=== PATIENT | female | born 1980 | race Caucasian/White ===

== ENCOUNTER → 2020-08-29 15:39 | Outpatient (BNVA) | payer OTHER, SELFPAY | PROVIDERS: PCP Family Medicine; Referring Provider Family Medicine; Visit Provider Nurse Practitioner | DX: Z76.89 Persons encountering health services in other specified circumstances (principal) ==

== ENCOUNTER 2020-12-03 17:09 | Outpatient (REF) | payer OTHER, SELFPAY | END 2020-12-03 17:10 | disposition home or self-care (01) | LOC: HO.LAB 17:09 | PROVIDERS: Visit Provider Internal Medicine | DX: Z20.822 Contact with and (suspected) exposure to COVID-19 (principal) | CPT/HCPCS: 36415; C9803; U0003 ==

== ENCOUNTER 2021-08-27 08:21 | Outpatient (REF) | payer OTHER, SELFPAY ==
--- NOTE | ~2021-08-27 | XR_ITS ---
EXAMINATION: XR HIP, RIGHT CLINICAL INFORMATION: Pain COMPARISON: Previous x-ray May 2013 TECHNIQUE: Two views of the right hip. FINDINGS: Bones and soft tissues are normal. No fracture. Alignment is anatomic. Hip joint space is maintained. XR/XR hip RT min 2V IMPRESSION: Normal right hip.
== END 2021-08-27 08:22 | disposition home or self-care (01) ==
LOC: HO.XRAY 08:21
PROVIDERS: PCP Family Medicine; Visit Provider Family Medicine
DX: M25.551 Pain in right hip (principal)
CPT/HCPCS: 73502

== ENCOUNTER 2022-01-21 12:18 | Emergency (ER) | payer OTHER, SELFPAY ==
[2022-01-21 13:47] VITALS: BP 117/80; PULSE 106; RESP 18; TEMP 36.7; O2SAT 97; BMI 29.7
[2022-01-21 14:11] LABS: MANUAL DIFF FLAG NO
[2022-01-21 14:15] LABS: Appearance Urine CLEAR; Color Urine YELLOW; Glucose Urine UA NEG (NEG); Leukocyte Esterase Urine NEG (NEG); Nitrite Urine NEG (NEG); PH 6.5 (5.0-8.0); UACC Culture Trigger NO; Urine Blood TRACE (NEG); Urine Ketones NEG (NEG); Urine Protein NEG (NEG-TRACE)
[2022-01-21 14:16] LABS: Basophils Percent Auto 0.3 % (0-2); Eosinophils Percent Auto 0.1 % (0-4); Hematocrit 39.5 % (37.0-47.0); Hemoglobin 13.5 g/dl (12.0-16.0); Imm Gran Abs Auto 0.07 X10*3/uL (0.00-0.03); Imm Gran Pct Auto 0.5 % (0.0-0.4); Lymphocytes Absolute Auto 3.1 X10*3/uL (1.2-4.9); Lymphocytes Percent Auto 21.9 % (20-40); Mean Corpuscular HGB Conc 34.2 g/dl (31.0-35.0); Mean Corpuscular Volume 87.8 fL (80.0-98.0); Mean Platelet Volume 9.9 fL (9.4-12.3); Monocytes Absolute Auto 0.5 X10*3/uL (0.1-1.2); Monocytes Percent Auto 3.5 % (2-11); Neutrophils Absolute Auto 10.5 x10*3/uL (2.0-8.3); Neutrophils Percent Auto 73.7 % (45-73); Platelet Count 264 X10*3/uL (160-400); Red Cell Distribution Width 12.6 % (11.0-16.0); White Blood Count 14.2 X10*3/uL (4.8-10.8)
[2022-01-21 14:27] LABS: Bacteria Urine 2+ /LPF; RBC Urine 0-2 /HPF (0); Squamous Epithelial Cell Urine 4+ /LPF; WBC Urine 0-2 /HPF (0-4)
[2022-01-21 14:28] LABS: COVID-19 Test Negative (Negative)
[2022-01-21 14:31] LABS: Alanine Aminotransferase 34 U/L (0-31); Albumin Level 4.4 g/dL (3.5-5.0); Alkaline Phosphatase 67 U/L (39-117); Anion Gap 14 (12-20); Aspartate Amino Transferase 23 U/L (5-31); Bilirubin Total 0.6 mg/dL (0.0-1.0); Blood Urea Nitrogen 9 mg/dL (9-16); Calcium 9.7 mg/dL (8.4-10.2); Carbon Dioxide 22 mmol/L (22-29); Chloride 104 mmol/L (96-108); Creatinine Clr Calc Pharmacy 127.1; Estimated Glomerular Filt Rate > 60; Glucose Random 95 mg/dL (60-115); Potassium 4.5 mmol/L (3.3-5.1); Sodium 135 mmol/L (135-145); Total Protein 7.4 g/dL (6.5-8.0)
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
[2022-01-21] MEDS: Ketorolac Tromethamine 15 MG/ML VIAL IVPUSH (16:31)
[2022-01-21] MEDS: diphenhydrAMINE HCL 50 MG/ML VIAL IVPUSH (16:31)
[2022-01-21] MEDS: Metoclopramide HCl 10 MG/2 ML VIAL IVPUSH (16:31)
[2022-01-21] MEDS: 0.9 % Sodium Chloride 1,000 ML 999 ML IV ×2 (16:34→17:39)
[2022-01-21 16:43] VITALS: BP 120/72; PULSE 82; RESP 16; TEMP 36.7; O2SAT 99
== END 2022-01-21 18:16 | disposition home or self-care (01) ==
PROVIDERS: Emergency Provider Emergency Medicine Emergency Medical Services; PCP Family Medicine
DX: E86.0 Dehydration (principal); R11.2 Nausea with vomiting, unspecified; R19.7 Diarrhea, unspecified; R51.9 Headache, unspecified; Z20.822 Contact with and (suspected) exposure to COVID-19; Z79.899 Other long term (current) drug therapy
CPT/HCPCS: 80053; 81001; 85025; 87635; 96361; 96374; 96375; 99284; J1200; J1885; J2765

== ENCOUNTER 2022-01-24 12:36 | Emergency (ER) | payer OTHER, SELFPAY ==
--- NOTE | ~2022-01-24 | CT_ITS ---
EXAMINATION: CT head/brain wo con CLINICAL INFORMATION: Reason for Exam Headache, vomiting, r/o stroke, bleed COMPARISON: None. TECHNIQUE: Contiguous axial imaging was performed from the skull base to vertex without intravenous contrast. Sagittal and coronal reformatted images were obtained. This CT examination was performed using dose optimization techniques as appropriate, variously including the following: * Automated exposure control * Adjustment of mA and/or kV according to patient size (this includes techniques or standardized protocols for targeted exams where dose is matched to indication/reason for exam; i.e. extremities or head) Use of iterative reconstruction technique DLP: 112 mGy-cm FINDINGS: No acute osseous or soft tissue abnormality. The mastoid air cells and visualized portions of the paranasal sinuses are well aerated. There is no evidence of acute intracranial hemorrhage or territorial infarction. No abnormal mass effect or midline shift is seen. Cisneros to white matter differentiation is well preserved. No extra-axial fluid collections are identified. No hydrocephalus. CT/CT head/brain wo con IMPRESSION: 1. No acute intracranial abnormality.
[2022-01-24 12:50] VITALS: BP 125/87; PULSE 120; RESP 18; TEMP 37; O2SAT 96; BMI 29.7
[2022-01-24] MEDS: Ondansetron ODT 4 MG TAB.RAPDIS TRANSLINGU (12:57)
[2022-01-24 13:08] LABS: MANUAL DIFF FLAG NO
[2022-01-24 13:13] LABS: Basophils Percent Auto 0.3 % (0-2); Eosinophils Percent Auto 0.2 % (0-4); Hematocrit 40.5 % (37.0-47.0); Hemoglobin 13.8 g/dl (12.0-16.0); Imm Gran Abs Auto 0.04 X10*3/uL (0.00-0.03); Imm Gran Pct Auto 0.3 % (0.0-0.4); Lymphocytes Absolute Auto 2.4 X10*3/uL (1.2-4.9); Lymphocytes Percent Auto 18.7 % (20-40); Mean Corpuscular HGB Conc 34.1 g/dl (31.0-35.0); Mean Platelet Volume 9.9 fL (9.4-12.3); Monocytes Absolute Auto 0.4 X10*3/uL (0.1-1.2); Monocytes Percent Auto 3.3 % (2-11); Neutrophils Absolute Auto 9.9 x10*3/uL (2.0-8.3); Neutrophils Percent Auto 77.2 % (45-73); Platelet Count 272 X10*3/uL (160-400); Red Cell Distribution Width 12.8 % (11.0-16.0); White Blood Count 12.8 X10*3/uL (4.8-10.8)
[2022-01-24 13:26] LABS: Appearance Urine HAZY; Color Urine YELLOW; Glucose Urine UA NEG (NEG); Leukocyte Esterase Urine NEG (NEG); Nitrite Urine NEG (NEG); Specific Gravity - Urine >= 1.030 (1.005-1.025); UACC Culture Trigger NO; Urine Blood 1+ (NEG); Urine Ketones 40 MG/DL (NEG); Urine Protein TRACE MG/DL (NEG-TRACE)
[2022-01-24 13:30] LABS: UPreg QC Valid YES; Urine Pregnancy NEGATIVE (NEGATIVE)
[2022-01-24 13:32] LABS: Alanine Aminotransferase 45 U/L (0-31); Albumin Level 4.6 g/dL (3.5-5.0); Alkaline Phosphatase 69 U/L (39-117); Anion Gap 14 (12-20); Aspartate Amino Transferase 31 U/L (5-31); Bilirubin Direct 0.2 mg/dL (0.0-0.5); Bilirubin Total 0.7 mg/dL (0.0-1.0); Blood Urea Nitrogen 9 mg/dL (9-16); Calcium 10.4 mg/dL (8.4-10.2); Carbon Dioxide 25 mmol/L (22-29); Chloride 102 mmol/L (96-108); Creatinine Clr Calc Pharmacy 119.9; Estimated Glomerular Filt Rate > 60; Glucose Random 113 mg/dL (60-115); Lipase 12 U/L (8-78); Potassium 4.4 mmol/L (3.3-5.1); Sodium 137 mmol/L (135-145); Total Protein 7.8 g/dL (6.5-8.0)
[2022-01-24 13:33] LABS: Mucus Urine 3+ /LPF; Squamous Epithelial Cell Urine 2+ /LPF; WBC Urine 0-2 /HPF (0-4)
--- NOTE | 2022-01-24 16:11 | ED_ITS ---
HPI - Nausea/Vomiting/Diarrhea General Chief complaint: Abdominal Pain Stated complaint: N/V/D Time Seen by Provider: 01/24/22 15:47 Source: patient Mode of arrival: ambulatory Limitations: no limitations History of Present Illness HPI Narrative: 41-year-old female who presents emergency department for evaluation of nausea, vomiting, diarrhea, weakness, dizziness, abdominal pain and headache. This is her 2nd visit for these symptoms. Thepatient was seen for similar complaints by me on 01/21/2022, at that time her workup was negative and she did get improvement after treatment in the emergency department with IV Toradol, Reglan, Benadryl and on the fluids. Her laboratory evaluation was unremarkable at that time and she was not able to give us a stool sample. The patient states that she felt good for 1 day but then her symptoms returned yesterday at 14:00 hours. Symptoms came on while she was at rest. She states developed a constant pressure-like headache located around her temporal regions bilateral and in the back of her head. She states that came on suddenly yesterday at rest, and her headache has been a constant pressure-like sensation which is 8/10. She does have migraine headaches but she states that this headache is different than her migraine since this headache is more severe and more persistent. Patient states she has had nausea and vomiting. She states she has vomited over 200 times. She states that the emesis consists of gastric acid with no food. She also states she has had over 20 episodes of diarrhea. She describes this as watery diarrhea with dark brown stool and no blood in the emesis or diarrhea. She states she has diffuse abdominal pain which she attributes her persistent vomiting. She states she is feeling very weak, lightheaded and dizziness. In reviewing the previous visit, the patient presented with nausea, vomiting, diarrhea, abdominal pain and headache. The patient had been treated for a sinus infection and throat infection with Augmentin and during the course of Augmentin she had 5 days of diarrhea which then resolved but the diarrhea came back 5 days prior her 1st visit to the emergency department (01/21/2022) She had frequent diarrhea, nausea, vomiting abdominal pain. MD elicited complaint: nausea, vomiting, diarrhea and abdominal pain Onset (ago): day(s) (2) Description of vomiting: watery and other ( stomach acid ) Description of diarrhea: watery and loose (Brown) Associated nausea: Yes Associated abdominal pain: Yes Location of pain: diffuse Pain consistency: constant Severity: moderate Pain scale (0-10): 6 Quality: aching Exacerbating factors: eating Relieving factors: none Context: recent antibiotic use Associated symptoms: headaches, loss of appetite, malaise, nausea/vomiting and weakness Treatment prior to arrival: none Related Data Home Medications Medication Instructions Recorded Confirmed lorazepam 1 mg tablet 1 mg PO BID PRN 08/29/20 01/21/22 sertraline 50 mg tablet (Zoloft) 200 mg PO DAILY tab 03/12/21 01/21/22 trazodone 50 mg tablet 50 mg PO BEDTIME PRN 12/30/21 01/21/22 Previous Rx's Medication Instructions Recorded meclizine 25 mg tablet 25 mg PO TID PRN 30 Days #60 tab 05/31/21 omeprazole 40 mg capsule,delayed 40 mg PO DAILY 90 Days #90 cap 09/02/21 release ibuprofen 800 mg tablet 800 mg PO Q8H PRN #60 tab 10/21/21 fluticasone propionate 50 2 spray INTRANASAL DAILY 30 Days 12/16/21 mcg/actuation nasal #16 g spray,suspension (Allergy Relief (fluticasone)) levocetirizine 5 mg tablet 5 mg PO DAILY #30 tab 01/20/22 metoclopramide HCl 10 mg tablet 10 mg PO Q6H PRN #14 tab 01/24/22 (Reglan) Allergies Allergy/AdvReac Type Severity Reaction Status Date / Time codeine [Codeine] Allergy Unknown RASH, hives Verified 01/24/22 12:50 terbinafine AdvReac Intermediate Nausea and Verified 01/24/22 12:50 vomit Review of Systems Gastrointestinal: Gastrointestinal: Reports nausea PMFSH Past Medical History Medical History Heel fracture Hx LEEP (loop electrosurgical excision procedure), cervix, Surgical History History of cholecystectomy History of dermoid cyst excision Family History Family History Father Cancer of unknown origin Ulcerative colitis Mother Lupus IBS (irritable bowel syndrome) Daughter Chronic idiopathic constipation Social History Social History Housing: House Alcohol intake: current Patient Tobacco Use Status: Current everyday Tobacco user Tobacco use type: Cigarette Cigarettes Per Day: 10 e-Cigarette/Vaping Use: Never Used Advance Directives: No Advance Directives Information Provided: No Patient : No service: No 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 This is the patient's 2nd visit to the emergency department, she was seen for similar symptoms on 01/21/2022. The patient did complete a course of Augmentin for sinus infection approximately 2-3 weeks prior. Patient did feel better after leaving the emergency department but her symptoms came back 2 days prior and she states that she has had over 200 episodes vomiting, greater than 20 episodes diarrhea, and a moderate to severe constant headache. Vital signs did reveal an elevated pulse of 120 otherwise were unremarkable. Physical examination was unremarkable. Laboratory evaluation including a CBC, CMP, ESR, stool culture and C diff were ordered. Patient was ordered to get normal saline IV x2 L, Toradol 15 mg IV, Reglan 10 mg IV and Benadryl 50 mg IV. She will be treated with 2 L of normal saline as well. Since she has a persistent headache, CT scan of head will also be obtained. 1647: CT scan of the brain was unremarkable. Patient fell significant better after the above treatment. The patient will be discharged home with a prescription for Reglan 10 mg every 6 hours as needed for nausea and vomiting. She was also advised to take 2 Excedrin migraine and 50 mg of Benadryl when she takes the Reglan. She was also advised to take Imodium to slow down her diarrhea. She was given printed and verbal instructions and discharged home. MDM - Nausea/Vomiting/Diarrhea Lab Data Result diagrams: 01/24/22 13:02 01/24/22 13:02 Labs: Lab Results 01/24/22 01/24/22 01/24/22 Range/Units 13:02 13:02 13:19 WBC 12.8 H (4.8-10.8) X10*3/uL RBC 4.60 (4.20-5.50) X10*6/uL Hgb 13.8 (12.0-16.0) g/dl Hct 40.5 (37.0-47.0) % MCV 88.0 (80.0-98.0) fL MCH 30.0 (27.0-33.0) pg MCHC 34.1 (31.0-35.0) g/dl RDW 12.8 (11.0-16.0) % Plt Count 272 (160-400) X10*3/uL MPV 9.9 (9.4-12.3) fL Immature Gran % (Auto) 0.3 (0.0-0.4) % Neut % (Auto) 77.2 H (45-73) % Lymph % (Auto) 18.7 L (20-40) % Tift % (Auto) 3.3 (2-11) % Eos % (Auto) 0.2 (0-4) % Baso % (Auto) 0.3 (0-2) % Lymph # (Auto) 2.4 (1.2-4.9) X10*3/uL Tift # (Auto) 0.4 (0.1-1.2) X10*3/uL Eos # (Auto) 0.0 (0.0-0.4) X10*3/uL Baso # (Auto) 0.0 (0.0-0.2) X10*3/uL Abs Immat Gran (auto) 0.04 H (0.00-0.03) X10*3/uL Absolute Neuts (auto) 9.9 H (2.0-8.3) x10*3/uL Absolute Nucleated RBC 0.000 (0.0-0.012) X10*3/uL Nucleated RBC % (auto) 0.0 (0.0-0.2) /100WBC Sodium 137 (135-145) mmol/L Potassium 4.4 (3.3-5.1) mmol/L Chloride 102 (96-108) mmol/L Carbon Dioxide 25 (22-29) mmol/L Anion Gap 14 (12-20) BUN 9 (9-16) mg/dL Creatinine 0.71 (0.5-1.4) mg/dL Estim Creat Clear Calc 119.9 Estimated GFR > 60 Random Glucose 113 (60-115) mg/dL Calcium 10.4 H D (8.4-10.2) mg/dL Total Bilirubin 0.7 (0.0-1.0) mg/dL Direct Bilirubin 0.2 (0.0-0.5) mg/dL AST 31 (5-31) U/L ALT 45 H (0-31) U/L Alkaline Phosphatase 69 (39-117) U/L Total Protein 7.8 (6.5-8.0) g/dL Albumin 4.6 (3.5-5.0) g/dL Lipase 12 (8-78) U/L Urine Color YELLOW Urine Appearance HAZY Urine pH 6.0 (5.0-8.0) Ur Specific [place] >= 1.030 H (1.005-1.025) Urine Protein TRACE (NEG-TRACE) MG/DL Urine Glucose (UA) NEG (NEG) MG/DL Urine Ketones 40 (NEG) MG/DL Urine Blood 1+ H (NEG) Urine Nitrite NEG (NEG) Ur Leukocyte Esterase NEG (NEG) Urine RBC 1-4 (0) /HPF Urine WBC 0-2 (0-4) /HPF Ur Squamous Epith Cells 2+ /LPF Urine Bacteria NONE /LPF Urine Mucus 3+ /LPF Urine Test (NEGATIVE) 01/24/22 Range/Units 13:19 WBC (4.8-10.8) X10*3/uL RBC (4.20-5.50) X10*6/uL Hgb (12.0-16.0) g/dl Hct (37.0-47.0) % MCV (80.0-98.0) fL MCH (27.0-33.0) pg MCHC (31.0-35.0) g/dl RDW (11.0-16.0) % Plt Count (160-400) X10*3/uL MPV (9.4-12.3) fL Immature Gran % (Auto) (0.0-0.4) % Neut % (Auto) (45-73) % Lymph % (Auto) (20-40) % Tift % (Auto) (2-11) % Eos % (Auto) (0-4) % Baso % (Auto) (0-2) % Lymph # (Auto) (1.2-4.9) X10*3/uL Tift # (Auto) (0.1-1.2) X10*3/uL Eos # (Auto) (0.0-0.4) X10*3/uL Baso # (Auto) (0.0-0.2) X10*3/uL Abs Immat Gran (auto) (0.00-0.03) X10*3/uL Absolute Neuts (auto) (2.0-8.3) x10*3/uL Absolute Nucleated RBC (0.0-0.012) X10*3/uL Nucleated RBC % (auto) (0.0-0.2) /100WBC Sodium (135-145) mmol/L Potassium (3.3-5.1) mmol/L Chloride (96-108) mmol/L Carbon Dioxide (22-29) mmol/L Anion Gap (12-20) BUN (9-16) mg/dL Creatinine (0.5-1.4) mg/dL Estim Creat Clear Calc Estimated GFR Random Glucose (60-115) mg/dL Calcium (8.4-10.2) mg/dL Total Bilirubin (0.0-1.0) mg/dL Direct Bilirubin (0.0-0.5) mg/dL AST (5-31) U/L ALT (0-31) U/L Alkaline Phosphatase (39-117) U/L Total Protein (6.5-8.0) g/dL Albumin (3.5-5.0) g/dL Lipase (8-78) U/L Urine Color Urine Appearance Urine pH (5.0-8.0) Ur Specific [place] (1.005-1.025) Urine Protein (NEG-TRACE) MG/DL Urine Glucose (UA) (NEG) MG/DL Urine Ketones (NEG) MG/DL Urine Blood (NEG) Urine Nitrite (NEG) Ur Leukocyte Esterase (NEG) Urine RBC (0) /HPF Urine WBC (0-4) /HPF Ur Squamous Epith Cells /LPF Urine Bacteria /LPF Urine Mucus /LPF Urine Test NEGATIVE (NEGATIVE) Discharge Plan Discharge Clinical Impression: Acute dehydration Vomiting Qualifiers: Vomiting type: unspecified Nausea presence: with nausea Qualified Code(s): R11.2 - Nausea with vomiting, unspecified Diarrhea Qualifiers: Diarrhea type: unspecified type Qualified Code(s): R19.7 - Diarrhea, unspecified Headache Qualifiers: Headache type: unspecified Headache chronicity pattern: acute headache Intractability: not intractable Qualified Code(s): R51.9 - Headache, unspecified Patient Disposition: Home, Self-Care Additional Instructions: Your blood work today was unremarkable except for slight elevation in white blood count of 12,800. At this time, I believe that your symptoms are most likely caused by a viral infection. For diarrhea I want you to take Imodium 2 mg pills.? Take 2 pills after the 1st loose, diarrheal stool then 1 pill after each loose, diarrheal stool up to 8 pills per day.? This usually stops diarrhea within 24 hours. However, if you continue to have diarrhea then your doctor should get an outpatient stool sample for stool culture and to test for C diff. I want you to take the following 3 medications together every 6 hours as needed for headache, nausea or vomiting.? Reglan (metoclopramide) in 10 mg, 1 pill Benadryl 25 mg, 2 pills Excedrin migraine, 1 or 2 pills. After you take these medications, lie down in a dark quiet room and try to fall asleep.? These medications will make you sleepy, do not drive or work after taking these medications. Follow-up with your doctor in 2 days. Please return to the emergency department if your symptoms get worse or if you develop any symptoms that are concerning to you. Prescriptions: New metoclopramide HCl [Reglan] 10 mg tablet 10 mg PO Q6H PRN (Reason: nausea and vomiting) Qty: 14 0RF No Action meclizine 25 mg tablet 25 mg PO TID PRN (Reason: dizziness) 30 Days Qty: 60 0RF Rx Instructions: Take 1 tablet by mouth 3 times daily for 10 days. levocetirizine 5 mg tablet 5 mg PO DAILY Qty: 30 3RF omeprazole 40 mg capsule,delayed release(DR/EC) 40 mg PO DAILY 90 Days Qty: 90 2RF ibuprofen 800 mg tablet 800 mg PO Q8H PRN (Reason: pain) Qty: 60 1RF trazodone 50 mg tablet 50 mg PO BEDTIME PRN0RF fluticasone propionate [Allergy Relief (fluticasone)] 50 mcg/actuation sp ray,suspension 2 spray intranasal DAILY 30 Days Qty: 16 3RF Rx Instructions: administer into each nostril lorazepam 1 mg tablet 1 mg PO BID PRN0RF sertraline [Zoloft] 50 mg tablet 200 mg PO DAILY 0RF Rx Instructions: one fifty at night, Fifty in the morning.
[2022-01-24 16:34] VITALS: BP 137/97; PULSE 97; RESP 18; O2SAT 97
[2022-01-24] MEDS: Ketorolac Tromethamine 15 MG/ML VIAL IVPUSH (16:42)
[2022-01-24] MEDS: Metoclopramide HCl 10 MG/2 ML VIAL IVPUSH (16:42)
[2022-01-24] MEDS: diphenhydrAMINE HCL 50 MG/ML VIAL IVPUSH (16:42)
[2022-01-24] MEDS: 0.9 % Sodium Chloride 1,000 ML 999 ML IV ×2 (16:48→18:17)
== END 2022-01-24 19:04 | disposition home or self-care (01) ==
PROVIDERS: Emergency Provider Emergency Medicine Emergency Medical Services; PCP Family Medicine
DX: E86.0 Dehydration (principal); R11.2 Nausea with vomiting, unspecified; R19.7 Diarrhea, unspecified; R51.9 Headache, unspecified; M79.10 Myalgia, unspecified site; F17.210 Nicotine dependence, cigarettes, uncomplicated; Z71.6 Tobacco abuse counseling; Z79.899 Other long term (current) drug therapy
CPT/HCPCS: 36415; 70450; 80048; 80076; 81001; 81025; 83690; 85025; 96361; 96374; 96375; 99284; J1200; J1885; J2765

== ENCOUNTER 2022-02-17 14:43 | Outpatient (REF) | payer OTHER, SELFPAY ==
--- NOTE | ~2022-02-17 | XR_ITS ---
EXAMINATION: XR ABDOMEN KUB CLINICAL INDICATION: Gastroenteritis and colitis COMPARISON: None TECHNIQUE: AP view of the abdomen. FINDINGS: The bowel gas pattern is normal with no evidence of ileus or obstruction. No unusual soft tissue calcifications are noted. The bones are unremarkable. Right upper quadrant surgical clips suggestive of cholecystectomy. XR/XR KUB IMPRESSION: Unremarkable examination.
== END 2022-02-17 14:44 | disposition home or self-care (01) ==
LOC: HO.XRAY 14:43
PROVIDERS: PCP Family Medicine; Visit Provider Hospitalist
DX: K52.9 Noninfective gastroenteritis and colitis, unspecified (principal); R30.0 Dysuria
CPT/HCPCS: 74018; 87086

== ENCOUNTER 2022-02-19 11:23 | Outpatient (REF) | payer OTHER, SELFPAY ==
[2022-02-19 15:55] LABS: Alanine Aminotransferase 38 U/L (0-31); Albumin Level 4.5 g/dL (3.5-5.0); Alkaline Phosphatase 66 U/L (39-117); Amylase 33 U/L (28-100); Anion Gap 12 (12-20); Aspartate Amino Transferase 23 U/L (5-31); Bilirubin Total 0.5 mg/dL (0.0-1.0); Blood Urea Nitrogen 11 mg/dL (9-16); Calcium 9.9 mg/dL (8.4-10.2); Carbon Dioxide 26 mmol/L (22-29); Chloride 103 mmol/L (96-108); Estimated Glomerular Filt Rate > 60; Glucose Random 90 mg/dL (60-115); Lipase 15 U/L (8-78); Magnesium 2.1 mg/dL (1.6-2.6); Phosphorus 2.9 mg/dL (2.7-4.5); Potassium 4.8 mmol/L (3.3-5.1); Sodium 136 mmol/L (135-145); Total Protein 7.4 g/dL (6.5-8.0)
== END 2022-02-19 11:24 | disposition home or self-care (01) ==
LOC: HO.WFDLDS 11:23
PROVIDERS: Visit Provider Hospitalist
DX: Z00.00 Encounter for general adult medical examination without abnormal findings (principal); R10.9 Unspecified abdominal pain; K21.9 Gastro-esophageal reflux disease without esophagitis; K58.2 Mixed irritable bowel syndrome
CPT/HCPCS: 36415; 80053; 82150; 83690; 83735; 84100; 87086

== ENCOUNTER 2022-02-19 11:25 | Outpatient (REF) | payer OTHER, SELFPAY | END 2022-02-19 11:26 | disposition home or self-care (01) | LOC: HO.LAB 11:25 | PROVIDERS: Visit Provider Hospitalist | DX: Z13.89 Encounter for screening for other disorder (principal) ==

== ENCOUNTER → 2022-04-22 16:41 | Outpatient (BNVA) | payer OTHER, SELFPAY | PROVIDERS: PCP Family Medicine; Referring Provider Family Medicine; Visit Provider Nurse Practitioner | DX: K91.5 Postcholecystectomy syndrome (principal); K21.00 Gastro-esophageal reflux disease with esophagitis, without bleeding | CPT/HCPCS: 99212 ==

== ENCOUNTER → 2022-05-12 16:12 | Outpatient (BNVA) | payer OTHER, SELFPAY | PROVIDERS: PCP Family Medicine; Visit Provider Nurse Practitioner | DX: K91.5 Postcholecystectomy syndrome (principal); K21.00 Gastro-esophageal reflux disease with esophagitis, without bleeding | CPT/HCPCS: 99212 ==

== ENCOUNTER → 2022-08-12 15:50 | Outpatient (BNVA) | payer OTHER, SELFPAY | PROVIDERS: PCP Family Medicine; Visit Provider Nurse Practitioner | DX: K91.5 Postcholecystectomy syndrome (principal); K58.0 Irritable bowel syndrome with diarrhea; K21.00 Gastro-esophageal reflux disease with esophagitis, without bleeding; Z79.899 Other long term (current) drug therapy | CPT/HCPCS: 99212 ==

== ENCOUNTER 2023-01-01 15:31 | Outpatient (REF) | payer OTHER, SELFPAY ==
[2023-01-01 15:57] LABS: MANUAL DIFF FLAG NO
[2023-01-01 17:37] LABS: Basophils Absolute Auto 0.1 X10*3/uL (0.0-0.2); Basophils Percent Auto 0.5 % (0-2); Eosinophils Absolute Auto 0.1 X10*3/uL (0.0-0.4); Eosinophils Percent Auto 0.9 % (0-4); Hematocrit 41.7 % (37.0-47.0); Hemoglobin 13.8 g/dl (12.0-16.0); Imm Gran Abs Auto 0.04 X10*3/uL (0.00-0.03); Imm Gran Pct Auto 0.3 % (0.0-0.4); Lymphocytes Absolute Auto 3.1 X10*3/uL (1.2-4.9); Lymphocytes Percent Auto 26.4 % (20-40); Mean Corpuscular HGB Conc 33.1 g/dl (31.0-35.0); Mean Corpuscular Hemoglobin 28.5 pg (27.0-33.0); Monocytes Absolute Auto 0.4 X10*3/uL (0.1-1.2); Neutrophils Percent Auto 68.9 % (45-73); Platelet Count 237 X10*3/uL (160-400); Red Blood Count 4.85 X10*6/uL (4.20-5.50); Red Cell Distribution Width 13.2 % (11.0-16.0); White Blood Count 11.6 X10*3/uL (4.8-10.8)
[2023-01-01 17:56] LABS: Anion Gap 14 (12-20); Blood Urea Nitrogen 11 mg/dL (9-16); Calcium 9.7 mg/dL (8.4-10.2); Carbon Dioxide 25 mmol/L (22-29); Chloride 104 mmol/L (96-108); Estimated Glomerular Filt Rate > 60; Glucose Random 99 mg/dL (60-115); Potassium 4.2 mmol/L (3.3-5.1); Rheumatoid Factor < 13.0 IU/mL (<15.0); Sodium 139 mmol/L (135-145)
[2023-01-01 18:19] LABS: Erythrocyte Sedimentation Rate 18 MM/HR (0-20)
[2023-01-05 15:53] LABS: CRP High Sensitivity 6.5 mg/L; Cyclic Citrullinated Peptide <16 UNITS
[2023-01-06 15:48] LABS: Anti Nuclear Antibody Screen NEGATIVE (NEGATIVE)
== END 2023-01-01 15:32 | disposition home or self-care (01) ==
LOC: HO.LAB 15:31
PROVIDERS: PCP Family Medicine; Visit Provider Family Medicine
DX: Z00.00 Encounter for general adult medical examination without abnormal findings (principal); M25.50 Pain in unspecified joint
CPT/HCPCS: 36415; 80048; 85025; 85652; 86038; 86039; 86141; 86200; 86431

== ENCOUNTER 2023-04-30 12:26 | Outpatient (REF) | payer OTHER, SELFPAY ==
[2023-05-09 07:18] LABS: Lyme Blot 1.67 index
[2023-05-09 10:09] LABS: Lyme Abs Screen POSITIVE
[2023-05-18 14:58] LABS: 18 KD (IgG) Band NON-REACTIVE; 23 KD (IgG) Band NON-REACTIVE; 23 KD (IgM) Band REACTIVE; 28 KD (IgG) Band NON-REACTIVE; 30 KD (IgG) Band NON-REACTIVE; 39 KD (IgM) Band NON-REACTIVE; 39KD (IgG) Band NON-REACTIVE; 41 KD (IgM) Band NON-REACTIVE; 41KD (IgG) Band REACTIVE; 45 KD (IgG) Band NON-REACTIVE; 58 KD (IgG) Band NON-REACTIVE; 66 KD (IgG) Band NON-REACTIVE; 93 KD (IgG) Band NON-REACTIVE; Lyme IgG Blot Interp NEGATIVE (NEGATIVE); Lyme IgM Blot Interp NEGATIVE (NEGATIVE)
== END 2023-04-30 12:27 | disposition home or self-care (01) ==
LOC: HO.WFDLDS 12:26
PROVIDERS: Visit Provider Family Medicine
DX: M25.50 Pain in unspecified joint (principal)
CPT/HCPCS: 36415; 86617; 86618

== ENCOUNTER 2023-05-18 16:22 | Emergency (ER) | payer OTHER, SELFPAY ==
--- NOTE | ~2023-05-18 | XR_ITS ---
EXAMINATION: XR CHEST CLINICAL INFORMATION: Chest pain COMPARISON: None available. TECHNIQUE: 2 views of the chest were obtained. FINDINGS: No significant abnormality is noted involving the heart, lungs, mediastinum, bony thorax or soft tissues. XR/XR chest 2V IMPRESSION: Unremarkable chest examination.
[2023-05-18 17:06] VITALS: BP 131/90; PULSE 105; TEMP 36.7; O2SAT 97; BMI 27.9
--- NOTE | 2023-05-18 17:08 | ED_ITS ---
HPI - General Adult General Chief complaint: General Medical Stated complaint: side effects to [place] disease antibiotic Time Seen by Provider: 05/18/23 18:44 Source: patient Mode of arrival: ambulatory Limitations: no limitations History of Present Illness HPI narrative: 42-year-old female presents with diarrhea and generalized myalgias. Symptoms started 1 hour after taking doxycycline for newly diagnosed Lyme disease. Patient is in the process of being worked up for polyarthralgias. 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 Patient had some routine testing done by her primary care provider 1 of the abnormalities was noted to be a positive Lyme test. Today, 1 after taking doxycycline, she developed watery diarrhea. She denied any nausea vomiting. She did develop generalized myalgias including chest pain, abdominal discomfort, extremity pain. She denied any shortness of breath, mucus or objective fevers. She did feel subjectively fevers. Her symptoms were exacerbated by oral intake of food and fluids. There are no clear relieving features. Related Data Home Medications Medication Instructions Recorded Confirmed trazodone 50 mg tablet 50 mg PO BEDTIME PRN 12/30/21 04/30/23 ibuprofen 800 mg tablet 800 mg PO Q8H 03/31/22 04/30/23 epinephrine 0.3 mg/0.3 mL 0.3 ml IM ONCE PRN 08/12/22 04/30/23 injection, auto-injector sertraline 100 mg tablet 150 mg PO BEDTIME 08/12/22 04/30/23 sertraline 50 mg tablet (Zoloft) 50 mg PO DAILY 08/12/22 04/30/23 gabapentin 100 mg capsule 100 mg PO TID 03/13/23 04/30/23 hydroxyzine HCl 10 mg tablet 5 - 10 mg PO BID PRN anxiety 03/13/23 04/30/23 Previous Rx's Medication Instructions Recorded fluticasone propionate 50 2 spray intranasal DAILY 1 month 12/16/21 mcg/actuation nasal #16 grams spray,suspension (Allergy Relief (fluticasone)) meclizine 25 mg tablet 25 mg PO TID PRN dizziness 30 days 02/03/22 #60 tabs lorazepam 1 mg tablet 1 mg PO Q8H 14 days #42 tabs 02/19/22 sucralfate 1 gram tablet (Carafate) 3 g PO .qacsupper #60 tabs 05/12/22 eluxadoline 75 mg tablet (Viberzi) 75 mg PO BID #60 tabs 08/12/22 diphenhydramine HCl 25 mg tablet 50 mg PO BEDTIME PRN allergy 12/22/22 symptoms 30 days #60 tabs levocetirizine 5 mg tablet 5 mg PO DAILY 90 days #90 tabs 12/22/22 montelukast 10 mg tablet 10 mg PO DAILY 30 days #30 tabs 12/22/22 Magic Mouthwash 15 ml PO TID #240 mL 02/23/23 Diphen/Lido/Antacid 1:1:1 240 mL suspension azelastine 205.5 mcg (0.15 %) 1 spray intranasal BID 30 days #30 04/30/23 nasal spray mL meloxicam 15 mg tablet 15 mg PO DAILY 30 days #30 tabs 04/30/23 nystatin 100,000 unit/mL oral 5 ml PO DAILY 10 days #50 mL 04/30/23 suspension doxycycline hyclate 100 mg tablet 100 mg PO BID 28 days #56 tabs 05/18/23 omeprazole 40 mg capsule,delayed 40 mg PO DAILY #90 caps 05/18/23 release Allergies Allergy/AdvReac Type Severity Reaction Status Date / Time codeine [Codeine] Allergy Unknown RASH, hives Verified 05/18/23 17:16 terbinafine AdvReac Intermediate Nausea and Verified 05/18/23 17:16 vomit Review of Systems Review of Systems: CONSTITUTIONAL: Denies weight loss, fever and chills. HEENT: Denies changes in vision and hearing. RESPIRATORY: Denies SOB and cough. CV: Denies palpitations positive CP. GI: Denies abdominal pain, nausea, vomiting positive diarrhea. : Denies dysuria and urinary frequency. MSK: Positive myalgia and joint pain. SKIN: Denies rash and pruritus. NEUROLOGICAL: Denies headache and syncope. PSYCHIATRIC: Denies recent changes in mood. Denies anxiety and depression. All other ROS are negative unless in HPI PMFSH Past Medical History Medical History Gastroenteritis Heel fracture Hx LEEP (loop electrosurgical excision procedure), cervix, Irritable bowel syndrome with both constipation and diarrhea Mental health disorder Surgical History History of cholecystectomy History of dermoid cyst excision Hx of shoulder surgery Family History Family History Father Cancer of unknown origin Ulcerative colitis Mother Lupus IBS (irritable bowel syndrome) Daughter Chronic idiopathic constipation Social History Social History Housing: House Alcohol intake: current Patient Tobacco Use Status: Current everyday Tobacco user Tobacco use type: Cigarette Cigarettes Per Day: 10 e-Cigarette/Vaping Use: Never Used Second Hand Smoke Exposure: No Advance Directives: No Advance Directives Information Provided: No service: No Current occupational status: employed (out on workmans comp) Current occupational exposures/hazards: No Cognitive needs: No Hearing needs: No Vision needs: Yes (Glasses) Physical Exam ED Vital Signs: Vital Signs - 24 hr 05/18/23 17:06 Temperature 98.0 F Pulse Rate 105 H Blood Pressure 131/90 H Pulse Oximetry 97 Oxygen Delivery Method Room Air BMI result Body Mass Index 27.9 GEN: Well developed, no acute distress, alert, oriented HEENT: Normocephalic, atraumatic, normal external ears, nose appears normal, no oropharyngeal edema or exudates Eyes: Normal to appearance Neck: Supple, no lymphadenopathy Respiratory: Talks in complete sentences, no respiratory distress, clear to auscultation bilaterally Cardiovascular: Regular rate and rhythm, no murmurs rubs or gallops Chest: Reproducible chest wall tenderness to palpation Abdomen: Soft, nontender, nondistended, no guarding, no rebound Back: No CVA tenderness Extremities: No clubbing cyanosis or edema, generalized tenderness to palpation Neurologic: No focal neurologic deficits, cranial nerves 2-12 intact, strength is 5/5 bilaterally Skin: No rash Course Course Course Narrative: RME - 42 yo female presents to the ER for evaluation of chest pain, SOB, abdominal pain, back pain, and diarrhea after she started doxycyline for Lyme disease today. She feels very dehydrated. She called her PCP's office who told her to come to the ER for further evaluation of her symptoms. HR 102 in triage. She took ativan earlier for her anxiety related to new Lyme diagnosis. Plan: labs, EKG, CXR Reevaluation(s) Reevaluation #1: The workup is complete. There are no significant laboratory abnormalities. I did review her Lyme testing. She tested 1/3 positive for IgM Lyme. This is not diagnostic for Lyme disease. At this point I am recommending that she withhold taking doxycycline given the significant side effects until she is able to converse with her primary care provider. I do not believe switching to an alternative treatment is appropriate at this time given the lack of diagnostic criteria. While in the emergency department, she received Toradol IM. We did discuss the use of Imodium gingerly. I doubt C diff colitis given 1 dose of antibiotic. Is highly possible that she did not tolerate doxycycline. I did discuss all results with the patient and she understands all discharge instructions. Time: 19:21 Medical Decision Making Medical Decision Making [facility] Narrative: Patient presents with generalized myalgias, chest discomfort, diarrhea after taking doxycycline x1 dose. Her examination was unremarkable with exception reproducible tenderness throughout her entire body. Her belly was benign. Patient will have routine laboratory testing. She will have an EKG. We will treat her for her pain with Toradol. Will re-evaluate the patient. Patient at this time appears to be discharged will. However, should her lab testin and symptoms show any significant abnormalities or failure to improve in any way, patient may need to be admitted for observation pending symptomatic improvement and/or improvement in her diagnostic testing Differential Diagnosis Differential Diagnoses: The differential diagnosis associated with the presentation includes (Antibiotic reaction viral syndrome, myalgias, fibromyalgia, inflammatory arthropathy or myopathy) Admission/Observation Consideration of admission/observation: Escalation of care including admission/observation considered Lab Data [facility] Lab Attestation statement: I reviewed the patient's lab results. 05/18/23 17:39 05/18/23 17:39 Labs: Lab Results 05/18/23 05/18/23 05/18/23 Range/Units 17:39 17:39 17:39 WBC 13.5 H (4.8-10.8) X10*3/uL RBC 4.66 (4.20-5.50) X10*6/uL Hgb 13.9 (12.0-16.0) g/dl Hct 41.0 (37.0-47.0) % MCV 88.0 (80.0-98.0) fL MCH 29.8 (27.0-33.0) pg MCHC 33.9 (31.0-35.0) g/dl RDW 13.7 (11.0-16.0) % Plt Count 263 (160-400) X10*3/uL MPV 10.3 (9.4-12.3) fL Immature Gran % (Auto) 0.6 H (0.0-0.4) % Neut % (Auto) 69.6 (45-73) % Lymph % (Auto) 24.5 (20-40) % [place] % (Auto) 4.2 (2-11) % Eos % (Auto) 0.7 (0-4) % Baso % (Auto) 0.4 (0-2) % Lymph # (Auto) 3.3 (1.2-4.9) X10*3/uL [place] # (Auto) 0.6 (0.1-1.2) X10*3/uL Eos # (Auto) 0.1 (0.0-0.4) X10*3/uL Baso # (Auto) 0.1 (0.0-0.2) X10*3/uL Abs Immat Gran (auto) 0.08 H (0.00-0.03) X10*3/uL Absolute Neuts (auto) 9.4 H (2.0-8.3) x10*3/uL Absolute Nucleated RBC 0.000 (0.0-0.012) X10*3/uL Nucleated RBC % (auto) 0.0 (0.0-0.2) /100WBC Sodium 139 (135-145) mmol/L Potassium 4.2 (3.3-5.1) mmol/L Chloride 107 (96-108) mmol/L Carbon Dioxide 23 (22-29) mmol/L Anion Gap 13 (12-20) BUN 8 L (9-16) mg/dL Creatinine 0.65 (0.5-1.4) mg/dL Estim Creat Clear Calc 130.0 Estimated GFR > 60 Random Glucose 97 (60-115) mg/dL Calcium 10.4 H D (8.4-10.2) mg/dL Magnesium 2.2 (1.6-2.6) mg/dL Total Bilirubin 0.7 (0.0-1.0) mg/dL Direct Bilirubin 0.1 (0.0-0.5) mg/dL AST 22 (5-31) U/L ALT 31 (0-31) U/L Alkaline Phosphatase 74 (39-117) U/L Troponin I High Sens < 2.7 (<3.5-17.0) ng/L Total Protein 7.8 (6.5-8.0) g/dL Albumin 4.6 (3.5-5.0) g/dL Lipase 21 (8-78) U/L Urine Color Urine Appearance Urine pH (5.0-9.0) Ur Specific [place] (1.005-1.025) Urine Protein (Neg-Trace) mg/dL Urine Glucose (UA) (Negative) mg/dL Urine Ketones (Negative) mg/dL Urine Blood (Negative) Urine Nitrite (Negative) Ur Leukocyte Esterase (Negative) 05/18/23 Range/Units 17:39 WBC (4.8-10.8) X10*3/uL RBC (4.20-5.50) X10*6/uL Hgb (12.0-16.0) g/dl Hct (37.0-47.0) % MCV (80.0-98.0) fL MCH (27.0-33.0) pg MCHC (31.0-35.0) g/dl RDW (11.0-16.0) % Plt Count (160-400) X10*3/uL MPV (9.4-12.3) fL Immature Gran % (Auto) (0.0-0.4) % Neut % (Auto) (45-73) % Lymph % (Auto) (20-40) % [place] % (Auto) (2-11) % Eos % (Auto) (0-4) % Baso % (Auto) (0-2) % Lymph # (Auto) (1.2-4.9) X10*3/uL [place] # (Auto) (0.1-1.2) X10*3/uL Eos # (Auto) (0.0-0.4) X10*3/uL Baso # (Auto) (0.0-0.2) X10*3/uL Abs Immat Gran (auto) (0.00-0.03) X10*3/uL Absolute Neuts (auto) (2.0-8.3) x10*3/uL Absolute Nucleated RBC (0.0-0.012) X10*3/uL Nucleated RBC % (auto) (0.0-0.2) /100WBC Sodium (135-145) mmol/L Potassium (3.3-5.1) mmol/L Chloride (96-108) mmol/L Carbon Dioxide (22-29) mmol/L Anion Gap (12-20) BUN (9-16) mg/dL Creatinine (0.5-1.4) mg/dL Estim Creat Clear Calc Estimated GFR Random Glucose (60-115) mg/dL Calcium (8.4-10.2) mg/dL Magnesium (1.6-2.6) mg/dL Total Bilirubin (0.0-1.0) mg/dL Direct Bilirubin (0.0-0.5) mg/dL AST (5-31) U/L ALT (0-31) U/L Alkaline Phosphatase (39-117) U/L Troponin I High Sens (<3.5-17.0) ng/L Total Protein (6.5-8.0) g/dL Albumin (3.5-5.0) g/dL Lipase (8-78) U/L Urine Color Yellow Urine Appearance Clear Urine pH 7.0 (5.0-9.0) Ur Specific [place] 1.010 (1.005-1.025) Urine Protein Negative (Neg-Trace) mg/dL Urine Glucose (UA) Negative (Negative) mg/dL Urine Ketones Negative (Negative) mg/dL Urine Blood Negative (Negative) Urine Nitrite Negative (Negative) Ur Leukocyte Esterase Negative (Negative) Independent Interpretation I performed an independent interpretation of an: EKG (Sinus tachycardia heart rate 104, normal intervals, no acute ST elevations depressions, otherwise normal EKG) External Record Review External record reviewed: Outpatient record and Prior outpatient labs Prescription Management I considered prescription management with: Pain Medication and Antibiotic Discharge Plan Discharge Clinical Impression: Adverse effect of antibiotic, Diarrhea, Myalgia Patient Disposition: Home, Self-Care Instructions: Acute Diarrhea (ED), Adverse Drug Reaction (ED), Musculoskeletal Pain (ED) Additional Instructions: You were seen today for possible adverse reaction to doxycycline. I did review your laboratory analysis some particular Lyme testing. You tested for 1/3 IgM bands. This is not diagnostic of acute Lyme disease. Your IgG test which test for chronic related immunology was negative. At this point, I cannot recommend you continue antibiotic treatment for possible Lyme until you follow-up with your primary care provider, infectious disease provider or supervisor lead refinery. I would recommend that you keep yourself appropriately hydrated, analgesics as needed. Return for any worsening or concerning symptoms. Prescriptions: No Action doxycycline hyclate 100 mg tablet 100 mg PO BID 28 Days Qty: 56 0RF omeprazole 40 mg capsule,delayed release(DR/EC) 40 mg PO DAILY Qty: 90 2RF trazodone 50 mg tablet 50 mg PO BEDTIME PRN lorazepam 1 mg tablet 1 mg PO Q8H 14 Days Qty: 42 0RF Rx Instructions: Short-term increase for personal crisis and management IBS. ibuprofen 800 mg tablet 800 mg PO Q8H Magic Mouthwash Diphen/Lido/Antacid 1:1:1 240 mL suspension 15 ml PO TID Qty: 240 0RF Rx Instructions: Lidocaine Viscous 2 % 80mL; diphenhydramine 12.5 mg/5 mL 80mL; aluminum-mag h ydrox-simeth [id number]/5mL 80mL azelastine 205.5 mcg (0.15 %) spray,non-aerosol 1 spray intranasal BID 30 Days Qty: 30 1RF Rx Instructions: administer into each nostril meloxicam 15 mg tablet 15 mg PO DAILY 30 Days Qty: 30 2RF nystatin 100,000 unit/mL suspension 5 ml PO DAILY 10 Days Qty: 50 0RF Rx Instructions: swish and swallow fluticasone propionate [Allergy Relief (fluticasone)] 50 mcg/actuation spray,suspension 2 spray intranasal DAILY 30 Days Qty: 16 3RF Rx Instructions: administer into each nostril meclizine 25 mg tablet 25 mg PO TID PRN (Reason: dizziness) 30 Days Qty: 60 2RF Rx Instructions: Take 1 tablet by mouth 3 times daily for 10 days. sertraline 100 mg tablet 150 mg PO BEDTIME diphenhydramine HCl 25 mg tablet 50 mg PO BEDTIME PRN (Reason: allergy symptoms) 30 Days Qty: 60 0RF levocetirizine 5 mg tablet 5 mg PO DAILY 90 Days Qty: 90 2RF montelukast 10 mg tablet 10 mg PO DAILY 30 Days Qty: 30 3RF gabapentin 100 mg capsule 100 mg PO TID hydroxyzine HCl 10 mg tablet 5 - 10 mg PO BID PRN (Reason: anxiety) sertraline [Zoloft] 50 mg tablet 50 mg PO DAILY Rx Instructions: one fifty at night, Fifty in the morning. sucralfate [Carafate] 1 gram tablet 3 g PO .qacsupper Qty: 60 6RF Hold Instructions: Doctor's Order epinephrine 0.3 mg/0.3 mL auto-injector 0.3 ml IM ONCE PRN Viberzi 75 mg tablet 75 mg PO BID Qty: 60 2RF Rx Instructions: must administer with a meal/food Referrals: Alexis Whyte MD [Primary Care Provider] - 2 days
--- NOTE | 2023-05-18 17:08 | ECG_ITS ---
Test Reason : CHEST PAIN/ sob Blood Pressure : / mmHG Vent. Rate : 104 BPM Atrial Rate : 104 BPM P-R Int : 142 ms QRS Dur : 088 ms QT Int : 364 ms P-R-T Axes : 055 047 032 degrees QTc Int : 478 ms Sinus tachycardia Otherwise normal ECG When compared with ECG of 07-DEC-2013 16:00, No significant change was found Referred By: Addis El Electronically Signed By:Buddy Nichole
[2023-05-18 17:43] LABS: MANUAL DIFF FLAG NO
[2023-05-18 17:53] LABS: Appearance Urine Clear; Color Urine Yellow; Glucose Urine UA Negative (Negative); Leukocyte Esterase Urine Negative (Negative); Nitrite Urine Negative (Negative); Urine Blood Negative (Negative); Urine Ketones Negative (Negative); Urine Protein Negative (Neg-Trace)
[2023-05-18 18:00] LABS: Alanine Aminotransferase 31 U/L (0-31); Albumin Level 4.6 g/dL (3.5-5.0); Alkaline Phosphatase 74 U/L (39-117); Anion Gap 13 (12-20); Aspartate Amino Transferase 22 U/L (5-31); Bilirubin Direct 0.1 mg/dL (0.0-0.5); Bilirubin Total 0.7 mg/dL (0.0-1.0); Blood Urea Nitrogen 8 mg/dL (9-16); Calcium 10.4 mg/dL (8.4-10.2); Carbon Dioxide 23 mmol/L (22-29); Chloride 107 mmol/L (96-108); Estimated Glomerular Filt Rate > 60; Glucose Random 97 mg/dL (60-115); Lipase 21 U/L (8-78); Magnesium 2.2 mg/dL (1.6-2.6); Potassium 4.2 mmol/L (3.3-5.1); Sodium 139 mmol/L (135-145); Total Protein 7.8 g/dL (6.5-8.0)
[2023-05-18 18:04] LABS: Basophils Absolute Auto 0.1 X10*3/uL (0.0-0.2); Basophils Percent Auto 0.4 % (0-2); Eosinophils Absolute Auto 0.1 X10*3/uL (0.0-0.4); Eosinophils Percent Auto 0.7 % (0-4); Hemoglobin 13.9 g/dl (12.0-16.0); Imm Gran Abs Auto 0.08 X10*3/uL (0.00-0.03); Imm Gran Pct Auto 0.6 % (0.0-0.4); Lymphocytes Absolute Auto 3.3 X10*3/uL (1.2-4.9); Lymphocytes Percent Auto 24.5 % (20-40); Mean Corpuscular HGB Conc 33.9 g/dl (31.0-35.0); Mean Corpuscular Hemoglobin 29.8 pg (27.0-33.0); Mean Platelet Volume 10.3 fL (9.4-12.3); Monocytes Absolute Auto 0.6 X10*3/uL (0.1-1.2); Monocytes Percent Auto 4.2 % (2-11); Neutrophils Absolute Auto 9.4 x10*3/uL (2.0-8.3); Neutrophils Percent Auto 69.6 % (45-73); Platelet Count 263 X10*3/uL (160-400); Red Blood Count 4.66 X10*6/uL (4.20-5.50); Red Cell Distribution Width 13.7 % (11.0-16.0); White Blood Count 13.5 X10*3/uL (4.8-10.8)
[2023-05-18 18:17] LABS: Troponin-I High Sensitivity < 2.7 ng/L (<3.5-17.0)
[2023-05-18] MEDS: Ketorolac Tromethamine 30 MG/ML VIAL IM (19:22)
== END 2023-05-18 19:29 | disposition home or self-care (01) ==
PROVIDERS: Physician Assistant; Emergency Provider Emergency Medicine; PCP Family Medicine
DX: M79.10 Myalgia, unspecified site (principal); K52.1 Toxic gastroenteritis and colitis; T36.4X5A Adverse effect of tetracyclines, initial encounter; Y92.019 Unspecified place in single-family (private) house as the place of occurrence of the external cause; F17.210 Nicotine dependence, cigarettes, uncomplicated
CPT/HCPCS: 36415; 71046; 80048; 80076; 81003; 83690; 83735; 84484; 85025; 93005; 96372; 99284; J1885

== ENCOUNTER 2023-06-09 14:42 | Outpatient (AMB) | payer OTHER, SELFPAY ==
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
[2023-06-09 14:59] VITALS: BP 124/76; PULSE 108; TEMP 36.6; O2SAT 97; BMI 28.8
== END 2023-06-09 15:38 | disposition home or self-care (01) ==
PROVIDERS: PCP Family Medicine; Visit Provider Student in an Organized Health Care Education/Training Program
DX: M79.7 Fibromyalgia (principal)
CPT/HCPCS: 99203

== ENCOUNTER → 2023-06-09 14:42 | Outpatient (BNVA) | payer OTHER, SELFPAY | PROVIDERS: Visit Provider Student in an Organized Health Care Education/Training Program | DX: M79.7 Fibromyalgia (principal); A69.20 Lyme disease, unspecified; F43.10 Post-traumatic stress disorder, unspecified; F17.210 Nicotine dependence, cigarettes, uncomplicated | CPT/HCPCS: 99202 ==

== ENCOUNTER 2023-06-10 14:06 | Outpatient (AMB) | payer OTHER, SELFPAY ==
[2023-06-10 14:12] VITALS: BP 117/69; PULSE 110; BMI 28.9
--- NOTE | 2023-06-10 14:12 | A.OFFVIS_ITS ---
Intake Vital Signs 06/10/23 14:12 Height 5 ft 7 in Weight 184 lb 4.903 oz BMI 28.9 BP 117/69 Blood Pressure Location Lt brachial Position Sitting Pulse 110 H Intake Visit Reasons: abdominal discomfort, bloating Intake Note: Patient returns to in office visit today in follow up of IBS, and GERD. CC: Patient reports that she is not doing good. She c/o abdominal pain, diarrhea(always). She states she is currently taking doxycycline for Lyme disease and hasn't been able to take the sucralfate. She also reports having nausea and vomiting. She states she started the abx about a little over a week now. [employer] Required: No Allergies codeine [Codeine] Allergy (Unknown, Verified 06/25/23 09:18) RASH, hives terbinafine Adverse Reaction (Intermediate, Verified 06/25/23 09:18) Nausea and vomit HPI abdominal discomfort, bloating HPI Details Assessment & Plan (1) Irritable bowel syndrome with diarrhea: ?Code(s): K58.0 - Irritable bowel syndrome with diarrhea ?Plan: She came down with COVID and since then she has been having trouble...she does not want to eat because she lost her taste and smell (all tastes metallic) and she is not taking her medications. She also is fighting with workman's comp shoulder surgery and is in pain.? She feels that this is negatively impacting her appetite as well.? He We discuss taking probiotic as this sometimes helps with the metallic taste. Will progress to Viberzi 75mg bid and titrate. ROV 4 weeks to eval. (2) GERD with esophagitis: ?Code(s): K21.00 - Gastro-esophageal reflux disease with esophagitis, without bleeding (3) Post-cholecystectomy syndrome: ?Code(s): K91.5 - Postcholecystectomy syndrome ? ? ? Medications: New eluxadoline (Viber zi) ?? must admini ster with a meal/f ood 75 mg? PO BID 60 tabs 2RF K58.0 - Irritable bowel syndrome wit h diarrhea ? On Hold sucralfate (Carafa te) ?? Hold Commen t:? Doctor's Order 3 grams (3 x 1 gr am) PO .qacsupper 60 tabs 6RF K21.00 - Gastro-es ophageal reflux di sease with esophag itis, without blee ding TODAY'S VISIT She is having a lot of stomach problems, bad diarrhea. Now she also is being treated for LYME and is on doxy. Her bowels have diarrhea and bloating (although not as much as when she is not on abx) and since we have not seen her since she also does not have carafate. She never received the Viberzi. She is having trouble with vaginal janelle r/t the abx Took one diflucan but sx persist - likely because she is on abx therapy. Will give diflucan 3 days and recommend OTC Monistat. She had severe N/V with anesthesia when she had her kenisha. She denies any cardiac or respiratory problems. NO ID problems. No FHX of crc or polyps known but her father has metastatic cancer of the bladder. ROV 3 weeks. PFSH Medical History Gastroenteritis Heel fracture Hx LEEP (loop electrosurgical excision procedure), cervix, Irritable bowel syndrome with both constipation and diarrhea Mental health disorder Surgical History History of cholecystectomy History of dermoid cyst excision Hx of shoulder surgery Family History Father Cancer of unknown origin Ulcerative colitis Mother Lupus IBS (irritable bowel syndrome) Rheumatoid arthritis Daughter Chronic idiopathic constipation Social History Housing: House Alcohol intake: current Patient Tobacco Use Status: Current everyday Tobacco user Tobacco use type: Cigarette Cigarettes Per Day: 10 e-Cigarette/Vaping Use: Never Used Second Hand Smoke Exposure: No service: No Current occupational status: employed (out on workmans comp) 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 Current occupational exposures/hazards: No Cognitive needs: No Hearing needs: No Vision needs: Yes (Glasses) Review of Systems Const Denies fatigue, Denies fever(s), Denies night sweats, Reports poor appetite and Denies weight loss ENT Reports Normal hearing present, Denies dysphagia, Denies odynophagia, Denies throat swelling and Denies tongue swelling Card Reports no additional complaints Resp Reports no additional complaints GI Reports abdominal pain, Denies melena, Reports bloating, Denies hematochezia, Denies constipation, Denies GI cramping, Denies dysphagia, Denies excessive flatus, Denies early satiety, Reports heartburn, Reports diarrhea, Denies nausea, Denies odynophagia, Denies vomiting and Denies hematemesis Skin/Breast Denies pruritus, Denies lesions, Denies rash and Denies jaundice Neuro Reports Normal hearing present and Denies Abnormal speech present Endo Denies fatigue Aller/Immun Denies throat swelling and Denies tongue swelling Physical Exam Vital Signs: Last Vital Signs Pulse 110 H 06/10/23 14:12 BP 117/69 06/10/23 14:12 BMI result Body Mass Index 28.9 Const General: cooperative, no acute distress, well developed and well groomed Nutritional Appearance: average body habitus and well nourished Orientation/consciousness: oriented to person, oriented to place and oriented to time Limitations: No language barrier HEENT Head: Yes normocephalic and Yes atraumatic Eyes General: appearance normal, both eyes and all related structures Pupils: Equal, round and reactive pupils present Neck Neck: Yes normal visual inspection and Yes no lymphadenopathy Thyroid: Thyroid normal Resp Effort & Inspection: normal respiratory effort and able to speak in complete sentences Auscultation: clear to auscultation bilaterally Cardio Rate: regular rate Rhythm: regular rhythm Heart sounds: Normal, physiologic split S2 sound present Peripheral pulses: radial pulses present and posterior tibial pulses present GI Inspection: Yes distended, No Abdominal panniculus present and Yes obesity Palpation (GI): Soft to palpation, nontender, no guarding, not rigid and No hepatosplenomegaly present Percussion: Yes normal to percussion Auscultation: normal bowel sounds Rectal Exam - Female: deferred Abdomen image: 1. surgical scars 2. 3. Skin General skin exam: no rashes or lesions noted, turgor normal, skin not dry, no jaundice, No spider nevi and no striae Rashes: no rashes Nails: normal Neuro General: oriented to person, oriented to place and oriented to time Cranial nerves: Yes Equal, round and reactive pupils present and Yes Normal hearing present Speech: No Abnormal speech present Extrem General: Yes normal to inspection, No clubbing, No cyanosis and No edema Psych Appearance: grossly normal and well kempt Mental Status: mental status grossly normal Speech and movement: Normal speech and movement present Affect: normal affect Attitude: cooperative Thought process: Normal thought process present and not confabulating Thought content: Normal thought content present Insight: Limited insight present (Psych) Judgement: Limited judgement present (Psych) Assessment & Plan Assessment & Plan (1) Post-cholecystectomy syndrome: Code(s): K91.5 - Postcholecystectomy syndrome Plan: She is having a lot of stomach problems, bad diarrhea. Now she also is being treated for LYME and is on doxy. Her bowels have diarrhea and bloating (although not as much as when she is not on abx) and since we have not seen her since she also does not have carafate. She never received the Viberzi. She continues on omeprazole 40 mg daily. She is having trouble with vaginal janelle r/t the abx Took one diflucan but sx persist - likely because she is on abx therapy. Will give diflucan 3 days and recommend OTC Monistat. She had severe N/V with anesthesia when she had her kenisha. She denies any cardiac or respiratory problems. NO ID problems. No FHX of crc or polyps known but her father has metastatic cancer of the bladder. ROV 3 weeks. (2) Vaginal janelle: Code(s): B37.31 - Acute candidiasis of vulva and vagina (3) GERD with esophagitis: Code(s): K21.00 - Gastro-esophageal reflux disease with esophagitis, without bleeding (4) Irritable bowel syndrome with diarrhea: Code(s): K58.0 - Irritable bowel syndrome with diarrhea (5) Pre-op examination: Code(s): Z01.818 - Encounter for other preprocedural examination Medications: New fluconazole (Diflucan) 200 mg PO DAILY 3 tabs 0RF 3 days B37.31 - Acute candidiasis of vulva and vagina Resumed sucralfate (Carafate) 3 grams (3 x 1 gram) PO .qacsupper 60 tabs 6RF K21.00 - Gastro-esophageal reflux disease with esophagitis, without bleeding Coding Level of Care Code Est Pt Level 4 (37611) Diagnoses Post-cholecystectomy syndrome K91.5 Vaginal janelle B37.31 GERD with esophagitis K21.00 Irritable bowel syndrome with diarrhea K58.0 Pre-op examination Z01.818
== END 2023-06-10 14:57 | disposition home or self-care (01) ==
PROVIDERS: PCP Family Medicine; Visit Provider Nurse Practitioner
DX: K91.5 Postcholecystectomy syndrome (principal); B37.31 Acute candidiasis of vulva and vagina; K21.00 Gastro-esophageal reflux disease with esophagitis, without bleeding; K58.0 Irritable bowel syndrome with diarrhea; Z01.818 Encounter for other preprocedural examination
CPT/HCPCS: 99214

== ENCOUNTER → 2023-06-10 14:06 | Outpatient (BNVA) | payer OTHER, SELFPAY | PROVIDERS: PCP Family Medicine; Visit Provider Nurse Practitioner | DX: K58.0 Irritable bowel syndrome with diarrhea (principal); K21.00 Gastro-esophageal reflux disease with esophagitis, without bleeding; K91.5 Postcholecystectomy syndrome; B37.31 Acute candidiasis of vulva and vagina; Z90.49 Acquired absence of other specified parts of digestive tract | CPT/HCPCS: 99212 ==

== ENCOUNTER 2023-06-25 09:10 | Outpatient (AMB) | payer OTHER, SELFPAY ==
--- NOTE | 2023-06-25 09:13 | MHC.PC.OV ---
Vital Signs 06/25/23 09:14 Height 5 ft 7 in Weight 182 lb 4 oz BMI 28.5 BP 130/76 Blood Pressure Location Lt brachial Position Sitting Pulse 91 Pulse Source Pulse Oximeter Pulse Oximetry (%) 96 Oxygen Delivery Method Room Air Intake Visit Reasons: Annual PE Intake Note: Patient is here for her annual physical today, she feels tired, stomach upset, diarrhea, nausea since Thursday. Allergies codeine [Codeine] Allergy (Unknown, Verified 06/25/23 09:18) RASH, hives terbinafine Adverse Reaction (Intermediate, Verified 06/25/23 09:18) Nausea and vomit Tobacco use date assessed: 06/25/23 Dental Screening Dental Screen Date: 06/25/23 Did you have a dental visit in the last 12 months?: Yes Did you have a dental problem in the last 6 months where you did not have access to dental care?: No Was dental information given to patient?: No HPI Annual PE HPI Details 42 y/o female presents today for an extended exam with f/u labs and health maintenance. No recent CPE-labs to review. Had seen rheumatology. They had recommended changing sertraline to cymbalta. Pt reports tinnitus. [facility] Medical History Gastroenteritis Heel fracture Hx LEEP (loop electrosurgical excision procedure), cervix, Irritable bowel syndrome with both constipation and diarrhea Mental health disorder Surgical History History of cholecystectomy History of dermoid cyst excision Hx of shoulder surgery Family History Father Cancer of unknown origin Ulcerative colitis Mother Lupus IBS (irritable bowel syndrome) Rheumatoid arthritis Daughter Chronic idiopathic constipation Social History Housing: House Alcohol intake: current Patient Tobacco Use Status: Current everyday Tobacco user Tobacco use type: Cigarette Cigarettes Per Day: 10 e-Cigarette/Vaping Use: Never Used Second Hand Smoke Exposure: No service: No Current occupational status: employed (out on workmans comp) 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 1. Little interest or pleasure in doing things: several days 2. Feeling down, depressed, or hopeless: several days 3. Trouble falling or staying asleep, or sleeping too much: several days 4. Feeling tired or having little energy: more than half the days 5. Poor appetite or overeating: nearly every day 6. Feeling bad about yourself - or that you are a failure or have let yourself or your family down: several days 7. Trouble concentrating on things, such as reading the newspaper or watching television: not at all 8. Moving or speaking so slowly that other people could have noticed. Or the opposite - being so fidgety or restless that you have been moving around a lot more than usual: not at all 9. Thoughts that you would be better off or of hurting yourself in some way: not at all Total score: 9 Source: Developed by Drs. Adryan Mercedes, Cherelle Edward, Reinaldo Pollard and colleagues, with an educational marlyn from [employer]. Thrive Questionnaire Date Thrive assessed: 12/22/22 I am a: Patient What is your living situation today?: I have a steady place to live Within the past 12 months, did the food you bought not last and you didn't have the money to get more?: Often true Within the past 12 months, did you worry whether your food would run out before you got money to buy more?: Often true Do you have trouble paying for medicines?: No Do you have trouble getting transportation to medical appointments?: No Do you have trouble paying your heating and electricity bill?: Yes Do you have trouble taking care of your child, family member or friend?: No Do you have trouble with day-to-day activities such as bathing, preparing meals, shopping, managing finances, etc.?: Yes Are you currently unemployed and looking for a job?: No Are you interested in more education?: No AUDIT C Alcohol Use Questionnaire (AUDIT-C) 1. How often do you have a drink containing alcohol?: Monthly or less 2. How many drinks containing alcohol do you have on a typical day when you are drinking?: 1 or 2 3. How often do you have six or more drinks on one occasion?: Never Total Score: 1 KEVIN-7 AMB Questionnaire KEVIN-7 Date KEVIN - 7 assessed: 12/22/22 Feeling nervous, anxious, or on edge: 1 = Several days Not being able to stop or control worryin = Several days Worrying too much about different things: 1 = Several days Trouble relaxin = More than half the days Being so restless that it is hard to sit still: 1 = Several days Becoming easily annoyed or irritable: 1 = Several days Feeling afraid as if something awful might happen: 0 = Not at all Total KEVIN-7 score (0-4 normal; 5-9 mild; 10-14 moderate; 15-21 severe): 7 Source: Developed by Drs. Adryan Mercedes, Cherelle Edward, Reinaldo Pollard and colleagues, with an educational marlyn from [employer]. Review of Systems Const Denies chills, Denies fatigue, Denies fever(s), Denies headache(s) and Denies weakness Eyes Denies change in vision ENT Denies dizziness, Denies headache(s), Denies hearing loss, Denies nasal congestion, Denies sinus pain, Denies sinus pressure and Denies sore throat Card Denies chest pain, Denies lightheadedness, Denies dyspnea and Denies other (palpitations) Resp Denies cough, Denies dyspnea and Denies wheezing GI Denies abdominal pain, Denies melena, Denies hematochezia, Denies change in bowel habits, Denies dyspepsia and Denies nausea Denies hematuria and Denies dysuria Musc Denies abnormal gait, Denies myalgias, Denies arthralgias, Denies numbness and Denies tingling Skin/Breast Denies rash, Denies unusual bruising and Denies wounds Neuro Denies abnormal gait, Denies dizziness, Denies headache(s), Denies memory loss, Denies numbness, Denies Sensory deficit (Neuro), Denies tingling and Denies weakness Psych Denies anxiety, Denies depression and Denies memory loss Endo Denies cold intolerance, Denies fatigue, Denies heat intolerance, Denies polydipsia and Denies polyuria Bhavin/Lymph Denies easy bleeding and Denies easy bruising Aller/Immun Denies wheezing Physical exam (Primary Care) Vital Signs: Last Vital Signs Pulse 91 06/25/23 09:14 BP 130/76 06/25/23 09:14 Pulse Ox 96 06/25/23 09:14 Oxygen Delivery Method Room Air 06/25/23 09:14 BMI result Body Mass Index 28.5 Tobacco/Smoking Status: Tobacco use Status Tobacco use date assessed 06/25/23 06/25/23 09:27 Patient Tobacco Use Status Current everyday Tobacco 06/25/23 09:13 Tobacco use type Cigarette 06/25/23 09:13 e-Cigarette/Vaping Use Never Used 06/25/23 09:13 PHQ-9: PHQ-9 Score PHQ-9: Total score 9 06/25/23 09:39 Thrive Assessment: Date of Thrive Assessment Date Thrive assessed 12/22/22 06/25/23 09:13 Const General: no acute distress, well developed, alert and awake Nutritional Appearance: well nourished Orientation/consciousness: patient oriented x3 HENMT Head: Yes normocephalic and Yes atraumatic Ears: hearing grossly normal bilaterally and TM's normal bilaterally General nose exam: Normal external nose present and Normal nares present Mouth: Normal oral and palatal mucosa present and moist mucous membranes Teeth and gingiva: dentition normal Throat: Yes posterior oropharynx normal Eyes General: appearance normal, both eyes and all related structures Pupils: Equal, round and reactive pupils present and Pupil accommodation reflex normal EOM: EOMs intact bilaterally Neck Neck: Yes normal visual inspection, Yes no lymphadenopathy and Yes trachea midline Thyroid: Thyroid normal Carotids: no bruits Lymphatic: no lymphadenopathy noted Chest Chest palpation & inspection: normal inspection of the chest Resp Effort & Inspection: normal respiratory effort Auscultation: clear to auscultation bilaterally Cardio Rate: regular rate Rhythm: regular rhythm Heart sounds: S1 normal heart sound present, S2 normal heart sound present, no gallops, no murmurs and no rubs Bruits: no abdominal aortic bruits and no carotid bruits GI Palpation (GI): No Abdominal aortic bruit present, Soft to palpation, nontender, No hepatosplenomegaly present and No Rebound tenderness present Auscultation: normal bowel sounds General: Yes no CVA tenderness Back/Spine/Pelvis Back: no CVA tenderness Cervical Spine: cervical ROM normal and No Cervical spine tenderness Thoracic/Lumbar Spine: thoraco-lumbar ROM normal, No pain with thoraco-lumbar ROM, No thoracic spinal tenderness and No lumbar spinal tenderness Skin Lesions: no lesions Rashes: no rashes Trauma: no lacerations or abrasions Wounds: no wounds Nails: normal Neuro General: patient oriented x3 Cranial nerves: Yes Equal, round and reactive pupils present Cognition (Neuro): normal cognition Gait exam (Neuro): Normal gait present Motor exam (neuro): 5/5 motor strength present throughout Sensory Exam: No Sensory deficit (Neuro) Deep tendon reflexes (DTR's): Right patellar reflex intensity grade: 2+ and Left patellar reflex intensity grade: 2+ Extrem General: Yes normal to inspection and No edema Psych Appearance: grossly normal Affect: normal affect Attitude: cooperative Thought process: Normal thought process present Assessment and Plan Assessment & Plan (1) Fibromyalgia, primary: Code(s): M79.7 - Fibromyalgia Plan: Ongoing musculoskeletal issues consistent with fibromyalgia She had seen rheumatology did not feel there was any rheumatologic condition but did suggest fibromyalgia and I agree with this. He also suggested she may want to discuss switching sertraline to Cymbalta, with her psychiatrist and I reviewed this with her as well. This may be a good choice for her. Also recommended regular exercise (2) Tinnitus: Code(s): H93.19 - Tinnitus, unspecified ear Plan: Chronic tinnitus She has seen her ear nose and throat about this in the past. Follow-up with ENT as recommended (3) Left shoulder pain: Code(s): M25.512 - Pain in left shoulder Plan: Ongoing left shoulder pain and may get scheduled for rotator cuff repair (4) Screening for cervical cancer: Code(s): Z12.4 - Encounter for screening for malignant neoplasm of cervix Plan: Followed by [facility] (5) Breast cancer screening by mammogram: Code(s): Z12.31 - Encounter for screening mammogram for malignant neoplasm of breast Plan: Managed by [facility] and getting mammograms every 6 months presently (6) Adult general medical examination: Code(s): Z00.00 - Encounter for general adult medical examination without abnormal findings Plan: 42-year-old female presents for an extended exam Encouraged healthy diet with active lifestyle and plenty of exercise Orders: Orders Comprehensive [place]. Panel Fast Today Z00.00 - Encounter for general adult medical examination without abnormal findings Lipid Panel Today Z00.00 - Encounter for general adult medical examination without abnormal findings TSH reflex Free T4 Today Z00.00 - Encounter for general adult medical examination without abnormal findings Microalbumin, Random (w Creat) Today I10 - Essential (primary) hypertension UA and rflx microscopic Today Z00.00 - Encounter for general adult medical examination without abnormal findings Coding Level of Care Code Est Pt Level 4 (58424) Diagnoses Fibromyalgia, primary M79.7 Tinnitus H93.19 Left shoulder pain M25.512 Screening for cervical cancer Z12.4 Breast cancer screening by mammogram Z12.31 Adult general medical examination Z00.00
[2023-06-25 09:14] VITALS: BP 130/76; PULSE 91; O2SAT 96; BMI 28.5
== END 2023-06-25 09:53 | disposition home or self-care (01) ==
PROVIDERS: PCP Family Medicine; Visit Provider Family Medicine
DX: M79.7 Fibromyalgia (principal); H93.19 Tinnitus, unspecified ear; M25.512 Pain in left shoulder; Z12.4 Encounter for screening for malignant neoplasm of cervix; Z12.31 Encounter for screening mammogram for malignant neoplasm of breast; Z00.00 Encounter for general adult medical examination without abnormal findings
CPT/HCPCS: 99214

== ENCOUNTER 2023-06-25 09:54 | Outpatient (REF) | payer OTHER, SELFPAY ==
[2023-06-25 11:56] LABS: Appearance Urine Cloudy; Color Urine Dark Yellow; Glucose Urine UA Negative (Negative); Leukocyte Esterase Urine Trace (Negative); Nitrite Urine Negative (Negative); PH 5.5 (5.0-9.0); UMIC TRIGGER UA YES; Urine Blood Large (3+) (Negative); Urine Ketones Negative (Negative); Urine Protein Negative (Neg-Trace)
[2023-06-25 12:02] LABS: Bacteria Urine 1+ (None Seen); Hyaline Casts Urine 0-2 /LPF (0-2); WBC Urine 0-5 /HPF (0-5)
[2023-06-25 12:33] LABS: Alanine Aminotransferase 27 U/L (0-31); Albumin Level 4.2 g/dL (3.5-5.0); Alkaline Phosphatase 67 U/L (39-117); Anion Gap 13 (12-20); Aspartate Amino Transferase 18 U/L (5-31); Bilirubin Total 0.5 mg/dL (0.0-1.0); Blood Urea Nitrogen 10 mg/dL (9-16); Calcium 10.3 mg/dL (8.4-10.2); Carbon Dioxide 22 mmol/L (22-29); Chloride 107 mmol/L (96-108); Cholesterol 239 mg/dL; Estimated Glomerular Filt Rate > 60; Glucose Fasting 97 mg/dL (60-99); HDL Cholesterol 42 mg/dL; LDL Cholesterol Calculated 168 mg/dl; Potassium 4.1 mmol/L (3.3-5.1); Sodium 138 mmol/L (135-145); Total Protein 7.4 g/dL (6.5-8.0); Triglycerides 148 mg/dL
[2023-06-25 12:48] LABS: TSH reflex Free T4 1.15 uIU/mL (0.32-4.0)
[2023-06-25 12:52] LABS: Creatinine Urine 216.42 mg/dL
== END 2023-06-25 09:55 | disposition home or self-care (01) ==
LOC: HO.WFDLDS 09:54
PROVIDERS: Visit Provider Family Medicine
DX: Z00.00 Encounter for general adult medical examination without abnormal findings (principal); I10 Essential (primary) hypertension
CPT/HCPCS: 36415; 80053; 80061; 81001; 82043; 84443

== ENCOUNTER 2023-07-22 16:08 | Outpatient (AMB) | payer OTHER, SELFPAY ==
--- NOTE | 2023-07-22 15:15 | MHC.PC.OV ---
Intake Visit Reasons: f/u CPE-labs Intake Note: Patient is following up on physical, labs, and would like refill on her epi-pen. Allergies codeine [Codeine] Allergy (Unknown, Verified 07/22/23 15:16) RASH, hives terbinafine Adverse Reaction (Intermediate, Verified 07/22/23 15:16) Nausea and vomit Tobacco use date assessed: 07/22/23 Dental Screening Dental Screen Date: 07/22/23 Did you have a dental visit in the last 12 months?: Yes Did you have a dental problem in the last 6 months where you did not have access to dental care?: No Was dental information given to patient?: Patient has dentist HPI f/u CPE-labs HPI Details 42 y/o female presents to f/u CPE-labs via telemedicine. Labs were drawn 06/25/23. Reviewed labs with pt. Triglycerides 148. TC 239. LDL 168. HDL 42. RBC/Bacteria in urine. She denies any symptoms. PFS Medical History Gastroenteritis Heel fracture Hx LEEP (loop electrosurgical excision procedure), cervix, Irritable bowel syndrome with both constipation and diarrhea Mental health disorder Surgical History History of cholecystectomy History of dermoid cyst excision Hx of shoulder surgery Family History Father Cancer of unknown origin Ulcerative colitis Mother Lupus IBS (irritable bowel syndrome) Rheumatoid arthritis Daughter Chronic idiopathic constipation Social History Housing: House Alcohol intake: current Patient Tobacco Use Status: Current everyday Tobacco user Tobacco use type: Cigarette Cigarettes Per Day: 10 e-Cigarette/Vaping Use: Never Used Second Hand Smoke Exposure: No service: No Current occupational status: employed (out on workmans comp) 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 Adryan Mercedes, Cherelle Edward, Reianldo Pollard and colleagues, with an educational marlyn from [employer]. Physical exam (Primary Care) Tobacco/Smoking Status: Tobacco use Status Tobacco use date assessed 07/22/23 07/22/23 15:23 Patient Tobacco Use Status Current everyday Tobacco 07/22/23 15:15 Tobacco use type Cigarette 07/22/23 15:15 e-Cigarette/Vaping Use Never Used 07/22/23 15:15 Thrive Assessment: Date of Thrive Assessment Date Thrive assessed 12/22/22 07/22/23 15:15 Telehealth Telehealth Location of provider rendering services: practice address Location of patient: address on file Patient Identification confirmed using: Name, : Yes Telehealth method: voice only Patient verbally consented to treatment: Yes Patient verbally consented to billing insurance company: Yes Patient informed of any privacy concerns related to visit: Yes Minutes spent on Phone/Video with Pt.: 8 Assessment and Plan Assessment & Plan (1) Hypercholesterolemia: Code(s): E78.00 - Pure hypercholesterolemia, unspecified Plan: LDL cholesterol is too high. Goal is less than 130. Start atorvastatin; risks/benefits of medication were discussed with the patient We will recheck this in 2-3 months (2) Hematuria: Code(s): R31.9 - Hematuria, unspecified Plan: Hematuria but patient had recent yeast infection. Will recheck this (3) Asymptomatic bacteriuria: Code(s): R82.71 - Bacteriuria Plan: Will recheck urinalysis Orders: Orders Comprehensive [place]. Panel Fast Today E78.00 - Pure hypercholesterolemia, unspecified, Z00.00 - Encounter for general adult medical examination without abnormal findings Lipid Panel Today E78.00 - Pure hypercholesterolemia, unspecified, Z00.00 - Encounter for general adult medical examination without abnormal findings UA and rflx microscopic Today R82.71 - Bacteriuria, Z00.00 - Encounter for general adult medical examination without abnormal findings Medications: New epinephrine (EpiPen 2-[place]) 0.3 mg (0.3 mL) IM Q4H PRN 2 ea 2RF anaphylaxis 30 days atorvastatin 20 mg PO BEDTIME 30 tabs 2RF 30 days Coding Level of Care Code Tele Est Pt Level 2 (44989) Diagnoses Hypercholesterolemia E78.00 Hematuria R31.9 Asymptomatic bacteriuria R82.71
== END 2023-07-22 17:00 ==
LOC: HO.HMGFM 16:08
PROVIDERS: PCP Family Medicine; Visit Provider Family Medicine
DX: E78.00 Pure hypercholesterolemia, unspecified (principal); R31.9 Hematuria, unspecified; R82.71 Bacteriuria
CPT/HCPCS: 99212

== ENCOUNTER 2023-08-18 12:55 | Outpatient (AMB) | payer OTHER, SELFPAY ==
--- NOTE | 2023-08-18 13:10 | AM.OFFWIN_ITS ---
Intake Vital Signs 08/18/23 13:20 Height 5 ft 7 in Weight 185 lb BMI 29.0 BP 116/78 Blood Pressure Location Rt brachial Position Sitting Pulse 97 Pulse Source Pulse Oximeter Temp 97.9 F Temp Source Temporal Artery Scan Pulse Oximetry (%) 97 Oxygen Delivery Method Room Air Intake Visit Reasons: EST/cough, sob [phone] Intake Note: pt is here for cough, upper resp infection Patient Tobacco Use Status: Current everyday Tobacco user Allergies codeine [Codeine] Allergy (Unknown, Verified 08/18/23 13:14) RASH, hives terbinafine Adverse Reaction (Intermediate, Verified 08/18/23 13:14) Nausea and vomit Do you need a note to return to daycare/school/sports/work: Yes HPI EST/cough, sob [phone] HPI Details Patient presents for a sick visit. Reporting symptoms of sinus congestion, sore throat and difficulty swallowing. Low-grade fever. No family member is sick. No recent travel. Patient reports symptoms of malaise and fatigue. [facility] Medical History Gastroenteritis Heel fracture Hx LEEP (loop electrosurgical excision procedure), cervix, Irritable bowel syndrome with both constipation and diarrhea Mental health disorder Surgical History History of cholecystectomy History of dermoid cyst excision Hx of shoulder surgery Family History Father Cancer of unknown origin Ulcerative colitis Mother Lupus IBS (irritable bowel syndrome) Rheumatoid arthritis Daughter Chronic idiopathic constipation Social History Housing: House Alcohol intake: current Patient Tobacco Use Status: Current everyday Tobacco user Tobacco use type: Cigarette Cigarettes Per Day: 10 e-Cigarette/Vaping Use: Never Used Second Hand Smoke Exposure: No service: No Current occupational status: employed 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 Current occupational exposures/hazards: No Cognitive needs: No Hearing needs: No Vision needs: Yes (Glasses) Physical Exam Vital Signs: Last Vital Signs Temp 97.9 F 08/18/23 13:20 Pulse 97 08/18/23 13:20 BP 116/78 08/18/23 13:20 Pulse Ox 97 08/18/23 13:20 Oxygen Delivery Method Room Air 08/18/23 13:20 BMI result Body Mass Index 29.0 Const General: cooperative and healthy appearing Nutritional Appearance: well nourished Orientation/consciousness: patient oriented x3 Limitations: no limitations HEENT Head: Yes normal to inspection Eyes General: appearance normal, both eyes and all related structures Neck Neck: Yes normal visual inspection Chest Chest palpation & inspection: normal palpation of entire chest wall Resp Effort & Inspection: normal respiratory effort Neuro General: patient oriented x3 Assessment & Plan Assessment & Plan (1) Upper respiratory tract infection: Code(s): J06.9 - Acute upper respiratory infection, unspecified Qualifiers: URI type: unspecified viral URI Qualified Code(s): J06.9 - Acute upper respiratory infection, unspecified Plan: Increase fluid intake. Tylenol for aches and pains. If symptoms worsen, follow-up here for a recheck. Antibiotics and prednisone been called in. Coding Level of Care Code Est Pt Level 3 (84714) Diagnoses Viral upper respiratory tract infection J06.9 URI type: unspecified viral URI
[2023-08-18 13:20] VITALS: BP 116/78; PULSE 97; TEMP 36.6; O2SAT 97; BMI 29.0
== END 2023-08-18 13:39 | disposition home or self-care (01) ==
PROVIDERS: PCP Family Medicine; Visit Provider Internal Medicine
DX: J06.9 Acute upper respiratory infection, unspecified (principal)
CPT/HCPCS: 99213

== ENCOUNTER 2023-09-01 | Outpatient (REF) | payer OTHER, SELFPAY | END 2023-09-01 00:01 | disposition home or self-care (01) | LOC: HO.LNP | PROVIDERS: Visit Provider Family Medicine | DX: Z11.52 Encounter for screening for COVID-19 (principal); Z20.822 Contact with and (suspected) exposure to COVID-19; R09.89 Other specified symptoms and signs involving the circulatory and respiratory systems | CPT/HCPCS: 0241U ==

== ENCOUNTER 2023-09-01 16:00 | Outpatient (AMB) | payer OTHER, SELFPAY ==
[2023-09-01 16:06] VITALS: BP 126/72; PULSE 108; O2SAT 97; BMI 29.0
--- NOTE | 2023-09-01 16:06 | MHC.PC.OV ---
Vital Signs 09/01/23 16:06 Height 5 ft 7 in Weight 185 lb BMI 29.0 BP 126/72 Blood Pressure Location Lt brachial Position Sitting Pulse 108 H Pulse Source Pulse Oximeter Pulse Oximetry (%) 97 Oxygen Delivery Method Room Air Intake Visit Reasons: 09/24/23 right shoulder repair Intake Note: Patient is here pre right shoulder injury, since 2018. She states she is still having cough and congestion with ear problems. Allergies codeine [Codeine] Allergy (Unknown, Verified 09/01/23 16:08) RASH, hives terbinafine Adverse Reaction (Intermediate, Verified 09/01/23 16:08) Nausea and vomit Tobacco use date assessed: 09/01/23 Dental Screening Dental Screen Date: 09/01/23 Did you have a dental visit in the last 12 months?: Yes Did you have a dental problem in the last 6 months where you did not have access to dental care?: No Was dental information given to patient?: Patient has dentist HPI 09/24/23 right shoulder repair HPI Details Patient presents for preoperative clearance prior to L shoulder?repair Procedure:??shoulder?repair Date:??09/23/2023 Surgeon:??Amber Anesthesia: General Cardiac Hx: None Pulmonary Hx: Smokes Prior Surgical complications: None Prior Anesthesia Complications: Some problems w/ prior anesthesia I woke up Coag Issues: None Functional [place]: Able to climb up 2 flights of stairs with a bag of groceries. Good functional reserve PFSH Medical History Mental health disorder Gastroenteritis Irritable bowel syndrome with both constipation and diarrhea Hx LEEP (loop electrosurgical excision procedure), cervix, Heel fracture Surgical History Hx of shoulder surgery History of dermoid cyst excision History of cholecystectomy Family History Father Cancer of unknown origin Ulcerative colitis Mother Lupus IBS (irritable bowel syndrome) Rheumatoid arthritis Daughter Chronic idiopathic constipation Social History Housing: House Alcohol intake: current Patient Tobacco Use Status: Current everyday Tobacco user Tobacco use type: Cigarette Cigarettes Per Day: 10 e-Cigarette/Vaping Use: Never Used Second Hand Smoke Exposure: No service: No Current occupational status: employed 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 Adryan Mercedes, Cherelle Edward, Reinaldo Pollard and colleagues, with an educational marlyn from [employer]. Review of Systems Const Denies chills, Denies fatigue, Denies fever(s), Denies headache(s) and Denies weakness ENT Denies dizziness and Denies headache(s) Card Denies chest pain, Denies lightheadedness, Denies dyspnea and Denies other (Palpitations) Resp Denies cough, Denies dyspnea, Denies wheezing and Denies other ( shortness of breath) Musc Denies numbness and Denies tingling Neuro Denies dizziness, Denies headache(s), Denies numbness, Denies tingling, Denies paresthesias and Denies weakness Psych Denies anxiety and Denies depression Endo Denies fatigue Aller/Immun Denies wheezing Physical exam (Primary Care) Vital Signs: Last Vital Signs Pulse 108 H 09/01/23 16:06 BP 126/72 09/01/23 16:06 Pulse Ox 97 09/01/23 16:06 Oxygen Delivery Method Room Air 09/01/23 16:06 BMI result Body Mass Index 29.0 Tobacco/Smoking Status: Tobacco use Status Tobacco use date assessed 09/01/23 09/01/23 16:21 Patient Tobacco Use Status Current everyday Tobacco 09/01/23 16:21 Tobacco use type Cigarette 09/01/23 16:21 e-Cigarette/Vaping Use Never Used 09/01/23 16:21 Thrive Assessment: Date of Thrive Assessment Date Thrive assessed 12/22/22 09/01/23 16:21 Const General: no acute distress and well developed Nutritional Appearance: well nourished Orientation/consciousness: patient oriented x3 HENMT Head: Yes normocephalic and Yes atraumatic Eyes General: appearance normal, both eyes and all related structures Pupils: Equal, round and reactive pupils present EOM: EOMs intact bilaterally Resp Other: Upper airway secretions and clear to auscultation Effort & Inspection: normal respiratory effort Auscultation: clear to auscultation bilaterally Cardio Rate: regular rate Rhythm: regular rhythm Heart sounds: S1 normal heart sound present, S2 normal heart sound present, no gallops, no murmurs and no rubs Neuro General: patient oriented x3 and gait normal Cranial nerves: Yes Equal, round and reactive pupils present Psych Affect: normal affect Assessment and Plan Assessment & Plan (1) Pre-operative clearance: Code(s): Z01.818 - Encounter for other preprocedural examination Plan: 43-year-old?female?presents?for?preoperative?clearance?prior?to?left?shoulder?repair No?history?of?cardiac?disease No?history chronic?pulmonary?disease. Currently?has?upper?respiratory?infection?with?otitis?media?and?nasal?congestion.??Also?postnasal?drip?with?cough. Cardiac?exam?is?normal EKG:??Normal?sinus?rhythm,?normal?axis,?no?hypertrophy,?no?ST-T-wave?changes. Heart?rate?100?beats?per?minute. Pulmonary?exam?reveals?some?upper?airway?secretions?but?otherwise?clear?to?auscultation. No?prior?surgical?complications?but?patient?has?had?difficulty?with?anesthesia?in?the?past No coagulopathies Good?functional?reserve Low?risk?patient?for?low?intermediate?risk?procedure no?contraindications?to?proceeding?with?proposed?procedure?on?date?specified Advised?smoking?cessation (2) Smoker: Code(s): F17.200 - Nicotine dependence, unspecified, uncomplicated Plan: As?above,?advised?smoking?cessation (3) Cough: Code(s): R05.9 - Cough, unspecified Plan: Secondary?to?nasal?congestion?and?postnasal?drip?due?to?otitis?media?and?mild?sinusitis Checking?COVID/flu/RSV?swab (4) Otitis media: Code(s): H66.90 - Otitis media, unspecified, unspecified ear Plan: Cephalexin?ordered Can?use?pseudoephedrine?for?the?next?3?days Call?or?return?to?office?if?not?improving. Orders: Orders AMB EKG-In Office Today Z01.818 - Encounter for other preprocedural examination SARS-CoV2/FLU/RSV Today R09.89 - Other specified symptoms and signs involving the circulatory and respiratory systems Medications: New fluconazole 150 mg PO Q3D 2 tabs 0RF cephalexin 500 mg PO Q12H 10 days 20 caps 0RF Coding Level of Care Code Est Pt Level 4 (48508) Diagnoses Pre-operative clearance Z01.818 Smoker F17.200 Cough R05.9 Otitis media H66.90
== END 2023-09-01 17:18 | disposition home or self-care (01) ==
PROVIDERS: PCP Family Medicine; Visit Provider Family Medicine
DX: R05.9 Cough, unspecified (principal); Z01.818 Encounter for other preprocedural examination; F17.210 Nicotine dependence, cigarettes, uncomplicated; H66.93 Otitis media, unspecified, bilateral
CPT/HCPCS: 93000; 99214

== ENCOUNTER 2023-12-21 12:14 | Outpatient (AMB) | payer OTHER, SELFPAY ==
[2023-12-21 13:54] VITALS: BP 116/70; PULSE 98; O2SAT 98; BMI 31.2
--- NOTE | 2023-12-21 13:54 | MHC.OFFWIV ---
Intake Vital Signs 12/21/23 13:54 Height 5 ft 7 in Weight 199 lb BMI 31.2 BP 116/70 Blood Pressure Location Lt brachial Position Sitting Pulse 98 Pulse Source Pulse Oximeter Pulse Oximetry (%) 98 Oxygen Delivery Method Room Air Intake Visit Reasons: Est/ear infection ([phone]) Intake Note: pt is here today for ear infection started 1 week ago Patient Tobacco Use Status: Current everyday Tobacco user Allergies codeine [Codeine] Allergy (Unknown, Verified 12/21/23 14:38) RASH, hives terbinafine Adverse Reaction (Intermediate, Verified 12/21/23 14:38) Nausea and vomit Do you need a note to return to daycare/school/sports/work: No HPI Est/ear infection ([phone]) HPI Details Patient presents for a sick visit. Reporting symptoms of sinus congestion, sore throat and difficulty swallowing. Low-grade fever. No family member is sick. No recent travel. Patient reports symptoms of malaise and fatigue. PFSH Medical History Mental health disorder Gastroenteritis Irritable bowel syndrome with both constipation and diarrhea Hx LEEP (loop electrosurgical excision procedure), cervix, Heel fracture Surgical History Hx of shoulder surgery History of dermoid cyst excision History of cholecystectomy Family History Father Cancer of unknown origin Ulcerative colitis Mother Lupus IBS (irritable bowel syndrome) Rheumatoid arthritis Daughter Chronic idiopathic constipation Social History Housing: House Alcohol intake: current Patient Tobacco Use Status: Current everyday Tobacco user Tobacco use type: Cigarette Cigarettes Per Day: 10 e-Cigarette/Vaping Use: Never Used Second Hand Smoke Exposure: No service: No Current occupational status: employed 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 Current occupational exposures/hazards: No Cognitive needs: No Hearing needs: No Vision needs: Yes (Glasses) Physical Exam Vital Signs: Last Vital Signs Pulse 98 12/21/23 13:54 BP 116/70 12/21/23 13:54 Pulse Ox 98 12/21/23 13:54 Oxygen Delivery Method Room Air 12/21/23 13:54 BMI result Body Mass Index 31.2 Const General: cooperative and healthy appearing Nutritional Appearance: well nourished Orientation/consciousness: patient oriented x3 Limitations: no limitations HEENT Head: Yes normal to inspection Eyes General: appearance normal, both eyes and all related structures Neck Neck: Yes normal visual inspection Chest Chest palpation & inspection: normal palpation of entire chest wall Resp Effort & Inspection: normal respiratory effort Neuro General: patient oriented x3 Assessment & Plan Assessment & Plan (1) Upper respiratory tract infection: Code(s): J06.9 - Acute upper respiratory infection, unspecified Qualifiers: URI type: unspecified viral URI Qualified Code(s): J06.9 - Acute upper respiratory infection, unspecified Plan: Antibiotics ordered. Increase fluid intake. Tylenol for aches and pains. If symptoms worsen, follow-up here for a recheck. Coding Level of Care Code Est Pt Level 3 (05295) Diagnoses Viral upper respiratory tract infection J06.9 URI type: unspecified viral URI
--- NOTE | 2023-12-21 15:05 | MHC.OFFWIV ---
Intake Vital Signs 12/21/23 13:54 Height 5 ft 7 in Weight 199 lb BMI 31.2 BP 116/70 Blood Pressure Location Lt brachial Position Sitting Pulse 98 Pulse Source Pulse Oximeter Pulse Oximetry (%) 98 Oxygen Delivery Method Room Air Intake Visit Reasons: Est/ear infection ([phone]) Patient Tobacco Use Status: Current everyday Tobacco user Allergies codeine [Codeine] Allergy (Unknown, Verified 12/21/23 14:38) RASH, hives terbinafine Adverse Reaction (Intermediate, Verified 12/21/23 14:38) Nausea and vomit PFSH Medical History Mental health disorder Gastroenteritis Irritable bowel syndrome with both constipation and diarrhea Hx LEEP (loop electrosurgical excision procedure), cervix, Heel fracture Surgical History Hx of shoulder surgery History of dermoid cyst excision History of cholecystectomy Family History Father Cancer of unknown origin Ulcerative colitis Mother Lupus IBS (irritable bowel syndrome) Rheumatoid arthritis Daughter Chronic idiopathic constipation Social History Housing: House Alcohol intake: current Patient Tobacco Use Status: Current everyday Tobacco user Tobacco use type: Cigarette Cigarettes Per Day: 10 e-Cigarette/Vaping Use: Never Used Second Hand Smoke Exposure: No service: No Current occupational status: employed 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 Current occupational exposures/hazards: No Cognitive needs: No Hearing needs: No Vision needs: Yes (Glasses) Physical Exam Vital Signs: Last Vital Signs Pulse 98 12/21/23 13:54 BP 116/70 12/21/23 13:54 Pulse Ox 98 12/21/23 13:54 Oxygen Delivery Method Room Air 12/21/23 13:54 BMI result Body Mass Index 31.2 Assessment & Plan Assessment & Plan (1) Upper respiratory tract infection: Code(s): J06.9 - Acute upper respiratory infection, unspecified Qualifiers: URI type: unspecified viral URI Qualified Code(s): J06.9 - Acute upper respiratory infection, unspecified Medications: New azithromycin take 500 mg today (day 1), then 250 mg for 4 days (days 2-5) PO 6 tabs 0RF Coding Diagnoses Viral upper respiratory tract infection J06.9 URI type: unspecified viral URI
== END 2023-12-21 15:15 | disposition home or self-care (01) ==
PROVIDERS: PCP Family Medicine; Visit Provider Internal Medicine
DX: J06.9 Acute upper respiratory infection, unspecified (principal)
CPT/HCPCS: 99213

== ENCOUNTER 2024-01-20 15:00 | Outpatient (RCR) | payer OTHER, SELFPAY | END 2024-03-08 15:43 | disposition home or self-care (01) | LOC: HO.PT 15:00 | PROVIDERS: PCP Family Medicine; Visit Provider Orthopaedic Surgery | DX: M75.22 Bicipital tendinitis, left shoulder (principal) | CPT/HCPCS: 97110; 97140; 97162; 97530 ==

== ENCOUNTER 2024-01-22 11:20 | Outpatient (AMB) | payer OTHER, SELFPAY ==
[2024-01-22 13:04] VITALS: BP 120/78; PULSE 103; O2SAT 98; BMI 30.9
--- NOTE | 2024-01-22 13:04 | AM.OFFWIN_ITS ---
Intake Vital Signs 01/22/24 13:04 Height 5 ft 7 in Weight 197 lb BMI 30.9 BP 120/78 Blood Pressure Location Rt brachial Position Sitting Pulse 103 H Pulse Source Pulse Oximeter Pulse Oximetry (%) 98 Oxygen Delivery Method Room Air Intake Visit Reasons: Sinus pain [phone] Intake Note: pt is here today sinus pain started in November Patient Tobacco Use Status: Current everyday Tobacco user Allergies codeine [Codeine] Allergy (Unknown, Verified 01/22/24 13:04) RASH, hives terbinafine Adverse Reaction (Intermediate, Verified 01/22/24 13:04) Nausea and vomit Do you need a note to return to daycare/school/sports/work: Yes HPI HPI Comments History of Present Illness Details 43 y/o female who presents to walk in [facility] with c/o Sinus pressure, congestion, headaches, fatigue since 11/2023. Pt was last seen here in November, she was given Azithromycin. Today reports no improvement. Pt also reports that she is under tremendous pressure and stress, she is caring for her ill parents by herself. [facility] Medical History Mental health disorder Gastroenteritis Irritable bowel syndrome with both constipation and diarrhea Hx LEEP (loop electrosurgical excision procedure), cervix, Heel fracture Surgical History Hx of shoulder surgery History of dermoid cyst excision History of cholecystectomy Family History Father Cancer of unknown origin Ulcerative colitis Mother Lupus IBS (irritable bowel syndrome) Rheumatoid arthritis Daughter Chronic idiopathic constipation Social History Housing: House Alcohol intake: current Patient Tobacco Use Status: Current everyday Tobacco user Tobacco use type: Cigarette Cigarettes Per Day: 10 e-Cigarette/Vaping Use: Never Used Second Hand Smoke Exposure: No service: No Current occupational status: employed 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 Current occupational exposures/hazards: No Cognitive needs: No Hearing needs: No Vision needs: Yes (Glasses) Review of Systems Const All systems reviewed & are unremarkable except as noted in HPI and below Physical Exam Vital Signs: Last Vital Signs Pulse 103 H 01/22/24 13:04 BP 120/78 01/22/24 13:04 Pulse Ox 98 01/22/24 13:04 Oxygen Delivery Method Room Air 01/22/24 13:04 BMI result Body Mass Index 30.9 Const General: no acute distress and anxious Orientation/consciousness: patient oriented x3 HEENT Head: Yes normocephalic Ears: external ears normal and TM abnormal with fluid behind the TM bilateral General nose exam: Abnormal mucous membranes and turbinates present boggy and erythematous and Nasal discharge present Face and sinus: Yes sinus tenderness Mouth: oropharynx normal and moist mucous membranes Throat: Yes posterior oropharynx normal Resp Effort & Inspection: normal respiratory effort and able to speak in complete sentences Auscultation: clear to auscultation bilaterally, no crackles, no rales, no rhonchi and no wheezes Cardio Rate: regular rate Rhythm: regular rhythm Neuro General: patient oriented x3 Psych Appearance: grossly normal Speech and movement: Clear speech present Affect: Labile affect present Thought content: Normal thought content present Assessment & Plan Assessment & Plan (1) Upper respiratory tract infection: Code(s): J06.9 - Acute upper respiratory infection, unspecified Qualifiers: URI type: unspecified viral URI Qualified Code(s): J06.9 - Acute upper respiratory infection, unspecified Plan: - Rest - Warm fluids - Take medicine as directed - OTC cold/flu remedies - Acetaminophen for pain relief. (2) Acute rhinosinusitis: Code(s): J01.90 - Acute sinusitis, unspecified Plan: - Rest - Warm fluids - Take medicine as directed - OTC cold/flu remedies - Acetaminophen for pain relief. Plan - Rest - Warm fluids - Take medicine as directed - OTC cold/flu remedies - Acetaminophen for pain relief. Medications: New acetaminophen 1,000 mg (2 x 500 mg) PO Q6H PRN 30 caps 0RF pain, moderate J01.90 - Acute sinusitis, unspecified, J06.9 - Acute upper respiratory infection, unspecified amoxicillin 500 mg PO BID 20 caps 0RF 10 days J01.90 - Acute sinusitis, unspecified oxymetazoline 0.05% (Afrin (oxymetazoline)) 2 sprays intranasal Q12H PRN 15 mL 0RF nasal congestion 3 days J01.90 - Acute sinusitis, unspecified, J06.9 - Acute upper respiratory infection, unspecified Coding Level of Care Code Est Pt Level 3 (65219) Diagnoses Viral upper respiratory tract infection J06.9 URI type: unspecified viral URI Acute rhinosinusitis J01.90 Time Spent (min) 15
== END 2024-01-22 16:26 | disposition home or self-care (01) ==
PROVIDERS: PCP Family Medicine; Visit Provider Nurse Practitioner Family
DX: J06.9 Acute upper respiratory infection, unspecified (principal); J01.90 Acute sinusitis, unspecified
CPT/HCPCS: 99213

== ENCOUNTER 2024-01-25 13:29 | Emergency (ER) | payer OTHER, SELFPAY ==
[2024-01-25 13:56] VITALS: BP 131/81; PULSE 113; RESP 19; TEMP 36.9; O2SAT 98; BMI 29.9
--- NOTE | 2024-01-25 14:00 | ED.URI ---
HPI - URI/Sore Throat General Chief Complaint: General Medical Stated Complaint: Sinus issues-off balance Time Seen by Provider: 01/25/24 14:01 Source: patient Mode of arrival: ambulatory Limitations: no limitations History of Present Illness HPI Narrative: 43-year-old female presenting to the ER with complaints of persistent intermittent headaches, nasal congestion, sinus pressure pain, and bilateral ear fullness feeling like there is fluid in her ears for the past month. She is now developing dizziness. She was seen at the urgent care on Thursday and was sent home with amoxicillin. She has been using [id number] medication as well and no symptomatic relief. She reports that in the past when this has happened she had a course of steroids and that has helped her. She believes she might need steroids. Otherwise she has had multiple negative COVID swabs does not feel like she may need another 1 due to she had a-1 today at home. She denies any measured fevers, neck pain or stiffness, chest pain or shortness of breath or any other symptoms complaints or concerns MD elicited complaint: rhinorrhea, nasal congestion, sinus pain and other (Bilateral ear pressure) Onset (ago): month(s) (1) Consistency: constant Severity: mild Description of mucous: clear, watery, yellow and green Able to tolerate fluids by mouth: Yes Exacerbating factors: changing head position Relieving factors: nothing Associated symptoms: headache, rhinorrhea, nasal congestion and ear pain Treatments prior to arrival: other (see above ) Related Data Home Medications Medication Instructions Recorded Confirmed sertraline 100 mg tablet 200 mg PO BEDTIME 07/22/23 trazodone 50 mg tablet 50 mg PO BEDTIME PRN 09/01/23 atorvastatin 20 mg tablet 20 mg PO DAILY 01/22/24 Previous Rx's Medication Instructions Recorded fluticasone propionate 50 2 spray intranasal DAILY 1 month 12/16/21 mcg/actuation nasal #16 grams spray,suspension (Allergy Relief (fluticasone)) meclizine 25 mg tablet 25 mg PO TID PRN dizziness 30 days 02/03/22 #60 tabs lorazepam 1 mg tablet 1 mg PO Q8H 14 days #42 tabs 02/19/22 sucralfate 1 gram tablet (Carafate) 3 g (3 x 1 gram) PO .qacsupper #60 05/12/22 tabs omeprazole 40 mg capsule,delayed 40 mg PO DAILY #90 caps 05/18/23 release diphenhydramine HCl 25 mg tablet 50 mg (2 x 25 mg) PO BEDTIME PRN 06/02/23 allergy symptoms 30 days #60 tabs epinephrine 0.3 mg/0.3 mL 0.3 mg (0.3 mL) IM Q4H PRN 07/22/23 injection, auto-injector (EpiPen anaphylaxis 30 days #2 ea 2-Dalton) azithromycin 250 mg tablet See Rx Instructions PO .COMPLEX #6 12/21/23 tabs levocetirizine 5 mg tablet 5 mg PO DAILY 30 days #30 tabs 01/19/24 acetaminophen 500 mg capsule 1,000 mg (2 x 500 mg) PO Q6H PRN 01/22/24 pain, moderate #30 caps amoxicillin 500 mg capsule 500 mg PO BID 10 days #20 caps 01/22/24 oxymetazoline 0.05 % nasal spray 2 spray intranasal Q12H PRN nasal 01/22/24 (Afrin (oxymetazoline)) congestion 3 days #15 mL prednisone 20 mg tablet 40 mg (2 x 20 mg) PO DAILY 01/25/24 inflammation 5 days #10 tabs Allergies Allergy/AdvReac Type Severity Reaction Status Date / Time codeine [Codeine] Allergy Unknown RASH, hives Verified 01/25/24 13:56 terbinafine AdvReac Intermediate Nausea and Verified 01/25/24 13:56 vomit Review of Systems Review of Systems: Constitutional : No Weight loss, No Fever, No Chills, No Night Sweats, No Fatigue, No Malaise ENT/Mouth : No Hearing loss, + Ear Pain, + Nasal Congestion, + Sinus Pain, No Hoarseness, No sore throat, + Rhinorrhea, No Swallowing Difficulty Eyes: No Eye Pain, No Swelling, No Redness, No Foreign Body, No Discharge, No Vision Changes Cardiovascular : No Chest Pain, No SOB, No Dyspnea on Exertion, No Orthopnea, No Edema, No Palpitations Respiratory : No Cough, No Sputum, No Wheezing, No Smoke Exposure, No Dyspnea Gastrointestinal : No Nausea, No Vomiting, No Diarrhea, No Constipation, No abdominal Pain, No Hematochezia, No Melena Genitourinary : no irregular bleeding, No Dysuria, No Urinary Frequency, No Hematuria, No Urinary Incontinence, No Urgency, No Flank Pain, No Urinary Flow Changes, No Hesitancy Musculoskeletal : No joint pain, No Myalgias, No Joint Swelling Skin : No Skin Lesions, No rash Neuro : No Weakness, No Numbness, No Paresthesias, No Loss of Consciousness, No Dizziness, + Headache Psych : No Anxiety/Panic, No Depression, No SI/HI/AH/VH, No Social Issues, Heme/Lymph: No Bruising, No Bleeding,No Lymphadenopathy Endocrine : No Polyuria, No Polydipsia, No Temperature Intolerance Yes all other systems are reviewed and are negative [facility] Past Medical History Attestation statement: The following information was validated with the patient. Source: old records reviewed, obtained from family and nursing notes reviewed Medical History Mental health disorder Gastroenteritis Irritable bowel syndrome with both constipation and diarrhea Hx LEEP (loop electrosurgical excision procedure), cervix, Heel fracture Surgical History Hx of shoulder surgery History of dermoid cyst excision History of cholecystectomy Family History Family History Father Cancer of unknown origin Ulcerative colitis Mother Lupus IBS (irritable bowel syndrome) Rheumatoid arthritis Daughter Chronic idiopathic constipation Social History Social History Housing: House Alcohol intake: current Patient Tobacco Use Status: Current everyday Tobacco user Tobacco use type: Cigarette Cigarettes Per Day: 10 e-Cigarette/Vaping Use: Never Used Second Hand Smoke Exposure: No Advance Directives: No Advance Directives Information Provided: No service: No Current occupational status: employed 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 Blood pressure normal. Pulse 113. Respiration normal. Oxygen normal. Temperature normal. Appearance: Alert. Oriented X3. No acute distress. Head: Normal external exam. Normocephalic. Atraumatic. Eyes: PERRLA. EOMI. Conjunctiva and sclera normal. Eyelids normal. ENT: EAC normal. Bilateral tympanic membranes appear normal although patient noted to have an effusion bilaterally. No tenderness over the pinna or the tragus. No tenderness over the mastoid. No erythema or swelling over the mastoids. Pharynx normal. Uvula midline. Moist mucous membranes. No lesions/ulcerations or masses noted on the tongue. Normal voice. No trismus noted. No drooling noted. No muffled voice noted. Neck: Normal inspection. Neck supple. FROM. No adenopathy. Thyroid Normal. No meningeal signs. CVS: Normal heart rate and rhythm. Heart sound normal. Pulses normal throughout. No murmurs/rales/gallops. Respiratory: No respiratory distress. Painless inspiration. Breath sounds normal. No wheezes/rales/rhonchi noted. Chest nontender. No accessory muscle usage noted or decreased air movement noted. Abdomen: Soft and nontender. Back: Full range of motion noted. Nontender. Skin: Skin warm and dry. Normal skin color. Normal skin turgor. No rashes/lesions/lacerations noted. Extremities: Extremities exhibit normal range of motion and nontender. Neuro: Oriented X 3. No motor deficit. No sensory deficit. Reflexes normal. Normal steady gait. No focal neuro deficits noted. CN's II-XII intact bilaterally? Course Course Course Narrative: Patient presenting with bilateral ear pain and fullness with dizziness. On exam it appears that patient has an effusion. H and P not consistent otitis media, otitis externa. I considered mastoiditis, epidural abscess, malig OE, TMJ, meningitis, and other infxs but the hx, exam& data did not support the diagnoses. The pt/family was advised that some diseases present atypically & the pt was given explicit DC instructions. Will DC home with a course of steroids with instructions to continue taking her previously prescribed medications as prescribed and to return if any new worsening symptoms. Patient understands agrees with this plan. Medical Decision Making Medical Decision Making MDM Narrative: see course Differential Diagnosis Differential Diagnoses: The differential diagnosis associated with the presentation includes see course External Record Review External record reviewed: Inpatient record, Office record, Outpatient record, Prior outpatient labs, Prior outpatient radiology, Primary care record and Outside ED record All prior labs/imaging/EKG and notes that are accessible in our system reviewed by myself Prescription Management I considered prescription management with: Other (Prednisone) Social Determinants Patient?s care significantly limited by Social Determinants of Health including: Other Social Determinant of Health Discharge Plan Discharge Clinical Impression: Acute effusion of both middle ears Patient Disposition: Home, Self-Care Instructions: Ear Infection (ED), Serous Otitis Media (ED) Prescriptions: New prednisone 20 mg tablet 40 mg PO DAILY 5 Days Qty: 10 0RF No Action omeprazole 40 mg capsule,delayed release(DR/EC) 40 mg PO DAILY Qty: 90 2RF diphenhydramine HCl 25 mg tablet 50 mg PO BEDTIME PRN (Reason: allergy symptoms) 30 Days Qty: 60 0RF levocetirizine 5 mg tablet 5 mg PO DAILY 30 Days Qty: 30 2RF trazodone 50 mg tablet 50 mg PO BEDTIME PRN Rx Instructions: Take up to 150 as needed. lorazepam 1 mg tablet 1 mg PO Q8H 14 Days Qty: 42 0RF Rx Instructions: Short-term increase for personal crisis and management IBS. epinephrine [EpiPen 2-Dalton] 0.3 mg/0.3 mL auto-injector 0.3 mg IM Q4H PRN (Reason: anaphylaxis) 30 Days Qty: 2 2RF atorvastatin 20 mg tablet 20 mg PO DAILY amoxicillin 500 mg capsule 500 mg PO BID 10 Days Qty: 20 0RF acetaminophen 500 mg capsule 1,000 mg PO Q6H PRN (Reason: pain, moderate) Qty: 30 0RF oxymetazoline [Afrin (oxymetazoline)] 0.05 % spray,non-aerosol 2 spray intranasal Q12H PRN (Reason: nasal congestion) 3 Days Qty: 15 0RF fluticasone propionate [Allergy Relief (fluticasone)] 50 mcg/actuation spray,suspension 2 spray intranasal DAILY 30 Days Qty: 16 3RF Rx Instructions: administer into each nostril meclizine 25 mg tablet 25 mg PO TID PRN (Reason: dizziness) 30 Days Qty: 60 2RF Rx Instructions: Take 1 tablet by mouth 3 times daily for 10 days. sertraline 100 mg tablet 200 mg PO BEDTIME azithromycin 250 mg tablet See Rx Instructions PO .COMPLEX Qty: 6 0RF Rx Instructions: take 500 mg today (day 1), then 250 mg for 4 days (days 2-5) PO sucralfate [Carafate] 1 gram tablet 3 g PO .qacsupper Qty: 60 6RF Hold Instructions: Doctor's Order Referrals: Alexis Whyte MD [Primary Care Provider] - 1 day Interventions: ED Discharge Assessment Last Done: 01/25/24 14:03 Discharge Date/Time: 01/25/24 14:04
== END 2024-01-25 14:04 | disposition home or self-care (01) ==
PROVIDERS: Emergency Provider Emergency Medicine; PCP Family Medicine
DX: H74.8X3 Other specified disorders of middle ear and mastoid, bilateral (principal)
CPT/HCPCS: 99282; 99283

== ENCOUNTER 2024-01-27 10:21 | Outpatient (AMB) | payer OTHER, SELFPAY ==
--- NOTE | 2024-01-27 10:22 | AM.OFFWIN_ITS ---
Intake Vital Signs 01/27/24 10:23 Height 5 ft 7 in Weight 192 lb 4 oz BMI 30.1 BP 112/70 Blood Pressure Location Rt brachial Position Sitting Pulse 110 H Pulse Source Pulse Oximeter Pulse Oximetry (%) 98 Oxygen Delivery Method Room Air Intake Visit Reasons: EP sinus pain chest congestion Intake Note: Pt is here sinus pressure, chest congestion and headache. Pt states she was seen in the ER Thursday and given prednisone. Patient Tobacco Use Status: Current everyday Tobacco user Allergies codeine [Codeine] Allergy (Unknown, Verified 01/27/24 10:24) RASH, hives terbinafine Adverse Reaction (Intermediate, Verified 01/27/24 10:24) Nausea and vomit Do you need a note to return to daycare/school/sports/work: No HPI HPI Comments History of Present Illness Details 43 y/o female patient who presents to [facility] with c/o URI symptoms. Reports feeling her ears full and head pressure. Reports body aches, Tachycardia, subjective fevers, weakness, lightheadedness and dizziness. Pt was seen by me 01/22/24 and started Amoxic x 10 days, Prednisone and Acetaminophen. She is on day 5 of Abx. Pt was also seen at ED 01/25/24 for similar reasons, and was discharged home with another course or Prednisone. Pt returns to [facility] clinic today reporting no improvement.She has also using OTC remedies such as Afrin, Flonase etc PFSH Medical History Mental health disorder Gastroenteritis Irritable bowel syndrome with both constipation and diarrhea Hx LEEP (loop electrosurgical excision procedure), cervix, Heel fracture Surgical History Hx of shoulder surgery History of dermoid cyst excision History of cholecystectomy Family History Father Cancer of unknown origin Ulcerative colitis Mother Lupus IBS (irritable bowel syndrome) Rheumatoid arthritis Daughter Chronic idiopathic constipation Social History Housing: House Alcohol intake: current Patient Tobacco Use Status: Current everyday Tobacco user Tobacco use type: Cigarette Cigarettes Per Day: 10 e-Cigarette/Vaping Use: Never Used Second Hand Smoke Exposure: No service: No Current occupational status: employed 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 Current occupational exposures/hazards: No Cognitive needs: No Hearing needs: No Vision needs: Yes (Glasses) Review of Systems Const All systems reviewed & are unremarkable except as noted in HPI and below Physical Exam Vital Signs: Last Vital Signs Pulse 110 H 01/27/24 10:23 BP 112/70 01/27/24 10:23 Pulse Ox 98 01/27/24 10:23 Oxygen Delivery Method Room Air 01/27/24 10:23 BMI result Body Mass Index 30.1 Const General: comfortable and no acute distress Orientation/consciousness: patient oriented x3 HEENT Head: Yes normocephalic Ears: external ears normal and TM abnormal wth effusion and with fluid behind the TM bilateral General nose exam: Normal nasal mucous membranes and turbinates present Face and sinus: Yes sinuses nontender Mouth: moist mucous membranes Resp Effort & Inspection: normal respiratory effort, able to speak in complete sentences and no cough Auscultation: clear to auscultation bilaterally, no crackles, no rales, no rhonchi and no wheezes Cardio Rate: regular rate Rhythm: regular rhythm Neuro General: patient oriented x3 Assessment & Plan Assessment & Plan (1) Upper respiratory tract infection: Code(s): J06.9 - Acute upper respiratory infection, unspecified Qualifiers: URI type: unspecified viral URI Qualified Code(s): J06.9 - Acute upper respiratory infection, unspecified Plan: - Rest - Hydrate well with warm fluids - Complete medications given Orders: Orders SARS-CoV2/FLU/RSV Today R09.89 - Other specified symptoms and signs involving the circulatory and respiratory systems Medications: Refilled meclizine Take 1 tablet by mouth 3 times daily for 10 days. 25 mg PO TID PRN 60 tabs 2RF dizziness 30 days Coding Level of Care Code Est Pt Level 3 (35262) Diagnoses Viral upper respiratory tract infection J06.9 URI type: unspecified viral URI Time Spent (min) 15
[2024-01-27 10:23] VITALS: BP 112/70; PULSE 110; O2SAT 98; BMI 30.1
== END 2024-01-27 10:58 | disposition home or self-care (01) ==
PROVIDERS: PCP Family Medicine; Visit Provider Nurse Practitioner Family
DX: J06.9 Acute upper respiratory infection, unspecified (principal)
CPT/HCPCS: 99213

== ENCOUNTER 2024-01-27 10:51 | Outpatient (REF) | payer OTHER, SELFPAY ==
[2024-01-27 13:58] LABS: Influenza A PCR NEGATIVE (Negative); Influenza B PCR NEGATIVE (Negative); Resp Syncy Virus RNA Qual PCR NEGATIVE (Negative); SARS COV2 PCR INHOUSE NEGATIVE (Negative)
== END 2024-01-27 10:52 | disposition home or self-care (01) ==
LOC: HO.LAB 10:51
PROVIDERS: Visit Provider Nurse Practitioner Family
DX: Z11.52 Encounter for screening for COVID-19 (principal); Z20.822 Contact with and (suspected) exposure to COVID-19; R09.89 Other specified symptoms and signs involving the circulatory and respiratory systems
CPT/HCPCS: 0241U

== ENCOUNTER 2024-03-24 11:14 | Outpatient (AMB) | payer OTHER, SELFPAY ==
--- NOTE | 2024-03-24 11:45 | AM.OFFWIN_ITS ---
Intake Vital Signs 03/24/24 11:48 Height 5 ft 7 in Weight 193 lb BMI 30.2 BP 134/66 Blood Pressure Location Rt brachial Position Sitting Respiration 13 Pulse 103 H Pulse Source Pulse Oximeter Temp 97.9 F Pulse Oximetry (%) 98 Oxygen Delivery Method Room Air Intake Visit Reasons: HBP, Anxiety, dizziness Intake Note: Patient reports she spoke with our nurse yesterday whom suggested she come in for a walk in today. Patient reports she has a psychiatrist, Radha Pretty (sp?) who has been trying to help get her anxiety under control and patient reports she has been unable to accomplish control over anxiety. Patient reports high blood pressure, dizziness, visual changes, have happened intermittently over 2-3 months. Patient reports her normal BP is low. Patient reports she is prescribed propranolol, unsure of dosing, [facility] calling pharmacy to find out. August 2023- 20mg 1-2 by mouth as need for onset of panic. Patient Tobacco Use Status: Current everyday Tobacco user Water Main Inspector Required: No Accompanied by: Daughter Allergies codeine [Codeine] Allergy (Unknown, Verified 03/24/24 12:06) RASH, hives terbinafine Adverse Reaction (Intermediate, Verified 03/24/24 12:06) Nausea and vomit Medication List - Last Reconciled 03/24/24 by OFELIA Pineda- acetaminophen 1,000 mg (2 x 500 mg) PO Q6H PRN atorvastatin 20 mg PO DAILY 90 days buspirone 5 mg PO TID diphenhydramine HCl 50 mg (2 x 25 mg) PO BEDTIME PRN 30 days epinephrine (EpiPen 2-Dalton) 0.3 mg (0.3 mL) IM Q4H PRN 30 days fluticasone propionate 50 mcg/actuation (Allergy Relief (fluticasone)) 2 sprays intranasal DAILY 1 month levocetirizine 5 mg PO DAILY 30 days lorazepam 1 mg PO Q8H 14 days meclizine 25 mg PO TID PRN 30 days omeprazole 40 mg PO DAILY sertraline 100 mg PO BID trazodone 50 mg PO BEDTIME PRN Do you need a note to return to daycare/school/sports/work: No HPI HPI Comments History of Present Illness Details Here today with complaints anxiety and feeling like sh*t . Reports she has a headache, sweating, elevated blood pressure, feels like she is going crazy, dizzy, and shaky. This started a few weeks ago. She is being managed by Psychiatry who was recently started her on BuSpar 5 mg t.i.d. along with propranolol. Patient is currently taking BuSpar 5 mg daily at bedtime. She stopped taking the propranolol as she feels like she felt worse when she was taking it. She is also on trazodone, Ativan, sertraline. [facility] Medical History Mental health disorder Gastroenteritis Irritable bowel syndrome with both constipation and diarrhea Hx LEEP (loop electrosurgical excision procedure), cervix, Heel fracture Surgical History Hx of shoulder surgery History of dermoid cyst excision History of cholecystectomy Family History Father Cancer of unknown origin Ulcerative colitis Mother Lupus IBS (irritable bowel syndrome) Rheumatoid arthritis Daughter Chronic idiopathic constipation Social History Housing: House Alcohol intake: current Patient Tobacco Use Status: Current everyday Tobacco user Tobacco use type: Cigarette Cigarettes Per Day: 10 e-Cigarette/Vaping Use: Never Used Second Hand Smoke Exposure: No service: No Current occupational status: employed 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 Current occupational exposures/hazards: No Cognitive needs: No Hearing needs: No Vision needs: Yes (Glasses) Review of Systems Const All systems reviewed & are unremarkable except as noted in HPI and below Physical Exam Vital Signs: Last Vital Signs Temp 97.9 F 03/24/24 11:48 Pulse 103 H 03/24/24 11:48 Resp 13 03/24/24 11:48 BP 134/66 03/24/24 11:48 Pulse Ox 98 03/24/24 11:48 Oxygen Delivery Method Room Air 03/24/24 11:48 BMI result Body Mass Index 30.2 Const Other: Awake alert oriented Pupils dilated & reactive Tachycardic regular rhythm Lung sounds clear to auscultation bilat Positive inducible clonus Skin flushed Crying, tearful, mildly restless Assessment & Plan Assessment & Plan (1) 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 Positive agit ation or diaphoresis, inducible clonus, ingestion as serotonergic drugs within 5 weeks. advised to stop buspar immediately and trazadone sparing use of ativan ok to cont sertraline no need to restart propranolol hydrate well We will need a close follow up. I have asked her to schedule an appointment next week as well as to alert her psychiatrist of the findings and concern today. 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 Patient Instructions: 1 week f/u serotonin syndrome Coding Level of Care Code Est Pt Level 4 (13686) Diagnoses Serotonin syndrome G25.79
[2024-03-24 11:48] VITALS: BP 134/66; PULSE 103; RESP 13; TEMP 36.6; O2SAT 98; BMI 30.2
== END 2024-03-24 12:32 | disposition home or self-care (01) ==
PROVIDERS: PCP Family Medicine; Visit Provider Nurse Practitioner Family
DX: G25.79 Other drug induced movement disorders (principal)
CPT/HCPCS: 99214

== ENCOUNTER 2024-03-25 15:45 | Emergency (ER) | payer OTHER, SELFPAY ==
--- NOTE | ~2024-03-25 | CT_ITS ---
EXAMINATION: CT head/brain wo IV con, CT cervical spine wo IV con INDICATION INFORMATION: Reason for Exam headache, lightheadedness COMPARISON: CT head without contrast 01/24/2022, CT cervical spine 12/29/2019 TECHNIQUE: Separate noncontrast CT examinations of the head and cervical spine were performed. Coronal and sagittal images were created for each examination at the technologist workstation. This CT examination was performed using dose optimization techniques as appropriate, variously including the following: *Automated exposure control *Adjustment of mA and/or kV according to patient size (this includes techniques or standardized protocols for targeted exams where dose is matched to indication/reason for exam; i.e. extremities or head) *Use of iterative reconstruction technique DLP: 1049.22 mGy-cm FINDINGS: Head: No acute osseous or soft tissue abnormality. The mastoid air cells and visualized portions of the paranasal sinuses are well aerated. There is no evidence of acute intracranial hemorrhage or territorial infarction. No abnormal mass effect or midline shift is seen. Cisneros to white matter differentiation is well preserved. No extra-axial fluid collections are identified. No hydrocephalus. No significant volume loss. There is no abnormal attenuation within the brain parenchyma. Cervical spine: There is no evidence of acute cervical spine fracture. Vertebral bodies remain normal in height. Loss of the usual cervical spine lordosis. Mild multilevel cervical spondylosis. No pre- or paravertebral soft tissue abnormality is identified. Visualized portions of the lung apices are unremarkable. There is a hypodense nodule in the left lobe of the thyroid gland measuring up to 9 mm which does not require further imaging follow-up based on age and size criteria. CT/CT cervical spine wo IV con IMPRESSION: 1. No acute intracranial abnormality. 2. No cervical spine fracture or traumatic malalignment.
--- NOTE | ~2024-03-25 | CT_ITS ---
EXAMINATION: CT ANGIOGRAM OF THE CHEST WITH AND WITHOUT CONTRAST (CT PULMONARY ANGIOGRAM FOR PE) CLINICAL INFORMATION: Reason for Exam chest pain, SOB, elevated d dimer COMPARISON: None available. TECHNIQUE: Prior to contrast administration, noncontrast localization images were obtained. Subsequently, multidetector volumetric imaging was performed from the thoracic inlet to below the diaphragms following the administration of 65 mL Omnipaque 350 intravenous contrast. No contrast reaction reported Sagittal, coronal, and MIP oblique sagittal reformatted images were obtained on the CT workstation, uploaded to PACS, and reviewed. This CT examination was performed using dose optimization techniques as appropriate, variously including the following: *Automated exposure control *Adjustment of mA and/or kV according to patient size (this includes techniques or standardized protocols for targeted exams where dose is matched to indication/reason for exam; i.e. extremities or head) *Use of iterative reconstruction technique Total exam dose-length product 370 mGy-cm FINDINGS: QUALITY OF STUDY/CONTRAST BOLUS: Satisfactory. PULMONARY ARTERIES: No pulmonary emboli. THORACIC AORTA: No aneurysm. LUNG: No focal consolidation, nodules or masses. Minimal dependent atelectasis. PLEURA: No pleural effusion or pneumothorax. MEDIASTINUM: Normal heart size. No pericardial effusion. No hilar or mediastinal lymphadenopathy. No evidence of septal bowing or right heart strain. There is a 8 mm hypodense nodule in the left thyroid lobe which does not require further imaging follow-up based on age and size criteria. CORONARY ARTERY CALCIFICATION: None visualized on this study. CHEST WALL/AXILLA: No axillary or internal mammary lymphadenopathy. OSSEOUS STRUCTURES: Mild multilevel degenerative spondylosis in the thoracic spine. UPPER ABDOMEN: Unremarkable. No reflux of contrast into the hepatic veins to suggest elevated right heart pressures. CT/CT angio chest PE protocol IMPRESSION: No evidence of pulmonary emboli. No acute pulmonary findings. VTE: negative.
--- NOTE | ~2024-03-25 | XR_ITS ---
EXAMINATION: XR CHEST CLINICAL INFORMATION: Palpitations and chest pain COMPARISON: 05/18/2023 TECHNIQUE: 2 views of the chest were obtained. FINDINGS: No significant abnormality is noted involving the heart, lungs, mediastinum, bony thorax or soft tissues. Surgical clips are present in the gallbladder fossa XR/XR chest 2V IMPRESSION: Unremarkable examination.
--- NOTE | 2024-03-25 15:47 | ECG_ITS ---
Test Reason : CHEST PAIN Blood Pressure : / mmHG Vent. Rate : 104 BPM Atrial Rate : 104 BPM P-R Int : 144 ms QRS Dur : 082 ms QT Int : 336 ms P-R-T Axes : 047 031 027 degrees QTc Int : 441 ms Sinus tachycardia Otherwise normal ECG When compared with ECG of 18-MAY-2023 17:24, No significant change was found Referred By: Nini Baez Electronically Signed By:KYLE GARCIA
[2024-03-25 16:15] VITALS: BP 152/99; PULSE 106; RESP 16; TEMP 36.2; O2SAT 99; BMI 30.5
--- NOTE | 2024-03-25 16:15 | ED_ITS ---
HPI - General Adult General Chief complaint: Dizziness Stated complaint: chest pain, high hr, anxiety, n/v/d Time Seen by Provider: 03/25/24 19:34 Source: patient Mode of arrival: ambulatory Limitations: no limitations History of Present Illness HPI narrative: Patient is a 43 year old assigned female at with a history of anxiety, GERD, and migraines presenting to the emergency department today with dizziness, neck pain, tachycardia, headache, and back pain. Patient states that she has had some medication changes and her provider was concerned about serotonin syndrome so they told her to come in. Patient states that over the last few months she has felt generally unwell with dizziness, tachycardia, headache, and back pain. Patient denies any dizziness, lightheadedness, abdominal pain, nausea, vomiting, fever, chills, blurry vision, double vision, loss of vision, chest pain, difficulty breathing, shortness of breath, night sweats, pain with urination, increased urinary frequency, increased urinary urgency, blood in her urine or stool, syncope or a near syncopal episode, recent trauma or falls, bowel incontinence, bladder incontinence, bowel retention, bladder retention, or any other complaints at this time. Onset (ago): month(s) Relieving factors: none Exacerbating factors: none Treatments prior to arrival: none Related Data Home Medications ?Medication ?Instructions ?Recorded ?Confirmed sertraline 100 mg tablet 100 mg PO BID 03/24/24 03/24/24 Previous Rx's ?Medication ?Instructions ?Recorded fluticasone propionate 50 2 spray intranasal DAILY 1 month 12/16/21 mcg/actuation nasal #16 grams spray,suspension (Allergy Relief (fluticasone)) lorazepam 1 mg tablet 1 mg PO Q8H 14 days #42 tabs 02/19/22 diphenhydramine HCl 25 mg tablet 50 mg (2 x 25 mg) PO BEDTIME PRN 06/02/23 allergy symptoms 30 days #60 tabs epinephrine 0.3 mg/0.3 mL 0.3 mg (0.3 mL) IM Q4H PRN 07/22/23 injection, auto-injector (EpiPen anaphylaxis 30 days #2 ea 2-Dalton) levocetirizine 5 mg tablet 5 mg PO DAILY 30 days #30 tabs 01/19/24 acetaminophen 500 mg capsule 1,000 mg (2 x 500 mg) PO Q6H PRN 01/22/24 pain, moderate #30 caps meclizine 25 mg tablet 25 mg PO TID PRN dizziness 30 days 01/27/24 #60 tabs atorvastatin 20 mg tablet 20 mg PO DAILY 90 days #90 tabs 02/04/24 omeprazole 40 mg capsule,delayed 40 mg PO DAILY #90 caps 03/10/24 release Allergies Allergy/AdvReac Type Severity Reaction Status Date / Time codeine [Codeine] Allergy Unknown RASH, hives Verified 03/25/24 16:18 terbinafine AdvReac Intermediate Nausea and Verified 03/25/24 16:18 vomit Review of Systems 2 Constitutional: Constitutional: Reports no additional constitutional complaints, Denies chills, Denies fever(s), Reports headache(s) and Denies night sweats Eyes: Eyes: Reports no additional eye complaints, Denies blurry vision, Denies change in vision, Denies diplopia, Denies eye discharge, Denies loss of vision and Denies eye pain ENT: Reports dizziness, Reports headache(s) and Reports neck pain Cardiovascular: Cardiovascular: Reports no additional cardiovascular complaints, Denies chest pain, Denies lightheadedness, Denies Loss of Consciousness, Reports palpitations and Denies dyspnea Respiratory: Respiratory: Reports no additional respiratory complaints and Denies dyspnea Gastrointestinal: Gastrointestinal: Reports no additional gastrointestinal complaints, Denies abdominal pain, Denies melena, Denies hematochezia, Denies change in bowel habits and Denies change in stool character Genitourinary: Genitourinary: Denies hematuria, Denies urinary frequency, Denies dysuria, Denies urinary incontinence, Denies urinary hesitancy and Denies urinary urgency Musculoskeletal: Musculoskeletal: Reports no additional musculoskeletal complaints, Reports back pain, Reports neck pain, Denies numbness and Denies tingling Neurologic: Reports dizziness, Reports headache(s), Denies loss of vision, Denies numbness and Denies tingling Psychiatric: Psychiatric: Reports anxiety Endocrine: Endocrine: Reports no additional endocrine complaints and Reports palpitations Hematologic/Lymphatic: Hematologic/Lymphatic: Reports no additional hematologic/lymphatic complaints Allergic/Immunologic: Allergic/Immunologic: Reports no additional allergic/immunologic complaints PMFSH Past Medical History Attestation statement: The following information was validated with the patient. Source: old records reviewed and nursing notes reviewed Medical History Mental health disorder Gastroenteritis Irritable bowel syndrome with both constipation and diarrhea Hx LEEP (loop electrosurgical excision procedure), cervix, Heel fracture Surgical History Hx of shoulder surgery History of dermoid cyst excision History of cholecystectomy Family History Family History Father Cancer of unknown origin Ulcerative colitis Mother Lupus IBS (irritable bowel syndrome) Rheumatoid arthritis Daughter Chronic idiopathic constipation Social History Social History Housing: House Alcohol intake: current Patient Tobacco Use Status: Current everyday Tobacco user Tobacco use type: Cigarette Cigarettes Per Day: 10 Smoked in Last 30 Days: No e-Cigarette/Vaping Use: Never Used Second Hand Smoke Exposure: No Use of substances other than those prescribed or required for medical reasons: No Advance Directives: No Advance Directives Information Provided: No Patient : No service: No Current occupational status: employed 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 Current occupational exposures/hazards: No Cognitive needs: No Hearing needs: No Vision needs: Yes (Glasses) Physical Exam ED Vital Signs: Vital Signs - 24 hr 03/25/24 19:28 03/26/24 00:01 Temperature 97.9 F 98.7 F Pulse Rate 93 89 Respiratory Rate 18 16 Blood Pressure 144/87 H 111/59 L Pulse Oximetry 98 99 Oxygen Delivery Method Room Air Room Air BMI result Body Mass Index 30.5 Const General: cooperative, no acute distress, alert and awake Nutritional Appearance: well nourished Orientation/consciousness: patient oriented x3 Limitations: no limitations HENMT Head: Yes normal to inspection and Yes atraumatic Ears: hearing grossly normal bilaterally and external ears normal General nose exam: Normal external nose present, no nasal discharge noted and no epistaxis Face and sinus: Yes normal facial exam, No abrasion and No laceration Mouth: Normal oral and palatal mucosa present, no drooling and no muffled voice Eyes General: appearance normal, both eyes and all related structures Periorbital: periorbital findings normal Eyelids: Yes eyelids normal Conjunctivae: conjunctivae normal Pupils: Equal, round and reactive pupils present EOM: EOMs intact bilaterally Neck Neck: Yes normal visual inspection, Yes full ROM and Yes no lymphadenopathy Chest Chest palpation & inspection: normal inspection of the chest Resp Effort & Inspection: normal respiratory effort and able to speak in complete sentences Auscultation: clear to auscultation bilaterally Cardio Rate: regular rate Rhythm: regular rhythm GI Inspection: Yes normal to inspection Neuro General: patient oriented x3 and moves all extremities Cranial nerves: Yes Equal, round and reactive pupils present Cognition (Neuro): normal cognition Motor exam (neuro): 5/5 motor strength present throughout Sensory Exam: Normal double simultaneous stimulation for sensation Coordination: [id number] test normal Extrem General: Yes normal to inspection, Yes full ROM and Yes capillary refill normal Psych Appearance: grossly normal Mental Status: mental status grossly normal Affect: normal affect Attitude: cooperative Thought process: Normal thought process present Thought content: Normal thought content present Insight: Good insight present (Psych) Course Course Course Narrative: This is a rapid medical exam performed by Tawanda Baez NP: Additional HPI, ROS, PE not included below will be deferred to primary provider. Patient is a 43-year-old female with history of anxiety presenting to the ED with complaint of elevated heart rate, chest pain, headache, abdominal and back pain, nausea, vomiting and diarrhea. Saw HIDE COOKING OPERATOR at her PCP office yesterday who diagnosed patient with serotonin syndrome and advised her to discontinue her buspirone and trazodone. Patient states she took 25mg of trazodone last night. Took benadryl today, then half an ativan as her HR remained elevated. Plan: EKG, labs, UA, viral swabs Medications Administered Discontinued Medications Generic Name Dose Route Start Last Admin Trade Name Vahid PRN Reason Stop Dose Admin Acetaminophen 975 mg 03/25/24 22:53 03/25/24 23:04 Acetaminophen 325 Mg Tablet PO 03/25/24 22:54 975 mg ONCE ONE Administration Sodium Chloride 1,000 mls @ 999 mls/hr 03/25/24 20:45 03/25/24 22:21 Ns IV 03/25/24 21:45 Infused .Q1H1M DAVID Infusion Iohexol 85 ml 03/25/24 20:56 03/25/24 20:57 Iohexol 350 Mg/Ml 100 Ml Infus..Btl IV 03/25/24 20:57 85 ml ONCE ONE Administration Lorazepam 2 mg 03/25/24 19:47 03/25/24 20:22 Lorazepam 2 Mg/Ml Vial IVPUSH 03/25/24 19:48 2 mg ONCE ONE Administration Morphine Sulfate 4 mg 03/25/24 22:33 03/25/24 22:44 Morphine Sulfate 4 Mg/Ml Cartridge IVPUSH 03/25/24 22:34 Not Given ONCE ONE Protocol Ondansetron HCl 4 mg 03/25/24 22:33 03/25/24 23:05 Ondansetron Hcl 4 Mg/2 Ml Vial IVPUSH 03/25/24 22:34 4 mg ONCE ONE Administration Medical Decision Making Medical Decision Making [facility] Narrative: Patient is a 43 year old assigned female at with a history of anxiety, GERD, and migraines presenting to the emergency department today with dizziness, neck pain, tachycardia, anxiety, headache, and back pain. Patient's physical exam was unremarkable. Patient's blood work showed a slightly elevated d dimer but was otherwise unremarkable. Patient's urine showed no acute process. Patient's EKG was unremarkable. Patient's chest x-ray, Head CT, C-Spine CT, and CT PE showed no acute process. I explained my physical exam findings as well as all test results to the patient. I answered all questions asked by the patient. Patient received IV fluid and IV Ativan while in the department which she stated helped her symptoms. I stressed the importance of the patient taking her medication as prescribed. I stressed the importance of the patient following up with her primary care provider and given her clinical presentation, a loss prevention officer. I stressed the importance of the patient returning to the emergency department immediately if her symptoms were to worsen or if she were to develop any dizziness, shortness of breath, difficulty breathing, chest pain, blurry vision, loss of vision, nausea, vomiting, abdominal pain, fever, chills, back pain, or any other complaints. Patient verbalized agreement and understanding with this treatment plan and discharge. Differential Diagnosis Differential Diagnoses: The differential diagnosis associated with the presentation includes POTS Near syncope Headache Migraine Anxiety attack Worsening anxiety Serotonin syndrome PE Admission/Observation Consideration of admission/observation: Escalation of care including admission/observation considered Patient would have been admitted to the hospital had her work up had any findings where hospital admission was appropriate and her clinical presentation warranted hospital admission. Lab Data [facility] Lab Attestation statement: I reviewed the patient's lab results. My interpretation of these results are in the [facility] Rationale portion of this note. 03/25/24 17:07 03/25/24 17:07 Labs: Lab Results 03/25/24 03/25/24 03/25/24 Range/Units 17:06 17:07 17:08 WBC 13.1 H (4.8-10.8) X10*3/uL RBC 4.84 (4.20-5.50) X10*6/uL Hgb 14.9 (12.0-16.0) g/dl Hct 42.4 (37.0-47.0) % MCV 87.6 (80.0-98.0) fL MCH 30.8 (27.0-33.0) pg MCHC 35.1 H (31.0-35.0) g/dl RDW 12.8 (11.0-16.0) % Plt Count 283 (160-400) X10*3/uL MPV 9.8 (9.4-12.3) fL Immature Gran % (Auto) 0.4 (0.0-0.4) % Neut % (Auto) 70.2 (45-73) % Lymph % (Auto) 23.4 (20-40) % Barron % (Auto) 4.4 (2-11) % Eos % (Auto) 1.2 (0-4) % Baso % (Auto) 0.4 (0-2) % Lymph # (Auto) 3.1 (1.2-4.9) X10*3/uL Barron # (Auto) 0.6 (0.1-1.2) X10*3/uL Eos # (Auto) 0.2 (0.0-0.4) X10*3/uL Baso # (Auto) 0.1 (0.0-0.2) X10*3/uL Abs Immat Gran (auto) 0.05 H (0.00-0.03) X10*3/uL Absolute Neuts (auto) 9.2 H (2.0-8.3) x10*3/uL Absolute Nucleated RBC 0.000 (0.0-0.012) X10*3/uL Nucleated RBC % (auto) 0.0 (0.0-0.2) /100WBC PT 11.8 (11.1-13.3) SEC INR 1.0 (0.9-1.1) D-Dimer High Sensitivty 246 NG/ML Sodium 138 (135-145) mmol/L Potassium 4.1 (3.3-5.1) mmol/L Chloride 105 (96-108) mmol/L Carbon Dioxide 22 (22-29) mmol/L Anion Gap 15 (12-20) BUN 8 L (9-16) mg/dL Creatinine 0.70 (0.5-1.4) mg/dL Estim Creat Clear Calc 120.7 Estimated GFR > 60 Random Glucose 95 (60-115) mg/dL Calcium 10.6 H (8.4-10.2) mg/dL Magnesium 2.1 (1.6-2.6) mg/dL Total Bilirubin 0.5 (0.0-1.0) mg/dL AST 18 (5-31) U/L ALT 26 (0-31) U/L Alkaline Phosphatase 81 (39-117) U/L Troponin I High Sens < 2.7 (<3.5-17.0) ng/L Total Protein 7.9 (6.5-8.0) g/dL Albumin 4.5 (3.5-5.0) g/dL Lipase 18 (8-78) U/L TSH 1.04 (0.32-4.0) uIU/mL Beta HCG, Quant < 2 mIU/mL Urine Color Other A Urine Appearance Clear Urine pH 6.0 (5.0-9.0) Ur Specific [place] <= 1.005 (1.005-1.025) Urine Protein 30 (1+) H (Neg-Trace) mg/dL Urine Glucose (UA) Negative (Negative) mg/dL Urine Ketones Negative (Negative) mg/dL Urine Blood Large (3+) H (Negative) Urine Nitrite Negative (Negative) Ur Leukocyte Esterase Small (1+) H (Negative) Urine RBC >20 H (0-2) /HPF Urine WBC 6-10 H (0-5) /HPF Ur Squamous Epith Cells 0-2 (0-2) /HPF Urine Bacteria None Seen (None Seen) Hyaline Casts 0-2 (0-2) /LPF Urine Opiates Screen Not Detected (Not Detect) Ur Buprenorphine Scrn Not Detected (Not Detect) ng/mL Ur Oxycodone Screen Not Detected (Not Detect) ng/mL Urine Methadone Screen Not Detected (Not Detect) ng/mL Urine Fentanyl Screen Not Detected (Not Detect) Ur Barbiturates Screen Not Detected (Not Detect) Ur Phencyclidine Scrn Not Detected (Not Detect) Ur Amphetamines Screen Not Detected (Not Detect) U Benzodiazepines Scrn Not Detected (Not Detect) Urine Cocaine Screen Not Detected (Not Detect) U Marijuana (THC) Screen Not Detected (Not Detect) Ethyl Alcohol < 10 mg/dL Influenza Type A (PCR) NEGATIVE (Negative) Influenza Type B (PCR) NEGATIVE (Negative) RSV RNA Qual (PCR) NEGATIVE (Negative) SARS-CoV-2 RNA (RT-PCR) NEGATIVE (Negative) Independent Interpretation I performed an independent interpretation of an: EKG, Plain X-Ray and CT Scan Interpretation: My interpretation is in agreement with the radiologist's impression of these imaging studies. - EXAMINATION: XR CHEST CLINICAL INFORMATION: Palpitations and chest pain COMPARISON: 05/18/2023 TECHNIQUE: 2 views of the chest were obtained. FINDINGS: No significant abnormality is noted involving the heart, lungs, mediastinum, bony thorax or soft tissues. Surgical clips are present in the gallbladder fossa XR/XR chest 2V IMPRESSION: Unremarkable examination. Dictated By: Javy Victoria MD Signed By: Electronically signed by Javy Victoria MD 03/25/24 2157 - EXAMINATION: CT head/brain wo IV con, CT cervical spine wo IV con INDICATION INFORMATION: Reason for Exam headache, lightheadedness COMPARISON: CT head without contrast 01/24/2022, CT cervical spine 12/29/2019 TECHNIQUE: Separate noncontrast CT examinations of the head and cervical spine were performed. Coronal and sagittal images were created for each examination at the technologist workstation. This CT examination was performed using dose optimization techniques as appropriate, variously including the following: *Automated exposure control *Adjustment of mA and/or kV according to patient size (this includes techniques or standardized protocols for targeted exams where dose is matched to indication/reason for exam; i.e. extremities or head) *Use of iterative reconstruction technique DLP: 1049.22 mGy-cm FINDINGS: Head: No acute osseous or soft tissue abnormality. The mastoid air cells and visualized portions of the paranasal sinuses are well aerated. There is no evidence of acute intracranial hemorrhage or territorial infarction. No abnormal mass effect or midline shift is seen. Cisneros to white matter differentiation is well preserved. No extra-axial fluid collections are identified. No hydrocephalus. No significant volume loss. There is no abnormal attenuation within the brain parenchyma. Cervical spine: There is no evidence of acute cervical spine fracture. Vertebral bodies remain normal in height. Loss of the usual cervical spine lordosis. Mild multilevel cervical spondylosis. No pre- or paravertebral soft tissue abnormality is identified. Visualized portions of the lung apices are unremarkable. There is a hypodense nodule in the left lobe of the thyroid gland measuring up to 9 mm which does not require further imaging follow-up based on age and size criteria. CT/CT cervical spine wo IV con IMPRESSION: 1. No acute intracranial abnormality. 2. No cervical spine fracture or traumatic malalignment. Dictated By: Roland Bro Signed By: Electronically signed by Roland Bro 03/25/24 2980 - EXAMINATION: CT ANGIOGRAM OF THE CHEST WITH AND WITHOUT CONTRAST (CT PULMONARY ANGIOGRAM FOR PE) CLINICAL INFORMATION: Reason for Exam chest pain, SOB, elevated d dimer COMPARISON: None available. TECHNIQUE: Prior to contrast administration, noncontrast localization images were obtained. Subsequently, multidetector volumetric imaging was performed from the thoracic inlet to below the diaphragms following the administration of 65 mL Omnipaque 350 intravenous contrast. No contrast reaction reported Sagittal, coronal, and MIP oblique sagittal reformatted images were obtained on the CT workstation, uploaded to PACS, and reviewed. This CT examination was performed using dose optimization techniques as appropriate, variously including the following: *Automated exposure control *Adjustment of mA and/or kV according to patient size (this includes techniques or standardized protocols for targeted exams where dose is matched to indication/reason for exam; i.e. extremities or head) *Use of iterative reconstruction technique Total exam dose-length product 370 mGy-cm FINDINGS: QUALITY OF STUDY/CONTRAST BOLUS: Satisfactory. PULMONARY ARTERIES: No pulmonary emboli. THORACIC AORTA: No aneurysm. LUNG: No focal consolidation, nodules or masses. Minimal dependent atelectasis. PLEURA: No pleural effusion or pneumothorax. MEDIASTINUM: Normal heart size. No pericardial effusion. No hilar or mediastinal lymphadenopathy. No evidence of septal bowing or right heart strain. There is a 8 mm hypodense nodule in the left thyroid lobe which does not require further imaging follow-up based on age and size criteria. CORONARY ARTERY CALCIFICATION: None visualized on this study. CHEST WALL/AXILLA: No axillary or internal mammary lymphadenopathy. OSSEOUS STRUCTURES: Mild multilevel degenerative spondylosis in the thoracic spine. UPPER ABDOMEN: Unremarkable. No reflux of contrast into the hepatic veins to suggest elevated right heart pressures. CT/CT angio chest PE protocol IMPRESSION: No evidence of pulmonary emboli. No acute pulmonary findings. VTE: negative. Dictated By: Jose Mar MD Signed By: Electronically signed by Jose Mar MD 03/25/24 2317 - Vent. Rate: 104 BPM Atrial Rate: 104 BPM P-R Int: 144 ms QRS Dur: 082 ms QT Int: 336 ms P-R-T Axes: 047 031 027 degrees QTc Int: 441 ms Sinus tachycardia Otherwise normal ECG When compared with ECG of 18-MAY-2023 17:24, No significant change was found DD/ [id number] Radiology Impression Discussion of test interpretation with radiology: I have reviewed the radiologist's reading. Critical Care Time Critical Care Time Critical Care Time: Yes Total Critical Care Time: 187 Attestation: I spent 187 minutes of Critical Care Time with this patient. This does not include time spent on separately reported billable procedures. Discharge Plan Discharge Clinical Impression: Neck pain, Tachycardia, Anxiety Patient Disposition: Home, Self-Care Instructions: Anxiety (ED), Neck Pain (ED), Tachycardia (ED) Additional Instructions: A clear reason for your symptoms was not found however, an emergency was ruled out. Your lab work and imaging was all reassuring. Follow up with your primary care provider and a loss prevention officer. Return to the emergency department immediately if your symptoms worsen or if you develop any dizziness, shortness of breath, difficulty breathing, chest pain, blurry vision, loss of vision, nausea, vomiting, abdominal pain, fever, chills, back pain, or any other complaints. Prescriptions: No Action diphenhydramine HCl 25 mg tablet 50 mg PO BEDTIME PRN (Reason: allergy symptoms) 30 Days Qty: 60 0RF levocetirizine 5 mg tablet 5 mg PO DAILY 30 Days Qty: 30 2RF atorvastatin 20 mg tablet 20 mg PO DAILY 90 Days Qty: 90 3RF omeprazole 40 mg capsule,delayed release(DR/EC) 40 mg PO DAILY Qty: 90 2RF lorazepam 1 mg tablet 1 mg PO Q8H 14 Days Qty: 42 0RF Rx Instructions: Short-term increase for personal crisis and management IBS. epinephrine [EpiPen 2-Dalton] 0.3 mg/0.3 mL auto-injector 0.3 mg IM Q4H PRN (Reason: anaphylaxis) 30 Days Qty: 2 2RF acetaminophen 500 mg capsule 1,000 mg PO Q6H PRN (Reason: pain, moderate) Qty: 30 0RF fluticasone propionate [Allergy Relief (fluticasone)] 50 mcg/actuation spray,suspension 2 spray intranasal DAILY 30 Days Qty: 16 3RF Rx Instructions: administer into each nostril sertraline 100 mg tablet 100 mg PO BID Rx Instructions: 100MG QAM, 100MG QPM meclizine 25 mg tablet 25 mg PO TID PRN (Reason: dizziness) 30 Days Qty: 60 2RF Rx Instructions: Take 1 tablet by mouth 3 times daily for 10 days. Referrals: [facility] Cardiovascular Services [Provider Group] (Call to establish and follow up with a loss prevention officer.) Alexis Whyte MD [Primary Care Provider] - Stand Alone Forms: Work/School Release Interventions: ED Discharge Assessment Last Done: 03/26/24 00:01 Discharge Date/Time: 03/26/24 00:02 Print Language: Japanese
[2024-03-25 17:16] LABS: MANUAL DIFF FLAG NO
[2024-03-25 17:19] LABS: Basophils Absolute Auto 0.1 X10*3/uL (0.0-0.2); Basophils Percent Auto 0.4 % (0-2); Eosinophils Absolute Auto 0.2 X10*3/uL (0.0-0.4); Eosinophils Percent Auto 1.2 % (0-4); Hematocrit 42.4 % (37.0-47.0); Hemoglobin 14.9 g/dl (12.0-16.0); Imm Gran Abs Auto 0.05 X10*3/uL (0.00-0.03); Imm Gran Pct Auto 0.4 % (0.0-0.4); Lymphocytes Absolute Auto 3.1 X10*3/uL (1.2-4.9); Lymphocytes Percent Auto 23.4 % (20-40); Mean Corpuscular HGB Conc 35.1 g/dl (31.0-35.0); Mean Corpuscular Hemoglobin 30.8 pg (27.0-33.0); Mean Corpuscular Volume 87.6 fL (80.0-98.0); Mean Platelet Volume 9.8 fL (9.4-12.3); Monocytes Absolute Auto 0.6 X10*3/uL (0.1-1.2); Monocytes Percent Auto 4.4 % (2-11); Neutrophils Absolute Auto 9.2 x10*3/uL (2.0-8.3); Neutrophils Percent Auto 70.2 % (45-73); Platelet Count 283 X10*3/uL (160-400); Red Blood Count 4.84 X10*6/uL (4.20-5.50); Red Cell Distribution Width 12.8 % (11.0-16.0); White Blood Count 13.1 X10*3/uL (4.8-10.8)
[2024-03-25 17:30] LABS: Prothrombin Time 11.8 SEC (11.1-13.3)
[2024-03-25 17:30] LABS: Amphetamine Screen Urine Not Detected (Not Detect); Barbiturates, Urine Not Detected (Not Detect); Benzodiazepines Screen Urine Not Detected (Not Detect); Buprenorphine Scr Not Detected (Not Detect); Cannabinoid Screen Urine Not Detected (Not Detect); Cocaine Screen Urine Not Detected (Not Detect); Fentanyl, urine Not Detected (Not Detect); Methadone Screen, Urine Not Detected (Not Detect); Opiate Screen Urine Not Detected (Not Detect); Oxycodone Screen Urine Not Detected (Not Detect); Phencyclidine Screen Urine Not Detected (Not Detect)
[2024-03-25 17:50] LABS: Appearance Urine Clear; Color Urine Other; Glucose Urine UA Negative (Negative); Leukocyte Esterase Urine Small (1+) (Negative); Nitrite Urine Negative (Negative); Specific Gravity - Urine <= 1.005 (1.005-1.025); UMIC TRIGGER UACC YES; Urine Blood Large (3+) (Negative); Urine Ketones Negative (Negative); Urine Protein 30 (1+) mg/dL (Neg-Trace)
[2024-03-25 17:51] LABS: Bacteria Urine None Seen (None Seen); Hyaline Casts Urine 0-2 /LPF (0-2); RBC Urine >20 /HPF (0-2); Squamous Epithelial Cell Urine 0-2 /HPF (0-2); UACC Culture Trigger YES
[2024-03-25 17:53] LABS: Alanine Aminotransferase 26 U/L (0-31); Albumin Level 4.5 g/dL (3.5-5.0); Alkaline Phosphatase 81 U/L (39-117); Anion Gap 15 (12-20); Aspartate Amino Transferase 18 U/L (5-31); Bilirubin Total 0.5 mg/dL (0.0-1.0); Blood Urea Nitrogen 8 mg/dL (9-16); Calcium 10.6 mg/dL (8.4-10.2); Carbon Dioxide 22 mmol/L (22-29); Chloride 105 mmol/L (96-108); Creatinine Clr Calc Pharmacy 120.7; Estimated Glomerular Filt Rate > 60; Glucose Random 95 mg/dL (60-115); Lipase 18 U/L (8-78); Magnesium 2.1 mg/dL (1.6-2.6); Potassium 4.1 mmol/L (3.3-5.1); Sodium 138 mmol/L (135-145); Total Protein 7.9 g/dL (6.5-8.0)
[2024-03-25 17:56] LABS: Influenza A PCR NEGATIVE (Negative); Influenza B PCR NEGATIVE (Negative); Resp Syncy Virus RNA Qual PCR NEGATIVE (Negative); SARS COV2 PCR INHOUSE NEGATIVE (Negative)
[2024-03-25 17:58] LABS: Ethanol < 10 mg/dL
[2024-03-25 18:03] LABS: Troponin-I High Sensitivity < 2.7 ng/L (<3.5-17.0)
[2024-03-25 18:11] LABS: HCG Quantitative < 2 mIU/mL
[2024-03-25 18:16] LABS: TSH reflex Free T4 1.04 uIU/mL (0.32-4.0)
[2024-03-25 19:28] VITALS: BP 144/87; PULSE 93; RESP 18; TEMP 36.6; O2SAT 98
[2024-03-25] MEDS: LORazepam 2 MG/ML VIAL IVPUSH (20:22)
[2024-03-25 20:34] LABS: D Dimer High Sensitivity 246 NG/ML
[2024-03-25] MEDS: 0.9 % Sodium Chloride 1,000 ML 999 ML IV (20:34)
[2024-03-25] MEDS: iohexoL 350 MG/ML 100 ML INFUS..BTL 85 ML IV (20:57)
--- NOTE | 2024-03-25 22:32 | PC.NURSE ---
pt assessed,dizziness has resolved, c/o headache, PA aware, pt medicated per MAR
[2024-03-25] MEDS: Acetaminophen 325 MG TABLET 975 MG PO (23:04)
[2024-03-25] MEDS: ondansetron HCL 4 MG/2 ML VIAL IVPUSH (23:05)
[2024-03-26 00:01] VITALS: BP 111/59; PULSE 89; RESP 16; TEMP 37.1; O2SAT 99
== END 2024-03-26 00:02 | disposition home or self-care (01) ==
PROVIDERS: Physician Assistant Medical; Registered Nurse Emergency; Emergency Provider Emergency Medicine Emergency Medical Services; PCP Family Medicine
DX: M54.2 Cervicalgia (principal); R00.0 Tachycardia, unspecified; F41.9 Anxiety disorder, unspecified; R79.1 Abnormal coagulation profile
CPT/HCPCS: 0241U; 36415; 70450; 71046; 71275; 72125; 80053; 80307; 81001; 83690; 83735; 84443; 84484; 84702; 85025; 85379; 85610; 87086; 93005; 96361; 96374; 96375; 99284; 99285; J2060; J2405; Q9967

== ENCOUNTER → 2024-03-25 15:47 | Outpatient (BNV) | payer OTHER, SELFPAY | PROVIDERS: Emergency Provider Emergency Medicine Emergency Medical Services; PCP Family Medicine; Visit Provider Internal Medicine | DX: R00.0 Tachycardia, unspecified (principal); R07.9 Chest pain, unspecified | CPT/HCPCS: 93010 ==

== ENCOUNTER 2024-04-13 10:24 | Outpatient (AMB) | payer OTHER, SELFPAY ==
[2024-04-13 10:34] VITALS: BP 110/58; PULSE 109
--- NOTE | 2024-04-13 10:34 | A.OFFVIS_ITS ---
Vital Signs 04/13/24 10:34 Height 5 ft 7 in Weight 191 lb 12.835 oz BMI 30.0 BP 110/58 L Blood Pressure Location Rt brachial Position Sitting Pulse 109 H Pulse Source Pulse Oximeter Intake Visit Reasons: [facility] [place]/ [employer]/ cp/ high heart rate (HS) Allergies codeine [Codeine] Allergy (Unknown, Verified 03/25/24 16:18) RASH, hives terbinafine Adverse Reaction (Intermediate, Verified 03/25/24 16:18) Nausea and vomit Medication List - Last Reconciled 04/13/24 by Miguel Best MD acetaminophen 1,000 mg (2 x 500 mg) PO Q6H PRN amoxicillin 875 mg PO Q12H atorvastatin 20 mg PO DAILY 90 days diphenhydramine HCl 50 mg (2 x 25 mg) PO BEDTIME PRN 30 days epinephrine (EpiPen 2-Dalton) 0.3 mg (0.3 mL) IM Q4H PRN 30 days fluticasone propionate 50 mcg/actuation (Allergy Relief (fluticasone)) 2 sprays intranasal DAILY 1 month levocetirizine 5 mg PO DAILY 30 days lorazepam 1 mg PO Q8H 14 days meclizine 25 mg PO TID PRN 30 days omeprazole 40 mg PO DAILY sertraline 100 mg PO BID trazodone 50 mg PO DAILY PRN HPI Comments Details: Lucie is here for evaluation because of tachycardia. No previous cardiac history. She gets a myriad of symptoms which have been going on for a while. She feels some pain in the neck/shoulder area and at the same time, she can feel her heart racing, have headaches, feel dizzy extra. 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 Looking at her vital signs, heart rates have been quite high just over 100/min but this goes back for many years. Not clear if it is all just anxiety or if there is any other component. No known cardiomyopathy. No clear exertional symptoms. It seems she is tried propranolol but had side effects and not taking anymore. [facility] Medical History Mental health disorder Gastroenteritis Irritable bowel syndrome with both constipation and diarrhea Hx LEEP (loop electrosurgical excision procedure), cervix, Heel fracture Surgical History Hx of shoulder surgery History of dermoid cyst excision History of cholecystectomy Family History Father Cancer of unknown origin Ulcerative colitis Mother Lupus IBS (irritable bowel syndrome) Rheumatoid arthritis Daughter Chronic idiopathic constipation Social History Housing: House Alcohol intake: current Patient Tobacco Use Status: Current everyday Tobacco user Tobacco use type: Cigarette Cigarettes Per Day: 10 e-Cigarette/Vaping Use: Never Used Second Hand Smoke Exposure: No service: No Current occupational status: employed 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 Current occupational exposures/hazards: No Cognitive needs: No Hearing needs: No Vision needs: Yes (Glasses) Review of Systems Const Denies weakness ENT Denies dizziness Card Details: DIZZINESS Denies chest pain, Denies chest pain with activity, Denies syncope, Denies rapid heart rate, Denies pedal edema, Denies edema, Denies leg edema, Denies lightheadedness, Denies palpitations, Denies dyspnea, Denies dyspnea on exertion and Denies orthopnea Resp Denies cough, Denies dyspnea and Denies dyspnea on exertion GI Denies hematochezia and Denies change in stool character Musc Denies abnormal gait, Denies muscle cramps, Denies muscle weakness, Denies numbness, Denies radiating pain into limb and Denies tingling Neuro Denies abnormal gait, Denies dizziness, Denies syncope, Denies numbness, Denies tingling and Denies weakness Endo Denies palpitations Physical Exam Vital Signs: Last Vital Signs Pulse 109 H 04/13/24 10:34 BP 110/58 L 04/13/24 10:34 BMI result Body Mass Index 30.0 Const General: comfortable and no acute distress Orientation/consciousness: patient oriented x3 HEENT Other: Unremarkable Head: Yes normal to inspection Neck Neck: Yes normal visual inspection Chest Chest palpation & inspection: normal inspection of the chest Resp Auscultation: clear to auscultation bilaterally Cardio Palpation: normal PMI Heart sounds: S1 normal heart sound present, S2 normal heart sound present, no gallops, no murmurs and no rubs GI Palpation (GI): Soft to palpation Back/Spine/Pelvis Other: unremarkable Skin General skin exam: no rashes or lesions noted Neuro General: patient oriented x3 Extrem General: Yes normal to inspection Psych Mental Status: mental status grossly normal Assessment & Plan Assessment & Plan (1) Sinus tachycardia: Code(s): R00.0 - Tachycardia, unspecified Category: Medical Plan Recent EKG shows sinus tachycardia at 104/Min; no significant ST-T changes; normal [place] and corrected QT. Going back more than 10 years, even in 2010, EKG showed mild sinus tachycardia at 101/min. Unclear etiology for the sinus tachycardia which is chronic. Anxiety might play a role. Inappropriate sinus tachycardia also possible. We can get an echocardiogram for cardiac function. Holter monitor. Will hold off any meds for the same. Follow-up after the above. Patient agrees. Orders: Orders CA echo transthoracic complete Today R00.0 - Tachycardia, unspecified ECG 3 day holter monitor Today R00.0 - Tachycardia, unspecified, R00.2 - Palpitations Coding Level of Care Code New Pt Level 3 (63216) Diagnoses Sinus tachycardia R00.0
== END 2024-04-13 11:01 | disposition home or self-care (01) ==
PROVIDERS: PCP Family Medicine; Visit Provider Internal Medicine
DX: R00.0 Tachycardia, unspecified (principal)
CPT/HCPCS: 99203

== ENCOUNTER → 2024-04-13 10:24 | Outpatient (BNVA) | payer OTHER, SELFPAY | PROVIDERS: PCP Family Medicine; Visit Provider Internal Medicine | DX: R00.0 Tachycardia, unspecified (principal); R00.2 Palpitations | CPT/HCPCS: 99202 ==

== ENCOUNTER → 2024-04-14 09:47 | Outpatient (AMB) | payer OTHER, SELFPAY ==
[2024-04-14 09:53] VITALS: BP 112/62; PULSE 102; O2SAT 96; BMI 30.7
--- NOTE | 2024-04-14 09:53 | A.OFFPC_ITS ---
Vital Signs 04/14/24 09:53 Height 5 ft 7 in Weight 196 lb BMI 30.7 BP 112/62 Blood Pressure Location Lt brachial Position Sitting Pulse 102 H Pulse Source Pulse Oximeter Pulse Oximetry (%) 96 Oxygen Delivery Method Room Air Intake Visit Reasons: follow up after psychiatry diagnosis Intake Note: Patient is here for follow up on psychitry dx. She would also like refill of Le vocetirizine today. Patient states she is due for her tetanus shot today, too. Allergies codeine [Codeine] Allergy (Unknown, Verified 04/14/24 09:56) RASH, hives terbinafine Adverse Reaction (Intermediate, Verified 04/14/24 09:56) Nausea and vomit Medication List - Last Reconciled 04/14/24 by Alexis Whyte MD acetaminophen 1,000 mg (2 x 500 mg) PO Q6H PRN amoxicillin 875 mg PO Q12H atorvastatin 20 mg PO DAILY 90 days diphenhydramine HCl 50 mg (2 x 25 mg) PO BEDTIME PRN 30 days epinephrine (EpiPen 2-Dalton) 0.3 mg (0.3 mL) IM Q4H PRN 30 days fluticasone propionate 50 mcg/actuation (Allergy Relief (fluticasone)) 2 sprays intranasal DAILY 1 month levocetirizine 5 mg PO DAILY 30 days lorazepam 1 mg PO Q8H 14 days meclizine 25 mg PO TID PRN 30 days omeprazole 40 mg PO DAILY sertraline 100 mg PO BID trazodone 50 mg PO DAILY PRN Tobacco use date assessed: 04/14/24 Dental Screening Dental Screen Date: 04/14/24 Did you have a dental visit in the last 12 months?: Yes Did you have a dental problem in the last 6 months where you did not have access to dental care?: No Was dental information given to patient?: Patient has dentist HPI follow up after psychiatry diagnosis HPI Details Follow-up?after?going?to?the?ED?for?concerns?of?serotonin?syndrome. Found?not?to?have?serotonin?syndrome?but?still?has?significant?anxiety?which?she ?feels?is?due?to?left?neck?and?shoulder?pain. She?also?has?follow- up?appointments?with?cardiology?and?they?have?ordered?echocardiogram?and?Holter? monitor?test. Still?having?ongoing?left?neck?and?shoul yehuda?pain?and?has?tried?gabapentin?and?other?medications?in?the?past.??She?has?no t?tried?pregabalin. PFSH Medical History Mental health disorder Gastroenteritis Irritable bowel syndrome with both constipation and diarrhea Hx LEEP (loop electrosurgical excision procedure), cervix, Heel fracture Surgical History Hx of shoulder surgery History of dermoid cyst excision History of cholecystectomy Family History Father Cancer of unknown origin Ulcerative colitis Mother Lupus IBS (irritable bowel syndrome) Rheumatoid arthritis Daughter Chronic idiopathic constipation Social History Housing: House Alcohol intake: current Patient Tobacco Use Status: Current everyday Tobacco user Tobacco use type: Cigarette Cigarettes Per Day: 10 e-Cigarette/Vaping Use: Never Used Second Hand Smoke Exposure: No service: No Current occupational status: employed 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 1. Little interest or pleasure in doing things: several days 2. Feeling down, depressed, or hopeless: several days 3. Trouble falling or staying asleep, or sleeping too much: not at all 4. Feeling tired or having little energy: several days 5. Poor appetite or overeating: nearly every day 6. Feeling bad about yourself - or that you are a failure or have let yourself or your family down: several days 7. Trouble concentrating on things, such as reading the newspaper or watching television: not at all 8. Moving or speaking so slowly that other people could have noticed. Or the opposite - being so fidgety or restless that you have been moving around a lot more than usual: several days 9. Thoughts that you would be better off or of hurting yourself in some way: not at all Total score: 8 Depression Screening Interpretation: Positive Depression Screening Done: Yes Source: Developed by Drs. Adryan Mercedes, Reinaldo Rachel and colleagues, with an educational marlyn from [employer]. Thrive Questionnaire Date Thrive assessed: 12/22/22 KEVIN-7 AMB Questionnaire KVEIN-7 Date KEVIN - 7 assessed: 04/14/24 Feeling nervous, anxious, or on edge: 1 = Several days Not being able to stop or control worryin = Nearly every day Worrying too much about different things: 3 = Nearly every day Trouble relaxin = Several days Being so restless that it is hard to sit still: 1 = Several days Becoming easily annoyed or irritable: 0 = Not at all Feeling afraid as if something awful might happen: 0 = Not at all Total KEVIN-7 score (0-4 normal; 5-9 mild; 10-14 moderate; 15-21 severe): 9 Source: Developed by Drs. Adryan Mercedes, Reinaldo Rachel and colleagues, with an educational marlyn from [employer]. Review of Systems Const Denies chills, Denies fatigue, Denies fever(s), Denies headache(s) and Denies weakness ENT Denies dizziness and Denies headache(s) Card Denies chest pain, Denies lightheadedness, Denies dyspnea and Denies other (Palpitations) Resp Denies cough, Denies dyspnea, Denies wheezing and Denies other ( shortness of breath) Musc Details: Left?neck?and?shoulder?pain?with?radiation?down?left?arm Denies numbness and Denies tingling Neuro Details: Neuropathic?pain?at?left?shoulder?and?arm Denies dizziness, Denies headache(s), Denies numbness, Denies tingling, Denies paresthesias and Denies weakness Psych Reports anxiety and Denies depression Endo Denies fatigue Aller/Immun Denies wheezing Physical exam (Primary Care) Vital Signs: Last Vital Signs Pulse 102 H 04/14/24 09:53 BP 112/62 04/14/24 09:53 Pulse Ox 96 04/14/24 09:53 Oxygen Delivery Method Room Air 04/14/24 09:53 BMI result Body Mass Index 30.7 Tobacco/Smoking Status: Tobacco use Status Tobacco use date assessed 04/14/24 04/14/24 09:58 Patient Tobacco Use Status Current everyday Tobacco 04/14/24 09:58 Tobacco use type Cigarette 04/14/24 09:58 e-Cigarette/Vaping Use Never Used 04/14/24 09:58 PHQ-9: PHQ-9 Score PHQ-9: Total score 8 04/14/24 10:26 Depression Screening Interpretation: Positive Thrive Assessment: Date of Thrive Assessment Date Thrive assessed 12/22/22 04/14/24 09:58 Const General: no acute distress and well developed Nutritional Appearance: well nourished Orientation/consciousness: patient oriented x3 HENMT Head: Yes normocephalic and Yes atraumatic Eyes General: appearance normal, both eyes and all related structures Pupils: Equal, round and reactive pupils present EOM: EOMs intact bilaterally Resp Effort & Inspection: normal respiratory effort Auscultation: clear to auscultation bilaterally Cardio Rate: regular rate Rhythm: regular rhythm Heart sounds: S1 normal heart sound present, S2 normal heart sound present, no gallops, no murmurs and no rubs Back/Spine/Pelvis Other: Left?neck?and?shoulder?pain?and?pain?with?range?of?motion Neuro General: patient oriented x3 and gait normal Cranial nerves: Yes Equal, round and reactive pupils present Psych Affect: Anxious affect present Immunizations Boostrix Tdap 2.5 Lf unit-8 mcg-5 Lf/0.5 mL intramuscular syringe Performing Provider: Alexis Whyte MD Performing Location: [facility] Administered by: Pascale Cruz CMA on 04/14/24 10:19 Dose Route Admin Location Dispensed Lot Number Expiration Date NDC Roller Print Tender 0.5 mL IM Right Deltoid 0.5 mL [id number] 06/30/26 50528-220-49 [employer] VIS Given Date VIS Provided VIS Publication Date 04/14/24 Single Vaccine 21 Eligibility Eligibility Date Funding Source Not VFC Eligible 04/14/24 Private Assessment and Plan Assessment & Plan (1) Anxiety: Code(s): F41.9 - Anxiety disorder, unspecified Plan: Ongoing?anxiety. Had?seen S[employer] GRINDER at?this?office?and?concern?for?serotonin?syndrome?so?was?sent?to?the?ED. Thought?not?to?be?serotonin?syndrome Rule?out?for?other?conditions?such?as?PE?by?CT Ultimately,?patient?was?discharged?home.??She?is?still?taking?sertraline?and?lindsay azepam?for?anxiety She?has?a?psychiatrist?who?manages?her?psych?medication She?will?continue?to?follow-up?with?Psychiatry. Patient?notes?that?much?of?her?anxiety?and?heart?rate?seems?to?stem?from?her?nec k?and?left?shoulder?pain.??See?below (2) Neck pain: Code(s): M54.2 - Cervicalgia Plan: Neck?and?left?shoulder?pain?with?neuropathic?type?pain?radiating?into?left?arm Has?tried?gabapentin?without?improvement Trial?pregabalin (3) Tachycardia: Code(s): R00.0 - Tachycardia, unspecified Plan: Now?has?appointment?with?cardiology?and?will?get?echocardiogram?and?Holter?monit or?test. Has?tried?propranolol?in?the?past?but?her?blood?pressure?did?not?tolerate?this Will?follow?along Orders: Orders TDaP Immunization Today Z23 - Encounter for immunization TDaP Immunization Today Z23 - Encounter for immunization Medications: New pregabalin 50 mg PO BEDTIME 30 days 30 caps 0RF Boostrix Tdap (diphth,pertus(acell),tetanus) 0.5 mL IM ONCE 0.5 mL 0RF NS Z23 - Encounter for immunization Refilled levocetirizine 5 mg PO DAILY 30 days 30 tabs 4RF Coding Level of Care Code Est Pt Level 3 (54803) Diagnoses Anxiety F41.9 Neck pain M54.2 Tachycardia R00.0
== END ==
PROVIDERS: PCP Family Medicine; Visit Provider Family Medicine
DX: R00.0 Tachycardia, unspecified (principal); F41.9 Anxiety disorder, unspecified; M54.2 Cervicalgia; Z23 Encounter for immunization
CPT/HCPCS: 90471; 90715; 99213

== ENCOUNTER 2024-04-28 13:56 | Outpatient (AMB) | payer OTHER, SELFPAY ==
[2024-04-28 13:59] VITALS: BP 134/81; PULSE 104; BMI 30.5
--- NOTE | 2024-04-28 13:59 | A.OFFVIS_ITS ---
Vital Signs 04/28/24 13:59 Height 5 ft 7 in Weight 194 lb 7.163 oz BMI 30.5 BP 134/81 Blood Pressure Location Lt brachial Position Sitting Pulse 104 H Intake Visit Reasons: f/u for medication Intake Note: Lucie presents to in office today in follow up of medications. CC: Patient c/o dizziness, diarrhea for the past few days, vomiting x2 days, abdominal pain that is constant, and lower back pain. She states that she feels like she is going to faint and that she has not been eating. In Process Inspector Required: No Accompanied by: Daughter Allergies codeine [Codeine] Allergy (Unknown, Verified 04/28/24 14:03) RASH, hives terbinafine Adverse Reaction (Intermediate, Verified 04/28/24 14:03) Nausea and vomit HPI HPI f/u for medication: Details: Assessment & Plan (1) Post-cholecystectomy syndrome: Code(s): K91.5 - Postcholecystectomy syndrome Plan: She is having a lot of stomach problems, bad diarrhea. Now she also is being treated for LYME and is on doxy. Her bowels have diarrhea and bloating (although not as much as when she is not on abx) and since we have not seen her since she also does not have carafate. She never received the Viberzi. She continues on omeprazole 40 mg daily. She is having trouble with vaginal janelle r/t the abx Took one diflucan but sx persist - likely because she is on abx therapy. Will give diflucan 3 days and recommend OTC Monistat. She had severe N/V with anesthesia when she had her kenisha. She denies any cardiac or respiratory problems. NO ID problems. No FHX of crc or polyps known but her father has metastatic cancer of the bladder. ROV 3 weeks. (2) Vaginal janelle: Code(s): B37.31 - Acute candidiasis of vulva and vagina (3) GERD with esophagitis: Code(s): K21.00 - Gastro-esophageal reflux disease with esophagitis, without bleeding (4) Irritable bowel syndrome with diarrhea: Code(s): K58.0 - Irritable bowel syndrome with diarrhea (5) Pre-op examination: Code(s): Z01.818 - Encounter for other preprocedural examination Medications: New fluconazole (Diflucan) 200 mg PO DAILY 3 tabs 0RF 3 days B37.31 - Acute candidiasis of vulva and vagina Resumed sucralfate (Carafate) 3 grams (3 x 1 gram) PO .qacsupper 60 tabs 6RF K21.00 - Gastro-esophageal reflux disease with esophagitis, without bleeding EGD/COLONOSCOPY ready to schedule Laboratory Tests 03/25/24 03/25/24 17:07 17:08 WBC 13.1 H Hgb 14.9 Hct 42.4 Plt Count 283 Estimated GFR > 60 Total Bilirubin 0.5 AST 18 ALT 26 Alkaline Phosphatase 81 TSH 1.04 TODAY'S VISIT She has shoulder surgery so did not have the procedures. She is now ready to have these rescheduled. She had severe N/V with anesthesia when she had her kenisha. She denies any cardiac or respiratory problems. NO ID problems. No FHX of crc or polyps known but her father has metastatic cancer of the bladder. She is having worsening dizziness, N/V/D. This happened shortly after her surgery, but she has been out of her carafate. Will restart at 3 tabs and titrate. She had shoulder surgery. ROV 2 weeks. PFSH Medical History Mental health disorder Gastroenteritis Irritable bowel syndrome with both constipation and diarrhea Hx LEEP (loop electrosurgical excision procedure), cervix, Heel fracture Surgical History Hx of shoulder surgery History of dermoid cyst excision History of cholecystectomy Family History Father Cancer of unknown origin Ulcerative colitis Mother Lupus IBS (irritable bowel syndrome) Rheumatoid arthritis Daughter Chronic idiopathic constipation Social History Housing: House Alcohol intake: current Patient Tobacco Use Status: Current everyday Tobacco user Tobacco use type: Cigarette Cigarettes Per Day: 10 e-Cigarette/Vaping Use: Never Used Second Hand Smoke Exposure: No service: No Current occupational status: employed 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 Current occupational exposures/hazards: No Cognitive needs: No Hearing needs: No Vision needs: Yes (Glasses) Review of Systems Const Denies fatigue, Denies fever(s), Denies night sweats, Reports poor appetite and Denies weight loss ENT Reports Normal hearing present, Denies dental pain, Denies dysphagia, Denies hearing loss, Denies mouth pain, Denies odynophagia, Denies throat swelling, Denies tongue swelling and Reports other (Dentition adequate) Card Reports no additional complaints Resp Reports no additional complaints GI Details: Reports abdominal pain, Denies melena, Denies bloating, Denies hematochezia, Denies constipation, Denies GI cramping, Denies dysphagia, Denies excessive flatus, Denies early satiety, Denies heartburn, Reports diarrhea, Reports nausea, Denies odynophagia, Reports vomiting and Denies hematemesis Skin/Breast Denies pruritus, Denies lesions, Denies rash and Denies jaundice Neuro Reports Normal hearing present and Denies Abnormal speech present Psych Reports anxiety Endo Denies fatigue Aller/Immun Denies throat swelling and Denies tongue swelling Physical Exam Vital Signs: Last Vital Signs Pulse 104 H 04/28/24 13:59 BP 134/81 04/28/24 13:59 BMI result Body Mass Index 30.5 Const General: cooperative, no acute distress, well developed and well groomed Nutritional Appearance: well nourished and obese Orientation/consciousness: oriented to person, oriented to place and oriented to time Limitations: No language barrier HEENT Head: Yes normocephalic and Yes atraumatic Eyes General: appearance normal, both eyes and all related structures Pupils: Equal, round and reactive pupils present Neck Neck: Yes normal visual inspection and Yes no lymphadenopathy Thyroid: Thyroid normal Resp Effort & Inspection: normal respiratory effort and able to speak in complete sentences Auscultation: clear to auscultation bilaterally Cardio Rate: regular rate Rhythm: regular rhythm Heart sounds: Normal, physiologic split S2 sound present Peripheral pulses: radial pulses present and posterior tibial pulses present GI Inspection: No distended, Yes Abdominal panniculus present and Yes obesity Palpation (GI): Soft to palpation, nontender, no guarding, not rigid and No hepatosplenomegaly present Percussion: Yes normal to percussion Auscultation: normal bowel sounds Rectal Exam - Female: deferred Skin General skin exam: no rashes or lesions noted, turgor normal, skin not dry, no jaundice, No spider nevi and no striae Rashes: no rashes Nails: normal Neuro General: oriented to person, oriented to place and oriented to time Cranial nerves: Yes Equal, round and reactive pupils present and Yes Normal hearing present Speech: No Abnormal speech present Extrem General: Yes normal to inspection, No clubbing, No cyanosis and No edema Psych Appearance: grossly normal and well kempt Mental Status: mental status grossly normal Speech and movement: Normal speech and movement present Affect: Sad affect present Attitude: cooperative Thought process: not confabulating and Impoverished thought process present Thought content: Normal thought content present Insight: Limited insight present (Psych) Judgement: Limited judgement present (Psych) Results Reviewed Results Reviewed: Laboratory Tests 03/25/24 03/25/24 17:07 17:08 WBC 13.1 H Hgb 14.9 Hct 42.4 Plt Count 283 Estimated GFR > 60 Total Bilirubin 0.5 AST 18 ALT 26 Alkaline Phosphatase 81 TSH 1.04 Assessment & Plan Assessment & Plan (1) Irritable bowel syndrome with diarrhea: Code(s): K58.0 - Irritable bowel syndrome with diarrhea Category: Medical (2) GERD with esophagitis: Code(s): K21.00 - Gastro-esophageal reflux disease with esophagitis, without bleeding Category: Medical (3) Post-cholecystectomy syndrome: Code(s): K91.5 - Postcholecystectomy syndrome Category: Medical (4) Vaginal janelle: Code(s): B37.31 - Acute candidiasis of vulva and vagina Category: Medical Plan She has shoulder surgery so did not have the procedures. She is now ready to have these rescheduled. She had severe N/V with anesthesia when she had her kenisha. She denies any cardiac or respiratory problems. NO ID problems. No FHX of crc or polyps known but her father has metastatic cancer of the bladder. She is having worsening dizziness, N/V/D. This happened shortly after her surgery, but she has been out of her carafate. Will restart at 3 tabs and titrate. She had shoulder surgery. ROV 2 weeks. Medications: New sucralfate (Carafate) 3 grams (3 x 1 gram) PO DAILY 90 tabs 3RF K91.5 - Postcholecystectomy syndrome Coding Level of Care Code Est Pt Level 3 (83856) Diagnoses Irritable bowel syndrome with diarrhea K58.0 GERD with esophagitis K21.00 Post-cholecystectomy syndrome K91.5 Vaginal janelle B37.31
== END 2024-04-28 15:00 | disposition home or self-care (01) ==
PROVIDERS: PCP Family Medicine; Visit Provider Nurse Practitioner
DX: K58.0 Irritable bowel syndrome with diarrhea (principal); K21.00 Gastro-esophageal reflux disease with esophagitis, without bleeding; K91.5 Postcholecystectomy syndrome; B37.31 Acute candidiasis of vulva and vagina
CPT/HCPCS: 99213

== ENCOUNTER → 2024-04-28 13:56 | Outpatient (BNVA) | payer OTHER, SELFPAY | PROVIDERS: PCP Family Medicine; Visit Provider Nurse Practitioner | DX: K58.0 Irritable bowel syndrome with diarrhea (principal); K21.00 Gastro-esophageal reflux disease with esophagitis, without bleeding; K91.5 Postcholecystectomy syndrome; B37.31 Acute candidiasis of vulva and vagina | CPT/HCPCS: 99212 ==

== ENCOUNTER → 2024-05-05 13:28 | Outpatient (REF) | payer OTHER, SELFPAY ==
--- NOTE | 2024-05-05 13:35 | HM_ITS ---
* Total monitoring time 3 days. * Underlying rhythm is sinus with an average rate of 98/Min. About 47% of the time, rate > 100/Min. * Very rare supraventricular and ventricular ectopy. * No significant pauses or AV blocks. * No patient markers or diary events. MTDD
--- NOTE | 2024-05-05 13:35 | CA_ITS ---
Transthoracic Echocardiogram Amended Patient (Last, First, Middle): Lucie Frost K Gender: Female Date of : 1980 Age: 43 Procedure Date: 05/05/2024 Procedure Type: Transthoracic Echocardiogram Location: OP Height: 170.18 cm Weight: 88. kg BSA: 2.00 m2 Heart Rate: 105 bpm BP: 128 / 74 mmHg Cold Press Operator: SB Referring MD: Miguel Best MD Symptoms: R00.0 - Tachycardia, unspecified Study Quality: Adequate ECG Rhythm: Tachycardia Conclusions: - The left ventricular systolic function is mildly decreased. The calculated ejection fraction is 48% by biplane method. - No obvious valvular pathology seen on this study. Findings Procedure Information Contrast agent, definity, is being given per protocol without apparent complications. Left Ventricle Normal left ventricular cavity size. There is normal left ventricular wall thickness. The left ventricular systolic function is mildly decreased. The calculated ejection fraction is 48% by biplane method. There is mild global hypokinesis. Diastolic function is normal for age. Right Ventricle Normal right ventricular cavity size. There is low normal right ventricular systolic function. Atria Both atria are normal in size. Aortic Valve The aortic valve was not well visualized. There is no aortic valve stenosis. There is no aortic valve regurgitation. Mitral Valve The mitral valve appears normal. There is no mitral valve regurgitation. There is no mitral valve stenosis. Pulmonic Valve The pulmonic valve is likely normal. Tricuspid Valve There is no tricuspid valve regurgitation. Tricuspid regurgitation envelope is inadequate for calculation of right ventricular systolic pressure. Great Vessels The asc aorta and aortic arch are normal in size. Venous The inferior vena cava is normal in size and collapses greater than 50% with inspiration. Pericardium/Pleural There is no evidence of pericardial effusion. Prior Study Comparison Changes noted compared to prior study dated: 08/13/2011. LVEF slightly lower. Recommendations, Care & Conclusions No obvious valvular pathology seen on this study. Measurements 2D Linear Measurements IVSd: 1.01 0.6-0.9/0.6-1.0 cm LVIDd: 4.66 3.9-5.3/4.2-5.9 cm LVIDd Index: 2.33 2.4-3.2/2.2-3.1 cm/m2 LVIDs: 3.49 2.0-3.6 cm LVPWd: 0.90 0.7-1.1 cm LA Diam: 3.50 2.7-3.8/3.0-4.0 cm LAIDs Index: 1.75 1.5-2.3 cm/m2 LV Mass: 190.23 67-162/88-224 g LV Mass Index: 95.12 43-95/49-115 g/m2 LVOT Diam: 2.10 3.0+(-)1.3 cm 2D Volumes LA Vol: 13.40 2D Systolic Function EF 4C: 46.70 >55% EF 2C: 49.10 >55% EF BiP: 47.90 >55% Mitral Valve MV Pk E: 0.58 MV PK A: 0.82 MV Decel Time: 94.00 E/A: 0.70 E'Lateral: 8.59 E'Medial: 6.09 E/E' Med: 9.50 E/E' Lat: 6.70 PHT: 28.00 MVA PHT: 7.86 Decel [place]: 6.22 Aortic Valve AoV Pk Sean: 1.12 AoV Pk Grad: 5.00 ADENIKE: 2.86 LVOT LVOT Pk Sean: 0.93 LVOT Mn Sean: 0.58 LVOT VTI: 0.12 LVOT Pk Grad: 3.00 LVOT Mn Grad: 2.00 LVOT Diam: 2.10 LVOT Area: 3.46 Diastolic Function MV Pk E: 0.58 MV Pk A: 0.82 E/A: 0.70 E'Medial: 6.09 E/E' Med: 9.50 E' Laterial: 8.59 E/E' Lat: 6.70 Right Ventricle TVS' Sean: 10.80 Tricuspid Valve RA Press: 3.00 Great Vessels Aorta Sinus of Valsalva: 2.90 2.0-3.5 cm Ao Asc: 2.70 2.1-3.4 cm Ao Arch: 2.50 Pulmonary Valve PV Pk Sean: 0.93 Peak PV Grad: 3.00 Updated in Other Vendor System with Status of Final Miguel Best MD electronically signed on 05/08/2024 1:43:12 PM with status of Final
== END ==
LOC: HO.CARD 13:28
PROVIDERS: PCP Family Medicine; Visit Provider Internal Medicine
DX: R00.0 Tachycardia, unspecified (principal); R00.2 Palpitations
CPT/HCPCS: 93242; 93306; Q9957

== ENCOUNTER → 2024-05-05 13:35 | Outpatient (BNV) | payer OTHER, SELFPAY | PROVIDERS: PCP Family Medicine; Visit Provider Internal Medicine | DX: I49.3 Ventricular premature depolarization (principal) | CPT/HCPCS: 93244; 93306 ==

== ENCOUNTER 2024-05-23 10:56 | Day surgery (SDC) | payer OTHER, SELFPAY ==
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
[2024-05-23 12:02] LABS: UPreg QC Valid YES
[2024-05-23 12:03] LABS: Urine Pregnancy NEGATIVE (NEGATIVE)
[2024-05-23] MEDS: Lactated Ringers 1,000 ML 100 ML IVCONT (12:24)
[2024-05-23 12:25] VITALS: BP 140/97; PULSE 103; RESP 18; TEMP 36.6; O2SAT 98; BMI 29.8
--- NOTE | 2024-05-23 12:26 | PC.NURSE ---
IV inserted by cheryl harvey rn
--- NOTE | 2024-05-23 13:29 | MHC.SHP ---
Pre-Procedural Eval Section A - 24 Hr Update-Section A only Date of Service: 05/23/24 The patient is an INPATIENT: No Changes since office visit: Yes Patient answered all questions; No Cold of Flu in the past 2 weeks, No New Medical Problems and No Changes in Medication The patient has been examined within 24 hours of the surgical procedure. The History & Physical has been completed within 30 days and I have reviewed it.: Yes Section B - Complete if H&P > 30 days Chief Complaint: Gastro-esophageal reflux disease with esophagitis, Allergies: Allergies Allergy/AdvReac Type Severity Reaction Status Date / Time codeine [Codeine] Allergy Unknown RASH, hives Verified 05/23/24 12:28 terbinafine AdvReac Intermediate Nausea and Verified 05/23/24 12:28 vomit Review of Systems Sugical H&P ROS: Negative: Constitution, Cardiovascular and Respiratory and Yes, Specify: Gastrointestinal (IBS) Exam Surgical H&P Exam: Normal: Heart, Normal: Lungs, Normal: Extremities and Normal: Abdomen Plan Diagnosis/Plan: Change (proceed with EGD and colon) I have reviewed the history and physical and performed a pertinent physical examination on my patient. No changes have occurred unless specified. Time Spent With Patient Time: Total time managing care of this patient today ____ minutes.
--- NOTE | 2024-05-23 13:55 | HO.OPN-COLON ---
Colonoscopy Operative Note Operative Note Date of Service: 05/23/24 Narrative: FLEXIBLE TRANSORAL UPPER GASTROINTESTINAL ENDOSCOPY WITH BIOPSIES AND COLONOSCOPY TILL CECUM WITH BIOPSIES AND SNARE POLYPECTOMY Pre-op diagnosis: GERD, IBS with diarrhea Post-op diagnosis: GERD, Gastritis, Gastric polyp, Diverticulosis. Endoscopist:Leonora Weathers MD Anesthesia:?MAC UPPER ENDOSCOPY Consent: Indications for the procedure and potential complications of bleeding, perforation, reaction to medications and missed diagnosis were discussed with the patient and informed consent was obtained. Instrument: Olympus GIF H 190 mid size upper endoscope Monitoring: Vital signs and clinical assessment, continuous EKG monitoring, Pulse oximetry, Carbon Dioxide monitoring and blood pressure monitoring were done throughout the procedure. Procedure: The patient was placed in the left lateral decubitis position and pre-procedure medications were administered and a bite block was placed. The endoscope was inserted into the mouth and advanced under direct vision to the third part of duodenum. A careful inspection was made as the upper endoscope was withdrawn including a retroflexed examination of the proximal stomach; Findings and interventions are described below. Findings: Larynx: Normal Esophagus: GE junction at 40 cms. Irregular Z line with 1 cms tongue of suspected Kincaid's - biopsied. Stomach: A 5-6 mm benign appearing polyp in the gastric body - biopsied. Moderate diffuse gastric erythema - biopsies were obtained from the antrum. Grade 2 flap valve on retroflexed examination of the cardia. Duodenum: Normal bulb and descending duodenum Biopsies were obtained from descending duodenum to check for celiac sprue Intervention: Biopsies as noted above COLONOSCOPY PROCEDURE NOTE Instrument: Olympus PCF H 190 L variable stiffness pediatric colonoscope Monitoring: Vital signs and clinical assessment, intermittent blood pressure monitoring, continuous EKG monitoring, Pulse oximetry and Carbon Dioxide monitoring were done throughout the procedure. Please see anesthesia flowsheet. Colon withdrawl time was 14 minutes. Procedure: The patient was placed in the left lateral decubitis position and pre-procedure medications were administered. After a digital rectal examination of the ano-rectum, the video colonoscope was inserted into the rectum and advanced through the colon to the cecum. The colonoscope was slowly withdrawn in a retrograde panoramic fashion and the colon mucosa was carefully examined including a retroflexed view of the rectum. Findings and interventions are described below. Procedure Difficulty: without difficulty Findings: Terminal Ileum: Distal 5 cms was examined and appeared normal Cecum: Normal Ascending Colon: Normal Transverse Colon: Normal Descending Colon: Normal Sigmoid Colon: Moderate diverticulosis Rectum: Normal Ano-rectum: Normal Colon preparation: Excellent, after some irrigation. [place] Bowel Preparation Scale Right colon; 3 Transverse colon: 3 Left colon; 3 (0 = Unprepared colon segment with mucosa not seen due to solid stool that cannot be cleared. 1 = Portion of mucosa of the colon segment seen, but other areas of the colon segment not well seen due to staining, residual stool and/or opaque liquid. 2 = Minor amount of residual staining, small fragments of stool and/or opaque liquid, but mucosa of colon segment seen well. 3 = Entire mucosa of colon segment seen well with no residual staining, small fragments of stool or opaque liquid) Impression and Post Procedure Diagnosis: Endoscopy Findings: ESOPHAGUS: Irregular Z line with 1 cms tongue of suspected Kincaid's - biopsied. STOMACH: Benign-appearing gastric polyp, gastritis DUODENUM: Normal - biopsied to check for celiac sprue Colonoscopy Findings: No polyps were detected Random biopsies were obtained from right and left colon to check for microscopic colitis Moderate diverticulosis seen in the sigmoid colon Plan: Pt has a FU appointment on 06/22/24 with Madina Stauffer NP. Repeat Colonoscopy in 10 year if colon biopsies are normal. Above findings were reviewed with the patient and relevant handouts were given and the discharge area. BIOPSIES SHOWED: A. Small bowel, biopsy: Duodenal mucosa within normal limits; negative for celiac disease. B. Stomach, antrum, biopsy: Antral-type mucosa with mild chronic inactive inflammation; no Helicobacter organisms seen. C. Stomach, polyp, biopsy: Hyperplastic mucosal polyp; no Helicobacter organisms seen. D. GE junction, biopsy: - Cardiac-type mucosa with moderate chronic inactive inflammation; no intestinal metaplasia seen. - Squamous mucosa within normal limits. E. Colon, right, biopsy: Colonic mucosa within normal limits; negative for microscopic colitis. F. Colon, left, biopsy: Colonic mucosa within normal limits; negative for microscopic colitis
[2024-05-23 14:26] VITALS: BP 99/57; PULSE 90; RESP 16; TEMP 36.3; O2SAT 96
[2024-05-23 14:41] VITALS: BP 128/85; PULSE 87; RESP 16; TEMP 36.8; O2SAT 97
== END 2024-05-23 15:21 | disposition home or self-care (01) ==
PROVIDERS: Nurse Practitioner; PCP Family Medicine; Visit Provider Internal Medicine Gastroenterology
PROC: (CPT 43239; principal; 2024-05-23 12:50)
DX: K31.7 Polyp of stomach and duodenum (principal); K29.70 Gastritis, unspecified, without bleeding; K22.9 Disease of esophagus, unspecified; K21.00 Gastro-esophageal reflux disease with esophagitis, without bleeding; K57.30 Diverticulosis of large intestine without perforation or abscess without bleeding; K58.0 Irritable bowel syndrome with diarrhea; K91.5 Postcholecystectomy syndrome; E78.00 Pure hypercholesterolemia, unspecified; Z79.899 Other long term (current) drug therapy; Z79.02 Long term (current) use of antithrombotics/antiplatelets
CPT/HCPCS: 43239; 45380; 81025; 88305; 88313; 88342; J2250; J2405; J2704

== ENCOUNTER → 2024-05-23 10:56 | Outpatient (BNV) | payer OTHER, SELFPAY | PROVIDERS: PCP Family Medicine; Visit Provider Internal Medicine Gastroenterology | DX: K58.0 Irritable bowel syndrome with diarrhea (principal); K57.30 Diverticulosis of large intestine without perforation or abscess without bleeding; K21.9 Gastro-esophageal reflux disease without esophagitis; K29.70 Gastritis, unspecified, without bleeding; K31.7 Polyp of stomach and duodenum | CPT/HCPCS: 43239; 45380 ==

== ENCOUNTER 2024-06-09 13:34 | Outpatient (AMB) | payer OTHER, SELFPAY ==
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
[2024-06-09 13:43] VITALS: BP 124/80; PULSE 105; RESP 16; O2SAT 97; BMI 30.3
== END 2024-06-09 14:43 | disposition home or self-care (01) ==
PROVIDERS: PCP Family Medicine; Visit Provider Student in an Organized Health Care Education/Training Program
DX: M79.7 Fibromyalgia (principal)
CPT/HCPCS: 99213

== ENCOUNTER → 2024-06-09 13:34 | Outpatient (BNVA) | payer OTHER, SELFPAY | PROVIDERS: PCP Family Medicine; Visit Provider Student in an Organized Health Care Education/Training Program | DX: M79.7 Fibromyalgia (principal); Z79.899 Other long term (current) drug therapy | CPT/HCPCS: 99212 ==

== ENCOUNTER 2024-06-27 21:31 | Emergency (ER) | payer OTHER, SELFPAY ==
[2024-06-27 21:57] VITALS: BP 135/86; PULSE 92; RESP 16; TEMP 36.4; O2SAT 98; BMI 30.7
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
[2024-06-27] MEDS: Fluorescein Sodium STRIP 1 STRIP EYE-BOTH (22:54)
[2024-06-27] MEDS: Tetracaine HCl/PF 0.5% Oph Sol 4 ML DROPS 1 DROP EYE-BOTH (22:54)
[2024-06-28 00:39] VITALS: BP 132/66; PULSE 76; RESP 16; TEMP 36.6; O2SAT 99
== END 2024-06-27 23:40 | disposition home or self-care (01) ==
PROVIDERS: Emergency Provider Internal Medicine; PCP Family Medicine
DX: H57.13 Ocular pain, bilateral (principal); F17.210 Nicotine dependence, cigarettes, uncomplicated; Z79.899 Other long term (current) drug therapy
CPT/HCPCS: 99283; 99284

== ENCOUNTER 2024-07-04 12:18 | Emergency (ER) | payer OTHER, SELFPAY ==
--- NOTE | 2024-07-04 | ECG_ITS ---
Test Reason : chest pain Blood Pressure : / mmHG Vent. Rate : 090 BPM Atrial Rate : 090 BPM P-R Int : 148 ms QRS Dur : 078 ms QT Int : 366 ms P-R-T Axes : 040 025 048 degrees QTc Int : 447 ms Normal sinus rhythm Normal ECG When compared with ECG of 25-MAR-2024 15:49, No significant change was found Referred By: Jeannette Cadet Electronically Signed By:KYLE GARCIA
--- NOTE | ~2024-07-04 | XR_ITS ---
EXAMINATION: XR CHEST CLINICAL INFORMATION: Chest pain. COMPARISON: 03/25/2024 TECHNIQUE: 2 views of the chest were obtained. FINDINGS: The lungs are moderately expanded. No focal consolidation. No pleural effusion.. Cardiac silhouette is unchanged. Surgical clips project over the right upper quadrant. XR/XR chest 2V IMPRESSION: No acute abnormality.
[2024-07-04 12:22] VITALS: BP 138/83; PULSE 110; O2SAT 97
[2024-07-04 12:26] VITALS: BP 138/84; PULSE 95; RESP 18; TEMP 36.6; O2SAT 97; BMI 29.7
--- NOTE | 2024-07-04 12:35 | ED_ITS ---
HPI - Chest Pain General Chief Complaint: Chest Pain Stated Complaint: NON RAD CP X3 DAYS,H/O ANXIETY PER EMS Time Seen by Provider: 07/04/24 14:35 Source: patient, family and old records reviewed Mode of arrival: ambulatory Limitations: no limitations History of Present Illness ED Provider: RICK HPI narrative: 43 yo female with anxiety and depression recent change put on seroquel 25mg daily and zoloft cut in 11/24, URI, HLD, tachycardia, fibromyalgia, GERD, migraines, not on OCP, no recent travel here with c/o 1 week of not feeling well, run down, chest pain, shortness of breath, nausea, dizziness. No fevers reported. Feels some lower abdominal pain and dysuria at times. Also has some discharge at times come out of belly button - has hx of lap kenisha. She does note she has been under a lot of stress. No sick contacts, abx use. She does spend time outside but not aware of tick bites. Has multiple areas of her body that just don't feel well. Today on the couch resting HR went up to 130 and BP was 140/90s which is unusual for her but she notes she has had palpitations before MD complaint: chest pain Pertinent past history: other (anxiety) Onset (ago): week(s) (1) Timing of current episode: episodic Prior episodes: Yes Onset: during rest and during exertion Pain location: left chest Pain radiation: none Severity: moderate Quality: aching Relieving factors: nothing Exacerbating factors: movement and stress Context: recent illness Associated symptoms: nausea, vomiting, dyspnea and other (dysuria, body aches, headaches, dizziness) Treatment prior to arrival: none Related Data Home Medications ?Medication ?Instructions ?Recorded ?Confirmed sertraline 100 mg tablet 100 mg PO BID 03/24/24 05/23/24 quetiapine 25 mg tablet 25 mg PO BEDTIME 06/09/24 Previous Rx's ?Medication ?Instructions ?Recorded fluticasone propionate 50 2 spray intranasal DAILY 1 month 12/16/21 mcg/actuation nasal #16 grams spray,suspension (Allergy Relief (fluticasone)) lorazepam 1 mg tablet 1 mg PO Q8H 14 days #42 tabs 02/19/22 diphenhydramine HCl 25 mg tablet 50 mg (2 x 25 mg) PO BEDTIME PRN 06/02/23 allergy symptoms 30 days #60 tabs epinephrine 0.3 mg/0.3 mL 0.3 mg (0.3 mL) IM Q4H PRN 07/22/23 injection, auto-injector (EpiPen anaphylaxis 30 days #2 ea 2-Dalton) acetaminophen 500 mg capsule 1,000 mg (2 x 500 mg) PO Q6H PRN 01/22/24 pain, moderate #30 caps meclizine 25 mg tablet 25 mg PO TID PRN dizziness 30 days 01/27/24 #60 tabs atorvastatin 20 mg tablet 20 mg PO DAILY 90 days #90 tabs 02/04/24 omeprazole 40 mg capsule,delayed 40 mg PO DAILY #90 caps 03/10/24 release levocetirizine 5 mg tablet 5 mg PO DAILY 30 days #30 tabs 04/14/24 pregabalin 50 mg capsule 50 mg PO BEDTIME 30 days #30 caps 04/14/24 sucralfate 1 gram tablet (Carafate) 3 g (3 x 1 gram) PO DAILY #90 tabs 04/28/24 diltiazem HCl 120 mg 120 mg PO DAILY #90 caps 05/12/24 capsule,extended release 24 hr (Cardizem CD) Allergies Allergy/AdvReac Type Severity Reaction Status Date / Time codeine [Codeine] Allergy Unknown RASH, hives Verified 07/04/24 12:30 terbinafine AdvReac Intermediate Nausea and Verified 07/04/24 12:30 vomit Review of Systems 2 Review of Systems: Constitutional : No Weight loss, No Fever, No Chills ENT/Mouth : No sore throat, No Rhinorrhea Eyes: No Eye Pain, No Swelling Cardiovascular : pos Chest Pain, pos SOB, no Dyspnea on Exertion, No Orthopnea, No Edema, No Palpitations Respiratory : No Cough, No Sputum Gastrointestinal : pos Nausea, No Vomiting, No Diarrhea, No abdominal Pain, No Hematochezia, No Melena Genitourinary : No Dysuria, No Urinary Frequency Musculoskeletal : No joint pain, pos Myalgias, No Joint Swelling Skin : No Skin Lesions, No rash Neuro : pos Weakness, No Numbness, pos Dizziness, No Headache Psych : No Anxiety/Panic, No Depression Heme/Lymph: No Bruising, No Lymphadenopathy Endocrine : No Polyuria, No Polydipsia All other systems reviewed and are negative PMFSH Past Medical History Attestation statement: The following information was validated with the patient. Source: old records reviewed Medical History Mental health disorder Gastroenteritis Irritable bowel syndrome with both constipation and diarrhea Hx LEEP (loop electrosurgical excision procedure), cervix, Heel fracture Surgical History Hx of shoulder surgery History of dermoid cyst excision History of cholecystectomy Family History Family History Father Cancer of unknown origin Ulcerative colitis Mother Lupus IBS (irritable bowel syndrome) Rheumatoid arthritis Daughter Chronic idiopathic constipation Social History Social History Housing: House Alcohol intake: current Patient Tobacco Use Status: Current everyday Tobacco user Tobacco use type: Cigarette Cigarettes Per Day: 10 e-Cigarette/Vaping Use: Never Used Second Hand Smoke Exposure: No Advance Directives: No Advance Directives Information Provided: Yes Do you have a plan to hurt others: No Plan service: No Current occupational status: employed 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 Oriented X3. No acute distress. Eyes: Pupils equal, round and reactive to light. ENT: Pharynx normal. Neck: Normal inspection. Neck supple. CVS: Normal heart rate and rhythm. Pulses normal. Respiratory: No respiratory distress. Breath sounds normal. Abdomen: Soft and nontender. I do not see any redness, drainage or fluctuance in her belly button - there is one small ulceration noted superior portion but it is superficial and no signs of infection Skin: Skin warm and dry. Normal skin color. Normal skin turgor. Extremities: No lower extremity edema. No calf ttp Neuro: Oriented X 3. No motor deficit. No sensory deficit. Course Course Course Narrative: RME performed by Jeannette Cadet PA-C. Patient is a 43 year old assigned female at presenting to the emergency department with high blood pressure. Patient states she has chest pain, SOB, dizziness, and nausea. Detailed physical exam and review of systems are deferred to the worksite wellness practitioner. EKG, labs, imaging, and swabs ordered. Patient placed back in the waiting room pending room availability and results. Medical Decision Making Medical Decision Making MDM Narrative: 43 yo female with anxiety and depression recent change put on seroquel 25mg daily and zoloft cut in 11/24, URI, HLD, tachycardia, fibromyalgia, GERD, migraines, not on OCP, here with multiple complaints, fatigue chest pain dizziness weakness shortness of breath myalgias dysuria drainage from the belly button overall her labs are at baseline her symptoms are not typical of ACS and she is PERC negative here. I do not suspect ACS or VTE, possible viral syndrome, tick borne illness, UTI, will obtain mono as well and hydrate. Differential Diagnosis Differential Diagnoses: The differential diagnosis associated with the presentation includes viral syndrome, anxiety, tick borne illness no tachycardia here PERC Negative doubt VTE trop flat nonishcemic EKG doubt ACS Admission/Observation Consideration of admission/observation: Escalation of care including admission/observation considered work up is negative stable for DC at this time no acute findings Lab Data [facility] Lab Attestation statement: I reviewed the patient's lab results. 07/04/24 12:45 07/04/24 12:45 Labs: Lab Results 07/04/24 07/04/24 Range/Units 12:45 14:40 WBC 12.2 H (4.8-10.8) X10*3/uL RBC 4.72 (4.20-5.50) X10*6/uL Hgb 14.2 (12.0-16.0) g/dl Hct 41.4 (37.0-47.0) % MCV 87.7 (80.0-98.0) fL MCH 30.1 (27.0-33.0) pg MCHC 34.3 (31.0-35.0) g/dl RDW 12.7 (11.0-16.0) % Plt Count 278 (160-400) X10*3/uL MPV 9.7 (9.4-12.3) fL Immature Gran % (Auto) 0.5 H (0.0-0.4) % Neut % (Auto) 74.2 H (45-73) % Lymph % (Auto) 19.9 L (20-40) % [place] % (Auto) 3.5 (2-11) % Eos % (Auto) 1.2 (0-4) % Baso % (Auto) 0.7 (0-2) % Lymph # (Auto) 2.4 (1.2-4.9) X10*3/uL [place] # (Auto) 0.4 (0.1-1.2) X10*3/uL Eos # (Auto) 0.2 (0.0-0.4) X10*3/uL Baso # (Auto) 0.1 (0.0-0.2) X10*3/uL Abs Immat Gran (auto) 0.06 H (0.00-0.03) X10*3/uL Absolute Neuts (auto) 9.0 H (2.0-8.3) x10*3/uL Absolute Nucleated RBC 0.000 (0.0-0.012) X10*3/uL Nucleated RBC % (auto) 0.0 (0.0-0.2) /100WBC PT 11.7 (11.1-13.3) SEC INR 1.0 (0.9-1.1) APTT 38.9 H (26.0-36.8) SEC Sodium 139 (135-145) mmol/L Potassium 4.5 (3.3-5.1) mmol/L Chloride 107 (96-108) mmol/L Carbon Dioxide 22 (22-29) mmol/L Anion Gap 15 (12-20) BUN 8 L (9-16) mg/dL Creatinine 0.68 (0.5-1.4) mg/dL Estim Creat Clear Calc 122.7 Estimated GFR > 60 Random Glucose 107 (60-115) mg/dL Calcium 10.1 (8.4-10.2) mg/dL Magnesium 2.0 (1.6-2.6) mg/dL Total Bilirubin 0.6 (0.0-1.0) mg/dL AST 20 (5-31) U/L ALT 36 H (0-31) U/L Alkaline Phosphatase 85 (39-117) U/L Troponin I High Sens < 2.7 (<3.5-17.0) ng/L Total Protein 7.5 (6.5-8.0) g/dL Albumin 4.4 (3.5-5.0) g/dL Urine Color Yellow Urine Appearance Clear Urine pH 7.5 (5.0-9.0) Ur Specific [place] 1.010 (1.005-1.025) Urine Protein Negative (Neg-Trace) mg/dL Urine Glucose (UA) Negative (Negative) mg/dL Urine Ketones Negative (Negative) mg/dL Urine Blood Trace H (Negative) Urine Nitrite Negative (Negative) Ur Leukocyte Esterase Negative (Negative) Urine RBC 3-5 H (0-2) /HPF Urine WBC 0-5 (0-5) /HPF Ur Squamous Epith Cells 0-2 (0-2) /HPF Urine Bacteria None Seen (None Seen) Hyaline Casts 0-2 (0-2) /LPF Monoscreen Negative (Negative) Influenza Type A (PCR) NEGATIVE (Negative) Influenza Type B (PCR) NEGATIVE (Negative) RSV RNA Qual (PCR) NEGATIVE (Negative) SARS-CoV-2 RNA (RT-PCR) NEGATIVE (Negative) Independent Interpretation I performed an independent interpretation of an: EKG and Plain X-Ray (normal ) Interpretation: Rate: 90 Rhythm: NSR [place]: normal Normal P waves. Normal RONY. Normal QRS complex. ST T wave : no FLORENTINO, flat t wave III qTC: 447 prior studies: no acute ischemia The study has been interpreted contemporaneously by me. . Radiology Impression Discussion of test interpretation with radiology: I have reviewed the radiologist's reading. Independent Historian Clinical information obtained from an independent historian. History obtained from or confirmed by: Other (family) External Record Review External record reviewed: Inpatient record Discharge Plan Discharge Clinical Impression: Atypical chest pain, Fatigue Patient Disposition: Home, Self-Care Instructions: Chest Pain (ED), Fatigue (ED) Additional Instructions: return for any worsening symptoms, increased pain, increased drainage or redness around the belly button, fevers or any other concerns EKG, tests for heart normal tick panel and lyme pending if positive we will call you at home follow up with your doctor rest and stay hydrated. Prescriptions: No Action diphenhydramine HCl 25 mg tablet 50 mg PO BEDTIME PRN (Reason: allergy symptoms) 30 Days Qty: 60 0RF atorvastatin 20 mg tablet 20 mg PO DAILY 90 Days Qty: 90 3RF omeprazole 40 mg capsule,delayed release(DR/EC) 40 mg PO DAILY Qty: 90 2RF diltiazem HCl [Cardizem CD] 120 mg capsule,extended release 24hr 120 mg PO DAILY Qty: 90 1RF lorazepam 1 mg tablet 1 mg PO Q8H 14 Days Qty: 42 0RF Rx Instructions: Short-term increase for personal crisis and management IBS. epinephrine [EpiPen 2-Dalton] 0.3 mg/0.3 mL auto-injector 0.3 mg IM Q4H PRN (Reason: anaphylaxis) 30 Days Qty: 2 2RF acetaminophen 500 mg capsule 1,000 mg PO Q6H PRN (Reason: pain, moderate) Qty: 30 0RF Boostrix Tdap 2.5-8-5 Lf-mcg-Lf/0.5mL syringe 0.5 ml IM ONCE Qty: 0.5 0RF levocetirizine 5 mg tablet 5 mg PO DAILY 30 Days Qty: 30 4RF pregabalin 50 mg capsule 50 mg PO BEDTIME 30 Days Qty: 30 0RF fluticasone propionate [Allergy Relief (fluticasone)] 50 mcg/actuation spray,suspension 2 spray intranasal DAILY 30 Days Qty: 16 3RF Rx Instructions: administer into each nostril sertraline 100 mg tablet 100 mg PO BID Rx Instructions: 100MG QAM, 100MG QPM meclizine 25 mg tablet 25 mg PO TID PRN (Reason: dizziness) 30 Days Qty: 60 2RF Rx Instructions: Take 1 tablet by mouth 3 times daily for 10 days. quetiapine 25 mg tablet 25 mg PO BEDTIME sucralfate [Carafate] 1 gram tablet 3 g PO DAILY Qty: 90 3RF Print Language: Samoan
[2024-07-04 12:56] LABS: MANUAL DIFF FLAG NO
[2024-07-04 12:59] LABS: Appearance Urine Clear; Basophils Absolute Auto 0.1 X10*3/uL (0.0-0.2); Basophils Percent Auto 0.7 % (0-2); Color Urine Yellow; Eosinophils Absolute Auto 0.2 X10*3/uL (0.0-0.4); Eosinophils Percent Auto 1.2 % (0-4); Glucose Urine UA Negative (Negative); Hematocrit 41.4 % (37.0-47.0); Hemoglobin 14.2 g/dl (12.0-16.0); Imm Gran Abs Auto 0.06 X10*3/uL (0.00-0.03); Imm Gran Pct Auto 0.5 % (0.0-0.4); Leukocyte Esterase Urine Negative (Negative); Lymphocytes Absolute Auto 2.4 X10*3/uL (1.2-4.9); Lymphocytes Percent Auto 19.9 % (20-40); Mean Corpuscular HGB Conc 34.3 g/dl (31.0-35.0); Mean Corpuscular Hemoglobin 30.1 pg (27.0-33.0); Mean Corpuscular Volume 87.7 fL (80.0-98.0); Mean Platelet Volume 9.7 fL (9.4-12.3); Monocytes Absolute Auto 0.4 X10*3/uL (0.1-1.2); Monocytes Percent Auto 3.5 % (2-11); Neutrophils Percent Auto 74.2 % (45-73); Nitrite Urine Negative (Negative); PH 7.5 (5.0-9.0); Platelet Count 278 X10*3/uL (160-400); Red Blood Count 4.72 X10*6/uL (4.20-5.50); Red Cell Distribution Width 12.7 % (11.0-16.0); UMIC TRIGGER UACC YES; Urine Blood Trace (Negative); Urine Ketones Negative (Negative); Urine Protein Negative (Neg-Trace); White Blood Count 12.2 X10*3/uL (4.8-10.8)
[2024-07-04 13:04] LABS: Bacteria Urine None Seen (None Seen); Hyaline Casts Urine 0-2 /LPF (0-2); Squamous Epithelial Cell Urine 0-2 /HPF (0-2); WBC Urine 0-5 /HPF (0-5)
[2024-07-04 13:11] LABS: Prothrombin Time 11.7 SEC (11.1-13.3)
[2024-07-04 13:13] LABS: Partial Thromboplastin Time 38.9 SEC (26.0-36.8)
[2024-07-04 13:14] LABS: Alanine Aminotransferase 36 U/L (0-31); Albumin Level 4.4 g/dL (3.5-5.0); Alkaline Phosphatase 85 U/L (39-117); Anion Gap 15 (12-20); Aspartate Amino Transferase 20 U/L (5-31); Bilirubin Total 0.6 mg/dL (0.0-1.0); Blood Urea Nitrogen 8 mg/dL (9-16); Calcium 10.1 mg/dL (8.4-10.2); Carbon Dioxide 22 mmol/L (22-29); Chloride 107 mmol/L (96-108); Creatinine Clr Calc Pharmacy 122.7; Estimated Glomerular Filt Rate > 60; Glucose Random 107 mg/dL (60-115); Potassium 4.5 mmol/L (3.3-5.1); Sodium 139 mmol/L (135-145); Total Protein 7.5 g/dL (6.5-8.0)
[2024-07-04 13:21] LABS: Troponin-I High Sensitivity < 2.7 ng/L (<3.5-17.0)
[2024-07-04 13:36] LABS: Influenza A PCR NEGATIVE (Negative); Influenza B PCR NEGATIVE (Negative); Resp Syncy Virus RNA Qual PCR NEGATIVE (Negative); SARS COV2 PCR INHOUSE NEGATIVE (Negative)
[2024-07-04 15:13] LABS: Monotest Negative (Negative)
[2024-07-04] MEDS: Lactated Ringers 1,000 ML 999 ML IV (15:56)
[2024-07-04 16:40] VITALS: BP 122/73; PULSE 78; RESP 18; TEMP 36.8; O2SAT 98
[2024-07-04 16:58] VITALS: BP 122/73; PULSE 78; RESP 18; TEMP 36.8; O2SAT 98
[2024-07-05 11:17] LABS: Lyme Abs Screen <0.90 index
[2024-07-05 17:04] LABS: A. Phagocytphilium DNA,RT-PCR NOT DETECTED (NOT DETECTED); Babesia Microti DNA, RT-PCR NOT DETECTED (NOT DETECTED); Borrelia Miyamotoi,DNA RT-PCR NOT DETECTED (NOT DETECTED); E.Chaffeensis DNA RT-PCR NOT DETECTED (NOT DETECTED); Lyme(Borrelia ssp)DNA RT-PCR NOT DETECTED (NOT DETECTED)
== END 2024-07-04 16:40 | disposition home or self-care (01) ==
PROVIDERS: Physician Assistant Medical; Emergency Provider Emergency Medicine; PCP Family Medicine
DX: R07.89 Other chest pain (principal); F41.9 Anxiety disorder, unspecified; R06.02 Shortness of breath; R53.83 Other fatigue; F17.210 Nicotine dependence, cigarettes, uncomplicated; Z03.818 Encounter for observation for suspected exposure to other biological agents ruled out; Z79.899 Other long term (current) drug therapy
CPT/HCPCS: 0241U; 36415; 71046; 80053; 81001; 81003; 83735; 84484; 85025; 85610; 85730; 86308; 86617; 86618; 87468; 87469; 87478; 87484; 87798; 93005; 99284; J7120

== ENCOUNTER → 2024-07-04 12:31 | Outpatient (BNV) | payer OTHER, SELFPAY | PROVIDERS: Emergency Provider Emergency Medicine; PCP Family Medicine; Visit Provider Internal Medicine | DX: R07.9 Chest pain, unspecified (principal) | CPT/HCPCS: 93010 ==

== ENCOUNTER 2024-07-05 13:25 | Outpatient (AMB) | payer OTHER, SELFPAY ==
[2024-07-05 13:50] VITALS: BP 118/60; PULSE 104
--- NOTE | 2024-07-05 13:50 | A.OFFVIS_ITS ---
Vital Signs 07/05/24 13:50 Height 5 ft 7 in Weight 191 lb 12.835 oz BMI 30.0 BP 118/60 Blood Pressure Location Rt brachial Position Sitting Pulse 104 H Pulse Source Pulse Oximeter Intake Visit Reasons: f/up echo/ holter/ HS Allergies codeine [Codeine] Allergy (Unknown, Verified 07/04/24 12:30) RASH, hives terbinafine Adverse Reaction (Intermediate, Verified 07/04/24 12:30) Nausea and vomit Medication List - Last Reconciled 07/05/24 by Anais Montgomery NP acetaminophen 1,000 mg (2 x 500 mg) PO Q6H PRN atorvastatin 20 mg PO DAILY 90 days diltiazem HCl CD (Cardizem CD) 120 mg PO DAILY diphenhydramine HCl 50 mg (2 x 25 mg) PO BEDTIME PRN 30 days epinephrine (EpiPen 2-Dalton) 0.3 mg (0.3 mL) IM Q4H PRN 30 days fluticasone propionate 50 mcg/actuation (Allergy Relief (fluticasone)) 2 sprays intranasal DAILY 1 month levocetirizine 5 mg PO DAILY 30 days lorazepam 1 mg PO Q8H 14 days meclizine 25 mg PO TID PRN 30 days omeprazole 40 mg PO DAILY pregabalin 50 mg PO BEDTIME 30 days quetiapine 25 mg PO BEDTIME sertraline 100 mg PO BID sucralfate (Carafate) 3 grams (3 x 1 gram) PO DAILY HPI Comments Details: 43-year-old female presents today for a follow-up after holter and echocar diogram. She was recently seen in the Emergency Department for pains and tachycardia. She was also tested for lyme disease. She states the chest pain has been constant and without any known triggers or relieving factors. Heart rate has been between 100-140s. She states her anxiety medications have not helped. She had recently started diltiazem and at first felt an improvement and then her heart rate started to gradually increase. No recent big changes but is under stress due to a ill family member. [facility] Medical History Dizziness Chest pain Mental health disorder Gastroenteritis Irritable bowel syndrome with both constipation and diarrhea Hx LEEP (loop electrosurgical excision procedure), cervix, Heel fracture Surgical History Hx of shoulder surgery History of dermoid cyst excision History of cholecystectomy Family History Father Cancer of unknown origin Ulcerative colitis Mother Lupus IBS (irritable bowel syndrome) Rheumatoid arthritis Daughter Chronic idiopathic constipation Social History Housing: House Alcohol intake: current Patient Tobacco Use Status: Current everyday Tobacco user Tobacco use type: Cigarette Cigarettes Per Day: 10 e-Cigarette/Vaping Use: Never Used Second Hand Smoke Exposure: No service: No Current occupational status: employed 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 Current occupational exposures/hazards: No Cognitive needs: No Hearing needs: No Vision needs: Yes (Glasses) Review of Systems Const Denies weakness ENT Denies dizziness Card Denies chest pain, Denies chest pain with activity, Denies syncope, Denies rapid heart rate, Denies pedal edema, Denies edema, Denies leg edema, Denies lightheadedness, Denies palpitations, Denies dyspnea, Denies dyspnea on exertion and Denies orthopnea Resp Denies cough, Denies dyspnea and Denies dyspnea on exertion GI Denies hematochezia and Denies change in stool character Musc Denies abnormal gait, Denies muscle cramps, Denies muscle weakness, Denies numbness, Denies radiating pain into limb and Denies tingling Neuro Denies abnormal gait, Denies dizziness, Denies syncope, Denies numbness, Denies tingling and Denies weakness Endo Denies palpitations Physical Exam Vital Signs: Last Vital Signs Pulse 104 H 07/05/24 13:50 BP 118/60 07/05/24 13:50 BMI result Body Mass Index 30.0 Const General: healthy appearing and no acute distress Orientation/consciousness: patient oriented x3 HEENT Head: Yes normal to inspection Eyes General: appearance normal, both eyes and all related structures Neck Neck: Yes normal visual inspection Chest Chest palpation & inspection: normal inspection of the chest Resp Effort & Inspection: normal respiratory effort Auscultation: clear to auscultation bilaterally Cardio Jugular venous distension: no JVD Palpation: normal PMI Rate: regular rate Rhythm: regular rhythm Heart sounds: S1 normal heart sound present, S2 normal heart sound present, no click, no gallops, no murmurs and no rubs GI Inspection: Yes normal to inspection Palpation (GI): Soft to palpation Skin General skin exam: no rashes or lesions noted Neuro General: patient oriented x3 Extrem General: Yes normal to inspection Psych Appearance: grossly normal Results Reviewed Results Reviewed: * Total monitoring time 3 days. * Underlying rhythm is sinus with an average rate of 98/Min. About 47% of the time, rate > 100/Min. * Very rare supraventricular and ventricular ectopy. * No significant pauses or AV blocks. * No patient markers or diary events. Conclusions: - The left ventricular systolic function is mildly decreased. The calculated ejection fraction is 48% by biplane method. - No obvious valvular pathology seen on this study. Assessment & Plan Assessment & Plan (1) Sinus tachycardia: Code(s): R00.0 - Tachycardia, unspecified Category: Medical (2) Dizziness: Code(s): R42 - Dizziness and giddiness Category: Medical Plan Patient with sinus tachycardia on holter. Started on diltiazem. States it has helped at first. Will re-do holter to assess rhythm and rate and a stress test to assess for ischemia. Patient states she can walk on a treadmill. Patient instructed to avoid caffeine, decrease her smoking, and ensure adequate hydration. Avoid stimulants. ED care if needed. Orders: Orders ECG holter monitor 48 hour 07/05/24 R00.0 - Tachycardia, unspecified, R42 - Dizziness and giddiness CA stress test 07/05/24 R00.0 - Tachycardia, unspecified, R07.9 - Chest pain, unspecified, R42 - Dizziness and giddiness Coding Level of Care Code Est Pt Level 3 (63259) Diagnoses Sinus tachycardia R00.0 Dizziness R42
== END 2024-07-05 14:26 | disposition home or self-care (01) ==
PROVIDERS: PCP Family Medicine; Visit Provider Nurse Practitioner
DX: R00.0 Tachycardia, unspecified (principal); R42 Dizziness and giddiness
CPT/HCPCS: 99213

== ENCOUNTER → 2024-07-05 13:25 | Outpatient (BNVA) | payer OTHER, SELFPAY | PROVIDERS: PCP Family Medicine; Visit Provider Nurse Practitioner | DX: R00.0 Tachycardia, unspecified (principal); R42 Dizziness and giddiness | CPT/HCPCS: 99212 ==

== ENCOUNTER → 2024-07-08 13:04 | Outpatient (REF) | payer OTHER, SELFPAY ==
--- NOTE | 2024-07-08 13:08 | HM_ITS ---
Conclusion: 1. Patient was monitored for total period of 2 days and 1 hour 2. Baseline was normal sinus rhythm with average heart of 95 beats per minute 3. Frequent sinus tachycardia noted with 32% of the time heart rate about 100 beats per minute 4. No significant pauses or arrhythmias noted 5. No patient reported events MTDD
== END ==
LOC: HO.CARD 13:04
PROVIDERS: PCP Family Medicine; Visit Provider Nurse Practitioner
DX: R00.0 Tachycardia, unspecified (principal); R42 Dizziness and giddiness
CPT/HCPCS: 93225

== ENCOUNTER → 2024-07-08 13:08 | Outpatient (BNV) | payer OTHER, SELFPAY | PROVIDERS: PCP Family Medicine; Visit Provider Internal Medicine Cardiovascular Disease | DX: R00.0 Tachycardia, unspecified (principal) | CPT/HCPCS: 93227 ==

== ENCOUNTER → 2024-07-26 08:48 | Outpatient (REF) | payer OTHER, SELFPAY ==
--- NOTE | 2024-07-26 08:53 | CA_ITS ---
Acquisition Time: 2024-07-26 08:45:40 Total Exercise Time: 00:06:15 Test Indications: Chest Pain Medications: Protocol: AMINATA Max HR: 155 BPM 86% of Pred: 179 BPM Max BP: 152/082 mmHG Max Work Load: 7.3 METS Exercise stress test with exercise 6 min 15 sec of Aminata protocol, achieving 86% MPHR, with mild sob, without arrythmia, with normotensive response to exercise, without EKG changes meeting criteria for ischemia. Test reviewed with Dr Best. Referred By: Anais Montgomery Overread By: NOLBERTO FAGAN
== END ==
LOC: HO.CARD 08:48
PROVIDERS: PCP Family Medicine; Visit Provider Nurse Practitioner
DX: R07.9 Chest pain, unspecified (principal); R00.0 Tachycardia, unspecified; R42 Dizziness and giddiness
CPT/HCPCS: 93017

== ENCOUNTER → 2024-07-26 08:53 | Outpatient (BNV) | payer OTHER, SELFPAY | PROVIDERS: PCP Family Medicine; Visit Provider Nurse Practitioner Family | DX: R06.02 Shortness of breath (principal); R07.9 Chest pain, unspecified | CPT/HCPCS: 93016; 93018 ==

== ENCOUNTER 2024-08-09 15:40 | Outpatient (AMB) | payer OTHER, SELFPAY ==
[2024-08-09 15:44] VITALS: BP 121/81; PULSE 109; BMI 30.2
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
== END 2024-08-09 16:42 | disposition home or self-care (01) ==
PROVIDERS: PCP Family Medicine; Visit Provider Nurse Practitioner
DX: K91.5 Postcholecystectomy syndrome (principal); K21.00 Gastro-esophageal reflux disease with esophagitis, without bleeding
CPT/HCPCS: 99213

== ENCOUNTER → 2024-08-09 15:40 | Outpatient (BNVA) | payer OTHER, SELFPAY | PROVIDERS: PCP Family Medicine; Visit Provider Nurse Practitioner | DX: K21.00 Gastro-esophageal reflux disease with esophagitis, without bleeding (principal); K91.5 Postcholecystectomy syndrome; K58.9 Irritable bowel syndrome, unspecified | CPT/HCPCS: 99212 ==

== ENCOUNTER 2024-08-18 09:46 | Outpatient (REF) | payer OTHER, SELFPAY ==
[2024-08-18 15:23] LABS: Influenza A PCR NEGATIVE (Negative); Influenza B PCR NEGATIVE (Negative); Resp Syncy Virus RNA Qual PCR NEGATIVE (Negative); SARS COV2 PCR INHOUSE NEGATIVE (Negative)
== END 2024-08-18 09:47 | disposition home or self-care (01) ==
LOC: HO.LNP 09:46
PROVIDERS: PCP Family Medicine; Visit Provider Family Medicine
DX: F41.8 Other specified anxiety disorders (principal); R42 Dizziness and giddiness; M79.7 Fibromyalgia; M25.512 Pain in left shoulder; R00.0 Tachycardia, unspecified; G47.10 Hypersomnia, unspecified; H92.02 Otalgia, left ear; H93.19 Tinnitus, unspecified ear; Z11.52 Encounter for screening for COVID-19
CPT/HCPCS: 0241U; 96127; 99212

== ENCOUNTER 2024-08-18 09:46 | Outpatient (AMB) | payer OTHER, SELFPAY ==
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
[2024-08-18 09:54] VITALS: BP 120/70; PULSE 100; RESP 16; TEMP 36.6; O2SAT 98; BMI 30.6
== END 2024-08-18 10:36 | disposition home or self-care (01) ==
PROVIDERS: PCP Family Medicine; Visit Provider Family Medicine
DX: F41.8 Other specified anxiety disorders (principal); R42 Dizziness and giddiness; M79.7 Fibromyalgia; M25.512 Pain in left shoulder; R00.0 Tachycardia, unspecified; G47.10 Hypersomnia, unspecified; H93.19 Tinnitus, unspecified ear

== ENCOUNTER 2024-09-12 11:17 | Emergency (ER) | payer OTHER, SELFPAY ==
[2024-09-12 11:31] VITALS: BP 128/74; PULSE 128; RESP 18; TEMP 36.8; O2SAT 98; BMI 29.8
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
[2024-09-12 11:55] LABS: MANUAL DIFF FLAG NO
[2024-09-12 12:02] LABS: Appearance Urine Clear; Color Urine Yellow; Glucose Urine UA Negative (Negative); Leukocyte Esterase Urine Negative (Negative); Nitrite Urine Negative (Negative); PH 7.5 (5.0-9.0); UMIC TRIGGER UACC YES; Urine Blood Trace (Negative); Urine Ketones Negative (Negative); Urine Protein Negative (Neg-Trace)
[2024-09-12 12:07] LABS: Basophils Absolute Auto 0.1 X10*3/uL (0.0-0.2); Basophils Percent Auto 0.4 % (0-2); Eosinophils Absolute Auto 0.2 X10*3/uL (0.0-0.4); Eosinophils Percent Auto 1.1 % (0-4); Hematocrit 40.5 % (37.0-47.0); Hemoglobin 13.8 g/dl (12.0-16.0); Imm Gran Abs Auto 0.08 X10*3/uL (0.00-0.03); Imm Gran Pct Auto 0.6 % (0.0-0.4); Lymphocytes Absolute Auto 2.8 X10*3/uL (1.2-4.9); Lymphocytes Percent Auto 20.6 % (20-40); Mean Corpuscular HGB Conc 34.1 g/dl (31.0-35.0); Mean Corpuscular Hemoglobin 29.9 pg (27.0-33.0); Mean Corpuscular Volume 87.9 fL (80.0-98.0); Monocytes Absolute Auto 0.4 X10*3/uL (0.1-1.2); Monocytes Percent Auto 3.2 % (2-11); Neutrophils Absolute Auto 10.1 x10*3/uL (2.0-8.3); Neutrophils Percent Auto 74.1 % (45-73); Platelet Count 297 X10*3/uL (160-400); Red Blood Count 4.61 X10*6/uL (4.20-5.50); Red Cell Distribution Width 13.1 % (11.0-16.0); White Blood Count 13.7 X10*3/uL (4.8-10.8)
[2024-09-12 12:09] LABS: Bacteria Urine None Seen (None Seen); Hyaline Casts Urine 0-2 /LPF (0-2); RBC Urine 0-2 /HPF (0-2); Squamous Epithelial Cell Urine 0-2 /HPF (0-2); WBC Urine 0-5 /HPF (0-5)
[2024-09-12 12:28] LABS: Alanine Aminotransferase 39 U/L (0-31); Albumin Level 4.3 g/dL (3.5-5.0); Alkaline Phosphatase 84 U/L (39-117); Anion Gap 11 (12-20); Aspartate Amino Transferase 30 U/L (5-31); Bilirubin Total 0.7 mg/dL (0.0-1.0); Blood Urea Nitrogen 8 mg/dL (9-16); Calcium 9.4 mg/dL (8.4-10.2); Carbon Dioxide 24 mmol/L (22-29); Chloride 109 mmol/L (96-108); Creatinine Clr Calc Pharmacy 119.8; Estimated Glomerular Filt Rate > 60; Glucose Random 112 mg/dL (60-115); Lipase 17 U/L (8-78); Potassium 4.2 mmol/L (3.3-5.1); Sodium 140 mmol/L (135-145); Total Protein 7.2 g/dL (6.5-8.0)
[2024-09-12 12:30] LABS: HCG Quantitative < 2 mIU/mL
[2024-09-12 12:39] LABS: Influenza A PCR NEGATIVE (Negative); Influenza B PCR NEGATIVE (Negative); Resp Syncy Virus RNA Qual PCR NEGATIVE (Negative); SARS COV2 PCR INHOUSE NEGATIVE (Negative)
[2024-09-12 15:37] VITALS: BP 142/100; PULSE 99; RESP 22; TEMP 36.8; O2SAT 98
[2024-09-12] MEDS: Ondansetron ODT 4 MG TAB.RAPDIS TRANSLINGU (15:42)
[2024-09-12 17:34] VITALS: BP 139/97; PULSE 97; RESP 18
--- NOTE | 2024-09-12 17:46 | PC.NURSE ---
Pt reports N/V/D, dizziness and migraines for past few days worsening. poor PO intake. Reports recent psych med guide changer past 2 weeks. Denies CP or SOB. Alert and oriented, breathing slightly elevated, pt appears uncomfortable. Head pain 09/01. NSR on bedside radiation monitor.
[2024-09-12] MEDS: diphenhydrAMINE HCL 50 MG/ML VIAL IVPUSH (19:39)
[2024-09-12] MEDS: 0.9 % Sodium Chloride 1,000 ML 999 ML IVCONT (19:39)
[2024-09-12] MEDS: Metoclopramide HCl 10 MG/2 ML VIAL IVPUSH (19:40)
[2024-09-12] MEDS: Ketorolac Tromethamine 30 MG/ML VIAL IVPUSH (19:44)
[2024-09-12] MEDS: LORazepam 2 MG/ML VIAL 1 MG IVPUSH (19:45)
[2024-09-12 20:50] VITALS: BP 132/83; PULSE 89; RESP 16; TEMP 36.7; O2SAT 98
== END 2024-09-12 20:54 | disposition home or self-care (01) ==
PROVIDERS: Physician Assistant Medical; Emergency Provider Emergency Medicine; PCP Family Medicine
DX: G43.909 Migraine, unspecified, not intractable, without status migrainosus (principal); R11.2 Nausea with vomiting, unspecified; F41.9 Anxiety disorder, unspecified; R53.81 Other malaise; Z03.818 Encounter for observation for suspected exposure to other biological agents ruled out
CPT/HCPCS: 0241U; 36415; 80053; 81001; 81003; 83690; 83735; 84702; 85025; 96374; 96375; 99284; 99285; J1200; J1885; J2060; J2765

== ENCOUNTER 2024-09-19 12:25 | Outpatient (AMB) | payer OTHER, SELFPAY ==
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
[2024-09-19 14:24] VITALS: BP 130/90; PULSE 93; O2SAT 98; BMI 29.8
== END 2024-09-19 15:17 | disposition home or self-care (01) ==
PROVIDERS: PCP Family Medicine; Visit Provider Registered Nurse
DX: R68.89 Other general symptoms and signs (principal)

== ENCOUNTER → 2024-09-19 12:25 | Outpatient (BNVA) | payer OTHER, SELFPAY | PROVIDERS: PCP Family Medicine; Visit Provider Registered Nurse | DX: R68.89 Other general symptoms and signs (principal) | CPT/HCPCS: 99212 ==

== ENCOUNTER 2024-10-06 11:57 | Outpatient (AMB) | payer OTHER, SELFPAY ==
[2024-10-06 13:31] VITALS: BP 110/68; PULSE 103; RESP 14; TEMP 36.5; O2SAT 99; BMI 30.4
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
== END 2024-10-06 15:32 | disposition home or self-care (01) ==
PROVIDERS: PCP Family Medicine; Visit Provider Family Medicine
DX: M25.512 Pain in left shoulder (principal)

== ENCOUNTER → 2024-10-06 11:57 | Outpatient (BNVA) | payer OTHER, SELFPAY | PROVIDERS: PCP Family Medicine; Visit Provider Family Medicine | DX: M25.512 Pain in left shoulder (principal) | CPT/HCPCS: 99212 ==

== ENCOUNTER 2024-10-27 11:06 | Outpatient (AMB) | payer OTHER, SELFPAY ==
[2024-10-27 11:14] VITALS: BP 112/76; PULSE 118
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
--- OUTSIDE RECORDS SUMMARY | 2024-11-02 01:50 | XMS_ITS | Data Portability ---
Author Organization [place] [facility], [id number] Address [address] [place] [id number] Assessment No assessment recorded. Plan of Treatment Reminders Order Date Submit Date Provider Last Modified By Organization Details Last Modified Time Details Appointments None record ed. Lab None record ed. Referral None record ed. Procedures None record ed. Surgeries None record ed. Imaging XR, foot, 3 or more view 023 12/19/19 [facility], [address] [place], [place], [address], 18:49:37 Medication Orders None record ed. Patient TargetsNo targets recorded. Patient Instructions Encounter Date Encounter Id Patient Instructions Last Modified By Organization Details Last Modified Time 12/19/2022 [id number] learning about rice (rest, ice, compression, and elevation) [email or web address] Not available 12/19/2022 17:22:07 Reason for Referral None Reported. Results Created Date Observation Date Name Description Value Unit Range Abnormal Flag Note LastModifiedBy Organization Detail LastModifiedTime 12/19/19 23 12/19/2022 XR, foot, 3 or more view No observ ation record ed. [email or web address] [facility] [address] [place], [address], 12/19/2022 19:56:02 Result Notes None recorded. Problems Name Problem SNOMED Code Status Onset Date Resolution Date Notes Provider Name and Address Organization Details Recorded Time Depressive disorder 37186357 Active 023 Shareecris skaggs, [place] - [facility] 17:08:42 Anxiety 86233383 Active 023 Sharee Carlos null, PA - [facility] 3 17:08:47 Seasonal allergic rhinitis 679106079 Active 023 Sharee skaggs, PA - [facility] 3 17:08:53 Migraine 91299083 Active 023 Sharee Carlos skaggs, PA - [facility] 3 17:08:57 Problem Notes None recorded. Procedures Surgical History Date Name Laterality Status Provider Name and Address Organization Details Recorded Time cholecystectomy completed Shareecris Gonzalez P A - [facility] 12/19/2022 17:09:28 Imaging Results Imaging Date Name Status LastModified by Organiz ation Details LastModified Time 12/19/2022 XR, foot, 3 or more view completed [email or web address] [address] [facility], [place], [address], 12/19/2022 19:56:02 Procedure Notes None recorded. Medical Equipment None Reported. Allergies Allergen ID Allergen Name Allergen Category Reaction Reaction Severity Criticality Documentation Date Start Date Code Code System Note Provider Name and Address Organization Details Recorded Time 734342 codeine medicatio n hives Not available low 12/19/2022 2670 RxNorm Shareecris Hallbritney skaggs PA - [facility] 3 17:06:31 Medications Name Sig Start Date Stop Date Status Note LastModified by Organization Details LastModified Time quetiapine 25 mg tablet PLEASE SEE ATTACHED FOR DETAILED DIRECTION S active Not Available Not Available No t Available amoxicillin 500 mg capsule TAKE 1 BY MOUTH EVERY 8 HOURS FOR 7 DAYS 12/19 completed Not Available Not Available Not Available trazodone 50 mg tablet TAKE 1 AND 1/2 TABLET BY MOUTH AT BEDTIME DIRECTED active Not Available Not Available No t Available ibuprofen 800 mg tablet TAKE 1 TABLET BY MOUTH EVERY 8 HOURS 12/19 completed Not Available Not Available Not Available fluconazole 150 mg tablet TAKE 1 TAB EVERY 3 DAYS FOR 2 DOSES(MAY REPEAT 2ND DOSE 72 HRS AFTER FIRST DOSE IF SYMPTOMS PERSIST) 12/19 completed Not Available Not Available Not Available sucralfate 1 gram tablet TAKE 3 TABLETS BY MOUTH ONCE DAILY BEFORE SUPPER active Not Available Not Available No t Available phenazopyri dine 200 mg tablet TAKE 1 TABLET 3 TIMES A DAY 3 DAYS NEEDED FOR PAIN DYSURIA 12/19 completed Not Available Not Available Not Available prednisone 20 mg tablet TAKE 3 TABLETS (60MG) BY MOUTH DAILY 12/19 completed Not Available Not Available Not Available sertraline 100 mg tablet TAKE 1/2 TABLET BY MOUTH EVERY MORNING AND 1.5 TABLES AT BEDTIME active Not Available Not Available No t Available omeprazole 40 mg capsule,del ayed release TAKE 1 CAPSULE BY MOUTH EVERY DAY active Not Available Not Available No t Available meclizine 25 mg tablet NEEDED FOR DIZZINESS TAKE 1 TABLET BY MOUTH 3 TIMES DAILY FOR 10 DAYS. 12/19 completed Not Available Not Available Not Available baclofen 10 mg tablet TAKE 1 TABLET BY MOUTH 3 TIMES A DAY 12/19 completed Not Available Not Available Not Available pantoprazol e 40 mg tablet,marii yed release TAKE 1 TABLET BY MOUTH EVERY DAY 12/19 completed Not Available Not Available Not Available sertraline 25 mg tablet TAKE 3 TABLET BY MOUTH AT BEDTIME WITH 100 MG. active Not Available Not Available No t Available montelukast 10 mg tablet TAKE 1 TABLET BY MOUTH NIGHTLY 12/19 completed Not Available Not Available Not Available lorazepam 1 mg tablet TAKE 1 TABLET BY MOUTH THREE TIMES A DAY NEEDED active Not Available Not Available No t Available azelastine 137 mcg (0.1 %) nasal spray USE 2 SPRAYS NASALLY TWICE A DAY DIRECTED active Not Available Not Available No t Available epinephrine 0.3 mg/0.3 mL injection, auto-inject or INJECT 1 PEN INJECTOR SINGLE DOSE NEEDED active Not Available Not Available No t Available fluticasone propionate 50 mcg/actuati on nasal spray,suspe nsion SPRAY 2 SPRAYS INTRANASA L DAILY INTO EACH NOSTRIL 12/19 completed Not Available Not Available Not Available dicyclomine 10 mg capsule TAKE 1 CAPSULE BY MOUTH 4 TIMES A DAY 12/19 completed Not Available Not Available Not Available metoclopram sona 10 mg tablet TAKE 1 TABLET BY MOUTH EVERY 6 HOURS NEEDED FOR NAUSEA AND VOMITING 12/19 completed Not Available Not Available Not Available amoxicillin 500 mg-potassiu m clavulanate 125 mg tablet TAKE 1 TABLET BY MOUTH EVERY 12 HOURS FOR 10 DAYS 12/19 completed Not Available Not Available Not Available levocetiriz ine 5 mg tablet TAKE 1 TABLET BY MOUTH DAILY active Not Available Not Available No t Available BinaxNOW COVID-19 Ag Self Test kit USE DIRECTED ON PACKAGING 12/19 completed Not Available Not Available Not Available Vitals Date Recorded Body height Body mass index (BMI) Body weight Oxygen saturation Oxygen saturation in Arterial blood by Pulse oximetry Heart rate Respiratory rate Body temperature Systolic blood pressure Diastolic blood pressure Provider Name and Address Organization Details Last Updated DateTime 3 167.64 cm 29.1 kg/m2 77653.6 3 g 97 % 97 % 102 /min 20 /min 98.1 [degF] 114 mm[Hg] 84 mm[Hg] Sharee Gonzalez PA Responsa 17:11:32 Social History Question Answer Notes LastModified by Promosome[employer] ion Details LastModified Time Tobacco Smoking Status Current Every Day Smoker Sharee skaggs PA - [facility] 12/19/2022 17:09:11 What Is Your Level Of Alcohol Consumption? None Information not available 12/19/2022 Have You Had Direct Contact, Or Contact During Intimacy, With Monkeypox Rash, Scabs, Or Body Fluids From A Person With Monkeypox? No Information not available 12/19/2022 How Much Tobacco Do You Smoke? 0.5 PPD Information not available 12/19/2022 Do You Use Any Illicit Or Recreational Drugs? No Information not available 12/19/2022 Have You Recently Traveled Abroad? No Information not available 12/19/2022 Do You Or Have You Ever Used Any Other Forms Of Tobacco Or Nicotine? No Information not available 12/19/2022 Sex: Unknown Functional Status None recorded. Mental Status None recorded. Family History Relationship Description Onset Age of this Age Resolved Age Notes LastModified by Organization Details LastModified Time Father No current problems or disability Not available 12/19 17:08:59 Mother No current problems or disability Not available 12/19 17:08:59 Medical History No medical history recorded. Gynecological HistoryNo gynecological history recorded. Obstetrics History GPAL:G 0 P 0 0 0 0 Immunizations Vaccine Type Date Status Provider Name and Address Organization Details Recorded Time COVID-19, mRNA, LNP-S, PF, 100 mcg/0.5mL dose or 50 mcg/0.25mL dose 10/23/2021 completed Sharee Carlos null, PA - [facility] 12/19/2022 17:06:17 COVID-19 vaccine, vector-nr, rS-Ad26, PF, 0.5 mL 02/27/2021 completed Sharee [place] null, PA - [facility] 12/19/2022 17:06:17 Influenza, split virus, trivalent, preservative 08/08/2015 completed Sharee Carlos null, PA - [facility] 12/19/2022 17:06:17 Past Encounters Encounter ID Performer Location Encounter Start Date Encounter Closed Date Diagnosis/Indication Diagnosis SNOMED-CT Code Diagnosis ICD10 Code [id number] [address] 07/20/2019 18:46:11 07/20/2019 19:49:41 [id number] [address] [address] 07/25/2022 16:52:51 07/25/2022 18:52:42 [id number] [address] 07/24/2019 17:41:55 07/24/2019 19:00:46 [id number] [place] [address] [place] [phone] 12/19/2022 16:10:49 12/19/2022 17:48:15 Pain in left foot 0008655959 40618 M79.672 Health Concerns Section Related Observation LastModified by Organization Detai ls LastModified Time None Recorded Concern Status LastModified by Organization Details LastModified Time None Recorded Advance Directives Directive None Recorded Payers Encounter Date Sequence Insurance Name Policy Number Policy Montero Covered Member ID Montero Member ID Guarantor Name 07/20/2019 1 [facility] [employer] PLAN (MEDICAID HMO) CYNDY Frost [id number] Lucie Frost 07/24/2019 1 [facility] PLAN (MEDICAID HMO) CYNDY Rivero Santosh [id number] Lucie Santosh 07/25/2022 1 [facility] PLAN (MEDICAID HMO) [facility] [id number] Lucie Santosh 12/19/2022 1 [facility] PLAN (MEDICAID HMO) [facility] Mat Santosh [id number] Lucieramón LeonSantosh Notes Date Note Type Note Provider Name and Address Organization Details Recorded Time 12/19/2022 text/html Foot/Ankle UCReported bypatient.Notes:L foot pain x 1 dwas at a [place] and fell when descending the stairs, foot invertedc/o pain in front of foot1-2 toes+ some swellingno bruisingtried ibu and tylenol x 1 dose w/ minimal improvementno numbness/tinglingno weakness+ pain with ambulation Daniele Lynne, DO [address] [place], [address], PA - [facility] 12/19/2022 17:41:12 OBGyn Episode No OBEpisode recorded.
--- OUTSIDE RECORDS SUMMARY | 2024-11-02 01:50 | XMS_ITS | Continuity of Care Document ---
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 She continues to get sinus and ear pressure. Previous testing showed multiple sensitivities including trees, dust mites, mold, cat and dog Middle ears are well aerated. Audiometric testing shows normal hearing and normal TMs. She does have some mild nasal congestion, but no purulence. I do not see any postnasal drip. I recommended restarting fluticasone. I do think that migraines are contributing to her symptoms. She is on multiple medications and I am hesitant to add any. I would recommend magnesium and riboflavin supplementation. Follow-up for any new or worsening symptoms. [email or web address] Not available 10/16/2024 11:23:47 Plan of Treatment Reminders Order Date Submit Date Provider Last Modified By Organization Details Last Modified Time Details Appointments None recorded. Lab None recorded. Referral None recorded. Procedures None recorded. Surgeries None recorded. Imaging None recorded. Medication Orders Flonase Allergy Relief 50 mcg/actua tion nasal spray,zo pension [id number], [address], [place], [address], 13:59:42 Patient TargetsNo targets recorded. Patient InstructionsNo instructions recorded. Reason for Referral None Reported. Results Created Date Observation Date Name Description Value Unit Range Abnormal Flag Note LastModifiedBy Organization Detail LastModifiedTime 11/01/20 24 audio gram No observ ation record ed. BARCODE Not Available 2023 09:49:50 Result Notes None recorded. Problems Name Problem SNOMED Code Status Onset Date Resolution Date Notes Provider Name and Address Organization Details Recorded Time Dizziness and giddiness 470367474 Active 2020 Dizziness and giddiness ; Note: Date Diagnosed : 02/04/2021 10:21 AM (R42) Not Available [facility] 4 02:35:15 Neck pain 56078036 Active 2014 Cervicalg ia; Note: Date Diagnosed : 5 5:08 PM (M54.2) Not Available [facility] 4 02:35:12 Otalgia of left ear 3383693173 Active 2015 Otalgia, left ear; Note: Date Diagnosed : 02/05/2016 12:54 PM (H92.02) Not Available [facility] 4 02:35:15 Arthralgi a of temporoma ndibular joint 55257031 Active 2014 Arthralgi a of temporoma ndibular joint; Note: Date Diagnosed : 09/27/2015 8:14 PM (M26.62) Not Available [facility] 4 02:35:14 Chronic sinusitis 99406127 Active 2020 Other chronic sinusitis ; Note: Date Diagnosed : 02/04/2021 10:22 AM (J32.8) Not Available [facility] 4 02:35:13 Acute serous otitis media of left ear 50334555383 39251 Active 2015 Acute serous otitis media, left ear; Note: Date Diagnosed : 02/05/2016 12:54 PM (H65.02) Not Available [facility] 4 02:35:23 Bilateral disorder of Eustachia n tubes 85642519044 07891 Active 2015 Other specified disorders of Eustachia n tube, bilateral ; Note: Date Diagnosed : 02/05/2016 12:54 PM (H69.83) Not Available [facility] 4 02:35:19 Bilateral recurrent acute serous otitis media of middle ears 83857661235 65835 Active 2014 Acute serous otitis media, recurrent , bilateral ; Note: Date Diagnosed : 09/27/2015 8:14 PM (H65.06) Not Available [facility] 4 02:35:20 Allergic rhinitis 53457355 Active 2015 Perennial allergic rhinitis; Note: Date Diagnosed : 03/24/2016 5:16 AM (J30.89) Not Available [facility] 4 02:35:10 Bilateral tinnitus 28334234486 02 Active 2014 Tinnitus, bilateral ; Note: Date Diagnosed : 09/27/2015 8:14 PM (H93.13) Not Available [facility] 4 02:35:17 Acute sinusitis 41696182 Active 2015 Other acute sinusitis ; Note: Date Diagnosed : 02/05/2016 12:54 PM (J01.80) Not Available [facility] 4 02:35:20 Tobacco user 281062204 Active 2014 Tobacco use; Note: Date Diagnosed : 09/27/2015 8:15 PM (Z72.0) Not Available [facility] 4 02:35:14 Problem Notes None recorded. Procedures Surgical History Date Name Laterality Status Provider Name and Address Organization Details Recorded Time 10/13/20 24 Air & Speech Audio with Tymps (00699, 58308 & 36360) completed JAVIER KHANNA [address] [place] [address], [phone], [facility] 10/13/2024 13:30:43 cholecystectomy completed ISACC KELLY MD [address] [place] [address], [phone], [facility] 10/16/2024 11:21:02 Imaging Results None recorded. Procedure Notes None recorded. Medical Equipment None Reported. Allergies Allergen ID Allergen Name Allergen Category Reaction Reaction Severity Criticality Documentation Date Start Date Code Code System Note Provider Name and Address Organization Details Recorded Time [id number] codeine sulfate medicatio n Not available Not available Not available 04/05/2024 35907 RxNorm React ion: unspe cifie d, dizzy , Nause a; Not Available [facility] 01:13:13 Medications Name Sig Start Date Stop Date Status Note LastModified by Organization Details LastModified Time quetiapin e 25 mg tablet TAKE 1 TABLET BY MOUTH EVERY NIGHT AT BEDTIME NEEDED FOR INTRUSIV E THOUGHTS , ANXIETY, INSOMNIA active Not Available Not Available No t Available amoxicill in 500 mg capsule TAKE 1 CAPSULE BY MOUTH TWICE A DAY FOR 10 DAYS 10/13 completed Not Available Not Available Not Available buspirone 5 mg tablet TAKE 1 TAB DAILY FOR 7 DAYS, THEN 1 TAB TWICE A DAY X 7 DAYS, THEN 1 TAB 3 TIMES A DAY (FOR ANXIETY) 10/13 completed Not Available Not Available Not Available nystatin 100,000 unit/mL oral suspensio n by mouth 10/13 completed Medicati on ID: [id number] D uration Value: 14 Prescri bed By Name: Isacc askew MD Brand Name: nystatin Send Method: E-Prescr ibed Sub s Allowed: subs OK Speci al Instruct ion: 5 ml swish and spit four times daily x 2 weeks Me dication GenericN josette: nystatin Not Available Not Available Not Available clonidine HCl 0.1 mg tablet TAKE 1 TABLET BY MOUTH TWICE A DAY DIRECTED FOR ANXIETY (REPLACE S PROPRANO LOL) 10/13 completed Not Available Not Available Not Available atorvasta tin 20 mg tablet TAKE 1 TABLET BY MOUTH EVERY DAY active Not Available Not Available No t Available perphenaz ine 2 mg tablet active Not Available Not Available Not Available trazodone 50 mg tablet TAKE 1-2 TABLETS BY MOUTH EVERY NIGHT AT BEDTIME NEEDED INSOMNIA 10/13 completed Not Available Not Available Not Available cetirizin e 10 mg tablet 01/14 completed Medicati on ID: [id number] D uration Value: 30 Brand Name: cetirizi ne Send Method: E-Prescr ibed Sub s Allowed: subs OK Medic ationGen ericName : cetirizi ne Not Available Not Available Not Available azithromy rolando 250 mg tablet TAKE 2 TABLETS BY MOUTH TODAY, THEN TAKE 1 TABLET DAILY FOR 4 DAYS DIRECTED 10/13 completed Not Available Not Available Not Available ketotifen 0.025 % (0.035 %) eye drops 10/13 completed Medicati on ID: [id number] B rand Name: ketotife n fumarate Send Method: E-Prescr ibed Sub s Allowed: subs OK Speci al Instruct ion: INSTILL 1 DROP INTO AFFECTED EYE TWICE A DAY Medi cationGe nericNam e: ketotife n fumarate Not Available Not Available Not Available sucralfat e 1 gram tablet TAKE 1 TABLET BY MOUTH EVERY DAY active Not Available Not Available No t Available prednison e 20 mg tablet TAKE 2 TABLETS BY MOUTH DAILY FOR INFLAMMA TION FOR 5 DAYS 10/13 completed Not Available Not Available Not Available propranol ol ER 60 mg capsule,2 4 hr,extend ed release TAKE 1 CAPSULE BY MOUTH EVERY MORNING FOR PANIC/AN XIETY 10/13 completed Not Available Not Available Not Available sertralin e 100 mg tablet TAKE 0.5 (1/2) TAB BY MOUTH EVERY MORNING AND 1.5 TABS AT BEDTIME FOR DEPRESSI ON, ANXIETY active Not Available Not Available No t Available meclizine 12.5 mg tablet TAKE 1 TO 2 TABLETS THREE TIMES A DAY NEEDED FOR DIZZINES S active Not Available Not Available No t Available omeprazol e 40 mg capsule,d elayed release TAKE 1 CAPSULE ORALLY DAILY active Not Available Not Available No t Available acetamino phen 500 mg tablet TAKE 2 TABLETS (1000MG) BY MOUTH EVERY 6 HOURS NEEDED FOR MODERATE PAIN active Not Available Not Available No t Available ketorolac 10 mg tablet TAKE 1 TABLET BY MOUTH EVERY 8 HOURS NEEDED FOR PAIN. ONLY TAKE TYLENOL IF NEEDED 10/13 completed Not Available Not Available Not Available terbinafi ne HCl 250 mg tablet 2020 active Medicati on ID: [id number] B rand Name: terbinaf ine HCl Send Method: E-Prescr ibed Sub s Allowed: subs OK Medic ationGen ericName : terbinaf ine HCl Not Available Not Available Not Available metoclopr amide 5 mg tablet TAKE 1 TABLET BY MOUTH 3 TIMES A DAY NEEDED FOR NAUSEA AND VOMITING 10/13 completed Not Available Not Available Not Available meclizine 25 mg tablet TAKE 1 TABLET BY MOUTH 3 TIMES DAILY NEEDED FOR DIZZINES S FOR 10 DAYS. 10/13 completed Not Available Not Available Not Available diazepam 2 mg tablet TAKE 1/2 TABLET BY MOUTH TWICE A DAY DIRECTED PANIC, ANXIETY (REPLACE S LORAZEPA M) 10/13 completed Not Available Not Available Not Available cephalexi n 500 mg capsule 04/03 completed Medicati on ID: [id number] B rand Name: cephalex in Send Method: E-Prescr ibed Sub s Allowed: subs OK Speci al Instruct ion: TAKE 1 CAP (500 MG) BY MOUTH EVERY 12 HOURS 10 DAYS Med icationG enericNa me: cephalex in Not Available Not Available Not Available clotrimaz ole-betam ethasone 1 %-0.05 % topical cream 04/03 completed Medicati on ID: [id number] B rand Name: clotrima zole-bet amethaso ne Send Method: E-Prescr ibed Sub s Allowed: subs OK Speci al Instruct ion: 1 APPL TOPICALL Y TWICE A DAY 2 WEEKS Me dication GenericN josette: clotrima zole-bet amethaso ne Not Available Not Available Not Available sertralin e 25 mg tablet active Not Available Not Available Not Available omeprazol e 20 mg capsule,d elayed release 01/14 completed Medicati on ID: [id number] D uration Value: 30 Brand Name: omeprazo le Send Method: E-Prescr ibed Sub s Allowed: subs OK Medic ationGen ericName : omeprazo le Not Available Not Available Not Available Banophen 25 mg capsule 2020 active Medicati on ID: [id number] B rand Name: Banophen Send Method: E-Prescr ibed Sub s Allowed: subs OK Speci al Instruct ion: TAKE 1 CAPSULE BY MOUTH AT BEDTIME NEEDED M edicatio nGeneric Name: Banophen Not Available Not Available Not Available diltiazem CD 120 mg capsule,e xtended release 24 hr TAKE 1 CAPSULE BY MOUTH EVERY DAY active Not Available Not Available No t Available mont[address] 10 mg tablet 10/13 completed Medicati on ID: [id number] D uration Value: 30 Brand Name: monteluk ast Send Method: E-Prescr ibed Sub s Allowed: subs OK Speci al Instruct ion: Take 1 tablet PO nightly Medicati onGeneri cName: monteluk ast Not Available Not Available Not Available lorazepam 1 mg tablet TAKE 1 TABLET BY MOUTH TWICE A DAY NEEDED active Not Available Not Available No t Available azelastin e 137 mcg (0.1 %) nasal spray Inhale 2 spray twice a day as directed 10/13 completed Medicati on ID: [id number] D uration Value: 30 Brand Name: azelasti ne Send Method: E-Prescr ibed Sub s Allowed: subs OK Medic ationGen ericName : azelasti ne Not Available Not Available Not Available Ativan 0.5 mg tablet 04/03 completed Medicati on ID: [id number] B rand Name: Ativan S end Method: E-Prescr ibed Sub s Allowed: subs OK Medic ationGen ericName : Ativan Not Available Not Available Not Available ondansetr on 4 mg disintegr ating tablet TAKE 1 TABLET ORALLY EVERY 8 HOURS NEEDED FOR NAUSEA AND VOMITING active Not Available Not Available No t Available fluticaso ne propionat e 50 mcg/actua tion nasal spray,zo pension [place] 2 sprays every day by intranas al route for 90 days. active Not Available Not Available No t Available amoxicill in 875 mg-potass ium clavulana te 125 mg tablet TAKE 1 TABLET BY MOUTH TWICE A DAY FOR 10 DAYS 10/13 completed Not Available Not Available Not Available Laxative (bisacody l) 5 mg tablet,de layed release TAKE 4 TABLETS ORALLY ONCE FOR 1 DAY TAKE AT NOON THE DAY BEFORE COLONOSC OPY 10/13 completed Not Available Not Available Not Available escitalop saman 5 mg tablet TAKE 1 TABLET BY MOUTH EVERY DAY IN THE MORNING 10/13 completed Not Available Not Available Not Available duloxetin e 20 mg capsule,d elayed release TAKE 1 CAPSULE BY MOUTH EVERY MORNING DIRECTED DEPRESSI ON, ANXIETY, PAIN 10/13 completed Not Available Not Available Not Available pregabali n 50 mg capsule TAKE 1 CAPSULE BY MOUTH TWICE A DAY active Not Available Not Available No t Available aripipraz ole 2 mg tablet 10/13 completed Not Available Not Available Not Available levocetir izine 5 mg tablet TAKE 1 TABLET BY MOUTH DAILY active Not Available Not Available No t Available Athlete's Foot (terbinaf ine) 1 % topical cream 10/13 completed Medicati on ID: [id number] B rand Name: Athlete' s Foot (terbina fine) Se nd Method: E-Prescr ibed Sub s Allowed: subs OK Medic ationGen ericName : Athlete' s Foot (terbina fine) Not Available Not Available Not Available Gavilax 17 gram/dose oral powder TAKE DIRECTED BY MOUTH THE DAY BEFORE YOUR PROCEDUR E. 10/13 completed Not Available Not Available Not Available QNASL 80 mcg/actua tion nasal aerosol spray 2 spray into both nostrils 10/13 completed Medicati on ID: [id number] D uration Value: 30 Prescri bed By Name: Isacc askew MD Brand Name: QNASL Se nd Method: E-Prescr ibed Sub s Allowed: subs OK Medic ationGen ericName : QNASL Not Available Not Available Not Available EpiPen 2-Dalton 0.3 mg/0.3 mL injection , auto-inje ctor Inject 1 pen injector single dose as needed 2020 active Medicati on ID: [id number] D uration Value: 1 Prescri bed By Name: Isacc askew MD Brand Name: EpiPen 2-Dalton Se nd Method: E-Prescr ibed Sub s Allowed: subs OK Medic ationGen ericName : EpiPen 2-Dalton Not Available Not Available Not Available Vitals Date Recorded Body height Body mass index (BMI) Body weight Provider Name and Address Organization Details Last Updated DateTime 10/13/2024 170.18 cm 30.4 kg/m2 71600.92 g Olga Lidia Hall [place] - [facility] 10/13/2024 13:41:35 Social History None recorded. Functional Status None recorded. Mental Status None recorded. Family History Nothing Reported. Medical History Condition Response Allergies/Hayfever Y Migraines Y Gynecological HistoryNo gynecological history recorded. Obstetrics History GPAL:G 0 P 0 0 0 0 Past Encounters Encounter ID Performer Location Encounter Start Date Encounter Closed Date Diagnosis/Indication Diagnosis SNOMED-CT Code Diagnosis ICD10 Code [id number] ISACC KELLY MD [facility] [address] [address] 10/13/2024 13:11:10 10/13/2024 14:01:34 Dizziness and giddiness 173089255 R42 Allergic rhinitis 489390 04 J30.89 Health Concerns Section Related Observation LastModified by Organization Detai ls LastModified Time None Recorded Concern Status LastModified by Organization Details LastModified Time None Recorded Payers Encounter Date Sequence Insurance Name Policy Number Policy Montero Covered Member ID Montero Member ID Guarantor Name 10/13/2024 1 [facility] [employer] - HEALTH [employer] PLAN (MEDICAID HMO) CYNDY Frost [id number] Lucie Frost Notes Date Note Type Note Provider Name and Address Organization Details Recorded Time 4 text/html Still on zoloft, restartedDid have another shoulder surgery which may have affected the nervesOn xyzal and benadryl, migraines Has ear pressure, sinus pressureno longer on flonase sinus infection over the summer, no ear smoking PV: . 42-year-old female presents today for allergy follow-up. She was previously seen in 2020. Testing showed multiplesensitivities including trees, dust mites, mold, cat and dog. She wanted to start immunotherapy but couldn't make the scheduling work. She's been having a lot ofhives lately for which she is required prednisone. She has not noticed any particular association with any allergen. She did have COVID two months ago. She stillhas loss of taste and smell. She's been taking his eyes on Benadryl ISACC KELLY MD [address] [place] [address], [phone], [facility] - [facility] [place] 10/16/2024 11:24:01 OBGyn Episode No OBEpisode recorded.
--- OUTSIDE RECORDS SUMMARY | 2024-11-02 01:50 | XMS_ITS | Data Portability ---
Author Organization [place] - [facility], Allergy Address [address] [address] Care Team Providers Care Tape Weaver Name Role Phone VICENTE WELLS Primary Care Provider [phone] Assessment Encounter Date Assessment Date Assessment LastModified [...] Relief 50 mcg/actua tion nasal spray,zo pension [facility]acy #[id number], [address] [facility], [place], [address], 13:59:42 Patient TargetsNo targets recorded. Patient InstructionsNo [...] Organization Details Recorded Time Dizziness and giddiness 132881936 Active 2020 Dizziness and giddiness ; Note: Date Diagnosed : 02/04/2021 10:21 AM (R42) Not Available [facility] 4 02:35:15 Neck pain 61014039 Active 2014 Cervicalg ia; Note: Date Diagnosed : 5 5:08 PM (M54.2) Not Available [facility] 4 02:35:12 Otalgia of left ear 2374351829 Active 2015 Otalgia, left ear; Note: Date Diagnosed : 02/05/2016 12:54 PM (H92.02) Not Available [facility] 4 02:35:15 Arthralgi a of temporoma ndibular joint 82020955 Active 2014 Arthralgi a of temporoma ndibular joint; Note: Date Diagnosed : 09/27/2015 8:14 PM (M26.62) Not Available [facility] 4 02:35:14 Chronic sinusitis 66718506 Active 2020 Other chronic sinusitis ; Note: Date Diagnosed : 02/04/2021 10:22 AM (J32.8) Not Available [facility] 4 02:35:13 Acute serous otitis media of left ear 72545025047 70605 Active 2015 Acute serous otitis media, left ear; Note: Date Diagnosed : 02/05/2016 12:54 PM (H65.02) Not Available [facility] 4 02:35:23 Bilateral disorder of Eustachia n tubes 83762344300 48059 Active 2015 Other specified disorders of Eustachia n tube, bilateral ; Note: Date Diagnosed : 02/05/2016 12:54 PM (H69.83) Not Available [facility] 4 02:35:19 Bilateral recurrent acute serous otitis media of middle ears 50289551192 59736 Active 2014 Acute serous otitis media, recurrent , bilateral ; Note: Date Diagnosed : 09/27/2015 8:14 PM (H65.06) Not Available [facility] 4 02:35:20 Allergic rhinitis 39526138 Active 2015 Perennial allergic rhinitis; Note: Date Diagnosed : 03/24/2016 5:16 AM (J30.89) Not Available [facility] 4 02:35:10 Bilateral tinnitus 47253895891 02 Active 2014 Tinnitus, bilateral ; Note: Date Diagnosed : 09/27/2015 8:14 PM (H93.13) Not Available [facility] 4 02:35:17 Acute sinusitis 25024619 Active 2015 Other acute sinusitis ; Note: Date Diagnosed : 02/05/2016 12:54 PM (J01.80) Not Available [facility] 4 02:35:20 Tobacco user 841799644 Active 2014 Tobacco use; Note: Date Diagnosed : 09/27/2015 8:15 PM (Z72.0) Not Available [facility] 4 02:35:14 Problem Notes None recorded. Procedures Surgical History Date Name Laterality Status Provider Name and Address Organization Details Recorded Time 10/13/20 24 Air & Speech Audio with Tymps (71366, 62936 & 53497) completed JAVIER KHANNA [address] [place] [address], [phone], [facility] 10/13/2024 13:30:43 cholecystectomy completed ISACC KELLY MD [address] [place] [address], [phone], [place] [facility] 10/16/2024 11:21:02 Imaging Results Imaging Date Name Status LastModified by Organiz ation Details LastModified Time 11/01/2024 audiogram completed BARCODE Information no t available 11/01/2024 09:49:50 Procedure Notes None recorded. Medical Equipment None Reported. Allergies Allergen ID Allergen Name Allergen Category Reaction Reaction Severity Criticality Documentation Date Start Date Code Code System Note Provider Name and Address Organization Details Recorded Time 857783 codeine sulfate medicatio n Not available Not available Not available 04/05/2024 46310 RxNorm React ion: unspe cifie d, dizzy , Nause a; Not Available [facility] Medications Name Sig Start Date Stop [...] by mouth 10/13 completed Medicati on ID: [id number] D uration Value: 14 Prescri bed By [...] mg tablet 01/14 completed Medicati on ID: [id number] D uration Value: 30 Brand Name: cetirizi [...] eye drops 10/13 completed Medicati on ID: [id number] B rand Name: ketotife n fumarate Send [...] mg tablet 2020 active Medicati on ID: [id number] B rand Name: terbinaf ine HCl Send [...] mg capsule 04/03 completed Medicati on ID: [id number] B rand Name: cephalex in Send Method: E-Prescr ibed Sub s Allowed: subs OK Speci al Instruct ion: TAKE 1 CAP (500 MG) BY MOUTH EVERY 12 HOURS 10 DAYS Med icationG enericNa me: cephalex in Not Available Not Available Not Available clotrimaz ole-betam ethasone 1 %-0.05 % topical cream 04/03 completed Medicati on ID: [id number] B rand Name: clotrima zole-bet amethaso ne [...] elayed release 01/14 completed Medicati on ID: [id number] D uration Value: 30 Brand Name: omeprazo le Send Method: E-Prescr ibed Sub s Allowed: subs OK Medic ationGen ericName : omeprazo le Not Available Not Available Not Available Banophen 25 mg capsule 2020 active Medicati on ID: [id number] B rand Name: Banophen Send Method: E-Prescr [...] mg tablet 10/13 completed Medicati on ID: [id number] D uration Value: 30 Brand Name: monteluk [...] as directed 10/13 completed Medicati on ID: [id number] D uration Value: 30 Brand Name: azelasti ne Send Method: E-Prescr ibed Sub s Allowed: subs OK Medic ationGen ericName : azelasti ne Not Available Not Available Not Available Ativan 0.5 mg tablet 04/03 completed Medicati on ID: [id number] B rand Name: Ativan S end Method: E-Prescr ibed Sub s Allowed: subs OK Medic ationGen ericName : Ativan Not Available Not Available Not Available ondansetr on 4 mg disintegr ating tablet TAKE 1 TABLET ORALLY EVERY 8 HOURS NEEDED FOR NAUSEA AND VOMITING active Not Available Not Available No t Available fluticaso ne propionat e 50 mcg/actua tion nasal spray,zo pension [place] 2 sprays every day by intranas al [...] Not Available No t Available Athlete's Foot (darleen garcia) 1 % topical cream 10/13 completed Medicati on ID: [id number] B rand Name: Athlete' s Foot (vipin gonzalez) Se nd Method: E-Prescr ibed Sub s Allowed: subs OK Medic ationGen ericName : Athlete' s Foot (vipin gonzalez) Not Available Not Available Not Available Gavilax 17 gram/dose oral powder TAKE DIRECTED BY MOUTH THE DAY BEFORE YOUR PROCEDUR E. 10/13 completed Not Available Not Available Not Available QNASL 80 mcg/actua tion nasal aerosol spray 2 spray into both nostrils 10/13 completed Medicati on ID: [id number] D uration Value: 30 Prescri bed By Name: Isacc askew MD Brand Name: QNASL Se nd Method: E-Prescr ibed Sub s Allowed: subs OK Medic ationGen ericName : QNASL Not Available Not Available Not Available EpiPen 2-Dalton 0.3 mg/0.3 mL injection , auto-inje ctor Inject 1 pen injector single dose as needed 2020 active Medicati on ID: [id number] D uration Value: 1 Prescri bed By Name: Isacc askew MD Brand Name: EpiPen 2-Dalton Se nd Method: E-Prescr ibed Sub s Allowed: subs OK Medic ationGen ericName : EpiPen 2-Dalton Not Available Not Available Not Available Vitals Date Recorded Body height Body mass index (BMI) Body weight Provider Name and Address Organization Details Last Updated DateTime 10/13/2024 170.18 cm 30.4 kg/m2 28874.92 g Olga Lidia Hall [place] - [facility] 10/13/2024 13:41:35 Social History None recorded. Functional Status None recorded. Mental Status None recorded. Family History Nothing Reported. Medical History Condition Response Allergies/Hayfever Y Migraines Y Gynecological HistoryNo gynecological history recorded. Obstetrics History GPAL:G 0 P 0 0 0 0 Past Encounters Encounter ID Performer Location Encounter Start Date Encounter Closed Date Diagnosis/Indication Diagnosis SNOMED-CT Code Diagnosis ICD10 Code [id number] ISACC KELLY MD [facility] [address] [address] 10/13/2024 13:11:10 10/13/2024 14:01:34 Dizziness and giddiness 061971417 R42 Allergic rhinitis 786962 04 J30.89 Health Concerns Section Related Observation LastModified by Organization Detai ls LastModified Time None Recorded Concern Status LastModified by Organization Details LastModified Time None Recorded Advance Directives Directive None Recorded Payers Encounter Date Sequence Insurance Name Policy Number Policy Montero Covered Member ID Montero Member ID Guarantor Name 10/13/2024 1 [employer] - HEALTH NET PLAN (MEDICAID HMO) CYNDY Frost [id number] Lucie Frost Notes Date Note Type Note [...] his eyes on Benadryl ISACC KELLY MD [address] [place] [address], [phone], [facility] - [facility] 10/16/2024 11:24:01 OBGyn Episode No OBEpisode recorded.
== END 2024-10-27 11:42 | disposition home or self-care (01) ==
PROVIDERS: PCP Family Medicine; Visit Provider Internal Medicine
DX: R00.0 Tachycardia, unspecified (principal); I42.9 Cardiomyopathy, unspecified
CPT/HCPCS: 99213

== ENCOUNTER → 2024-10-27 11:06 | Outpatient (BNVA) | payer OTHER, SELFPAY | PROVIDERS: PCP Family Medicine; Visit Provider Internal Medicine | DX: R00.0 Tachycardia, unspecified (principal); G43.909 Migraine, unspecified, not intractable, without status migrainosus; F41.8 Other specified anxiety disorders; M25.512 Pain in left shoulder; Z79.899 Other long term (current) drug therapy; I42.9 Cardiomyopathy, unspecified | CPT/HCPCS: 99212 ==

== ENCOUNTER 2024-10-27 15:49 | Outpatient (AMB) | payer OTHER, SELFPAY ==
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
[2024-10-27 15:56] VITALS: BP 100/70; PULSE 105; RESP 16; TEMP 36.2; O2SAT 98; BMI 30.4
== END 2024-10-27 16:18 | disposition home or self-care (01) ==
PROVIDERS: PCP Family Medicine; Visit Provider Family Medicine
DX: R00.0 Tachycardia, unspecified (principal); G43.909 Migraine, unspecified, not intractable, without status migrainosus; F41.8 Other specified anxiety disorders

== ENCOUNTER 2025-01-26 15:44 | Outpatient (AMB) | payer OTHER, SELFPAY ==
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
[2025-01-26 16:09] VITALS: BP 100/68; PULSE 105; RESP 14; TEMP 36.5; O2SAT 96; BMI 31.0
--- OUTSIDE RECORDS SUMMARY | 2025-01-26 19:08 | XMS_ITS | Data Portability ---
Author Organization [place] [facility], [address] Address [address] [place] [address] Assessment No assessment recorded. Plan of Treatment Reminders Order Date Submit Date Provider Last Modified By Organization Details Last Modified Time Details Appointments None record ed. Lab None record ed. Referral None record ed. Procedures None record ed. Surgeries None record ed. Imaging XR, foot, 3 or more view 023 12/19/19 [facility], [address] [place], [place], [address], 18:49:37 Medication Orders None record ed. Patient TargetsNo targets recorded. Patient Instructions Encounter Date Encounter Id Patient Instructions Last Modified By Organization Details Last Modified Time 12/19/2022 [id number] learning about rice (rest, ice, compression, and elevation) [email or web address] Not available 12/19/2022 17:22:07 Reason for Referral None Reported. Results Created Date Observation Date Name Description Value Unit Range Abnormal Flag Note LastModifiedBy Organization Detail LastModifiedTime 12/19/19 23 12/19/2022 XR, foot, 3 or more view No observ ation record ed. [email or web address] [facility] [address] [place], [address], 12/19/2022 19:56:02 Result Notes None recorded. Problems Name Problem SNOMED Code Status Onset Date Resolution Date Notes Provider Name and Address Organization Details Recorded Time Depressive disorder 92900106 Active 023 Shareecris skaggs, [place] - [facility] 17:08:42 Anxiety 99257264 Active 023 Sharee Bristol null, PA - [facility] 3 17:08:47 Seasonal allergic rhinitis 154780842 Active 023 Sharee skaggs, PA - [facility] 3 17:08:53 Migraine 99197911 Active 023 Sharee Carlos skaggs, PA - [facility] 3 17:08:57 Problem Notes None recorded. Procedures Surgical History Date Name Laterality Status Provider Name and Address Organization Details Recorded Time cholecystectomy completed Shareecris Gonzalez P A - [facility] 12/19/2022 17:09:28 Imaging Results Imaging Date Name Status LastModified by Organiz ation Details LastModified Time 12/19/2022 XR, foot, 3 or more view completed [email or web address] [facility] [address] [facility], [place], [address], 12/19/2022 19:56:02 Procedure Notes None recorded. Medical Equipment None Reported. Allergies Allergen ID Allergen Name Allergen Category Reaction Reaction Severity Criticality Documentation Date Start Date Code Code System Note Provider Name and Address Organization Details Recorded Time 350743 codeine medicatio n hives Not available low [...] Updated DateTime 3 167.64 cm 29.1 kg/m2 29516.6 3 g 97 % 97 % 102 /min 20 /min 98.1 [degF] 114 mm[Hg] 84 mm[Hg] Sharee Gonzalez PA [facility] 17:11:32 Social History Question Answer Notes LastModified by Organizat ion Details LastModified Time Tobacco Smoking Status Current Every Day Smoker Sharee skaggs PA - [facility] 12/19/2022 17:09:11 What Is Your Level Of [...] 0 0 Immunizations Vaccine Type Date Status Note Provider Nam e and Address Organization Details Recorded Time COVID-19, mRNA, LNP-S, PF, 100 mcg/0.5mL dose or 50 mcg/0.25mL dose 1 completed Sharee Bristol null, PA - [facility] 12/19/2022 17:06:17 COVID-19 vaccine, vector-nr, rS-Ad26, PF, 0.5 mL 1 completed Sharee Bristol null, PA - [facility] 12/19/2022 17:06:17 Influenza, split virus, trivalent, preservative 5 completed Sharee Acrlos null, PA - [facility] 12/19/2022 17:06:17 Past Encounters Encounter ID Performer Location Encounter Start Date Encounter Closed Date Diagnosis/Indication Diagnosis SNOMED-CT Code Diagnosis ICD10 Code Diagnosis Note [id number] [address] [address] [address] 07/20/2019 18:46:11 07/20/2019 19:49:41 [id number] [address] [address] 07/25/2022 16:52:51 07/25/2022 18:52:42 [id number] [facility] [address] [address] 07/24/2019 17:41:55 07/24/2019 19:00:46 [id number] [place] [address] [address] 12/19/2022 16:10:49 12/19/2022 17:48:15 Pain in left foot 9078713370 96040 M79.672 foot sprain. No obvious Fx on XRAYrecomm end:restic eelevation compressio ntylenol/i bu prn pain feverPatie nt advised to follow up as needed for worsening symptoms or no improvemen t. would refer to Ortho prn no improvemen t Health Concerns Section Related Observation LastModified by Organization Detai ls LastModified Time None Recorded Concern Status LastModified by Organization Details LastModified Time None Recorded Advance Directives Directive None Recorded Payers Encounter Date Sequence Insurance Name Policy Number Policy Montero Covered Member ID Montero Member ID Guarantor Name 07/20/2019 1 [facility] (MEDICAID HMO) ADRIANA Lucie Mat Santosh [id number] Lucie Santosh 07/24/2019 1 [facility] (MEDICAID HMO) [employer]RIANA Lucie Rivero Santosh [id number] Lucie Santosh 07/25/2022 1 [facility] (MEDICAID HMO) [facility] Lucie Rivero Santosh [id number] Lucie Santosh 12/19/2022 1 [facility] (MEDICAID HMO) [facility] Lucie Mat Santosh [id number] [facility] Notes Date Note Type Note Provider Name [...] Lynne, DO [address] [place], [address], PA - [facility] 12/19/2022 17:41:12 OBGyn Episode No OBEpisode recorded.
--- OUTSIDE RECORDS SUMMARY | 2025-01-26 19:08 | XMS_ITS | Data Portability ---
Author Organization [place] - [facility], Allergy Address [address] [address] Care Team Providers Care Director Of Product Development Name Role Phone VICENTE WELLS Primary Care [...] Relief 50 mcg/actua tion nasal spray,zo pension [facility] [place]Pharmacy #[id number], [address] [facility], [place], [address], 13:59:42 Patient TargetsNo targets recorded. Patient InstructionsNo [...] Organization Details Recorded Time Dizziness and giddiness 766931532 Active 2020 Dizziness and giddiness ; Note: Date Diagnosed : 02/04/2021 10:21 AM (R42) Not Available [facility] 4 02:35:15 Neck pain 80508732 Active 2014 Cervicalg ia; Note: Date Diagnosed : 5 5:08 PM (M54.2) Not Available [facility] 4 02:35:12 Otalgia of left ear 8999943953 Active 2015 Otalgia, left ear; Note: Date Diagnosed : 02/05/2016 12:54 PM (H92.02) Not Available [facility] 4 02:35:15 Arthralgi a of temporoma ndibular joint 60485772 Active 2014 Arthralgi a of temporoma ndibular joint; Note: Date Diagnosed : 09/27/2015 8:14 PM (M26.62) Not Available [facility] 4 02:35:14 Chronic sinusitis 21486269 Active 2020 Other chronic sinusitis ; Note: Date Diagnosed : 02/04/2021 10:22 AM (J32.8) Not Available [facility] 4 02:35:13 Acute serous otitis media of left ear 70572337938 37881 Active 2015 Acute serous otitis media, left ear; Note: Date Diagnosed : 02/05/2016 12:54 PM (H65.02) Not Available [facility] 4 02:35:23 Bilateral disorder of Eustachia n tubes 15612630126 75550 Active 2015 Other specified disorders of Eustachia n tube, bilateral ; Note: Date Diagnosed : 02/05/2016 12:54 PM (H69.83) Not Available [facility] 4 02:35:19 Bilateral recurrent acute serous otitis media of middle ears 32422618503 29065 Active 2014 Acute serous otitis media, recurrent , bilateral ; Note: Date Diagnosed : 09/27/2015 8:14 PM (H65.06) Not Available [facility] 4 02:35:20 Allergic rhinitis 09095629 Active 2015 Perennial allergic rhinitis; Note: Date Diagnosed : 03/24/2016 5:16 AM (J30.89) Not Available [facility] 4 02:35:10 Bilateral tinnitus 03617547816 02 Active 2014 Tinnitus, bilateral ; Note: Date Diagnosed : 09/27/2015 8:14 PM (H93.13) Not Available [facility] 4 02:35:17 Acute sinusitis 09654907 Active 2015 Other acute sinusitis ; Note: Date Diagnosed : 02/05/2016 12:54 PM (J01.80) Not Available [facility] 4 02:35:20 Tobacco user 156824000 Active 2014 Tobacco use; Note: Date Diagnosed : 09/27/2015 8:15 PM (Z72.0) Not Available [facility] 4 02:35:14 Problem Notes None recorded. Procedures Surgical History Date Name Laterality Status Provider Name and Address Organization Details Recorded Time 10/13/20 24 Air & Speech Audio with Tymps (95538, [address] & [address]5545) completed JAVIER KHANNA [address] [place] [address], [phone], [facility] 10/13/2024 13:30:43 cholecystectomy completed ISACC KELLY MD [address] [place] [address], [phone], [place] [facility] 10/16/2024 11:21:02 Imaging Results Imaging Date Name Status LastModified by Organiz ation Details LastModified Time 11/01/2024 audiogram completed BARCODE Information no t available 11/01/2024 09:49:50 Procedure Notes None recorded. Medical Equipment None Reported. Allergies Allergen ID Allergen Name Allergen Category Reaction Reaction Severity Criticality Documentation Date Start Date Code Code System Note Provider Name and Address Organization Details Recorded Time 410662 codeine sulfate medicatio n Not available Not available Not available 04/05/2024 83818 RxNorm React ion: unspe cifie d, dizzy , Nause a; Not Available [facility] 01:13:13 Medications Name Sig Start Date [...] by mouth 10/13 completed Medicati on ID: [id number] D uration Value: 14 Prescri bed By [...] mg tablet 01/14 completed Medicati on ID: [id number] D uration Value: 30 Brand Name: cetirizi [...] eye drops 10/13 completed Medicati on ID: 046397 B rand Name: ketotife n fumarate Send [...] mg tablet 2020 active Medicati on ID: 734587 B rand Name: terbinaf ine HCl Send [...] mg capsule 04/03 completed Medicati on ID: 024393 B rand Name: cephalex in Send Method: E-Prescr ibed Sub s Allowed: subs OK Speci al Instruct ion: TAKE 1 CAP (500 MG) BY MOUTH EVERY 12 HOURS 10 DAYS Med icationG enericNa me: cephalex in Not Available Not Available Not Available clotrimaz ole-betam ethasone 1 %-0.05 % topical cream 04/03 completed Medicati on ID: 289291 B rand Name: clotrima zole-bet amethaso ne [...] elayed release 01/14 completed Medicati on ID: [id number] D uration Value: 30 Brand Name: omeprazo le Send Method: E-Prescr ibed Sub s Allowed: subs OK Medic ationGen ericName : omeprazo le Not Available Not Available Not Available Banophen 25 mg capsule 2020 active Medicati on ID: [id number] B rand Name: Banophen Send Method: E-Prescr [...] mg tablet 10/13 completed Medicati on ID: [id number] D uration Value: 30 Brand Name: monteluk [...] as directed 10/13 completed Medicati on ID: 905738 D uration Value: 30 Brand Name: azelasti ne Send Method: E-Prescr ibed Sub s Allowed: subs OK Medic ationGen ericName : azelasti ne Not Available Not Available Not Available Ativan 0.5 mg tablet 04/03 completed Medicati on ID: 898827 B rand Name: Ativan S end Method: E-Prescr ibed Sub s Allowed: subs OK Medic ationGen ericName : Ativan Not Available Not Available Not Available ondansetr on 4 mg disintegr ating tablet TAKE 1 TABLET ORALLY EVERY 8 HOURS NEEDED FOR NAUSEA AND VOMITING active Not Available Not Available No t Available fluticaso ne propionat e 50 mcg/actua tion nasal spray,zo pension [place] 2 sprays every day by intranas al [...] topical cream 10/13 completed Medicati on ID: 968888 B rand Name: Athlete' s Foot (vipin [...] both nostrils 10/13 completed Medicati on ID: [id number] D uration Value: 30 Prescri bed By Name: Isacc askew MD Brand Name: QNASL Se nd Method: E-Prescr ibed Sub s Allowed: subs OK Medic ationGen ericName : QNASL Not Available Not Available Not Available EpiPen 2-Dalton 0.3 mg/0.3 mL injection , auto-inje ctor Inject 1 pen injector single dose as needed 2020 active Medicati on ID: [id number] D uration Value: 1 Prescri bed By Name: Isacc askew MD Brand Name: EpiPen 2-Dalton Se nd Method: E-Prescr ibed Sub s Allowed: subs OK Medic ationGen ericName : EpiPen 2-Dalton Not Available Not Available Not Available Vitals Date Recorded Body height Body mass index (BMI) Body weight Provider Name and Address Organization Details Last Updated DateTime 10/13/2024 170.18 cm 30.4 kg/m2 94095.92 g Olga Lidia Hall [place] - [facility] 10/13/2024 13:41:35 Social History None recorded. Functional Status None recorded. Mental Status None recorded. Family History Nothing Reported. Medical History Condition Response Allergies/Hayfever Y Migraines Y Gynecological HistoryNo gynecological history recorded. Obstetrics History GPAL:G 0 P 0 0 0 0 Past Encounters Encounter ID Performer Location Encounter Start Date Encounter Closed Date Diagnosis/Indication Diagnosis SNOMED-CT Code Diagnosis ICD10 Code Diagnosis Note [id number] ISACC KELLY MD [facility] [address] [address] 10/13/2024 13:11:10 10/13/2024 14:01:34 Dizziness and giddiness 533580622 R42 Right Ear:Normal hearing with excellent speech discrimina tion.Type A tympanogra m.Left Ear:Normal hearing with excellent speech discrimina tion.Type A tympanogra m. Allergic rhinitis 226851 04 J30.89 Health Concerns Section Related Observation LastModified by Organization Detai ls LastModified Time None Recorded Concern Status LastModified by Organization Details LastModified Time None Recorded Advance Directives Directive None Recorded Payers Encounter Date Sequence Insurance Name Policy Number Policy Montero Covered Member ID Montero Member ID Guarantor Name 10/13/2024 1 [facility] CYNDY Frost [id number] Lucie Frost Notes Date Note Type Note [...] his eyes on Benadryl ISACC KELLY MD [address] [place] [address], [address], [facility] - [facility] 10/16/2024 11:24:01 OBGyn Episode No OBEpisode recorded.
== END 2025-01-26 16:52 | disposition home or self-care (01) ==
PROVIDERS: PCP Family Medicine; Visit Provider Family Medicine
DX: F41.8 Other specified anxiety disorders (principal); G43.909 Migraine, unspecified, not intractable, without status migrainosus; M54.2 Cervicalgia; M25.519 Pain in unspecified shoulder; R00.0 Tachycardia, unspecified

== ENCOUNTER → 2025-01-26 15:44 | Outpatient (BNVA) | payer OTHER, SELFPAY | PROVIDERS: PCP Family Medicine; Visit Provider Family Medicine | DX: F41.8 Other specified anxiety disorders (principal); G43.909 Migraine, unspecified, not intractable, without status migrainosus; M54.2 Cervicalgia; R00.0 Tachycardia, unspecified; M25.511 Pain in right shoulder | CPT/HCPCS: 96127; 99212 ==

== ENCOUNTER 2025-02-25 19:32 | Outpatient (REF) | payer OTHER, SELFPAY ==
--- NOTE | ~2025-02-25 | MR_ITS ---
EXAMINATION: MR BRAIN WITHOUT IV CONTRAST HISTORY: MIGRAINE TECHNIQUE: Sagittal T1, and axial T1, FLAIR, T2, gradient echo, and diffusion weighted MR images of the brain were obtained. COMPARISON: Correlation is made with an unenhanced head CT dated 03/25/2024. FINDINGS: The brain parenchyma is unremarkable, demonstrating normal youngblood/white differentiation. No foci of abnormal signal intensity are identified. The ventricular system is normal in size and configuration. There is no mass effect or midline shift. No intra or extra-axial fluid collections are identified. There are no foci of restricted diffusion. Normal vascular flow voids are noted in the basilar and carotid arteries. The visualized paranasal sinuses are clear. There is a small amount of fluid signal intensity in the bilateral mastoid air cells. MR/MR head/brain wo con IMPRESSION: Small amount of fluid signal in the bilateral mastoid air cells. Otherwise unremarkable MRI of the brain without contrast. Electronically signed by: Adryan Estrada MD 02/27/2025 07:04 AM EDT
--- OUTSIDE RECORDS SUMMARY | 2025-02-25 19:45 | XMS_ITS | Data Portability ---
Author Organization [place] [facility], [address] Address [address] [place] [address] Assessment No assessment recorded. Plan of Treatment Reminders Order Date Submit Date Provider Last Modified By Organization Details Last Modified Time Details Appointments None record ed. Lab None record ed. Referral None record ed. Procedures None record ed. Surgeries None record ed. Imaging XR, foot, 3 or more view 023 12/19/19 [facility], [address] [place], [place], [address], 18:49:37 Medication Orders None record ed. Patient TargetsNo targets recorded. Patient Instructions Encounter Date Encounter Id Patient Instructions Last Modified By Organization Details Last Modified Time 12/19/2022 [id number] learning about rice (rest, ice, compression, and elevation) [email or web address] Not available 12/19/2022 17:22:07 Reason for Referral None Reported. Results Created Date Observation Date Name Description Value Unit Range Abnormal Flag Note LastModifiedBy Organization Detail LastModifiedTime 12/19/19 23 12/19/2022 XR, foot, 3 or more view No observ ation record ed. [email or web address] [facility] [address] [place], [address], 12/19/2022 19:56:02 Result Notes None recorded. Problems Name Problem SNOMED Code Status Onset Date Resolution Date Notes Provider Name and Address Organization Details Recorded Time Depressive disorder 13829205 Active 023 Shareecris skaggs, PA - [facility] 17:08:42 Anxiety 73574845 Active 023 Sharee [place] null, PA - [facility] 3 17:08:47 Seasonal allergic rhinitis 515441704 Active 023 Sharee skaggs, PA - [facility] 3 17:08:53 Migraine 64941493 Active 023 Sharee Carlos skaggs, PA - [facility] 3 17:08:57 Problem Notes None recorded. Procedures Surgical History Date Name Laterality Status Provider Name and Address Organization Details Recorded Time cholecystectomy completed Shareecris Gonzalez P A - [facility] 12/19/2022 17:09:28 Imaging Results Imaging Date Name Status LastModified by Organiz ation Details LastModified Time 12/19/2022 XR, foot, 3 or more view completed [email or web address] [facility] [address] [facility], [place], [address], 12/19/2022 19:56:02 Procedure Notes None recorded. Medical Equipment None Reported. Allergies Allergen ID Allergen Name Allergen Category Reaction Reaction Severity Criticality Documentation Date Start Date Code Code System Note Provider Name and Address Organization Details Recorded Time 063976 codeine medicatio n hives Not available low [...] Updated DateTime 3 167.64 cm 29.1 kg/m2 84933.6 3 g 97 % 97 % 102 /min 20 /min 98.1 [degF] 114 mm[Hg] 84 mm[Hg] Sharee Gonzalez PA [employer] 17:11:32 Social History Question Answer Notes LastModified by Organizat ion Details LastModified Time Tobacco Smoking Status Current Every Day Smoker Sharee skaggs PA - [employer] [facility] 12/19/2022 17:09:11 What Is Your Level Of [...] or 50 mcg/0.25mL dose 1 completed Sharee [place] null, PA - [facility] 12/19/2022 17:06:17 COVID-19 vaccine, vector-nr, rS-Ad26, PF, 0.5 mL 1 completed Sharee [place] null, PA - [facility] 12/19/2022 17:06:17 Influenza, split virus, trivalent, preservative 5 completed Sharee Carlos null, PA - [facility] 12/19/2022 17:06:17 Past Encounters Encounter ID Performer Location Encounter Start Date Encounter Closed Date Diagnosis/Indication Diagnosis SNOMED-CT Code Diagnosis ICD10 Code Diagnosis Note [id number] [facility] [address] [address] 07/20/2019 18:46:11 07/20/2019 19:49:41 [id number] [address] [address] 07/25/2022 16:52:51 07/25/2022 18:52:42 [id number] [facility] [address] [address] 07/24/2019 17:41:55 07/24/2019 19:00:46 [id number] [place] [address] [address] 12/19/2022 16:10:49 12/19/2022 17:48:15 Pain in left foot 4865142550 54675 M79.672 foot sprain. No obvious Fx on [...] Montero Member ID Guarantor Name 07/20/2019 1 [facility] PLAN (MEDICAID HMO) ADRIANA Lucie Mat Santosh [id number] Lucie Santosh 07/24/2019 1 [facility] PL[facility] (MEDICAID HMO) [employer] Lucie Rivero Santosh [id number] Lucie Santosh 07/25/2022 1 [facility] PLAN (MEDICAID HMO) [facility] Lucie Rivero Santosh [id number] Lucie Santosh 12/19/2022 1 [facility] PLAN (MEDICAID HMO) [facility] Lucie Mat Santosh [id number] [facility] Notes Date Note Type Note [...] Lynne, DO [address] [place], [address], [place] - [facility] 12/19/2022 17:41:12 OBGyn Episode No OBEpisode recorded.
--- OUTSIDE RECORDS SUMMARY | 2025-02-25 19:45 | XMS_ITS | Data Portability ---
Author Organization [place] - [facility], Allergy Address [address] [address] Care Team Providers Care Mold Shop Supervisor Name Role Phone VICENTE WELLS Primary Care Provider [phone] Assessment Encounter Date Assessment Date Assessment LastModified [...] 50 mcg/actua tion nasal spray,zo pension [facility][id number], [address] [facility], [place], [address], 13:59:42 Patient TargetsNo targets recorded. Patient InstructionsNo [...] Organization Details Recorded Time Dizziness and giddiness 628215564 Active 2020 Dizziness and giddiness ; Note: Date Diagnosed : 02/04/2021 10:21 AM (R42) Not Available [facility] 4 02:35:15 Neck pain 27349813 Active 2014 Cervicalg ia; Note: Date Diagnosed : 5 5:08 PM (M54.2) Not Available [facility] 4 02:35:12 Otalgia of left ear 8323963239 Active 2015 Otalgia, left ear; Note: Date Diagnosed : 02/05/2016 12:54 PM (H92.02) Not Available [facility] 4 02:35:15 Arthralgi a of temporoma ndibular joint 73464212 Active 2014 Arthralgi a of temporoma ndibular joint; Note: Date Diagnosed : 09/27/2015 8:14 PM (M26.62) Not Available [facility] 4 02:35:14 Chronic sinusitis 36719128 Active 2020 Other chronic sinusitis ; Note: Date Diagnosed : 02/04/2021 10:22 AM (J32.8) Not Available [facility] 4 02:35:13 Acute serous otitis media of left ear 56103338017 60453 Active 2015 Acute serous otitis media, left ear; Note: Date Diagnosed : 02/05/2016 12:54 PM (H65.02) Not Available [facility] 4 02:35:23 Bilateral disorder of Eustachia n tubes 03995032524 50600 Active 2015 Other specified disorders of Eustachia n tube, bilateral ; Note: Date Diagnosed : 02/05/2016 12:54 PM (H69.83) Not Available [facility] 4 02:35:19 Bilateral recurrent acute serous otitis media of middle ears 51519694134 42362 Active 2014 Acute serous otitis media, recurrent , bilateral ; Note: Date Diagnosed : 09/27/2015 8:14 PM (H65.06) Not Available [facility] 4 02:35:20 Allergic rhinitis 46888335 Active 2015 Perennial allergic rhinitis; Note: Date Diagnosed : 03/24/2016 5:16 AM (J30.89) Not Available [facility] 4 02:35:10 Bilateral tinnitus 68616110400 02 Active 2014 Tinnitus, bilateral ; Note: Date Diagnosed : 09/27/2015 8:14 PM (H93.13) Not Available [facility] 4 02:35:17 Acute sinusitis 82190682 Active 2015 Other acute sinusitis ; Note: Date Diagnosed : 02/05/2016 12:54 PM (J01.80) Not Available [facility] 4 02:35:20 Tobacco user 015118546 Active 2014 Tobacco use; Note: Date Diagnosed : 09/27/2015 8:15 PM (Z72.0) Not Available [facility] 4 02:35:14 Problem Notes None recorded. Procedures Surgical History Date Name Laterality Status Provider Name and Address Organization Details Recorded Time 10/13/20 24 Air & Speech Audio with Tymps (97520, 70559 & 08915) completed JAVIER KHANNA [address] [place] [address], [phone], [facility] 10/13/2024 13:30:43 cholecystectomy completed ISACC KELLY MD [address] [place] [address], [id number], [place] [facility] 10/16/2024 11:21:02 Imaging Results Imaging Date Name Status LastModified by Organiz ation Details LastModified Time 11/01/2024 audiogram completed BARCODE Information no t available 11/01/2024 09:49:50 Procedure Notes None recorded. Medical Equipment None Reported. Allergies Allergen ID Allergen Name Allergen Category Reaction Reaction Severity Criticality Documentation Date Start Date Code Code System Note Provider Name and Address Organization Details Recorded Time 511450 codeine sulfate medicatio n Not available Not available Not available 04/05/2024 85346 RxNorm React ion: unspe cifie d, dizzy , Nause a; Not Available [facility] 01:[facility]13 Medications Name Sig Start Date [...] by mouth 10/13 completed Medicati on ID: [id number] D uration Value: 14 Prescri bed By [...] mg tablet 01/14 completed Medicati on ID: [id number] D uration Value: 30 Brand Name: cetirizi [...] eye drops 10/13 completed Medicati on ID: [id number] B rand Name: ketotife n fumarate Send [...] mg tablet 2020 active Medicati on ID: [id number] B rand Name: terbinaf ine HCl Send [...] mg capsule 04/03 completed Medicati on ID: [id number] B rand Name: cephalex in Send Method: E-Prescr ibed Sub s Allowed: subs OK Speci al Instruct ion: TAKE 1 CAP (500 MG) BY MOUTH EVERY 12 HOURS 10 DAYS Med icationG enericNa me: cephalex in Not Available Not Available Not Available clotrimaz ole-betam ethasone 1 %-0.05 % topical cream 04/03 completed Medicati on ID: [id number] B rand Name: clotrima zole-bet amethaso ne [...] elayed release 01/14 completed Medicati on ID: [id number] D uration Value: 30 Brand Name: omeprazo le Send Method: E-Prescr ibed Sub s Allowed: subs OK Medic ationGen ericName : omeprazo le Not Available Not Available Not Available Banophen 25 mg capsule 2020 active Medicati on ID: [id number] B rand Name: Banophen Send Method: E-Prescr [...] mg tablet 10/13 completed Medicati on ID: [id number] D uration Value: 30 Brand Name: monteluk [...] as directed 10/13 completed Medicati on ID: [id number] D uration Value: 30 Brand Name: azelasti ne Send Method: E-Prescr ibed Sub s Allowed: subs OK Medic ationGen ericName : azelasti ne Not Available Not Available Not Available Ativan 0.5 mg tablet 04/03 completed Medicati on ID: [id number] B rand Name: Ativan S end Method: E-Prescr ibed Sub s Allowed: subs OK Medic ationGen ericName : Ativan Not Available Not Available Not Available ondansetr on 4 mg disintegr ating tablet TAKE 1 TABLET ORALLY EVERY 8 HOURS NEEDED FOR NAUSEA AND VOMITING active Not Available Not Available No t Available fluticaso ne propionat e 50 mcg/actua tion nasal spray,zo pension [place] 2 sprays every day by intranas al [...] topical cream 10/13 completed Medicati on ID: [id number] B rand Name: Athlete' s Foot (vipin [...] both nostrils 10/13 completed Medicati on ID: [id number] D uration Value: 30 Prescri bed By Name: Isacc askew MD Brand Name: QNASL Se nd Method: E-Prescr ibed Sub s Allowed: subs OK Medic ationGen ericName : QNASL Not Available Not Available Not Available EpiPen 2-Dalton 0.3 mg/0.3 mL injection , auto-inje ctor Inject 1 pen injector single dose as needed 2020 active Medicati on ID: [id number] D uration Value: 1 Prescri bed By Name: Isacc askew MD Brand Name: EpiPen 2-Dalton Se nd Method: E-Prescr ibed Sub s Allowed: subs OK Medic ationGen ericName : EpiPen 2-Dalton Not Available Not Available Not Available Vitals Date Recorded Body height Body mass index (BMI) Body weight Provider Name and Address Organization Details Last Updated DateTime 10/13/2024 170.18 cm 30.4 kg/m2 46891.92 g Olga Lidia Hall [place] - [facility] 10/13/2024 13:41:35 Social History None recorded. Functional Status None recorded. Mental Status None recorded. Family History Nothing Reported. Medical History Condition Response Allergies/Hayfever Y Migraines Y Gynecological HistoryNo gynecological history recorded. Obstetrics History GPAL:G 0 P 0 0 0 0 Past Encounters Encounter ID Performer Location Encounter Start Date Encounter Closed Date Diagnosis/Indication Diagnosis SNOMED-CT Code Diagnosis ICD10 Code Diagnosis Note [id number] ISACC KELLY MD [facility] [address] [address] 10/13/2024 13:11:10 10/13/2024 14:01:34 Dizziness and giddiness 832780810 R42 Right Ear:Normal hearing with excellent speech discrimina tion.Type A tympanogra m.Left Ear:Normal hearing with excellent speech discrimina tion.Type A tympanogra m. Allergic rhinitis 175947 04 J30.89 Health Concerns Section Related Observation LastModified by Organization Detai ls LastModified Time None Recorded Concern Status LastModified by Organization Details LastModified Time None Recorded Advance Directives Directive None Recorded Payers Encounter Date Sequence Insurance Name Policy Number Policy Montero Covered Member ID Montero Member ID Guarantor Name 10/13/2024 1 [facility]) CYNDY Frost [id number] Lucie Frost Notes Date Note Type Note [...] his eyes on Benadryl ISACC KELLY MD [address] [place] [address], [phone], [facility] - [facility] 10/16/2024 11:24:01 OBGyn Episode No OBEpisode recorded.
== END 2025-02-25 19:33 | disposition home or self-care (01) ==
LOC: HO.MRI 19:32
PROVIDERS: Visit Provider Psychiatry & Neurology Neurology
DX: G43.009 Migraine without aura, not intractable, without status migrainosus (principal); R26.81 Unsteadiness on feet
CPT/HCPCS: 70551

== ENCOUNTER → 2025-02-25 20:05 | Outpatient (BNV) | payer OTHER, SELFPAY | PROVIDERS: Visit Provider Radiology Diagnostic Radiology | DX: G43.909 Migraine, unspecified, not intractable, without status migrainosus (principal) | CPT/HCPCS: 70551 ==

== ENCOUNTER 2025-03-09 14:43 | Outpatient (AMB) | payer OTHER, SELFPAY ==
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
[2025-03-09 14:53] VITALS: BP 126/74; PULSE 112; RESP 16; TEMP 36.8; O2SAT 97; BMI 31.2
--- OUTSIDE RECORDS SUMMARY | 2025-03-09 17:37 | XMS_ITS | Data Portability ---
Author Organization [place] [facility], [address] Address [address] [place] [phone] Assessment No assessment recorded. Plan of Treatment Reminders Order Date Submit Date Provider Last Modified By Organization Details Last Modified Time Details Appointments None record ed. Lab None record ed. Referral None record ed. Procedures None record ed. Surgeries None record ed. Imaging XR, foot, 3 or more view 023 12/19/19 [facility], [address] [place], [place], [address], 18:49:37 Medication Orders None record ed. Patient TargetsNo targets recorded. Patient Instructions Encounter Date Encounter Id Patient Instructions Last Modified By Organization Details Last Modified Time 12/19/2022 [id number] learning about rice (rest, ice, compression, and elevation) [email or web address] Not available 12/19/2022 17:22:07 Reason for Referral None Reported. Results Created Date Observation Date Name Description Value Unit Range Abnormal Flag Note LastModifiedBy Organization Detail LastModifiedTime 12/19/19 23 12/19/2022 XR, foot, 3 or more view No observ ation record ed. [email or web address] [facility] [address] [place], [address], 12/19/2022 19:56:02 Result Notes None recorded. Problems Name Problem SNOMED Code Status Onset Date Resolution Date Notes Provider Name and Address Organization Details Recorded Time Depressive disorder 74359935 Active 023 Shareecris skaggs, [place] - [facility] 17:08:42 Anxiety 67058677 Active 023 Sharee [place] null, [place] - [facility] 3 17:08:47 Seasonal allergic rhinitis 008523853 Active 023 Sharee skaggs, [place] - [facility] 3 17:08:53 Migraine 36386290 Active 023 Sharee Carlos skaggs, [place] - [facility] 3 17:08:57 Problem Notes None recorded. Procedures Surgical History Date Name Laterality Status Provider Name and Address Organization Details Recorded Time cholecystectomy completed Shareecris Gonzalez P A - [facility] 12/19/2022 17:09:28 Imaging Results Imaging Date Name Status LastModified by Organiz ation Details LastModified Time 12/19/2022 XR, foot, 3 or more view completed [email or web address] [facility] [address] [facility], [place], [address], 12/19/2022 19:56:02 Procedure Notes None recorded. Medical Equipment None Reported. Allergies Allergen ID Allergen Name Allergen Category Reaction Reaction Severity Criticality Documentation Date Start Date Code Code System Note Provider Name and Address Organization Details Recorded Time 293933 codeine medicatio n hives Not available low [...] Updated DateTime 3 167.64 cm 29.1 kg/m2 21956.6 3 g 97 % 97 % 102 /min 20 /min 98.1 [degF] 114 mm[Hg] 84 mm[Hg] Sharee Gonzalez PA [facility] 17:11:32 Social History Question Answer Notes LastModified by Organizat ion Details LastModified Time Tobacco Smoking Status Current Every Day Smoker Sharee skaggs [place] - [facility] 12/19/2022 17:09:11 What Is Your Level Of [...] or 50 mcg/0.25mL dose 1 completed Sharee [place] null, [place] - [facility] 12/19/2022 17:06:17 COVID-19 vaccine, vector-nr, rS-Ad26, PF, 0.5 mL 1 completed Sharee Carlos null, [place] - [facility] 12/19/2022 17:06:17 Influenza, split virus, trivalent, preservative 5 completed Sharee Carlos null, [place] - [facility] 12/19/2022 17:06:17 Past Encounters Encounter ID Performer Location Encounter Start Date Encounter Closed Date Diagnosis/Indication Diagnosis SNOMED-CT Code Diagnosis ICD10 Code Diagnosis Note [id number] [facility] [address] [address] 07/20/2019 18:46:11 07/20/2019 19:49:41 [id number] [facility] [address] [address] 07/25/2022 16:52:51 07/25/2022 18:52:42 [id number] [facility] [address] [address] 07/24/2019 17:41:55 07/24/2019 19:00:46 [id number] [place] [address] [address] 12/19/2022 16:10:49 12/19/2022 17:48:15 Pain in left foot [id number] 72162 M79.672 foot sprain. No obvious Fx on [...] Montero Member ID Guarantor Name 07/20/2019 1 [facility] [employer] (MEDICAID HMO) ADRIANA Lucie Mat Santosh [id number] Lucie Santosh 07/24/2019 1 [facility] [employer] (MEDICAID HMO) ADRIANA Lucie Rivero Santosh [id number] Lucie Santosh 07/25/2022 1 [facility] [employer] (MEDICAID HMO) [facility] Lucie Rivero Santosh [id number] Lucie Santosh 12/19/2022 1 [facility] [employer] (MEDICAID HMO) [facility] Lucie Mat Santosh [id number] [facility] Notes Date Note Type Note Provider Name [...] Lynne, DO [address] [place], [address], [place] - [facility] 12/19/2022 17:41:12 OBGyn Episode No OBEpisode recorded.
--- OUTSIDE RECORDS SUMMARY | 2025-03-09 17:37 | XMS_ITS | Data Portability ---
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 Patient InstructionsNo [...] Organization Details Recorded Time Dizziness and giddiness 101373861 Active 2020 Dizziness and giddiness ; Note: Date Diagnosed : 02/04/2021 10:21 AM (R42) Not Available [facility] 4 02:35:15 Neck pain 17702045 Active 2014 Cervicalg ia; Note: Date Diagnosed : 5 5:08 PM (M54.2) Not Available [facility] 4 02:35:12 Otalgia of left ear 4494463935 Active 2015 Otalgia, left ear; Note: Date Diagnosed : 02/05/2016 12:54 PM (H92.02) Not Available [facility] hospital 4 02:35:15 Arthralgi a of temporoma ndibular joint 02128496 Active 2014 Arthralgi a of temporoma ndibular joint; Note: Date Diagnosed : 09/27/2015 8:14 PM (M26.62) Not Available [facility] hospital 4 02:35:14 Chronic sinusitis 43770917 Active 2020 Other chronic sinusitis ; Note: Date Diagnosed : 02/04/2021 10:22 AM (J32.8) Not Available [facility] 4 02:35:13 Acute serous otitis media of left ear 79955207492 14859 Active 2015 Acute serous otitis media, left ear; Note: Date Diagnosed : 02/05/2016 12:54 PM (H65.02) Not Available [facility] 4 02:35:23 Bilateral disorder of Eustachia n tubes 79208832810 78364 Active 2015 Other specified disorders of Eustachia n tube, bilateral ; Note: Date Diagnosed : 02/05/2016 12:54 PM (H69.83) Not Available Critical access hospital 4 02:35:19 Bilateral recurrent acute serous otitis media of middle ears 65593986302 24744 Active 2014 Acute serous otitis media, recurrent , bilateral ; Note: Date Diagnosed : 09/27/2015 8:14 PM (H65.06) Not Available [facility] hospital 4 02:35:20 Allergic rhinitis 16975395 Active 2015 Perennial allergic rhinitis; Note: Date Diagnosed : 03/24/2016 5:16 AM (J30.89) Not Available Critical access hospital 4 02:35:10 Bilateral tinnitus 80710249222 02 Active 2014 Tinnitus, bilateral ; Note: Date Diagnosed : 09/27/2015 8:14 PM (H93.13) Not Available Critical access hospital 4 02:35:17 Acute sinusitis 99856333 Active 2015 Other acute sinusitis ; Note: Date Diagnosed : 02/05/2016 12:54 PM (J01.80) Not Available Critical access hospital 4 02:35:20 Tobacco user 646768460 Active 2014 Tobacco use; Note: Date Diagnosed : 09/27/2015 8:15 PM (Z72.0) Not Available Critical access hospital 4 02:35:14 Problem Notes None recorded. Procedures Surgical History Date Name Laterality Status Provider Name and Address Organization Details Recorded Time 10/13/20 24 Air & Speech Audio with Tymps (16280, 49573 & 55997) completed JAVIER KHANNA [address] [place] [address], [phone], [facility] 10/13/2024 13:30:43 cholecystectomy completed ISACC KELLY MD [address] [place] [address], [phone], [place] [facility] 10/16/2024 11:21:02 Imaging Results Imaging Date Name Status LastModified by Organiz ation Details LastModified Time 11/01/2024 audiogram completed BARCODE Information no t available 11/01/2024 09:49:50 Procedure Notes None recorded. Medical Equipment None Reported. Allergies Allergen ID Allergen Name Allergen Category Reaction Reaction Severity Criticality Documentation Date Start Date Code Code System Note Provider Name and Address Organization Details Recorded Time 760783 codeine sulfate medicatio n Not available Not available Not available 04/05/2024 38539 RxNorm React ion: unspe cifie d, dizzy , Nause a; Not Available [facility] 01:13:13 Medications Name Sig Start Date Stop [...] by mouth 10/13 completed Medicati on ID: [id number] D uration Value: 14 Prescri bed By [...] mg tablet 01/14 completed Medicati on ID: [id number] D uration Value: 30 Brand Name: cetirizi [...] eye drops 10/13 completed Medicati on ID: [id number] B rand Name: ketotife n fumarate Send [...] mg tablet 2020 active Medicati on ID: [id number] B rand Name: terbinaf ine HCl Send [...] mg capsule 04/03 completed Medicati on ID: [id number] B rand Name: cephalex in Send Method: E-Prescr ibed Sub s Allowed: subs OK Speci al Instruct ion: TAKE 1 CAP (500 MG) BY MOUTH EVERY 12 HOURS 10 DAYS Med icationG enericNa me: cephalex in Not Available Not Available Not Available clotrimaz ole-betam ethasone 1 %-0.05 % topical cream 04/03 completed Medicati on ID: [id number] B rand Name: clotrima zole-bet amethaso ne [...] elayed release 01/14 completed Medicati on ID: [id number] D uration Value: 30 Brand Name: omeprazo le Send Method: E-Prescr ibed Sub s Allowed: subs OK Medic ationGen ericName : omeprazo le Not Available Not Available Not Available Banophen 25 mg capsule 2020 active Medicati on ID: [id number] B rand Name: Banophen Send Method: E-Prescr [...] mg tablet 10/13 completed Medicati on ID: [id number] D uration Value: 30 Brand Name: monteluk [...] as directed 10/13 completed Medicati on ID: [id number] D uration Value: 30 Brand Name: azelasti ne Send Method: E-Prescr ibed Sub s Allowed: subs OK Medic ationGen ericName : azelasti ne Not Available Not Available Not Available Ativan 0.5 mg tablet 04/03 completed Medicati on ID: [id number] B rand Name: Ativan S end Method: E-Prescr ibed Sub s Allowed: subs OK Medic ationGen ericName : Ativan Not Available Not Available Not Available ondansetr on 4 mg disintegr ating tablet TAKE 1 TABLET ORALLY EVERY 8 HOURS NEEDED FOR NAUSEA AND VOMITING active Not Available Not Available No t Available fluticaso ne propionat e 50 mcg/actua tion nasal spray,zo pension [place] 2 sprays every day by intranas al [...] topical cream 10/13 completed Medicati on ID: [id number] B rand Name: Athlete' s Foot (vipin [...] both nostrils 10/13 completed Medicati on ID: [id number] D uration Value: 30 Prescri bed By Name: Isacc askew MD Brand Name: QNASL Se nd Method: E-Prescr ibed Sub s Allowed: subs OK Medic ationGen ericName : QNASL Not Available Not Available Not Available EpiPen 2-Dalton 0.3 mg/0.3 mL injection , auto-inje ctor Inject 1 pen injector single dose as needed 2020 active Medicati on ID: [id number] D uration Value: 1 Prescri bed By Name: Isacc askew MD Brand Name: EpiPen 2-Dalton Se nd Method: E-Prescr ibed Sub s Allowed: subs OK Medic ationGen ericName : EpiPen 2-Dalton Not Available Not Available Not Available Vitals Date Recorded Body height Body mass index (BMI) Body weight Provider Name and Address Organization Details Last Updated DateTime 10/13/2024 170.18 cm 30.4 kg/m2 18260.92 g Olga Lidia Hall [place] - [facility] 10/13/2024 13:41:35 Social History None recorded. Functional Status None recorded. Mental Status None recorded. Family History Nothing Reported. Medical History Condition Response Allergies/Hayfever Y Migraines Y Gynecological HistoryNo gynecological history recorded. Obstetrics History GPAL:G 0 P 0 0 0 0 Past Encounters Encounter ID Performer Location Encounter Start Date Encounter Closed Date Diagnosis/Indication Diagnosis SNOMED-CT Code Diagnosis ICD10 Code Diagnosis Note [id number] ISACC KELLY MD [facility] [address] [address] 10/13/2024 13:11:10 10/13/2024 14:01:34 Dizziness and giddiness 012339587 R42 Right Ear:Normal hearing with excellent speech discrimina tion.Type A tympanogra m.Left Ear:Normal hearing with excellent speech discrimina tion.Type A tympanogra m. Allergic rhinitis 645497 04 J30.89 Health Concerns Section Related Observation LastModified by Organization Detai ls LastModified Time None Recorded Concern Status LastModified by Organization Details LastModified Time None Recorded Advance Directives Directive None Recorded Payers Encounter Date Sequence Insurance Name Policy Number Policy Montero Covered Member ID Montero Member ID Guarantor Name 10/13/2024 1 [facility]ID H[facility]) CYNDY Frost [id number] Lucie Frost Notes Date Note Type Note [...] his eyes on Benadryl ISACC KELLY MD [address] [place] [address], [phone], [facility] - [facility] 10/16/2024 11:24:01 OBGyn Episode No OBEpisode recorded.
== END 2025-03-09 15:52 | disposition home or self-care (01) ==
LOC: HO.HMCFM 14:44
PROVIDERS: PCP Family Medicine; Visit Provider Family Medicine
DX: R51.9 Headache, unspecified (principal); J32.9 Chronic sinusitis, unspecified; M54.2 Cervicalgia; M25.519 Pain in unspecified shoulder

== ENCOUNTER → 2025-03-09 14:43 | Outpatient (BNVA) | payer OTHER, SELFPAY | PROVIDERS: PCP Family Medicine; Visit Provider Family Medicine | DX: R51.9 Headache, unspecified (principal); J32.9 Chronic sinusitis, unspecified; M54.2 Cervicalgia; M25.519 Pain in unspecified shoulder | CPT/HCPCS: 99212 ==

== ENCOUNTER 2025-05-03 12:30 | Outpatient (AMB) | payer OTHER, SELFPAY ==
[2025-05-03 12:35] VITALS: BP 134/80; PULSE 103; TEMP 36.6; O2SAT 98; BMI 31.9
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
--- OUTSIDE RECORDS SUMMARY | 2025-05-03 13:57 | XMS_ITS | Continuity of Care Document ---
Author Organization [facility] ter Address [address] [place] [id number]- Care Team Providers Care [employer] Supervisor Name Role Phone Isabell ALBA, Alexis Humphrey Primary Care Physician Encounter [facility] Date(s): 05/02/25 - 05/02/[address] [id number] Discharge Disposition: A-D/C Home Attending Physician: Yasemin Sethi MD Admitting Physician: Yasemin Sethi MD Referring Physician: Yasemin Sethi MD Encounter Type: Disch Daystay Allergies, Adverse Reactions, Alerts Substance Criticality Severity Reaction Reaction Severity Status codeine Unable to assess criticality Unknown GI upset Active Medications Ativan 0.5 mg oral tablet 1 tablet = 0.5 mg, By Mouth, 3 times a day, PRN for anxiety, 0 Refills, Maintenance, 03/15/18 4:35:46 PM EDT, Tablet Start Date: 03/15/18 Status: Ordered Repeat number: 1 atorvastatin 20 mg oral tablet 1 tablet = 20 mg, By Mouth, Daily, # 30 tablet, 0 Refills, Maintenance, 03/29/25 3:13:00 PM EDT, Tablet, Partial fill upon patient request if the prescription is for a schedule II opioid drug. Start Date: 03/29/25 Status: Ordered Quantity: 30.0 Unit: tablet Repeat number: 1 DilTIAZem (Eqv-Dilacor XR) 120 mg/24 hours oral capsule, extended release 1 capsule = 120 mg, By Mouth, Daily, 0 Refills, Maintenance, 03/29/25 3:12:00 PM EDT, Partial fill upon patient request if the prescription is for a schedule II opioid drug. Start Date: 03/29/25 Status: Ordered Repeat number: 1 divalproex sodium 125 mg oral delayed release capsule 1 capsule = 125 mg, By Mouth, 3 times a day, PRN Headache, # 90 capsule, 0 Refills, Maintenance, 03/29/25 3:11:00 PM EDT, EC Capsule, Partial fill upon patient request if the prescription is for a schedule II opioid drug. Start Date: 03/29/25 Status: Ordered Quantity: 90.0 Unit: capsule Repeat number: 1 Flonase Allergy Relief 50 mcg/inh nasal spray 1 sprays = 50 mcg, Daily, 0 Refills, Maintenance, 03/29/25 3:11:00 PM EDT, Partial fill upon patient request if the prescription is for a schedule II opioid drug. Start Date: 03/29/25 Status: Ordered Repeat number: 1 meclizine 12.5 mg oral tablet 1 tablet = 12.5 mg, By Mouth, Every 6 hours, PRN for dizziness, # 30 tablet, 0 Refills, Maintenance, 10/03/19 8:12:38 AM EST, Tablet Start Date: 10/03/19 Status: Ordered Quantity: 30.0 Unit: tablet Repeat number: 1 Omeprazole = 40 mg, By Mouth, Daily, 0 Refills, Maintenance, 09/28/19 2:52:26 PM EST Start Date: 09/28/19 Status: Ordered Repeat number: 1 perphenazine 2 mg oral tablet 2 mg, 1, tablet, By Mouth, 2 times a day, PRN, Refills 0, Maintenance, 03/29/25 3:13:00 PM EDT, Partial fill upon patient request if the prescription is for a schedule II opioid drug. Start Date: 03/29/25 Status: Ordered Repeat number: 1 pregabalin 50 mg oral capsule 1 capsule = 50 mg, By Mouth, 2 times a day, 0 Refills, Maintenance, 03/29/25 3:12:00 PM EDT, Partial fill upon patient request if the prescription is for a schedule II opioid drug. Start Date: 03/29/25 Status: Ordered Repeat number: 1 QUEtiapine 25 mg oral tablet 25 mg, 1, tablet, By Mouth, Daily at bedtime, # 30 tablet, Refills 0, Maintenance, 03/29/25 3:12:00 PM EDT, Partial fill upon patient request if the prescription is for a schedule II opioid drug. Start Date: 03/29/25 Status: Ordered Quantity: 30.0 Unit: tablet Repeat number: 1 Sertraline = 125 mg, By Mouth, Daily, 0 Refills, Maintenance, 09/28/19 2:52:11 PM EST Start Date: 09/28/19 Status: Ordered Repeat number: 1 sertraline 50 mg oral tablet 1 tablet = 50 mg, By Mouth, Daily, # 30 tablet, 0 Refills, Maintenance, 09/28/19 2:53:27 PM EST, Tablet Start Date: 09/28/19 Status: Ordered Quantity: 30.0 Unit: tablet Repeat number: 1 Sumatriptan = 50 mg, Once, PRN Headache, 0 Refills, Maintenance, 03/29/25 3:11:00 PM EDT, Partial fill upon patient request if the prescription is for a schedule II opioid drug. 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 Seed localization of microclip yesterday, status post excisional biopsy. TECHNIQUE: View of the specimen including digital 3D tomosynthesis and photograph of the specimen are performed. COMPARISON: Localization images of yesterday. FINDINGS: The specimen contains a wing-shaped clip and a seed.. The mass that was visible only by ultrasound is not definitely identified. IMPRESSION: Excision of clip and seed. This was immediately conveyed to Dr. Sethi in the OR. Thank you for allowing me to participate in the care of this patient. WSN: [id number] Ordering Physician: Yasemin Sethi Dictated By: Aníbal Sánchez MD Dictated Date/Time: 05/02/25 1:45 pm Reviewed By: Aníbal Sánchez MD Signed By: Aníbal Sánchez MD Signed Date/Time: 05/02/25 1:45 pm Transcribed By: CSB Welder And Fitter Date/Time: 05/02/25 1:43 pm Birads: Social History Social History Type Response Smoking Status 10 or more cigarette s (1/2 pack or more)/day in last 30 days entered on: 03/29/25 Sex Sex Representation Female (finding) History and physical note * Yasemin Sethi MD: PERFORM Event Display: History and Physical Hospital Authored Date: Patient: ??YULISSA, KAYLEIGH ? Age:??44 Years?Sex:??Female?:??1980?? Surgery Preoperative H&P Update ?? 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 Past medical, surgical, social, and family history, as well as current home medications were reviewed.??There were no significant changes from the previous office note.? EXAM: The patient gave consent for this sensitive exam. ?? GENERAL: Appears comfortable and in no acute distress HEENT: Pupils equal, round, reactive to light. No scleral icterus. HEART: Regular rate and rhythm. No detectable murmurs. LUNGS: Non-labored breathing.?? Clear breath sounds bilaterally. ABDOMEN: Soft, non-distended, non-tender. MSK: No gross skeletal deformity. No spine or rib tenderness. EXTREMITY: No upper extremity edema. Normal ROM. SKIN: No diffuse rash appreciated. Not grossly jaundiced. ?? COMPREHENSIVE BREAST EXAM: LYMPHATICS: No axillary, cervical, infraclavicular or supraclavicular lymphadenopathy bilaterally. BREAST: Examined in seated and supine positions with arms overhead and at sides. Breasts are symmetric in contour w/ no discrete masses however areas of dense tissue noted bilaterally.??No erythema, edema, or puckering/dimpling of breast skin bilaterally. No nipple discharge or retraction bilaterally.? 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 RPC: Concordant.? PLAN:??Proceed with surgery as booked/scheduled. ?? * Event Display: History and Physical Hospital Authored Date: [id number] Note * Brenda Alvares RN: PERFORM Event Display: Discharge/Transfer Note Hospital Authored Date: [id number] Nursing Discharge Note Entered On: 05/02/2025 16:23 EDT Performed On: 05/02/2025 16:10 EDT by Brenda Alvares RN Nursing Discharge Note 2 Discharge Time : 05/02/2025 16:10 EDT Discharge Level of Care at Discharge : Home/Fci/Foster Care Patient Left Unit Via : Wheelchair Patient Accompanied Off Unit with : Responsible adult DC Instructions Provided & Signed by Pt : Yes Patient Understands D/C Instructions : Yes Patient Instructions Discharge Signed : Yes Did Pt have Specialty Bed or Wound Vac : No Brenda Alvares RN - 05/02/2025 16:23 EDT * Brenda Alvares RN: PERFORM Event Display: Patient Education/Instruction Authored Date: [id number] Surgery Adult Discharge Instructions [address] [address] Name: KAYLEIGH DUENAS : 1980?? Visit: 05/02/2025 10:29?? Current Date: 05/02/2025 15:42 ?? Account: [id number]?? Surgery Discharge Instructions We would like to thank you for allowing us to assist you with your healthcare needs. The following includes patient education materials and information regarding your injury/illness. Our entire staffstrives to provide an excellent experience for our patients and their families. PLEASE ENSURE YOU FOLLOW-UP PER THE INSTRUCTIONS BELOW! ?? YOUR OPINION IS IMPORTANT TO US! Please complete the survey you may receive by mail or email. Your feedback will be used to make improvements to the healthcare experiences of our patients and their families. Surveys are administered by [employer]. ?? If further treatment with your primary care physician or another doctor is recommended, it is important for you to keep the appointment. Call your primary care physician or return to the Emergency Department immediately if your condition worsens, fails to improve, or new symptoms develop. If you need to find a doctor, you can call [facility] Face-Me for a referral at [phone] or toll free at [phone]) or log in to [email or web address].. ?? [facility], in keeping with [facility] guidance, no longer requires face masks for staff, patientsor visitors in most situations. Similiar to time spent indoors at other locations, there is the chance that you were exposed to repiratory viruses during your time with us (such as flu or COVID-19). If you develop symptoms concerning for a viral respiratory infection, please seek testing (and treatment if indicated) from your medical provider or home test kit. ?? You can view and manage your care through the patient portal or by using a health care zahira of your choosing. Fits.me is a website that allows you to securely view your medical information including your hospital discharge summary, office visit summaries, medications and follow-up visits. You can also request appointments, renew medications, and request access to your medical information using a health care zahira of your choosing, or just ask a question. You are entitled to know the individuals who participated in your treatment. This information is available within your medical record and will be provided upon your request. You can enroll at [email or web address] or register d uring your next office visit. You have been discharged from [facility], Patient Care Unit: [facility]??. If you have any questions regarding these instructions after you leave, please call us and we will be happy to assist you. [facility] Your Care Team Attending Physician Yasemin Sethi MD?? Consulting Providers Yasemin Sethi MD?? Discharging Providers Yasemin Sethi MD Reason for Admission RIGHT BREAST FIBROEPITHELIAL LESION CS DS Primary Care Provider Alexis Whyte MD? Advance Directive Health Care Proxy on File No What to do next Instructions From Your Doctor ?? Orders?? Daystay Protocol, ??05/02/25 12:50:00 EDT?? Instructions from your Care Team Alternate Tylenol and Ibuprofen for discomfort every 6 hours. Tylenol- next dose due: 5:45pm?? Ibuprofen- next dose due: 8:45pm (or sooner if needed, do not take before 5:45pm)? Refer to Post-operative instruction sheet for home care.? Okay to shower in 48 hours. When showering allow water to run down site, do not scrub or take off steri strips - let them fall off naturally. After showering pat the surgical site dry.? Okay to ice the site, reduces pain and swelling.? Scheduled Follow-Up Appointments Thursday 4:40 PM EDT ?? With: Yasemin Sethi MD Where: [facility] [address] [place] [id number]- Status: Pending You Need to Schedule the Following Appointments Follow Up with??Yasemin Sethi MD When:??Within 2 to 3 weeks Where: [address] [place] [address] [address] [facility] [place] [address]- Discharge Medications YULISSAAYAZ FRANCISIN :1980 Visit Date:05/02/2025 Medications: Please continue your medications until treatment is completed or stopped by your provider. You may resume your daily prescription medications. Discuss any questions related to medications with your provider. What How Much When Instructions Next Dose Unchanged Atorvastatin (atorvastatin 20 mg oral tablet) 1 tab(s) Oral Daily Unchanged Cetirizine (ZyrTEC 10 mg oral tablet) 1 tab(s) Oral Daily Unchanged Diltiazem (DilTIAZem (Eqv-Dilacor XR) 120 mg/ 24 hours oral capsule, extended release) 1 capsule Oral Daily Unchanged Divalproex Sodium (divalproex sodium 125 mg oral delayed release capsule) 1 capsule Oral 3 times a day as needed for Headache Unchanged Fluticasone Nasal (Flonase Allergy Relief 50 mcg/ inh nasal spray) 1 spray(s) Daily Unchanged Lorazepam (Ativan 0.5 mg oral tablet) 1 tab(s) Oral 3 times a day as needed for for anxiety Unchanged Meclizine (meclizine 12.5 mg oral tablet) 1 tab(s) Oral Every 6 hours as needed for for dizziness Unchanged Omeprazole 40 Milligram Oral Daily Unchanged Perphenazine (perphenazine 2 mg oral tablet) 1 tab(s) Oral Twice a day PRN ?? Unchanged Pregabalin (pregabalin 50 mg oral capsule) 1 capsule Oral Twice a day Unchanged Quetiapine (QUEtiapine 25 mg oral tablet) 1 tab(s) Oral Daily at Bedtime Unchanged Sertraline 125 Milligram Oral Daily Unchanged Sertraline (sertraline 50 mg oral tablet) 1 tab(s) Oral Daily Unchanged Sumatriptan 50 Milligram Once as needed for Headache Allergies (NKA means No Known Allergies) codeine??(GI upset) Education Materials Below is the list of Educational Leaflet Providered with your Discharge Instructions. [employer] Patient Education - Surgery Medical Daystay Surgical Overnight Discharge Instructions?? [employer] Patient Education - ??NSAID Analgesic Schedule?? Valuables and Belongings I fully understand and agree that [facility] accepts no responsibility for all my personal property including clothing, toilet articles, radios, jewelry, dentures, hearing aids, rings, money, or any other property that is in my possession or is brought to me after admission. I understand certain valuables may be placed in a hospital safe for a short period of time. I understand that the hospital is not liable for loss or damage due to accident, fire, or other natural occurrence while said property is in the safe. I accept full responsibility for any personal property that I keep with me, and will not hold the hospital responsible in case of loss or disappearance. I acknowledge that i have been encouraged to send valuables and belongings home. ?? Review of Valuable and Belonging List: With patient Date for Pt to Sign Valuables/Belongings: 05/02/25 11:07:00 ?? Valuables & Belongings ?? Clothes Electronic devices Jewelry Monetary Items Personal devices Miscellaneous Medications (Valuables) Valuables at Bedside Pants, Shirt, Shoes, Undergarments Cell phone ?? Wallet Glasses ? Valuables Sent Home ? Valuables Sent to Security ? Valuables Sent to Locker ? Other Discharge Information ? Pulmonary Rehab Status?? Pulmonary Rehab Discharge Status?? Respiratory Rate: 17 br/min ? Common Emergency Awareness Tips IS IT A STROKE? Act FAST and Check for these signs: FACE Does the face look uneven? ARM Does one arm drift down? SPEECH Does their speech sound strange? TIME Call at any sign of stroke ?? Heart Attack Signs Chest discomfort: Most heart attacks involve discomfort in the center of the chest and lasts more than a few minutes, or goes away and comes back. It can feel like uncomfortable pressure, squeezing, fullness or pain. Discomfort in upper body: Symptoms can include pain or discomfort in one or both arms, back, neck, jaw or stomach. Shortness of breath: With or without discomfort. Other signs: Breaking out in a cold sweat, nausea, or lightheaded. Remember, MINUTES DO MATTER. If you experience any of these heart attack warning signs, call to get immediate medical attention! ?? Smoking can increase your chances of developing chronic health problems and can cause harmful effects to other family members in your house. If you smoke, you are strongly encouraged to quit. Please call [employer] Link at [phone] or [phone] ([phone]) or log in to [email or web address] for referrals to smoking cessation programs. ?? The National Suicide Prevention Hotline is available 15/06 if you or someone you know needs to find a reason to keep living. By calling 6-133-272Schoology (3472) you'll be connected to a skilled, trained counselor at a crisis center in your area. SURGERY DISCHARGE INSTRUCTIONS SIGNATURE PAGE KAYLEIGH DUENAS Location:[facility] Registration Date and Time:05/02/2025 10:29 EDT Primary Care Physician: Isabell ALBA , Alexis Humphrey, Attending Physician: Yasemin Sethi MD, I YULISSA KAYLEIGH, have received the above patient education materials/instructions and have verbalized understanding. If ambulance or transport services are being used I further acknowledge being given a choice of service. ?? If you need to contact me, please call me at this number: . Patient/Rope Rider Name: Patient/Rope Rider Signature: Relationship to Patient: Witness Name/Signature: Date: * Brenda Alvares RN: PERFORM Event Display: Patient Education Leaflets Authored Date: [id number] Surgery Medical Daystay Surgical Overnight Discharge Instructions ?? 295 Medical Daystay/Surgical Overnight Discharge Instructions ? Since your coordination and judgment may be altered by medication and/or anesthesia, a responsible adult must drive you home from the hospital. ? If you have received medication for pain or sedation while under our care, you should not drive, operate machinery, drink alcohol, or sign any legal documents for 24 hours.?? You should have someone with you at home tonight. ? Remain at home the day of discharge.?? You may be up and about unless otherwise instructed by your physician. ? You may resume your daily prescription medication schedule.?? Any depressant medication should be avoided for 24 hours unless otherwise instructed by your surgeon or anesthesiologist. ? Call your physician for a follow-up appointment.? If you experience unusual or severe pain not relied by your pain medication, excessive bleedingor drainage, persistent nausea and vomiting, excessive swelling or redness, foul odor from incisionsite or fever over 100.6F, you need to call your physician. ? A follow-up phone call by a nurse will be made the day after your procedure.?? If you have stayed with us over night, you will not be receiving a follow-up phone call. ? Nausea and vomiting are a common side effect of prescription pain medication.?? We recommend that pills are not taken on an empty stomach.?? While taking any prescription pain medication you should not drive or drink alcohol. ? * Dia WHEELER, Brenda: PERFORM Event Display: Patient Education Leaflets Authored Date: [id number] NSAID Analgesic Schedule ?? 604 NSAID???s Analgesic Schedule ?? Pain is the primary source of illness following your procedure and can include dehydration, difficulty and painful swallowing, and weight loss. These symptoms can lead to increased post-operative visits and hospital readmission. The best way to control pain is to take pain medications regularly. Your doctor has recommended both Ibuprofen and Acetaminophen (generic/store brands are okay, too). These can be picked up over the counter at your pharmacy of choice. Follow the instructions on the bottle to determine the proper dosage to give. The simplest way to take these medications it to rotate the two at 3-hour intervals. Here is a sample diagram. The time you take your medications may vary from this example. Do not give Ibuprofen more than every 6 hours or Acetaminophen every 4 hours. Do not give Acetaminophen if your doctor has given you a prescription that contains Acetaminophen. ? Patient Care team information Care Team Personnel Name: Alexis Whyte MD Position: [facility] Outreach Member Role: PCP Address: [address] [place], [place] [address] Telecom: Care Team Related Persons Name: AGUEDA DUENAS OR AMY Name: EMILY TAN Insurance Providers Guarantor name: KAYLEIGHMAHI PRESSLEYYULISSA Health Plan Information #: 1 Payer: [employer] Payer Identifier: CODIE Member Number: [id number] Group Number: [id number] Subscriber Identifier: [id number] Relationship to Subscriber: self Coverage Type: NA Coverage Verification Date: CODIE Telecom: CODIE Address: [place]
== END 2025-05-03 13:30 | disposition home or self-care (01) ==
PROVIDERS: PCP Family Medicine; Visit Provider Physician Assistant
DX: R07.0 Pain in throat (principal)

== ENCOUNTER → 2025-05-03 12:30 | Outpatient (BNVA) | payer OTHER, SELFPAY | PROVIDERS: PCP Family Medicine; Visit Provider Physician Assistant | DX: R07.0 Pain in throat (principal) | CPT/HCPCS: 99212 ==

== ENCOUNTER 2025-05-19 12:02 | Outpatient (AMB) | payer OTHER, SELFPAY ==
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
[2025-05-19 12:25] VITALS: BP 100/68; PULSE 111; TEMP 36.7; O2SAT 97; BMI 31.4
--- OUTSIDE RECORDS SUMMARY | 2025-05-19 13:01 | XMS_ITS | Data Portability ---
Author Organization [facility] , [address] Address [address] [place] [id number] Assessment No assessment recorded. Plan of Treatment Reminders Order Date Submit Date Provider Last Modified By Organization Details Last Modified Time Details Appointments None record ed. Lab None record ed. Referral None record ed. Procedures None record ed. Surgeries None record ed. Imaging XR, foot, 3 or more view 023 12/19/19 [facility], [address] [place], [address], 18:49:37 Medication Orders None record ed. Patient TargetsNo targets recorded. Patient Instructions Encounter Date Encounter Id Patient Instructions Last Modified By Organization Details Last Modified Time 12/19/2022 [id number] learning about rice (rest, ice, compression, and elevation) [email or web address] Not available 12/19/2022 17:22:07 Reason for Referral None Reported. Results Created Date Observation Date Name Description Value Unit Range Abnormal Flag Note LastModifiedBy Organization Detail LastModifiedTime 12/19/19 23 12/19/2022 XR, foot, 3 or more view No observ ation record ed. [email or web address] [facility] [address] [place], [address], 12/19/2022 19:56:02 Result Notes None recorded. Problems Name Problem SNOMED Code Status Onset Date Resolution Date Notes Provider Name and Address Organization Details Recorded Time Depressive disorder 01234856 Active 023 Sharee Carlos skaggs, [place] - [facility] 17:08:42 Anxiety 22832127 Active 023 Sharee Islandia null, PA - [facility] 3 17:08:47 Seasonal allergic rhinitis 947407909 Active 023 Sharee Gonzalez null, PA - [facility] 3 17:08:53 Migraine 06009258 Active 023 Sharee Gonzalez null, PA - [facility] 3 17:08:57 Problem Notes None recorded. Procedures Surgical History Date Name Laterality Status Provider Name and Address Organization Details Recorded Time cholecystectomy completed Sharee Gonzalez P A - [facility] 12/19/2022 17:09:28 Imaging Results None recorded. Procedure Notes None recorded. Medical Equipment None Reported. Allergies Allergen ID Allergen Name Allergen Category Reaction Reaction Severity Criticality Documentation Date Start Date Code Code System Note Provider Name and Address Organization Details Recorded Time 891422 codeine medicatio n hives Not available low 12/19/2022 2670 RxNorm Sharee skaggs, PA - [facility] 3 17:06:31 Medications [...] Updated DateTime 3 167.64 cm 29.1 kg/m2 29297.6 3 g 97 % 97 % 102 /min 20 /min 98.1 [degF] 114 mm[Hg] 84 mm[Hg] Sharee Gonzalez PA - [facility] 3 17:11:32 Social History Question Answer Notes LastModified by [employer] Details LastModified Time Tobacco Smoking Status Current Every Day Smoker Sharee skaggs PA [facility] 12/19/2022 17:09:11 Have You Had Direct Contact, Or Contact During Intimacy, With Monkeypox Rash, Scabs, Or Body Fluids From A Person With Monkeypox? No Information not available 12/19/2022 How Much Tobacco Do You Smoke? 0.5 PPD Information not available 12/19/2022 Have You Recently Traveled Abroad? No Information not available 12/19/2022 Sex: Unknown Functional Status Question Answer Note LastModified by [employer] Details LastModified Time Do you use any illicit or recreational drugs? No Information not available 12/19/2022 Do you or have you ever used any other forms of tobacco or nicotine? No Information not available 12/19/2022 What is your level of alcohol consumption? None Information not available 12/19/2022 Mental Status None recorded. Family History Relationship [...] or 50 mcg/0.25mL dose 1 completed Sharee skaggs PA - [facility] 12/19/2022 17:06:17 COVID-19 vaccine, vector-nr, rS-Ad26, PF, 0.5 mL 1 completed Sharee Carlos null, PA - [facility] 12/19/2022 17:06:17 Influenza, split virus, trivalent, preservative 5 completed Sharee Islandia null, PA - [facility] 12/19/2022 17:06:17 Past Encounters Encounter ID Performer Location Encounter Start Date Encounter Closed Date Diagnosis/Indication Diagnosis SNOMED-CT Code Diagnosis ICD10 Code Diagnosis Note [id number] [address] 07/20/2019 18:46:11 07/20/2019 19:49:41 [id number] [facility] [address] [place] [address] 07/25/2022 16:52:51 07/25/2022 18:52:42 [id number] [facility] [address] [address] 07/24/2019 17:41:55 07/24/2019 19:00:46 [id number] Daniele Lynne DO [facility] [address] [place] [address] 12/19/2022 16:10:49 12/19/2022 17:48:15 Pain in left foot [id number] 50970 M79.672 foot sprain. No obvious Fx on [...] Recorded Advance Directives Directive None Recorded Payers Insurance Date Sequence Insurance Name Policy Number Policy Montero Covered Member ID Montero Member ID Guarantor Name 12/19/2022 1 [facility] [employer] - HEALTH NET PLAN (MEDICAID HMO) ORALJAMEYWilmer Lucie Frost [id number] Lucie Frost Notes Date Note Type Note [...] Lynne, DO [address] [place], [address], PA - [facility] 12/19/2022 17:41:12 OBGyn Episode No OBEpisode recorded.
== END 2025-05-19 13:24 | disposition home or self-care (01) ==
LOC: HO.HMCFM 12:02
PROVIDERS: PCP Family Medicine; Visit Provider Family Medicine
DX: M54.2 Cervicalgia (principal); R51.9 Headache, unspecified

== ENCOUNTER → 2025-05-19 12:02 | Outpatient (BNVA) | payer OTHER, SELFPAY | PROVIDERS: PCP Family Medicine; Visit Provider Family Medicine | DX: M54.2 Cervicalgia (principal); R51.9 Headache, unspecified; R07.0 Pain in throat; K91.5 Postcholecystectomy syndrome | CPT/HCPCS: 99212 ==

== ENCOUNTER 2025-05-19 13:43 | Outpatient (REF) | payer OTHER, SELFPAY ==
[2025-05-19 17:26] LABS: MANUAL DIFF FLAG NO
[2025-05-19 17:41] LABS: Basophils Absolute Auto 0.1 X10*3/uL (0.0-0.2); Basophils Percent Auto 0.7 % (0-2); Eosinophils Absolute Auto 0.3 X10*3/uL (0.0-0.4); Eosinophils Percent Auto 2.2 % (0-4); Hematocrit 39.6 % (37.0-47.0); Hemoglobin 13.4 g/dl (12.0-16.0); Imm Gran Abs Auto 0.06 X10*3/uL (0.00-0.03); Imm Gran Pct Auto 0.5 % (0.0-0.4); Lymphocytes Absolute Auto 3.3 X10*3/uL (1.2-4.9); Lymphocytes Percent Auto 25.6 % (20-40); Mean Corpuscular HGB Conc 33.8 g/dl (31.0-35.0); Mean Corpuscular Hemoglobin 29.1 pg (27.0-33.0); Mean Corpuscular Volume 85.9 fL (80.0-98.0); Mean Platelet Volume 10.1 fL (9.4-12.3); Monocytes Absolute Auto 0.5 X10*3/uL (0.1-1.2); Monocytes Percent Auto 4.1 % (2-11); Neutrophils Absolute Auto 8.6 x10*3/uL (2.0-8.3); Neutrophils Percent Auto 66.9 % (45-73); Platelet Count 291 X10*3/uL (160-400); Red Blood Count 4.61 X10*6/uL (4.20-5.50); Red Cell Distribution Width 13.4 % (11.0-16.0); White Blood Count 12.9 X10*3/uL (4.8-10.8)
[2025-05-19 17:42] LABS: Alanine Aminotransferase 51 U/L (0-31); Albumin Level 4.4 g/dL (3.5-5.0); Alkaline Phosphatase 85 U/L (39-117); Anion Gap 12 (12-20); Aspartate Amino Transferase 32 U/L (5-31); Bilirubin Total 0.5 mg/dL (0.0-1.0); Blood Urea Nitrogen 8 mg/dL (9-16); Calcium 9.3 mg/dL (8.4-10.2); Carbon Dioxide 22 mmol/L (22-29); Chloride 106 mmol/L (96-108); Estimated Glomerular Filt Rate > 60; Glucose Random 126 mg/dL (60-115); Potassium 4.2 mmol/L (3.3-5.1); Sodium 136 mmol/L (135-145); Total Protein 7.2 g/dL (6.5-8.0)
[2025-05-19 18:25] LABS: Erythrocyte Sedimentation Rate 18 MM/HR (0-20)
[2025-05-22 13:54] LABS: CRP High Sensitivity 3.5 mg/L
== END 2025-05-19 13:44 | disposition home or self-care (01) ==
LOC: HO.WFDLDS 13:43
PROVIDERS: Visit Provider Family Medicine
DX: R07.0 Pain in throat (principal); Z00.00 Encounter for general adult medical examination without abnormal findings
CPT/HCPCS: 36415; 80053; 85025; 85652; 86141

== ENCOUNTER 2025-05-30 13:53 | Outpatient (AMB) | payer OTHER, SELFPAY ==
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
[2025-05-30 14:06] VITALS: BP 100/68; PULSE 108; RESP 16; TEMP 37; O2SAT 97; BMI 31.2
--- OUTSIDE RECORDS SUMMARY | 2025-05-30 14:45 | XMS_ITS | Data Portability ---
Author Organization [facility] , [address] Address [address] [place] [phone] Assessment No assessment recorded. Plan of Treatment Reminders Order Date Submit Date Provider Last Modified By Organization Details Last Modified Time Details Appointments None record ed. Lab None record ed. Referral None record ed. Procedures None record ed. Surgeries None record ed. Imaging XR, foot, 3 or more view 023 12/19/19 [facility], [address] [place], [address], 18:49:37 Medication Orders None record ed. Patient TargetsNo targets recorded. Patient Instructions Encounter Date Encounter Id Patient Instructions Last Modified By Organization Details Last Modified Time 12/19/2022 [id number] learning about rice (rest, ice, compression, and elevation) [email or web address] Not available 12/19/2022 17:22:07 Reason for Referral None Reported. Results Created Date Observation Date Name Description Value Unit Range Abnormal Flag Note LastModifiedBy Organization Detail LastModifiedTime 12/19/19 23 12/19/2022 XR, foot, 3 or more view No observ ation record ed. [email or web address] [facility] [address] [place], [address], 12/19/2022 19:56:02 Result Notes None recorded. Problems Name Problem SNOMED Code Status Onset Date Resolution Date Notes Provider Name and Address Organization Details Recorded Time Depressive disorder 36127139 Active 023 Sharee Carlos skaggs, [place] - [facility] 17:08:42 Anxiety 50622556 Active 023 Sharee Carlos null, [place] - [facility] 3 17:08:47 Seasonal allergic rhinitis 998903524 Active 023 Sharee Gonzalez null, PA - [facility] 3 17:08:53 Migraine 46496569 Active 023 Sharee Gonzalez null, PA - [...] Name and Address Organization Details Recorded Time 473653 codeine medicatio n hives Not available low [...] Heart rate Respiratory rate Body temperature Systolic And Diastolic Provider Name and Address Organization Details Last Updated DateTime 3 167.64 cm 29.1 kg/m2 34693.6 3 g 97 % 97 % 102 /min 20 /min 98.1 [degF] 114/84 mm[Hg] Sharee Holder [facility] 3 17:11:32 Social History Question Answer Notes LastModified by [employer] Details LastModified Time Tobacco Smoking Status Current Every Day Smoker [facility] 12/19/2022 17:09:11 Have You Had Direct Contact, Or Contact During Intimacy, With Monkeypox Rash, Scabs, Or Body Fluids From A Person With Monkeypox? No Information not available 12/19/2022 How Much Tobacco Do You Smoke? 0.5 PPD Information not available 12/19/2022 Have You Recently Traveled Abroad? No Information not available 12/19/2022 Sex: Unknown Functional Status Question Answer Note LastModified by [employer] Details LastModified Time Do you use any [...] dose or 50 mcg/0.25mL dose 1 completed [facility] 12/19/2022 17:06:17 COVID-19 vaccine, vector-nr, rS-Ad26, PF, 0.5 mL 1 completed Sharee Carlos null, [place] - [facility] 12/19/2022 17:06:17 Influenza, split virus, trivalent, preservative 5 completed Sharee [place] null, [place] - [facility] 12/19/2022 17:06:17 Past Encounters Encounter ID Performer Location Encounter Start Date Encounter Closed Date Diagnosis/Indication Diagnosis SNOMED-CT Code Diagnosis ICD10 Code Diagnosis Note [id number] [facility] [address] [address] 07/20/2019 18:46:11 07/20/2019 19:49:41 [id number] _[facility] _[place] [address] [address] 07/25/2022 16:52:51 07/25/2022 18:52:42 [id number] _[facility] _[address] [address] 07/24/2019 17:41:55 07/24/2019 19:00:46 [id number] Daniele Lynne DO [facility] [address] [place] [address] 12/19/2022 16:10:49 12/19/2022 17:48:15 Pain in left foot [id number] 34215 M79.672 foot sprain. No obvious Fx on [...] HEALTH NET PLAN (MEDICAID HMO) CYNDY Frost [id number] Lucie Frost Notes Date Note Type Note [...] Lynne, DO [address] [place], [address], [place] - [facility] 12/19/2022 17:41:12 OBGyn Episode No OBEpisode recorded.
== END 2025-05-30 15:24 | disposition home or self-care (01) ==
LOC: HO.HMCFM 13:54
PROVIDERS: PCP Family Medicine; Visit Provider Family Medicine
DX: S49.92XA Unspecified injury of left shoulder and upper arm, initial encounter (principal); S41.002A Unspecified open wound of left shoulder, initial encounter; S41.102A Unspecified open wound of left upper arm, initial encounter

== ENCOUNTER → 2025-05-30 13:53 | Outpatient (BNVA) | payer OTHER, SELFPAY | PROVIDERS: PCP Family Medicine; Visit Provider Family Medicine | DX: S46.992A Other injury of unspecified muscle, fascia and tendon at shoulder and upper arm level, left arm, initial encounter (principal); S41.002A Unspecified open wound of left shoulder, initial encounter; S41.102A Unspecified open wound of left upper arm, initial encounter; Y08.89XA Assault by other specified means, initial encounter; Y93.9 Activity, unspecified; Y92.9 Unspecified place or not applicable; Y99.9 Unspecified external cause status | CPT/HCPCS: 99212 ==

== ENCOUNTER 2025-06-11 16:16 | Emergency (ER) | payer OTHER, SELFPAY ==
[2025-06-11] VITALS (8 sets, daily range): BP systolic 127–141; BP diastolic 83–91; PULSE 84–108; RESP 15–20; TEMP 36.7–36.8; O2SAT 95–97; BMI 30.5
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
--- NOTE | 2025-06-11 16:40 | ECG_ITS ---
Test Reason : dizziiness Blood Pressure : */* mmHG Vent. Rate : 104 BPM Atrial Rate : 104 BPM P-R Int : 142 ms QRS Dur : 80 ms QT Int : 334 ms P-R-T Axes : 47 37 31 degrees QTcB Int : 439 ms Sinus tachycardia Otherwise normal ECG When compared with ECG of 04-Jul-2024 12:31, No significant change was found Referred By: Marika Shine Electronically Signed By: Buddy Nichole
[2025-06-11 16:59] LABS: MANUAL DIFF FLAG NO
[2025-06-11 17:00] LABS: Hematocrit 38.8 % (37.0-47.0); Hemoglobin 13.4 g/dl (12.0-16.0); Imm Gran Abs Auto 0.04 X10*3/uL (0.00-0.03); Imm Gran Pct Auto 0.4 % (0.0-0.4); Lymphocytes Absolute Auto 2.5 X10*3/uL (1.2-4.9); Mean Corpuscular HGB Conc 34.5 g/dl (31.0-35.0); Mean Corpuscular Hemoglobin 29.7 pg (27.0-33.0); Mean Corpuscular Volume 86.0 fL (80.0-98.0); NRBC Abs Auto 0.000 X10*3/uL (0.0-0.012); NRBC Pct Auto 0.0 /100WBC (0.0-0.2); Platelet Count 259 X10*3/uL (160-400); Red Blood Count 4.51 X10*6/uL (4.20-5.50); White Blood Count 11.4 X10*3/uL (4.8-10.8)
[2025-06-11 17:15] LABS: Alanine Aminotransferase 51 U/L (0-31); Albumin Level 4.4 g/dL (3.5-5.0); Alkaline Phosphatase 92 U/L (39-117); Anion Gap 14 (12-20); Aspartate Amino Transferase 30 U/L (5-31); Blood Urea Nitrogen 6 mg/dL (9-16); Calcium 9.2 mg/dL (8.4-10.2); Carbon Dioxide 22 mmol/L (22-29); Chloride 109 mmol/L (96-108); Creatinine Clr Calc Pharmacy 149.4; Estimated Glomerular Filt Rate > 60; Potassium 4.3 mmol/L (3.3-5.1); Sodium 141 mmol/L (135-145); Total Protein 7.1 g/dL (6.5-8.0)
--- NOTE | 2025-06-11 17:32 | PC.NURSE ---
Pt to ED 20 from triage, reports increased dizziness since last night- denies LOC. A/O x 3, pt tearful and expressing concern for cause of dizziness. Also reports intermittent blurred vision and floaters . Ambulates with steady gait. Orthostatic VS obtained. Patient reports pain to left shoulder since recent shoulder repair. Pt placed on bedside monitor and #20 placed to LAC.
--- NOTE | 2025-06-11 19:18 | PC.NURSE ---
Assumed care of pt, c/o 07/02 pain and still experiencing dizziness. Pt medicated with meds as ordered, IV fluids running. Call machado within reach. Plan of care ongoing.
== END 2025-06-11 21:46 | disposition home or self-care (01) ==
PROVIDERS: Nurse Practitioner Family; Physician Assistant Medical; Emergency Provider Emergency Medicine; PCP Family Medicine
DX: H65.03 Acute serous otitis media, bilateral (principal); R42 Dizziness and giddiness; J30.2 Other seasonal allergic rhinitis; R00.0 Tachycardia, unspecified; R11.0 Nausea; R09.81 Nasal congestion; M54.2 Cervicalgia; Z79.899 Other long term (current) drug therapy
CPT/HCPCS: 36415; 80048; 80076; 84702; 85025; 93005; 96361; 96374; 99284; 99285; J1885

== ENCOUNTER → 2025-06-11 16:40 | Outpatient (BNV) | payer OTHER, SELFPAY | PROVIDERS: Emergency Provider Emergency Medicine; PCP Family Medicine; Visit Provider Internal Medicine Cardiovascular Disease | DX: R00.0 Tachycardia, unspecified (principal) | CPT/HCPCS: 93010 ==

== ENCOUNTER 2025-06-14 09:37 | Outpatient (AMB) | payer OTHER, SELFPAY ==
--- OUTSIDE RECORDS SUMMARY | 2025-06-14 10:10 | XMS_ITS | Data Portability ---
Author Organization [facility] , [address] Address [address] [place] [phone] Assessment No assessment recorded. Plan of Treatment Reminders Order Date Submit Date Provider Last Modified By Organization Details Last Modified Time Details Appointments None record ed. Lab None record ed. Referral None record ed. Procedures None record ed. Surgeries None record ed. Imaging XR, foot, 3 or more view 023 12/19/19 [facility], [address] [place], [address], 18:49:37 Medication Orders None record ed. Patient TargetsNo targets recorded. Patient Instructions Encounter Date Encounter Id Patient Instructions Last Modified By Organization Details Last Modified Time 12/19/2022 [id number] learning about rice (rest, ice, compression, and elevation) [email or web address] Not available 12/19/2022 17:22:07 Reason for Referral None Reported. Results Created Date Observation Date Name Description Value Unit Range Abnormal Flag Note LastModifiedBy Organization Detail LastModifiedTime 12/19/19 23 12/19/2022 XR, foot, 3 or more view No observ ation record ed. [email or web address] [facility] [address] [place], [address], 12/19/2022 19:56:02 Result Notes None recorded. Problems Name Problem SNOMED Code Status Onset Date Resolution Date Notes Provider Name and Address Organization Details Recorded Time Depressive disorder 47299531 Active 023 Sharee Carlos skaggs, [place] - [facility] 17:08:42 Anxiety 50240305 Active 023 Sharee Hawi null, [place] - [facility] 3 17:08:47 Seasonal allergic rhinitis 621008191 Active 023 Sharee Gonzalez null, [place] - [facility] 3 17:08:53 Migraine 89651101 Active 023 Sharee Gonzalez null, PA - [...] Name and Address Organization Details Recorded Time 246549 codeine medicatio n hives Not available low [...] Updated DateTime 3 167.64 cm 29.1 kg/m2 91131.6 3 g 97 % 97 % 102 /min 20 /min 98.1 [degF] 114/84 mm[Hg] Sharee Holder [facility] 3 17:11:32 Social History Question Answer Notes LastModified by [email or web address] Details LastModified Time Tobacco Smoking Status Current [...] Functional Status Question Answer Note LastModified by [email or web address] Details LastModified Time Do you use any [...] SNOMED-CT Code Diagnosis ICD10 Code Diagnosis Note [id number] _[facility] [address] [address] 07/20/2019 18:46:11 07/20/2019 19:49:41 [id number] _[facility] _Chi [address] [address] 07/25/2022 16:52:51 07/25/2022 18:52:42 [id number] _[facility] _Wes [address] [address] 07/24/2019 17:41:55 07/24/2019 19:00:46 [id number] [facility] [address] [place] [address] 12/19/2022 16:10:49 12/19/2022 17:48:15 Pain in left foot 2539046516 [address]1977 M79.672 foot sprain. No obvious Fx on [...] HEALTH NET PLAN (MEDICAID HMO) CYNDY Frost [id number] Lucie Frost Notes Date Note Type Note [...] Lynne, DO [address] [place], [address], [place] - [facility] 12/19/2022 17:41:12 OBGyn Episode No OBEpisode recorded.
--- OUTSIDE RECORDS SUMMARY | 2025-06-14 10:10 | XMS_ITS | Encounter Summary ---
Author Organization [facility] Address [address] [place] [address] Phone Care Team Providers Care Warehouse Operations Associate Name Role Phone Alexis Whyte MD Primary Care Provider Alexis Whyte MD Primary Care Provider Pcp, Unknown Primary Care Provider Unavailabl e Alexis Whyte MD Primary Care Provider Encounter Details Date Type Department Care Team (Late st Contact Info) Description 02/15/2021 Transcribe Orders [facility] Outpatient Care, Radio Flouroscopy [address] [place] [address] Anastasia Maher [address] [place] [phone] [email or web address] Social History Tobacco Use Types Packs/Day Years Used Date Smoking Tobacco: Never Assessed Comments Unknown Sex and Gender Information Value Date Recorded Sex Assigned at Female 10/05/2020 4:14 PM EST Legal Sex Female 3:57 PM EST Gender Identity Female 10/05/2020 4:14 PM EST Sexual Orientation Straight 10/05/2020 4: 14 PM EST documented as of this encounter Plan of Treatment Not on file documented as of this encounter Visit Diagnoses Not on filedocumented in this encounter Care Teams Warehouse Operations Associate Relationship Specialty Start Date End Date Alexis Whyte MD [address] [place] [address] PCP - General 10/05/20 06/19/21 Alexis Whyte MD [address] [place] [address] PCP - General 07/11/21 02/17/22 Pcp, Unknown PCP - General 02/18/22 03/12/22 Alexis Whyte MD [address] [place] [address] PCP - General Family Medicine 03/13/22 documented as of this encounter Additional Source Comments The information contained in this document represents components of the legal health record. It is not the complete legal health record.[facility]
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
[2025-06-14 10:23] VITALS: BP 110/70; PULSE 97; RESP 14; TEMP 36.7; O2SAT 95; BMI 31.6
== END 2025-06-14 11:22 | disposition home or self-care (01) ==
LOC: HO.HMCFM 09:38
PROVIDERS: PCP Family Medicine; Visit Provider Nurse Practitioner Family
DX: R42 Dizziness and giddiness (principal); H65.90 Unspecified nonsuppurative otitis media, unspecified ear; M54.2 Cervicalgia

== ENCOUNTER 2025-06-14 09:39 | Outpatient (REF) | payer OTHER, SELFPAY ==
[2025-06-14 11:21] LABS: MANUAL DIFF FLAG NO
[2025-06-14 11:25] LABS: Hematocrit 39.9 % (37.0-47.0); Hemoglobin 13.5 g/dl (12.0-16.0); Imm Gran Abs Auto 0.06 X10*3/uL (0.00-0.03); Imm Gran Pct Auto 0.5 % (0.0-0.4); Lymphocytes Absolute Auto 3.5 X10*3/uL (1.2-4.9); Mean Corpuscular HGB Conc 33.8 g/dl (31.0-35.0); Mean Corpuscular Hemoglobin 29.7 pg (27.0-33.0); Mean Corpuscular Volume 87.7 fL (80.0-98.0); NRBC Abs Auto 0.000 X10*3/uL (0.0-0.012); NRBC Pct Auto 0.0 /100WBC (0.0-0.2); Platelet Count 275 X10*3/uL (160-400); Red Blood Count 4.55 X10*6/uL (4.20-5.50); White Blood Count 12.4 X10*3/uL (4.8-10.8)
[2025-06-14 11:59] LABS: Alanine Aminotransferase 45 U/L (0-31); Albumin Level 4.4 g/dL (3.5-5.0); Alkaline Phosphatase 84 U/L (39-117); Anion Gap 12 (12-20); Aspartate Amino Transferase 30 U/L (5-31); Blood Urea Nitrogen 9 mg/dL (9-16); Calcium 9.6 mg/dL (8.4-10.2); Carbon Dioxide 25 mmol/L (22-29); Chloride 107 mmol/L (96-108); Cholesterol 139 mg/dL (<200); Estimated Glomerular Filt Rate > 60; HDL Cholesterol 37 mg/dL (>40); Potassium 4.4 mmol/L (3.3-5.1); Sodium 140 mmol/L (135-145); Total Protein 7.0 g/dL (6.5-8.0); Triglycerides 123 mg/dL (<150)
[2025-06-14 14:18] LABS: Appearance Urine Clear; Glucose Urine UA Negative (Negative); PH 6.5 (5.0-9.0); Specific Gravity - Urine 1.015 (1.005-1.025)
[2025-06-14 14:36] LABS: Microalbum/Creatinine Ratio Ur 7.7 ug/mg cr (<30)
== END 2025-06-14 09:40 | disposition home or self-care (01) ==
LOC: HO.WFDLDS 09:39
PROVIDERS: Visit Provider Family Medicine
DX: R07.0 Pain in throat (principal); I10 Essential (primary) hypertension; R42 Dizziness and giddiness; H65.90 Unspecified nonsuppurative otitis media, unspecified ear; M54.2 Cervicalgia; F17.200 Nicotine dependence, unspecified, uncomplicated; Z71.6 Tobacco abuse counseling; Z00.00 Encounter for general adult medical examination without abnormal findings
CPT/HCPCS: 36415; 80053; 80061; 81003; 82043; 82570; 84443; 85025; 99212

== ENCOUNTER 2025-07-21 09:07 | Outpatient (RCR) | payer OTHER, SELFPAY ==
[2025-07-21 09:17] VITALS: BP 117/75; PULSE 95
--- NOTE | 2025-07-21 10:30 | MHC.PT.EP ---
[facility] [place] [facility] [place] [facility] [place] [facility] [address] Carolyn Vincent [address] [phone] F: [phone] F: [phone] F: [phone] F: [phone] Physical Therapy Plan of Care Date of Evaluation: 07/21/25 Date of Surgery: Diagnosis: cervicalgia BPPV Assessment: 44 y/o female referred to PT with BPPV and cervicalgia. She reports room-spinning dizziness for 6 months that occurs with rolling in bed, washing hair and looking up. She thinks it started after sleeping on her L side for the first time in 7 years. Examination shows normal oculomotor, good balance with 24/24 DGI, and (-) for nystagmus and sx in [place] and in [place]. At this time, she may have self corrected as her sx sound like BPPV from her hx. Will keep chart open for 30 days in case of room-spinning dizziness recurrence. She also declined PT for her neck at this time as she will be seeing a specialist next month and would like to check with them first Frequency and Duration: The patient will be seen Short Term Goals: Tutor Coordinator Goals: Will keep chart open for 30 days in case of recurrence of room-spinning dizziness, will re-assess then Treatment Plan: Modalities to reduce pain, spasms and effusion. Manual therapy to restore motion and function. Therapeutic exercise to improve strength and flexibility. Neuromuscular re-education for posture and balance. Therapeutic activities to return to functional activities of daily living. Electronically signed by: Jasmina Brandt PT Please sign and return to therapist. Thank you for your referral.
--- NOTE | 2025-08-31 08:39 | MHC.PT.DC ---
[facility] [place] Office [place] Office [place] Office [address] Carolyn Vincent [address] [phone] F: [phone] F: [phone] F: [phone] F: [phone] Physical Therapy Discharge Report Diagnosis: cervicalgia BPPV Date of Surgery: Date of Evaluation: 07/21/25 Date of Discharge: 08/31/25 Treatments to Date: 1 Cancellations to Date: 0 No Shows to Date: 0 Discharge Status: Discharge Summary: Kept chart open in case of room-spinning dizziness recurred, however it has now been >30 days and will now close chart. At time of evaluation, pt was negative for BPPV and ? that it spontaneously resolved Electronically signed by: Jasmina ashby PT Please sign and return to therapist. Thank you for your referral.
== END 2025-08-31 08:39 | disposition home or self-care (01) ==
LOC: HO.PT 09:07
PROVIDERS: PCP Family Medicine; Visit Provider Family Medicine
DX: M54.2 Cervicalgia (principal); H81.10 Benign paroxysmal vertigo, unspecified ear
CPT/HCPCS: 97161

== ENCOUNTER 2025-08-22 11:24 | Outpatient (AMB) | payer OTHER, SELFPAY ==
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
[2025-08-22 11:36] VITALS: BP 114/78; PULSE 109; RESP 15; TEMP 36.5; O2SAT 98; BMI 32.7
--- OUTSIDE RECORDS SUMMARY | 2025-08-22 12:53 | XMS_ITS | Encounter Summary ---
Author Organization [facility] Address [address] [place] [address] Phone Care Team Providers Care Guest Services Agent Name Role Phone Alexis Whyte MD Primary Care Provider Alexis Whyte MD Primary Care Provider Pcp, Unknown Primary Care Provider Unavailabl e Alexis Whyte MD Primary Care Provider Encounter Details Date Type Department Care Team (Late st Contact Info) Description 12/07/2020 Procedure Pass [facility], Radio Flouroscopy [address] [place] [address] Social History Tobacco Use Types Packs/Day Years [...] on filedocumented in this encounter Care Teams Guest Services Agent Relationship Specialty Start Date End Date Alexis Whyte MD [address] [place] [address] PCP - General 10/05/20 06/19/21 Alexis Whyte MD [address] [place] [address] PCP - General 07/11/21 02/17/22 Pcp, Unknown PCP - General 02/18/22 03/12/22 Alexis Whyte MD [address] [place] [address] PCP - General Family Medicine 03/13/22 documented as of this encounter Additional Source Comments The information contained in this document represents components of the legal health record. It is not the complete legal health record.[facility]
--- OUTSIDE RECORDS SUMMARY | 2025-08-22 12:53 | XMS_ITS | Encounter Summary ---
Author Organization [facility] Address [address] [place] [address] Phone Care Team Providers Care Caption Writer Name Role Phone Alexis Whyte MD Primary Care Provider Alexis Whyte MD Primary Care Provider Pcp, Unknown Primary Care Provider Unavailabl e Alexis Whyte MD Primary Care Provider Encounter Details Date Type Department Care Team (Late st Contact Info) Description 12/07/2020 Procedure Pass [facility] - MRI [address] [place] [address] Social History Tobacco Use Types Packs/Day Years [...] on filedocumented in this encounter Care Teams Caption Writer Relationship Specialty Start Date End Date Alexis Whyte MD [address] [place] [address] PCP - General 10/05/20 06/19/21 Alexis Whyte MD [address] [place] [address] PCP - General 07/11/21 02/17/22 Pcp, Unknown PCP - General 02/18/22 03/12/22 Alexis Whyte MD [address] [place] [address] PCP - General Family Medicine 03/13/22 documented as of this encounter Additional Source Comments The information contained in this document represents components of the legal health record. It is not the complete legal health record.[facility]
--- OUTSIDE RECORDS SUMMARY | 2025-08-22 12:53 | XMS_ITS | Encounter Summary ---
Author Organization [facility] Address [address] [place] [address] Phone Care Team Providers Care Managing Cognitive Engineer Name Role Phone Alexis Whyte MD Primary Care Provider Pcp, Unknown Primary Care Provider Unavailabl e Aelxis Whyte MD Primary Care Provider Encounter Details Date Type Department Care Team (Late st Contact Info) Description 07/10/2021 Procedure Pass [facility] Outpatient Care, Radio Flouroscopy [address] [place] [address] Social History Tobacco Use Types Packs/Day Years [...] on filedocumented in this encounter Care Teams Managing Cognitive Engineer Relationship Specialty Start Date End Date Alexis Whyte MD [address] [place] [address] PCP - General 07/11/21 02/17/22 Pcp, Unknown PCP - General 02/18/22 03/12/22 Alexis Whyte MD [address] [place] [address] PCP - General Family Medicine 03/13/22 documented as of this encounter Additional Source Comments The information contained in this document represents components of the legal health record. It is not the complete legal health record.[facility]
--- OUTSIDE RECORDS SUMMARY | 2025-08-22 12:53 | XMS_ITS | Clinical Summary ---
Author Organization [facility] Address [address] [place] [address] Phone Care Team Providers Care Ophthalmic Technician Name Role Phone Alexis Whyte MD Primary Care Provider Allergies No known active allergies Social History Tobacco Use Types Packs/Day Years Used Date Smoking Tobacco: Never Assessed Education Answer Date Recorded Are you interested in more education? Not on travis e 03/20/2023 Are you concerned about learning? Not on file 03/20/2023 No 03/20/2023 No 03/20/2023 Digital Access Answer Date Recorded No 04/18/2023 No 04/18/2023 No 04/18/2023 Reliable internet access at home? Not on file 04/18/2023 Device with a working camera? Not on file Comments Unknown Sex and Gender Information Value Date Recorded Sex Assigned at Female 10/05/2020 4:14 PM EST Legal Sex Female 3:57 PM EST Gender Identity Female 10/05/2020 4:14 PM EST Sexual Orientation Straight 10/05/2020 4: 14 PM EST Plan of Treatment Health Maintenance Due Date Last Done Comments Adult Td,Tdap Booster 1982 DEPRESSION SCREENING 1994 SMOKING Hx and SMOKELESS TOB ACCO SCREENING 1995 HEPATITIS C SCREENING 2000 HIV ONE-TIME SCREENING (18-6 5 YEARS) 2000 PAP SMEAR 2003 MAMMOGRAM 2022 INFLUENZA VACCINE (#1) 2025 08/08/2015 COVID-19 VACCINE (2024-2 6 season) 2025 02/27/2021 HEPATITIS A VACCINES Aged Out No long er eligible based on patient's age to complete this topic HIB VACCINES Aged Out No longer eligi ble based on patient's age to complete this topic MENINGOCOCCAL VACCINES (ACWY) Aged Out No longer eligible based on patient's age to complete this topic MENINGOCOCCAL VACCINES (B) Aged Out N o longer eligible based on patient's age to complete this topic PNEUMOCOCCAL VACCINES (0-49 years) Aged Out No longer eligible based on patient's age to complete this topic Medical Devices Not on file [place] [address] [place] [address] [employer] [employer] [place], [place] [id number] [place] [address] [place] [address] [place] [address] [place] [id number] [place] [address] [place] [address] [place] [address] [facility] [place] [address] [place] [address] [place] [address] [address] Care Teams Ophthalmic Technician Relationship Specialty Start Date End Date Alexis Whyte MD [address] [place] [id number] PCP - General Family Medicine 03/13/22 Additional Source Comments The information contained in this document represents components of the legal health record. It is not the complete legal health record.[facility]
--- OUTSIDE RECORDS SUMMARY | 2025-08-22 12:53 | XMS_ITS | Encounter Summary ---
Author Organization [facility] Address [address] [place] [address] Phone Care Team Providers Care Pump Runner Name Role Phone Alexis Whyte MD Primary Care Provider Pcp, Unknown Primary Care Provider Unavailabl e Alexis Whyte MD Primary Care Provider Encounter Details Date Type Department Care Team (Late st Contact Info) Description 2021 Transcribe Orders [facility] Outpatient Care, Radio Flouroscopy [address] [place] [address] [email or web address] Social History Tobacco Use Types Packs/Day Years [...] on filedocumented in this encounter Care Teams Pump Runner Relationship Specialty Start Date End Date Alexis Whyte MD [address] [place] [address] PCP - General 07/11/21 02/17/22 Pcp, Unknown PCP - General 02/18/22 03/12/22 Alexis Whyte MD [address] [place] [address] PCP - General Family Medicine 03/13/22 documented as of this encounter Additional Source Comments The information contained in this document represents components of the legal health record. It is not the complete legal health record.[facility]
--- OUTSIDE RECORDS SUMMARY | 2025-08-22 12:53 | XMS_ITS | Encounter Summary ---
Author Organization [facility] Address [address] [place] [address] Phone Care Team Providers Care Manager Endoscopy Name Role Phone Alexis Whyte MD Primary Care Provider Alexis Whyte MD Primary Care Provider Pcp, Unknown Primary Care Provider Unavailabl e Alexis Whyte MD Primary Care Provider Encounter Details Date Type Department Care Team (Late st Contact Info) Description 01/09/2021 Transcribe Orders [facility] Outpatient Care, Radio Flouroscopy [address] [place] [address] Gricel Nicholson [address] [place] [phone] [email or web address] Social History Tobacco Use Types Packs/Day Years [...] on filedocumented in this encounter Care Teams Manager Endoscopy Relationship Specialty Start Date End Date Alexis Whyte MD [address] [place] [address] PCP - General 10/05/20 06/19/21 Alexis Whyte MD [address] [place] [address] PCP - General 07/11/21 02/17/22 Pcp, Unknown PCP - General 02/18/22 03/12/22 Alexis Whyte MD [address] [place] [address] PCP - General Family Medicine 03/13/22 documented as of this encounter Additional Source Comments The information contained in this document represents components of the legal health record. It is not the complete legal health record.[facility]
--- OUTSIDE RECORDS SUMMARY | 2025-08-22 12:53 | XMS_ITS | Encounter Summary ---
Author Organization [facility] Address [address] [place] [address] Phone Care Team Providers Care Codifier Name Role Phone Alexis Whyte MD Primary Care Provider Alexis Whyte MD Primary Care Provider Pcp, Unknown Primary Care Provider Unavailabl e Alexis Whyte MD Primary Care Provider Encounter Details Date Type Department Care Team (Late st Contact Info) Description 02/15/2021 Transcribe Orders [facility] Outpatient Care, Radio Flouroscopy [address] [place] [address] Anastasia Maher [address] [place] [phone] [email or web address] Social History Tobacco Use Types Packs/Day Years [...] on filedocumented in this encounter Care Teams Codifier Relationship Specialty Start Date End Date Alexis Whyte MD [address] [place] [address] PCP - General 10/05/20 06/19/21 Alexis Whyte MD [address] [place] [address] PCP - General 07/11/21 02/17/22 Pcp, Unknown PCP - General 02/18/22 03/12/22 Alexis Whyte MD [address] [place] [address] PCP - General Family Medicine 03/13/22 documented as of this encounter Additional Source Comments The information contained in this document represents components of the legal health record. It is not the complete legal health record.[facility]
--- OUTSIDE RECORDS SUMMARY | 2025-08-22 12:53 | XMS_ITS | Encounter Summary ---
Author Organization [facility] Address [address] [place] [address] Phone Care Team Providers Care Bilingual Customer Service Name Role Phone Alexis Whyte MD Primary Care Provider Pcp, Unknown Primary Care Provider Unavailabl e Alexis Whyte MD Primary Care Provider Reason for Referral * Outpatient Procedure - Closed Specialty Diagnoses / Procedures Referred By Lazaro macdonald Referred To Contact Radiology Diagnoses Pain in joint, shoulder region Procedures FL Large-Joint Injection (Left) FL Medium-Joint Injection (Left) [place] ARTHROCENTESIS ASPIR&/INJ INTERM JT/BURS W/O US W[place] ARTHROCENTESIS ASPIR&/INJ INTERM JT/BURS W/US CHG FLUOROSCOPIC GUIDANCE NEEDLE PLACEMENT ADD ON WY ARTHROCENTESIS ASPIR&/INJ MAJOR JT/BURSA W/O US W[place] ARTHROCENTESIS ASPIR&/INJ MAJOR JT/BURSA W/US Shadi Diaz Jp, MD Phone: tel: fax: [email or web address] Referral ID Status Reason Start Date Expiration Date Visits Re quested Visits Authorized [id number] Closed 07/10/2021 08/23/2021 1 1 Encounter Details Date Type Department Care Team (Latest Contact Info) Description 2021 Ancillary Orders [facility] Department of Orthopaedic Surgery, Shoulder Service [address] [place] [address], 3rd Floor, [address] [place] [address] Shadi Diaz Jp, MD [address] [facility] [place] [address] [email or web address] Pain in joint, shoulder region Social History Tobacco Use Types Packs/Day Years [...] on file documented as of this encounter Results * FL Large-Joint Injection (Left) (2021 1:27 PM EDT) Anatomical Region Laterality Modality Shoulder Left, Hip Left, Hip Bilateral Radio Fluoroscopy 2021 1:37 PM EDT Impressions 2021 4:56 PM EDT Fluoroscopically guided anesthetic and corticosteroid injection of the left suprascapular notch. ATTESTATION: I, Dr. Juliano Menard as teaching physician, have reviewed the images for this case and if necessary edited the report originally created by Cosme Sanabria. Narrative 2021 4:56 PM EDT FL LARGE-JOINT INJECTION (LEFT) Corticosteroid and anesthetic injection in the left suprascapular notch. OPERATORS: Dr. Cosme Menard was present for the entire procedure. CONSENT: The patient was informed of the nature of the proposed procedure. The purposes, alternatives, risks, and benefits were explained and discussed. All questions were answered and written consent was obtained. A time-out was performed prior to initiation of the procedure to reconfirm the patient's name, date of , and site of procedure. RADIATION EXPOSURE: Fluoroscopy Time: 1.7 min, Dose: 37 mGy, Dose Area Product (DAP): 185 cGy.cm2, Number of Spot films: 0 TECHNIQUE: Using fluoroscopic guidance, local Lidocaine anesthesia and sterile technique, a 3.5 inch 22 gauge B-D needle was inserted percutaneously into the left suprascapular notch. Needle position was confirmed by injecting approximately 0.2 mL of Omnipaque-300. A mixture of Triamcinolone (Kenalog) 40 mg/mL 1.0 mL and Ropivacaine 0.2% 2.0 mL was injected into the joint. There were no complications. FINDINGS: Immediately following the procedure, symptoms remained unchanged.(05/01 to 05/01). Discharge instructions and pain diary were explained to the patient. Procedure Note Juliano Spaulding MD - 2021 FL LARGE-JOINT INJECTION (LEFT) Corticosteroid and anesthetic injection in the left suprascapular notch. OPERATORS: Dr. Cosme Menard was present for the entire procedure. CONSENT: The patient was informed of the nature of the proposed procedure. Thepurposes, alternatives, risks, and benefits were explained and discussed.All questions were answered and written consent was obtained. A time-out was performed prior to initiation of the procedure to reconfirm thepatient's name, date of , and site of procedure. RADIATION EXPOSURE: Fluoroscopy Time: 1.7 min, Dose: 37 mGy, Dose Area Product (DAP): 185 cGy.cm2, Number of Spot films: 0 TECHNIQUE: Using fluoroscopic guidance, local Lidocaine anesthesia and steriletechnique, a 3.5 inch 22 gauge B-D needle was inserted percutaneously intothe left suprascapular notch. Needle position was confirmed by injectingapproximately 0.2 mL of Omnipaque-300. A mixture of Triamcinolone(Kenalog) 40 mg/mL 1.0 mL and Ropivacaine 0.2% 2.0 mL was injected intothe joint. There were no complications. FINDINGS: Immediately following the procedure, symptoms remained unchanged.(05/01 to05/01). Discharge instructions and pain diary were explained to thepatient. IMPRESSION: Fluoroscopically guided anesthetic and corticosteroid injection of theleft suprascapular notch. ATTESTATION: I, Dr. Juliano Menard as teaching physician, havereviewed the images for this case and if necessary edited the reportoriginally created by Cosme Sanabria. us Shadi Diaz MD IMG IR MSK Final Result documented in this encounter Visit Diagnoses Diagnosis Pain in joint, shoulder region Pain in joint, shoulder region documented in this encounter Care Teams Bilingual Customer Service Relationship Specialty Start Date End Date Alexis Whyte MD [address] [place] [address] PCP - General 07/11/21 02/17/22 Pcp, Unknown PCP - General 02/18/22 03/12/22 Alexis Whyte MD [address] [place] [address] PCP - General Family Medicine 03/13/22 documented as of this encounter Additional Source Comments The information contained in this document represents components of the legal health record. It is not the complete legal health record.[facility]
--- OUTSIDE RECORDS SUMMARY | 2025-08-22 12:53 | XMS_ITS | Encounter Summary ---
Author Organization [facility] Address [address] [place] [address] Phone Care Team Providers Care Telephone Mechanic Name Role Phone Alexis Whyte MD Primary Care Provider Alexis Whyte MD Primary Care Provider Pcp, Unknown Primary Care Provider Unavailabl e Alexis Whyte MD Primary Care Provider Encounter Details Date Type Department Care Team (Late st Contact Info) Description 01/22/2021 Procedure Pass [facility] Outpatient Care - Ultrasound [address] [place] [address] Social History Tobacco Use Types Packs/Day Years [...] on filedocumented in this encounter Care Teams Telephone Mechanic Relationship Specialty Start Date End Date Alexis Whyte MD [address] [place] [address] PCP - General 10/05/20 06/19/21 Alexis Whyte MD [address] [place] [address] PCP - General 07/11/21 02/17/22 Pcp, Unknown PCP - General 02/18/22 03/12/22 Alexis Whyte MD [address] [place] [address] PCP - General Family Medicine 03/13/22 documented as of this encounter Additional Source Comments The information contained in this document represents components of the legal health record. It is not the complete legal health record.[facility]
== END 2025-08-22 12:29 | disposition home or self-care (01) ==
LOC: HO.HMCFM 11:25
PROVIDERS: PCP Family Medicine; Visit Provider Family Medicine
DX: R42 Dizziness and giddiness (principal); R74.01 Elevation of levels of liver transaminase levels; E78.00 Pure hypercholesterolemia, unspecified; R73.01 Impaired fasting glucose; L30.9 Dermatitis, unspecified; Z12.83 Encounter for screening for malignant neoplasm of skin

== ENCOUNTER → 2025-08-22 11:24 | Outpatient (BNVA) | payer OTHER, SELFPAY | PROVIDERS: PCP Family Medicine; Visit Provider Family Medicine | DX: R42 Dizziness and giddiness (principal); R74.01 Elevation of levels of liver transaminase levels; E78.00 Pure hypercholesterolemia, unspecified; R73.01 Impaired fasting glucose; L30.9 Dermatitis, unspecified | CPT/HCPCS: 83036; 99212 ==

== ENCOUNTER 2025-08-23 14:42 | Outpatient (AMB) | payer OTHER, SELFPAY ==
[2025-08-23 14:44] VITALS: BP 123/87; PULSE 108; BMI 32.8
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
--- OUTSIDE RECORDS SUMMARY | 2025-08-23 15:53 | XMS_ITS | Encounter Summary ---
Author Organization [facility] Address [address] [place] [address] Phone Care Team Providers Care Calciner Feeder Name Role Phone Alexis Whyte MD Primary Care Provider Alexis Whyte MD Primary Care Provider Pcp, Unknown Primary Care Provider Unavailabl e Alexis Whyte MD Primary Care Provider Encounter Details Date Type Department Care Team (Late st Contact Info) Description 12/07/2020 Procedure Pass [facility] for Outpatient Care - MRI [address] [facility], 6th [place] [address] Social History Tobacco Use Types Packs/Day Years [...] on filedocumented in this encounter Care Teams Calciner Feeder Relationship Specialty Start Date End Date Alexis Whyte MD [address] [place] [address] PCP - General 10/05/20 06/19/21 Alexis Whyte MD [address] [place] [address] PCP - General 07/11/21 02/17/22 Pcp, Unknown PCP - General 02/18/22 03/12/22 Alexis Whyte MD [address] [place] [address] PCP - General Family Medicine 03/13/22 documented as of this encounter Additional Source Comments The information contained in this document represents components of the legal health record. It is not the complete legal health record.[facility]
--- OUTSIDE RECORDS SUMMARY | 2025-08-23 15:53 | XMS_ITS | Encounter Summary ---
Author Organization [facility] Address [address] [place] [address] Phone Care Team Providers Care Woven Paper Hat Mender Name Role Phone Alexis Whyte MD Primary Care Provider Alexis Whyte MD Primary Care Provider Pcp, Unknown Primary Care Provider Unavailabl e Alexis Whyte MD Primary Care Provider Encounter Details Date Type Department Care Team (Late st Contact Info) Description 01/09/2021 Transcribe Orders [facility] Outpatient Care, Radio Flouroscopy [address] [place] [address] Gricel Nicholson [address] [place] [phone] [email or web address] Social History Tobacco Use Types Packs/Day [...] on filedocumented in this encounter Care Teams Woven Paper Hat Mender Relationship Specialty Start Date End Date Alexis Whyte MD [address] [place] [address] PCP - General 10/05/20 06/19/21 Alexis Whyte MD [address] [place] [address] PCP - General 07/11/21 02/17/22 Pcp, Unknown PCP - General 02/18/22 03/12/22 Alexis Whyte MD [address] [place] [address] PCP - General Family Medicine 03/13/22 documented as of this encounter Additional Source Comments The information contained in this document represents components of the legal health record. It is not the complete legal health record.[facility]
--- OUTSIDE RECORDS SUMMARY | 2025-08-23 15:53 | XMS_ITS | Encounter Summary ---
Author Organization [facility] Address [address] [place] [address] Phone Care Team Providers Care Air Intercept Controller Supervisor Name Role Phone Alexis Whyte MD Primary Care Provider Alexis Whyte MD Primary Care Provider Pcp, Unknown Primary Care Provider Unavailabl e Alexis Whyte MD Primary Care Provider Encounter Details Date Type Department Care Team (Late st Contact Info) Description 01/22/2021 Procedure Pass [facility] Outpatient Care - Ultrasound [address] [place] [address] Social History Tobacco Use Types Packs/Day Years [...] on filedocumented in this encounter Care Teams Air Intercept Controller Supervisor Relationship Specialty Start Date End Date Alexis Whyte MD [address] [place] [address] PCP - General 10/05/20 06/19/21 Alexis Whyte MD [address] [place] [address] PCP - General 07/11/21 02/17/22 Pcp, Unknown PCP - General 02/18/22 03/12/22 Alexis Whyte MD [address] [place] [address] PCP - General Family Medicine 03/13/22 documented as of this encounter Additional Source Comments The information contained in this document represents components of the legal health record. It is not the complete legal health record.[facility]
--- OUTSIDE RECORDS SUMMARY | 2025-08-23 15:53 | XMS_ITS | Encounter Summary ---
Author Organization [facility] Address [address] [place] [address] Phone Care Team Providers Care Lighting Engineer Name Role Phone Alexis Whyte MD Primary Care Provider Alexis Whyte MD Primary Care Provider Pcp, Unknown Primary Care Provider Unavailabl e Alexis Whyte MD Primary Care Provider Encounter Details Date Type Department Care Team (Late st Contact Info) Description 02/15/2021 Transcribe Orders [facility] Outpatient Care, Radio Flouroscopy [address] [place] [address] Anastasia Maher [address] [place] [phone] [email or web address] Social History Tobacco Use Types Packs/Day Years [...] on filedocumented in this encounter Care Teams Lighting Engineer Relationship Specialty Start Date End Date Alexis Whyte MD [address] [place] [address] PCP - General 10/05/20 06/19/21 Alexis Whyte MD [address] [place] [address] PCP - General 07/11/21 02/17/22 Pcp, Unknown PCP - General 02/18/22 03/12/22 Alexis Whyte MD [address] [place] [address] PCP - General Family Medicine 03/13/22 documented as of this encounter Additional Source Comments The information contained in this document represents components of the legal health record. It is not the complete legal health record.[facility]
--- OUTSIDE RECORDS SUMMARY | 2025-08-23 15:53 | XMS_ITS | Clinical Summary ---
Author Organization [facility] Address [address] [place] [address] Phone Care Team Providers Care Power Brake Operator Name Role Phone Alexis Whyte MD Primary [...] Medical Devices Not on file Insurance [place] [place] [address] [employer] [place], [place] [id number] [place] [address] [place] [address] [place] [address] [employer] [id number] [place] [address] [place] [address] [place] [address] [facility] [place] [address] [place] [address] [place] [address] Care Teams Power Brake Operator Relationship Specialty Start Date End Date Alexis Whyte MD [address] [place] [address] PCP - General Family Medicine 03/13/22 Additional Source Comments The information contained in this document represents components of the legal health record. It is not the complete legal health record.[facility]
--- OUTSIDE RECORDS SUMMARY | 2025-08-23 15:53 | XMS_ITS | Encounter Summary ---
Author Organization [facility] Address [address] [place] [address] Phone Care Team Providers Care Lump Maker Name Role Phone Alexis Whyte MD Primary Care Provider Alexis Whyte MD Primary Care Provider Pcp, Unknown Primary Care Provider Unavailabl e Alexis Whyte MD Primary Care Provider Encounter Details Date Type Department Care Team (Late st Contact Info) Description 12/07/2020 Procedure Pass [facility] Outpatient Care, Radio Flouroscopy [address] [place] [address] Social History Tobacco Use Types Packs/Day Years [...] on filedocumented in this encounter Care Teams Lump Maker Relationship Specialty Start Date End Date Alexis Whyte MD [address] [place] [address] PCP - General 10/05/20 06/19/21 Alexis Whyte MD [address] [place] [address] PCP - General 07/11/21 02/17/22 Pcp, Unknown PCP - General 02/18/22 03/12/22 Alexis Whyte MD [address] [place] [address] PCP - General Family Medicine 03/13/22 documented as of this encounter Additional Source Comments The information contained in this document represents components of the legal health record. It is not the complete legal health record.[facility]
--- OUTSIDE RECORDS SUMMARY | 2025-08-23 15:54 | XMS_ITS | Encounter Summary ---
Author Organization [facility] Address [address] [place] [address] Phone Care Team Providers Care Crusher Operator Name Role Phone Alexis Whyte MD Primary Care Provider Pcp, Unknown Primary Care Provider Unavailabl e Alexis Whyte MD Primary Care Provider Encounter Details Date Type Department Care Team (Late st Contact Info) Description 07/10/2021 Procedure Pass [facility] Outpatient Care, Radio Flouroscopy [address] [place] [address] Social History Tobacco Use Types Packs/Day Years [...] on filedocumented in this encounter Care Teams Crusher Operator Relationship Specialty Start Date End Date Alexis Whyte MD [address] [place] [address] PCP - General 07/11/21 02/17/22 Pcp, Unknown PCP - General 02/18/22 03/12/22 Alexis Whyte MD [address] [place] [address] PCP - General Family Medicine 03/13/22 documented as of this encounter Additional Source Comments The information contained in this document represents components of the legal health record. It is not the complete legal health record.[facility]
--- OUTSIDE RECORDS SUMMARY | 2025-08-23 15:54 | XMS_ITS | Encounter Summary ---
Author Organization [facility] Address [address] [place] [address] Phone Care Team Providers Care Circulation Librarian Name Role Phone Alexis Whyte MD Primary Care Provider Pcp, Unknown Primary Care Provider Unavailabl e Alexis Whyte MD Primary Care Provider Encounter Details Date Type Department Care Team (Late st Contact Info) Description 2021 Transcribe Orders [facility] Outpatient Care, Radio Flouroscopy [address] [place] [address] [email or web address] Social History Tobacco Use [...] on filedocumented in this encounter Care Teams Circulation Librarian Relationship Specialty Start Date End Date Alexis Whyte MD [address] [place] [address] PCP - General 07/11/21 02/17/22 Pcp, Unknown PCP - General 02/18/22 03/12/22 Alexis Whyte MD [address] [place] [address] PCP - General Family Medicine 03/13/22 documented as of this encounter Additional Source Comments The information contained in this document represents components of the legal health record. It is not the complete legal health record.[facility]
--- OUTSIDE RECORDS SUMMARY | 2025-08-23 15:54 | XMS_ITS | Encounter Summary ---
Author Organization [facility] Address [address] [place] [address] Phone Care Team Providers Care Installer Molding And Trim Name Role Phone Alexis Whyte MD Primary Care Provider Pcp, Unknown Primary Care Provider Unavailabl e Alexis Whyte MD Primary Care Provider Reason for Referral * Outpatient Procedure - Closed Specialty Diagnoses / Procedures Referred By Lazaro macdonald Referred To Contact Radiology Diagnoses Pain in joint, shoulder region Procedures FL Large-Joint Injection (Left) FL Medium-Joint Injection (Left) MD ARTHROCENTESIS ASPIR&/INJ INTERM JT/BURS W/O US MD ARTHROCENTESIS ASPIR&/INJ INTERM JT/BURS W/US CHG FLUOROSCOPIC GUIDANCE NEEDLE PLACEMENT ADD ON MD ARTHROCENTESIS ASPIR&/INJ MAJOR JT/BURSA W/O US MD ARTHROCENTESIS ASPIR&/INJ MAJOR JT/BURSA W/US Shadi Diaz Jp, MD Phone: tel: fax: [email or web address] Referral ID Status Reason Start Date Expiration Date Visits Re quested Visits Authorized [id number] Closed 07/10/2021 08/23/2021 1 1 Encounter Details Date Type Department Care Team (Latest Contact Info) Description 2021 Ancillary Orders [facility] Department of Orthopaedic Surgery, Shoulder Service [address] [place] [address], 3rd Floor, [address] [place] [address] Shadi Diaz Jp, MD [address] [facility] [place] [address] [email or web address] Pain in joint, shoulder region Social History [...] region documented in this encounter Care Teams Installer Molding And Trim Relationship Specialty Start Date End Date Alexis Whyte MD [address] [place] [address] PCP - General 07/11/21 02/17/22 Pcp, Unknown PCP - General 02/18/22 03/12/22 Alexis Whyte MD [address] [place] [address] PCP - General Family Medicine 03/13/22 documented as of this encounter Additional Source Comments The information contained in this document represents components of the legal health record. It is not the complete legal health record.[facility]
== END 2025-08-23 15:27 | disposition home or self-care (01) ==
LOC: HO.HGI 14:43
PROVIDERS: PCP Family Medicine; Visit Provider Nurse Practitioner
DX: K21.00 Gastro-esophageal reflux disease with esophagitis, without bleeding (principal)
CPT/HCPCS: 99213

== ENCOUNTER → 2025-08-23 14:42 | Outpatient (BNVA) | payer OTHER, SELFPAY | PROVIDERS: PCP Family Medicine; Visit Provider Nurse Practitioner | DX: K21.00 Gastro-esophageal reflux disease with esophagitis, without bleeding (principal); K91.5 Postcholecystectomy syndrome | CPT/HCPCS: 99212 ==

== ENCOUNTER 2025-08-25 11:26 | Outpatient (REF) | payer OTHER, SELFPAY ==
--- NOTE | ~2025-08-25 | XR_ITS ---
EXAMINATION: XR CERVICAL SPINE CLINICAL INFORMATION: M54.2 - Cervicalgia COMPARISON: CT cervical spine 03/25/2024. TECHNIQUE: 3 views of the cervical spine were obtained. FINDINGS: There is no significant scoliosis. There is mild straightening of the normal lordosis. There is no subluxation. There is no fracture, compression deformity, or suspicious bone lesion. The craniocervical junction and C1-2 articulation are intact and aligned normally. Disc spaces are preserved throughout. Facets are normally aligned bilaterally. No prevertebral soft tissue abnormality. The imaged lung apices are clear. XR/XR cervical spine 3V IMPRESSION: 1. No radiographically acute findings of the cervical spine Electronically signed by: Jose Montgomery MD 08/25/2025 01:18 PM EDT
--- OUTSIDE RECORDS SUMMARY | 2025-08-25 12:57 | XMS_ITS | Continuity of Care Document ---
Author Organization [place] [facility], Allergy Address [address] [address] Care Team Providers Care Data Processing Specialist Name Role Phone VICENTE WELLS Primary Care Provider [phone] Assessment Encounter Date Assessment Date Assessment LastModified by Organization Details LastModified Time 08/21/2025 08/21/2025 Patient with a history of allergic rhinitis. Sublingual treatment was initiated today. Epipen teaching was performed. The first dose of immunotherapy was administered in the office and the patient was observed for twenty minutes without adverse reaction. Proper use of the immunotherapy drops was discussed in detail and all questions were answered. [email or web address] Not available 08/21/2025 15:39:56 Plan of Treatment Reminders Order Date Submit Date Provider Last Modified By Organization Details Last Modified Time Details Appointments [facility]- Allergy f-up 6mon 2025 02:00P M BURAK OLIVA PA-C Not available Not available Not available Lab None recorded . Referral None recorded . Procedures None recorded . Surgeries None recorded . Imaging None recorded . Medication Orders None recorded . Patient TargetsNo targets recorded. Patient InstructionsNo instructions recorded. Reason for Referral None Reported. Problems Name Problem SNOMED Code Status Onset Date Resolution Date Notes Provider Name and Address Organization Details Recorded Time Pain of temporoma ndibular joint 60444746 Active 2014 Arthralgi a of temporoma ndibular joint; Note: Date Diagnosed : 09/27/2015 8:14 PM (M26.62) Not Available [facility] 4 02:35:14 Bilateral recurrent acute serous otitis media of middle ears 17526587721 38994 Active 2014 Acute serous otitis media, recurrent , bilateral ; Note: Date Diagnosed : 09/27/2015 8:14 PM (H65.06) Not Available [facility] 4 02:35:20 Bilateral tinnitus 08996178280 02 Active 2014 Tinnitus, bilateral ; Note: Date Diagnosed : 09/27/2015 8:14 PM (H93.13) SANTO SHIPMAN MA, CCC-A [address] [facility],[address], [place], [address] , [facility] - [facility] 5 16:07:05 Tobacco user 739589200 Active 2014 Tobacco use; Note: Date Diagnosed : 09/27/2015 8:15 PM (Z72.0) Not Available [facility] 4 02:35:14 Neck pain 92911259 Active 2014 Cervicalg ia; Note: Date Diagnosed : 5 5:08 PM (M54.2) Not Available [facility] 4 02:35:12 Otalgia of left ear 0754522227 Active 2015 Otalgia, left ear; Note: Date Diagnosed : 02/05/2016 12:54 PM (H92.02) Not Available [facility] 4 02:35:15 Acute serous otitis media of left ear 96565288344 29878 Active 2015 Acute serous otitis media, left ear; Note: Date Diagnosed : 02/05/2016 12:54 PM (H65.02) Not Available [facility] 4 02:35:23 Bilateral disorder of Eustachia n tubes 21493944967 10739 Active 2015 Other specified disorders of Eustachia n tube, bilateral ; Note: Date Diagnosed : 02/05/2016 12:54 PM (H69.83) Not Available [facility] 4 02:35:19 Acute sinusitis 97632080 Active 2015 Other acute sinusitis ; Note: Date Diagnosed : 02/05/2016 12:54 PM (J01.80) SAMINA ROWE RN [address] [facility],[address], [place], [address] , [facility] 5 14:30:56 Allergic rhinitis 56470396 Active 2015 Perennial allergic rhinitis; Note: Date Diagnosed : 03/24/2016 5:16 AM (J30.89) Not Available [facility] 4 02:35:10 Dizziness and giddiness 760974148 Active 2020 Dizziness and giddiness ; Note: Date Diagnosed : 02/04/2021 10:21 AM (R42) Not Available [facility] 4 02:35:15 Chronic sinusitis 11694274 Active 2020 Other chronic sinusitis ; Note: Date Diagnosed : 02/04/2021 10:22 AM (J32.8) Not Available [facility] 4 02:35:13 Headache disorder 378044070 Active 2024 MEME CHAMPAGNE MD [address] [facility] [place] [address], [place], [address] , [place] - [facility] 5 11:53:58 Perennial allergic rhinitis 761644175 Active 2024 MEME CHAMPAGNE MD [address] [facility],[address], [place], [address] , [place] - [facility] 5 11:54:14 Migraine variants 788014724 Active 2024 HEIDI COELLO PA-C [address] [facility],[place] [address], [place], [address] , [place] - [facility] 5 12:54:46 Vertigo 570762067 Active 2024 SANTO SHIPMAN [place], CCC-A [address] [facility] [place],[address], [place], [address] , [place] - [facility] 5 16:06:50 Bilateral temporoma ndibular joint pain 09932668389 643885 Active 2024 Roland Lowery DO [address] [facility] [place],[address], [place], [address] , [place] [facility] 5 16:12:11 Problem Notes None recorded. Procedures Surgical History Date Name Laterality Status Provider Name and Address Organization Details Recorded Time 06/26/20 Air & Speech Audio with Tymps - 18700, 04380 & 66145 completed SANTO SHIPMAN MA, CCC-A [address] [facility],[address], [address], [facility] 06/26/2025 16:08:03 04/24/20 25 Allergy Testing-Full completed SAMINA ROWE RN [address] [facility],[address], [address], [facility] 04/24/2025 14:28:55 10/13/20 24 Air & Speech Audio with Tymps - 46105, 89434 & 80255 completed JAVIER KHANNA [address] [facility],[address], [address], [facility] 10/13/2024 13:30:43 cholecystectomy completed ISACC KELLY MD [address] [facility],[address], [address], [facility] 10/16/2024 11:21:02 Imaging Results None recorded. Procedure Notes None recorded. Medical Equipment None Reported. Allergies Allergen ID Allergen Name Allergen Category Reaction Reaction Severity Criticality Documentation Date Start Date Code Code System Note Provider Name and Address Organization Details Recorded Time [id number] codeine sulfate medicatio n Not available Not available Not available 04/05/2024 47974 RxNorm React ion: unspe cifie d, dizzy , Nause a; Not Available [facility] 01:13:13 Medications Name Sig Start Date Stop Date Status Note LastModified by Organization Details LastModified Time quetiapin e 25 mg tablet TAKE 1-2 TABLET BY MOUTH EVERY NIGHT NEEDED FOR ANXIETY active Not Available Not Available No t Available cyclobenz aprine 10 mg tablet TAKE 1 TABLET BY MOUTH 3 TIMES A DAY NEEDED FOR MUSCLE SPASM FOR 10 DAYS 08/21 completed Not Available Not Available Not Available amoxicill in 500 mg capsule TAKE [...] by mouth 10/13 completed Medicati on ID: [id number] D uration Value: 14 Prescri bed By [...] completed Not Available Not Available Not Available prednison e 10 mg tablet TAKE 1 TABLET BY MOUTH EVERY DAY DIRECTED 08/21 completed Not Available Not Available Not Available doxycycli ne hyclate 100 mg capsule TAKE 1 CAPSULE BY MOUTH TWICE A DAY FOR 5 DAYS 04/10 completed Not Available Not Available Not Available atorvasta tin 20 mg tablet TAKE 1 TABLET BY MOUTH DAILY active Not Available Not Available No t Available perphenaz ine 2 mg tablet TAKE 1 TABLET BY MOUTH TWICE A DAY NEEDED ANXIETY, IRRITABI LITY 04/10 completed Not Available Not Available Not Available trazodone 50 mg tablet TAKE 1-2 TABLETS BY MOUTH EVERY NIGHT AT BEDTIME NEEDED INSOMNIA 10/13 completed Not Available Not Available Not Available cetirizin e 10 mg tablet TAKE 1 TABLET BY MOUTH EVERY DAY NEEDED FOR ALLERGIE SYMPTOMS 04/24 completed Not Available Not Available Not Available azithromy rolando 250 mg tablet TAKE 2 TABLETS BY MOUTH TODAY, THEN TAKE 1 TABLET DAILY FOR 4 DAYS DIRECTED 10/13 completed Not Available Not Available Not Available fluconazo le 150 mg tablet TAKE 1 TABLET (150 MG TOTAL) BY MOUTH ONCE FOR 1 DOSE. 04/24 completed Not Available Not Available Not Available ketotifen 0.025 % (0.035 %) eye drops 10/13 completed Medicati on ID: [id number] B rand Name: ketotife n fumarate Send [...] mg tablet TAKE 2 TABLETS BY MOUTH EVERY DAY FOR 4 DAYS 04/10 completed Not Available Not Available Not Available propranol ol ER 60 mg capsule,2 4 hr,extend ed release TAKE 1 CAPSULE BY MOUTH EVERY MORNING FOR PANIC/AN XIETY 10/13 completed Not Available Not Available Not Available sertralin e 100 mg tablet TAKE 1 TABLET BY MOUTH TWICE A DAY (INCREAS ED DOSE) active Not Available Not Available No t Available sumatript an 50 mg tablet TAKE 1 TABLET BY MOUTH EVERY DAY NEEDED FOR 30 DAYS 08/21 completed Not Available Not Available Not Available topiramat e 25 mg tablet TAKE 1 TABLET BY MOUTH TWICE A DAY FOR 30 DAYS 04/24 completed Not Available Not Available Not Available meclizine 12.5 mg tablet TAKE 1 TO 2 TABLETS THREE TIMES A DAY NEEDED FOR DIZZINES S 08/21 completed Not Available Not Available Not Available omeprazol e 40 mg capsule,d elayed [...] Available terbinafi ne HCl 250 mg tablet 10/12 completed Medicati on ID: [id number] B rand Name: terbinaf ine HCl Send [...] mg capsule 04/03 completed Medicati on ID: [id number] B rand Name: cephalex in Send Method: E-Prescr ibed Sub s Allowed: subs OK Speci al Instruct ion: TAKE 1 CAP (500 MG) BY MOUTH EVERY 12 HOURS 10 DAYS Med icationG enericNa me: cephalex in Not Available Not Available Not Available clotrimaz ole-betam ethasone 1 %-0.05 % topical cream 04/03 completed Medicati on ID: [id number] B rand Name: clotrima zole-bet amethaso ne [...] elayed release 01/14 completed Medicati on ID: [id number] D uration Value: 30 Brand Name: omeprazo le Send Method: E-Prescr ibed Sub s Allowed: subs OK Medic ationGen ericName : omeprazo le Not Available Not Available Not Available Banophen 25 mg capsule 04/10 completed Medicati on ID: [id number] B rand Name: Banophen Send Method: E-Prescr ibed Sub s Allowed: subs OK Speci al Instruct ion: TAKE 1 CAPSULE BY MOUTH AT BEDTIME NEEDED M edicatio nGeneric Name: Banophen Not Available Not Available Not Available diltiazem CD 120 mg capsule,e xtended release 24 hr TAKE 1 CAPSULE BY MOUTH DAILY active Not Available Not Available No t Available montel[address] st 10 mg tablet 10/13 completed Medicati on ID: [id number] D uration Value: 30 Brand Name: monteluk ast Send Method: E-Prescr ibed Sub s Allowed: subs OK Speci al Instruct ion: Take 1 tablet PO nightly Medicati onGeneri cName: monteluk ast Not Available Not Available Not Available lorazepam 1 mg tablet TAKE 1 TAB BY MOUTH TWICE A DAY NEEDED FOR ANXIETY (AVOID USE WHEN OPERATIN G YOUR MOTOR VEHICLES ) active Not Available Not Available No t Available azelastin e 137 mcg (0.1 %) nasal spray Inhale 2 spray twice a day as directed 10/13 completed Medicati on ID: [id number] D uration Value: 30 Brand Name: azkadensti edwin Send Method: E-Prescr ibed Sub s Allowed: subs OK Medic ationGen ericName : azelasti ne Not Available Not Available Not Available epinephri ne 0.3 mg/0.3 mL injection , auto-inje ctor INJECT 1 AUTO BY INJECTIO N ROUTE DIRECTED . active Not Available Not Available No t Available Ativan 0.5 mg tablet 04/03 completed Medicati on ID: [id number] B rand Name: Ativan S end Method: E-Prescr ibed Sub s Allowed: subs OK Medic ationGen ericName : Ativan Not Available Not Available Not Available propranol ol 20 mg tablet TAKE 1 TABLET BY MOUTH EVERY DAY FOR 90 DAYS 08/21 completed Not Available Not Available Not Available ondansetr on 4 mg disintegr ating tablet TAKE 1 TABLET ORALLY EVERY 8 HOURS NEEDED FOR NAUSEA AND VOMITING 08/21 completed Not Available Not Available Not Available fluticaso ne propionat e 50 mcg/actua tion nasal spray,zo pension SPRAY 2 SPRAYS EVERY DAY BY INTRANAS AL ROUTE FOR 90 DAYS. active Not Available Not Available No t Available naproxen 500 mg tablet TAKE 1 TABLET BY MOUTH TWICE A DAY NEEDED FOR PAIN active Not Available Not Available No t Available amoxicill in 875 mg-potass ium clavulana te 125 mg tablet TAKE 1 TABLET BY MOUTH EVERY 12 HOURS 08/21 completed Not Available Not Available Not Available amoxicill in 500 mg-potass ium clavulana te 125 mg tablet TAKE 1 TABLET BY MOUTH EVERY 12 HOURS FOR 10 DAYS 08/21 completed Not Available Not Available Not Available Ventolin HFA 90 mcg/actua tion aerosol inhaler INHALE 1 PUFF EVERY 4 TO 6 HOURS (DYSPNEA ) 04/24 completed Not Available Not Available Not Available Laxative (bisacody l) 5 mg tablet,de layed release TAKE 4 TABLETS ORALLY ONCE FOR 1 DAY TAKE AT NOON THE DAY BEFORE COLONOSC OPY 10/13 completed Not Available Not Available Not Available divalproe x ER 250 mg tablet,ex tended release 24 hr TAKE 1 TABLET BY MOUTH EVERY DAY FOR 30 DAYS 04/24 completed Not Available Not Available Not Available [...] Not Available Not Available No t Available melatonin active Not Available Not Lisa ilable Not Available aripipraz ole 2 mg tablet 10/13 completed Not Available Not Available Not Available levocetir izine 5 mg tablet TAKE 1 TABLET BY MOUTH EVERY DAY active Not Available Not Available No t Available Athlete's Foot (terbinaf ine) 1 % topical cream 10/13 completed Medicati on ID: [id number] B rand Name: Athlete' s Foot (terbina [...] both nostrils 10/13 completed Medicati on ID: [id number] D uration Value: 30 Prescri bed By Name: Isacc askew MD Brand Name: QNASL Se nd Method: E-Prescr ibed Sub s Allowed: subs OK Medic ationGen ericName : QNASL Not Available Not Available Not Available Vitals Date Recorded Body height Body mass index (BMI) Body weight Heart rate Systolic And Diastolic Provider Name and Address Organization Details Last Updated DateTime 08/21/2025 170.18 cm 32.9 kg/m2 21076.4 g 114 /min 129/82 mm[Hg] SAMINA ROWE RN [address] [facility],[place] [address], [facility] [place], [address] , [place] - [facility] 08/21/2025 14:46:40 Social History Question Answer Notes LastModified by Organizat ion Details LastModified Time Tobacco Smoking Status Current Every Day Smoker ISACC KELLY MD [address] [facility],[place] [address], [place], [address], [facility] - [facility] 10/16/2024 11:20:48 What Is Your Current Pack Years? 20-29packyear s Information not available 04/24/2025 How Much Tobacco Do You Smoke? 0.5 PPD Information not available 04/24/2025 How Many Years Have You Smoked Tobacco? 20 Information not available 04/24/2025 Sex: Unknown Functional Status None recorded. Mental Status None recorded. Family History Nothing Reported. Medical History Condition Response Allergies/Hayfever Y Migraines Y Gynecological HistoryNo gynecological history recorded. Obstetrics History GPAL:G 0 P 0 0 0 0 Past Encounters Encounter ID Performer Location Encounter Start Date Encounter Closed Date Diagnosis/Indication Diagnosis SNOMED-CT Code Diagnosis ICD10 Code Diagnosis IMO Codes Diagnosis Note [id number] BURAK OLIVA PA-C [facility] [address] [place] [address] 08/01/2025 13:25:59 08/01/2025 13:52:02 Allergic rhinitis [id number] J30.89 [id number] SAMINA ROWE RN Allergy [address] [facility] ite [address] [place] [address] [place] [address] 08/21/2025 14:24:23 08/21/2025 15:40:21 Acute sinusitis 55480266 J01.80 Health Concerns Section Related Observation LastModified by Organization Detai ls LastModified Time None Recorded Concern Status LastModified by Organization Details LastModified Time None Recorded Payers Encounter Date Sequence Insurance Name Policy Number Policy Montero Covered Member ID Montero Member ID Guarantor Name 08/21/2025 1 [facility] NET PLAN (MEDICAID HMO) CYNDY Lucie Frost [id number] Lucie Frost Notes Date Note Type Note Provider Name and Address Organization Details Recorded Time 08/21/2025 text/html Patient with a history of allergic rhinitis presents to initiate sublingual immunotherapy. The patient has brought an epipen to today's visit as instructed. Proper consents were obtained and signed by the patient prior to the visit.Patient with elevated pulse rate. Reviewed with Dr. Busch who authorized proceeding with visit. SAMINA ROWE RN [address] [place] [address], [phone], [place] - [facility] 08/21/2025 15:40:25 OBGyn Episode No OBEpisode recorded.
--- OUTSIDE RECORDS SUMMARY | 2025-08-25 12:57 | XMS_ITS | Data Portability ---
Author Organization [place] - [facility], Allergy Address [address] [address] Care Team Providers Care Carbide Operator Name Role Phone VICENTE WELLS Primary Care Provider [phone] Assessment Encounter Date Assessment Date Assessment LastModified by Organization Details LastModified Time 06/28/2025 06/28/2025 Lucie is a 44F presenting with persistent bilateral otalgia, dizziness/giddin ess, and intermittent migraines. Her ear exam again was normal today audiogram was also within normal limits please see interpretation in HPI. She has significant TMJ arthralgia and muscle tightness in the area which I think is contributing to her otalgia. TMJ - light massage, warm compresses and anti-inflammator ies for symptomatic management. Stressed avoidance of chewy foods and gum/hard sweets. Use soft food diet as needed. [facility] information sheet was shared. If this treatment plan is ineffective, recommend follow up with their dentist.Referral to physical therapist who specializes in TMJ disorders could also be considered. Dizziness -her workup today was negative from an ear and neurologic perspective. I did offer her options including VNG/ENG, she would like to pursue this. We did have a discussion about atypical migraines or vestibular migraines as well although she loosely fits the criteria. With her current symptoms and findings I would recommend her seeing Dr. Ty at her next visit after the VNG to discuss the results and other options. I did encourage her to improve her poor hydration, reduce salt intake, and cut down on her caffeine to see if this could help her balance equilibrium. She is not interested in vestibular therapy at this time. Allergic rhinitis c ontinue nasal medications. She feels she is fairly well-controlled at this time. [email or web address] Not available 06/28/2025 16:29:07 08/01/2025 08/01/2025 The patient has significant allergies. We discussed lifestyle modifications, medical therapy versus immunotherapy. The patient is an excellent candidate for immunotherapy with either SCIT vs SLIT. This is at least a 3-5 year commitment and symptoms are not expected to improve quickly. Partial treatment will not result in success of therapy. They will need to followup every 6 months to determine their compliance and success. They are interested in proceeding with immunotherapy and will contact our office to schedule. I have prescribed an epi pen and instructed them to bring it with them the first day of their therapy to be certain that they are comfortable with its use. While they are in therapy they may continue to use antihistamine allergy medications as well as topical nasal sprays to help manage their symptoms. Recommend close follow-up with her neurologist and orthopedic surgeon regarding chronic migraine and neck pain. [email or web address] Not available 08/01/2025 14:41:40 08/21/2025 08/21/2025 Patient with a history of [...] Organization Details Last Modified Time Details Appointments Establish ed- Allergy f-up 6mon 2025 02:00P M BURAK OLIVA PA-C Not available Not available Not available Lab None recorded. Referral None recorded. Procedures None recorded. Surgeries None recorded. Imaging videonyst agmograph - vng 2024 [id number] [email or web address] Ian Balbuena MD, [address], [place], [address], 07/28/2025 11:44:21 Medication Orders epinephri ne 0.3 mg/0.3 mL injection , auto-inje ctor 2024 [id number] [id number], [address] [facility] [facility], [place], [address], 08/01/2025 14:42:23 Patient TargetsNo targets recorded. Patient Instructions Encounter Date Encounter Id Patient Instructions Last Modified By Organization Details Last Modified Time 04/24/2025 [id number] spirometry testing* [email or web address] Not available 04/24/2025 16:08:34 08/01/2025 [id number] sublingual immunotherapy regimen* [email or web address] Not available 08/09/2025 13:01:55 Reason for Referral None Reported. Results Created Date Observation Date Name Description Value Unit Range Abnormal Flag Note LastModifiedBy Organization Detail LastModifiedTime 04/10/[address], sinus es, w/o contr ast No observ ation record ed. [facility] Of [address], [address], 04/10/2025 11:54:04 04/24/20 25 pura metry testi ng* No observ ation record ed. [email or web address] Not Available 2024 13:15:02 04/26/20 25 04/10/2025 CT, sinus es, w/o contr ast No observ ation record ed. [facility] Of [address], [address], 04/26/2025 14:23:50 06/26/20 25 audio gram No observ ation record ed. [facility] Not Available 2024 17:19:19 Result Notes None recorded. Problems Name Problem SNOMED Code Status Onset Date Resolution Date Notes Provider Name and Address Organization Details Recorded Time Pain of temporoma ndibular joint 38206452 Active 2014 Arthralgi a of temporoma ndibular joint; Note: Date Diagnosed : 09/27/2015 8:14 PM (M26.62) Not Available [facility] 4 02:35:14 Bilateral recurrent acute serous otitis media of middle ears 24183792272 34496 Active 2014 Acute serous otitis media, recurrent , bilateral ; Note: Date Diagnosed : 09/27/2015 8:14 PM (H65.06) Not Available [facility] 4 02:35:20 Bilateral tinnitus 28422054213 02 Active 2014 Tinnitus, bilateral ; Note: Date Diagnosed : 09/27/2015 8:14 PM (H93.13) SANTO SHIPMAN [place], [facility] [address] [facility] [address], [place], [address] , [place] [facility] 5 16:07:05 Tobacco user 702437612 Active 2014 Tobacco use; Note: Date Diagnosed : 09/27/2015 8:15 PM (Z72.0) Not Available [facility] 4 02:35:14 Neck pain 16501492 Active 2014 Cervicalg ia; Note: Date Diagnosed : 5 5:08 PM (M54.2) Not Available [facility] 4 02:35:12 Otalgia of left ear 0551029880 Active 2015 Otalgia, left ear; Note: Date Diagnosed : 02/05/2016 12:54 PM (H92.02) Not Available [facility] 4 02:35:15 Acute serous otitis media of left ear 74371397015 28929 Active 2015 Acute serous otitis media, left ear; Note: Date Diagnosed : 02/05/2016 12:54 PM (H65.02) Not Available [facility] 4 02:35:23 Bilateral disorder of Eustachia n tubes 33398421778 46381 Active 2015 Other specified disorders of Eustachia n tube, bilateral ; Note: Date Diagnosed : 02/05/2016 12:54 PM (H69.83) Not Available [facility] 4 02:35:19 Acute sinusitis 24554301 Active 2015 Other acute sinusitis ; Note: Date Diagnosed : 02/05/2016 12:54 PM (J01.80) SAMINA ROWE RN [address] [facility] [address], [place], [address] , [facility] - [facility] 5 14:30:56 Allergic rhinitis 48993623 Active 2015 Perennial allergic rhinitis; Note: Date Diagnosed : 03/24/2016 5:16 AM (J30.89) Not Available [facility] 4 02:35:10 Dizziness and giddiness 520742794 Active 2020 Dizziness and giddiness ; Note: Date Diagnosed : 02/04/2021 10:21 AM (R42) Not Available [facility] 4 02:35:15 Chronic sinusitis 77942090 Active 2020 Other chronic sinusitis ; Note: Date Diagnosed : 02/04/2021 10:22 AM (J32.8) Not Available [facility] 4 02:35:13 Headache disorder 302126253 Active 2024 MEME CHAMPAGNE MD [address] [place] [address],[place] [address], [place], [address] , [facility] [place] 5 11:53:58 Perennial allergic rhinitis 437464378 Active 2024 MEME CHAMPAGNE MD [address] [place] [address],[place] [address], [place], [address] , [facility] - [facility] [place] 5 11:54:14 Migraine variants 576366011 Active 2024 HEIDI COELLO PA-C [address] [place] [address],[place] [address], [place], [address] , [facility] - [facility] 5 12:54:46 Vertigo 167447476 Active 2024 SANTO SHIPMAN MA, CCC-A [address] [facility],[place] [address], [place], [address] , [facility] - [facility] [place] 5 16:06:50 Bilateral temporoma ndibular joint pain 24574491411 169451 Active 2024 Roland Lowery DO [address] [place] [address],[place] [address], [place], [address] , [facility] - [facility] [place] 5 16:12:11 Problem Notes None recorded. Procedures Surgical History Date Name Laterality Status Provider Name and Address Organization Details Recorded Time 06/26/20 25 Air & Speech Audio with Tymps - 68849, 88845 & 30951 completed SANTO SHIPMAN MA, CCC-A [address] [facility],[place] [address], [place], [address], [facility] 06/26/2025 16:08:03 04/24/20 25 Allergy Testing-Full completed SAMINA ROWE RN [address] [facility],[place] [address], [place], [address], [facility] 04/24/2025 14:28:55 10/13/20 24 Air & Speech Audio with Tymps - 90806, 92784 & 63754 completed JAVIER KHANNA [address] [facility],[place] [address], [place], [address], [facility] 10/13/2024 13:30:43 cholecystectomy completed ISACC KELLY MD [address] [facility],[address], [address], [facility] 10/16/2024 11:21:02 Imaging Results None recorded. Procedure Notes None recorded. Medical Equipment None Reported. Allergies Allergen ID Allergen Name Allergen Category Reaction Reaction Severity Criticality Documentation Date Start Date Code Code System Note Provider Name and Address Organization Details Recorded Time 458269 codeine sulfate medicatio n Not available Not available Not available 04/05/2024 86751 RxNorm React ion: unspe cifie d, dizzy , Nause a; Not Available [facility] 4 01:13:13 Medications Name Sig Start Date Stop [...] by mouth 10/13 completed Medicati on ID: [id number] D uration Value: 14 Prescri bed By [...] eye drops 10/13 completed Medicati on ID: [id number] B rand Name: ketotife n fumarate Send [...] mg tablet 10/12 completed Medicati on ID: 494223 B rand Name: terbinaf ine HCl Send [...] mg capsule 04/03 completed Medicati on ID: [id number] B rand Name: cephalex in Send Method: E-Prescr ibed Sub s Allowed: subs OK Speci al Instruct ion: TAKE 1 CAP (500 MG) BY MOUTH EVERY 12 HOURS 10 DAYS Med icationG enericNa me: cephalex in Not Available Not Available Not Available clotrimaz ole-betam ethasone 1 %-0.05 % topical cream 04/03 completed Medicati on ID: [id number] B rand Name: clotrima zole-bet amethaso ne [...] elayed release 01/14 completed Medicati on ID: [id number] D uration Value: 30 Brand Name: omeprazo le Send Method: E-Prescr ibed Sub s Allowed: subs OK Medic ationGen ericName : omeprazo le Not Available Not Available Not Available Banophen 25 mg capsule 04/10 completed Medicati on ID: [id number] B rand Name: Banophen Send Method: E-Prescr [...] mg tablet 10/13 completed Medicati on ID: [id number] D uration Value: 30 Brand Name: monteluk [...] as directed 10/13 completed Medicati on ID: [id number] D uration Value: 30 Brand Name: azelasti [...] mg tablet 04/03 completed Medicati on ID: [id number] B rand Name: Ativan S end Method: [...] topical cream 10/13 completed Medicati on ID: [id number] B rand Name: Athlete' s Foot (terbina [...] both nostrils 10/13 completed Medicati on ID: [id number] D uration Value: 30 Prescri bed By Name: Isacc askew MD Brand Name: QNASL Se nd Method: E-Prescr ibed Sub s Allowed: subs OK Medic ationGen ericName : QNASL Not Available Not Available Not Available Vitals Date Recorded Body height Body mass index (BMI) Body weight Oxygen saturation Oxygen saturation in Arterial blood by Pulse oximetry Heart rate Systolic And Diastolic Provider Name and Address Organization Details Last Updated DateTime 170.18 cm 30.5 kg/m2 29424.5 1 g 98 % 98 % 114 /min 121/85 mm[Hg] SAMINA ROWE RN [address], [address], [place] - [facility] 13:05:54 Date Recorded Body height Body mass index (BMI) Body weight Provider Name and Address Organization Details Last Updated DateTime 06/28/2025 170.18 cm 30.5 kg/m2 34443.51 g Mamadou Gamboa [place] [facility] 06/28/2025 15:47:30 Date Recorded Body height Body mass index (BMI) Body weight Provider Name and Address Organization Details Last Updated DateTime 08/01/2025 170.18 cm 31.3 kg/m2 15975.47 g Kelli Jorge L [place] [facility] 08/01/2025 13:28:55 Date Recorded Body height Body mass index (BMI) Body weight Heart rate Systolic And Diastolic Provider Name and Address Organization Details Last Updated DateTime 08/21/2025 170.18 cm 32.9 kg/m2 36725.4 g 114 /min 129/82 mm[Hg] SAMINA ROWE RN [address] [place] [address], [address] , [place] - [facility] 08/21/2025 14:46:40 Social History Question Answer Notes LastModified by Organizat ion Details LastModified Time Tobacco Smoking Status Current Every Day Smoker ISACC KELLY MD [address] [place] [address], [address], [facility] - [facility] 10/16/2024 11:20:48 What Is Your Current Pack [...] ICD10 Code Diagnosis IMO Codes Diagnosis Note [id number] ISACC KELLY MD [facility] [address] [address] 10/13/2024 13:11:10 10/13/2024 14:01:34 Dizziness and giddiness 768069269 R42 Right Ear:Normal hearing with excellent speech discrimina tion.Type A tympanogra m.Left Ear:Normal hearing with excellent speech discrimina tion.Type A tympanogra m. Allergic rhinitis 165811 04 J30.89 [id number] HEIDI COELLO PA-C [facility] [address] [address] 04/10/2025 10:58:05 04/10/2025 12:01:42 Headache disorder 718328806 G44.89 5672341 Perennial allergic rhinitis 180811504 J30.89 018377 Migraine variants 467766 005 G43.809 20788982 89792 SAMINA ROWE RN Allergy [address] [place] [address] 04/24/2025 12:47:37 04/24/2025 14:30:32 Allergic rhinitis 74953398 J30.89 Perennial allergic rhinitis 341500375 J30.89 221088 [id number] BURAK OLIVA PA-C [facility] [address] [address] 08/01/2025 13:25:59 08/01/2025 13:52:02 Allergic rhinitis 72102204 J30.89 [id number] Roland Lowrey DO [facility] [address] [address] 06/26/2025 15:32:45 06/26/2025 16:15:55 Vertigo 983749043 R42 15343 Audiologic al evaluation results: Right ear: Normal hearing with excellent word recognitio n. Left ear: Normal hearing with excellent word recognitio n. Tympanomet ry: Right Ear:Type A Left Ear:Type A Bilateral tinnitus 93609 17439 102 H93.13 691872 [id number] Roland Lowery DO [facility] [address] [address] 06/28/2025 15:34:10 06/28/2025 16:16:35 Headache disorder 457642735 G44.89 3580664 Perennial allergic rhinitis 287490718 J30.89 155835 Migraine variants 388018 005 G43.809 67306466 Bilateral temporomandibular joint pain 7845306155 8207937 M26.623 [id number] 55879 SAMINA ROWE RN Allergy [address] [place] [address] 08/21/2025 14:24:23 08/21/2025 15:40:21 Acute sinusitis 67228020 J01.80 Health Concerns Section Related Observation LastModified by Organization Detai ls LastModified Time None Recorded Concern Status LastModified by Organization Details LastModified Time None Recorded Advance Directives Directive None Recorded Payers Insurance Date Sequence Insurance Name Policy Number Policy Montero Covered Member ID Montero Member ID Guarantor Name 08/18/2025 1 [facility]MEDICAID HMO) CYNDY Frost [id number] Lucie Frost Notes Date Note Type Note Provider Name and Address Organization Details Recorded Time 06/28/2025 text/html ROS as noted in the HPI Lucie is 44F presenting with vertigo and intermittent tinnitus. Describes dizziness as room spinning. Non usually positional. Lasts mins at a time. Hearing is supersonic and not a problem. Non pulsatile Tinnitus in both ears about the same at last visit. Hx of migraines - especially with food/stress. a few times a month. Of note with left tymps she had terrible pain. Poor hydration, 1 frozen coffee a day. Normal salt intake.No etoh. Audiological evaluation results were personally reviewed and interpreted from06/26/25and discussed with the patient: (Noted false positives)Right ear:Normal hearing with excellent word recognition.Left ear:Normal hearing with excellent word recognition. Tympanometry:Right Ear:Type ALeft Ear:Type A Previously (Heidi 04/10/25)44-year-old female presents for evaluation following MRI ordered for separate issues. She has a longstanding history of migraine and is being followed by a new neurologist who ordered MRI. She was told there is something wrong with the sinuses or ears and to make immediate follow-up with ENT. She continues to have frequent pressure headaches that radiate into her ears and cause dizziness and photophobia. Does not currently take any preventative migraine medication but does have sumatriptan for abortive measures. Previously was tested in 2020 for seasonal allergies but feels her allergies are much worse. Did have moderate to severe reactions during that testing. Did not proceed with immunotherapy at that time but is now interested. Currently takes cetirizine and Flonase daily and occasional Benadryl for breakthrough symptoms. Roland Lowery, 100 [facility],[address], [address], [facility] - [facility] 06/28/2025 16:29:54 08/01/2025 text/html ROS as noted in the HPI 45yo female with history of migraine and TMJ presents for allergy test results. She has moderate sensitivities to weeds, grass, cats, dogs, and mold. She endorses having multiple cats and dogs at home. Continues to endorse dizziness, nasal congestion, facial pain, photophobia, and hyperacusis. No improvement with eqaj-hni-lfojzit allergy medication. CT sinus 03/2025 normal. She was evaluated by a vestibular physical therapist, who does not suspect benign paroxysmal positional vertigo. She is scheduled to follow up with orthopedic surgeon for neck and shoulder pain next month, which she suspects is exacerbating her headaches. She is followed by neurology at [facility], and feels her symptoms are unrelated to her underlying migraine. History of severe migraines, starting at 6 years old. She has status post shoulder reconstruction, with subsequent pain. UGO TY MD [address] [facility],[address], [address], [facility] 08/01/2025 17:46:54 08/21/2025 text/html Patient with a history of allergic rhinitis presents to initiate sublingual immunotherapy. The patient has brought an epipen to today's visit as instructed. Proper consents were obtained and signed by the patient prior to the visit.Patient with elevated pulse rate. Reviewed with Dr. Busch who authorized proceeding with visit. SAMINA ROWE RN [address] [place] [address], [place], [address], [facility] - [facility] 08/21/2025 15:40:25 OBGyn Episode No OBEpisode recorded.
== END 2025-08-25 11:27 | disposition home or self-care (01) ==
LOC: HO.HOSX 11:26
PROVIDERS: PCP Family Medicine; Visit Provider Physical Medicine & Rehabilitation
DX: M54.2 Cervicalgia (principal); R20.0 Anesthesia of skin; M25.512 Pain in left shoulder
CPT/HCPCS: 72040; 99202

== ENCOUNTER 2025-08-25 11:26 | Outpatient (AMB) | payer OTHER, SELFPAY ==
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
[2025-08-25 11:38] VITALS: BMI 33.1
--- OUTSIDE RECORDS SUMMARY | 2025-08-25 12:34 | XMS_ITS | Encounter Summary ---
Author Organization [facility] Address [address] [place] [address] Phone Care Team Providers Care Narrative Writer Name Role Phone Alexis Whyte MD Primary Care Provider Alexis Whyte MD Primary Care Provider Pcp, Unknown Primary Care Provider Unavailabl e Alexis Whyte MD Primary Care Provider Encounter Details Date Type Department Care Team (Late st Contact Info) Description 12/07/2020 Procedure Pass [facility] Outpatient Care, Radio Flouroscopy [address] [place] [address] Social History Tobacco Use Types Packs/Day Years [...] on filedocumented in this encounter Care Teams Narrative Writer Relationship Specialty Start Date End Date Alexis Whyte MD [address] [place] [address] PCP - General 10/05/20 06/19/21 Alexis Whyte MD [address] [place] [address] PCP - General 07/11/21 02/17/22 Pcp, Unknown PCP - General 02/18/22 03/12/22 Alexis Whyte MD [address] [place] [address] PCP - General Family Medicine 03/13/22 documented as of this encounter Additional Source Comments The information contained in this document represents components of the legal health record. It is not the complete legal health record.[facility]
--- OUTSIDE RECORDS SUMMARY | 2025-08-25 12:34 | XMS_ITS | Encounter Summary ---
Author Organization [facility] Address [address] [place] [address] Phone Care Team Providers Care Tax Attorney Name Role Phone Alexis Whyte MD Primary Care Provider Alexis Whyte MD Primary Care Provider Pcp, Unknown Primary Care Provider Unavailabl e Alexis Whyte MD Primary Care Provider Encounter Details Date Type Department Care Team (Late st Contact Info) Description 01/09/2021 Transcribe Orders [facility] Outpatient Care, Radio Flouroscopy [address] [place] [address] Gricel Nicholson [address] [place] [phone] [email or web address] Social History Tobacco Use Types Packs/Day [...] on filedocumented in this encounter Care Teams Tax Attorney Relationship Specialty Start Date End Date Alexis Whyte MD [address] [place] [address] PCP - General 10/05/20 06/19/21 Alexis Whyte MD [address] [place] [address] PCP - General 07/11/21 02/17/22 Pcp, Unknown PCP - General 02/18/22 03/12/22 Alexis Whyte MD [address] [place] [address] PCP - General Family Medicine 03/13/22 documented as of this encounter Additional Source Comments The information contained in this document represents components of the legal health record. It is not the complete legal health record.[facility]
--- OUTSIDE RECORDS SUMMARY | 2025-08-25 12:34 | XMS_ITS | Encounter Summary ---
Author Organization [facility] Address [address] [place] [address] Phone Care Team Providers Care Fire Range Technician Name Role Phone Alexis Whyte MD Primary Care Provider Alexis Whyte MD Primary Care Provider Pcp, Unknown Primary Care Provider Unavailabl e Alexis Whyte MD Primary Care Provider Encounter Details Date Type Department Care Team (Late st Contact Info) Description 01/22/2021 Procedure Pass [facility] Outpatient Care - Ultrasound [address] [place] [address] Social History Tobacco Use Types Packs/Day Years [...] on filedocumented in this encounter Care Teams Fire Range Technician Relationship Specialty Start Date End Date Alexis Whyte MD [address] [place] [address] PCP - General 10/05/20 06/19/21 Alexis Whyte MD [address] [place] [address] PCP - General 07/11/21 02/17/22 Pcp, Unknown PCP - General 02/18/22 03/12/22 Alexis Whyte MD [address] [place] [address] PCP - General Family Medicine 03/13/22 documented as of this encounter Additional Source Comments The information contained in this document represents components of the legal health record. It is not the complete legal health record.[facility]
--- OUTSIDE RECORDS SUMMARY | 2025-08-25 12:34 | XMS_ITS | Encounter Summary ---
Author Organization [facility] Address [address] [place] [address] Phone Care Team Providers Care Dog Trainer Name Role Phone Alexis Whyte MD Primary Care Provider Alexis Whyte MD Primary Care Provider Pcp, Unknown Primary Care Provider Unavailabl e Alexis Whyte MD Primary Care Provider Encounter Details Date Type Department Care Team (Late st Contact Info) Description 02/15/2021 Transcribe Orders [facility] Outpatient Care, Radio Flouroscopy [address] [place] [address] Anastasia Maher [address] [place] [phone] [email or web address] Social History Tobacco Use Types Packs/Day Years [...] on filedocumented in this encounter Care Teams Dog Trainer Relationship Specialty Start Date End Date Alexis Whyte MD [address] [place] [address] PCP - General 10/05/20 06/19/21 Alexis Whyte MD [address] [place] [address] PCP - General 07/11/21 02/17/22 Pcp, Unknown PCP - General 02/18/22 03/12/22 Alexis Whyte MD [address] [place] [address] PCP - General Family Medicine 03/13/22 documented as of this encounter Additional Source Comments The information contained in this document represents components of the legal health record. It is not the complete legal health record.[facility]
--- OUTSIDE RECORDS SUMMARY | 2025-08-25 12:35 | XMS_ITS | Encounter Summary ---
Author Organization [facility] Address [address] [place] [address] Phone Care Team Providers Care Energy Operations Vice President Name Role Phone Alexis Whyte MD Primary Care Provider Pcp, Unknown Primary Care Provider Unavailabl e Alexis Whyte MD Primary Care Provider Encounter Details Date Type Department Care Team (Late st Contact Info) Description 2021 Transcribe Orders [facility] Outpatient Care, Radio Flouroscopy [address] [place] [address] [email or web address] Social History Tobacco Use [...] on filedocumented in this encounter Care Teams Energy Operations Vice President Relationship Specialty Start Date End Date Alexis Whyte MD [address] [place] [address] PCP - General 07/11/21 02/17/22 Pcp, Unknown PCP - General 02/18/22 03/12/22 Alexis Whyte MD [address] [place] [address] PCP - General Family Medicine 03/13/22 documented as of this encounter Additional Source Comments The information contained in this document represents components of the legal health record. It is not the complete legal health record.[facility]
--- OUTSIDE RECORDS SUMMARY | 2025-08-25 12:35 | XMS_ITS | Clinical Summary ---
Author Organization Located [facility] Address [address] [place] [address] Phone Care Team Providers Care Health Screener Name Role Phone Alexis Whyte MD Primary [...] Medical Devices Not on file Insurance [place] [address] [address] [employer] [place], [place] [id number] [place] [address] [place] [address] [place] [address] [employer] [place] [id number] [place] [address] [place] [place] [address] [employer] [facility] [place] [address] [place] [address] [place] [place] [address] Care Teams Health Screener Relationship Specialty Start Date End Date Alexis Whyte MD [address] [place] [address] PCP - General Family Medicine 03/13/22 Additional Source Comments The information contained in this document represents components of the legal health record. It is not the complete legal health record.[facility]
--- OUTSIDE RECORDS SUMMARY | 2025-08-25 12:35 | XMS_ITS | Encounter Summary ---
Author Organization [facility] Address [address] [place] [address] Phone Care Team Providers Care Commercial Pilot Name Role Phone Alexis Whyte MD Primary Care Provider Pcp, Unknown Primary Care Provider Unavailabl e Alexis Whyte MD Primary Care Provider Encounter Details Date Type Department Care Team (Late st Contact Info) Description 07/10/2021 Procedure Pass [facility] Outpatient Care, Radio Flouroscopy [address] [place] [address] Social History Tobacco Use Types Packs/Day Years [...] on filedocumented in this encounter Care Teams Commercial Pilot Relationship Specialty Start Date End Date Alexis Whyte MD [address] [place] [address] PCP - General 07/11/21 02/17/22 Pcp, Unknown PCP - General 02/18/22 03/12/22 Alexis Whyte MD [address] [place] [address] PCP - General Family Medicine 03/13/22 documented as of this encounter Additional Source Comments The information contained in this document represents components of the legal health record. It is not the complete legal health record.[facility]
--- OUTSIDE RECORDS SUMMARY | 2025-08-25 12:35 | XMS_ITS | Encounter Summary ---
Author Organization [facility] Address [address] [facility] [address] [place] [address] Phone Care Team Providers Care Film Sound Coordinator Name Role Phone Alexis Whyte MD Primary Care Provider Pcp, Unknown Primary Care Provider Unavailabl e Alexis Whyte MD Primary Care Provider Reason for Referral * Outpatient Procedure - Closed Specialty Diagnoses / Procedures Referred By Lazaro macdonald Referred To Contact Radiology Diagnoses Pain in joint, shoulder region Procedures FL Large-Joint Injection (Left) FL Medium-Joint Injection (Left) [place] ARTHROCENTESIS ASPIR&/INJ INTERM JT/BURS W/O US [place] ARTHROCENTESIS ASPIR&/INJ INTERM JT/BURS W/US CHG FLUOROSCOPIC GUIDANCE NEEDLE PLACEMENT ADD ON [place] ARTHROCENTESIS ASPIR&/INJ MAJOR JT/BURSA W/O US [place] ARTHROCENTESIS ASPIR&/INJ MAJOR JT/BURSA W/US Shadi Diaz Jp, MD Phone: tel: fax: [email or web address] Referral ID Status Reason Start Date Expiration Date Visits Re quested Visits Authorized [id number] Closed 07/10/2021 08/23/2021 1 1 Encounter Details Date Type Department Care Team (Latest Contact Info) Description 2021 Ancillary Orders [facility] Department of Orthopaedic Surgery, Shoulder Service [address] [place] [address], 3rd Floor, [address] [place] [address] Shadi Diaz Jp, MD [address] [facility] [place] [address] [email or web address] Pain in joint, shoulder region Social History [...] region documented in this encounter Care Teams Film Sound Coordinator Relationship Specialty Start Date End Date Alexis Whyte MD [address] [place] [address] PCP - General 07/11/21 02/17/22 Pcp, Unknown PCP - General 02/18/22 03/12/22 Alexis Whyte MD [address] [place] [address] PCP - General Family Medicine 03/13/22 documented as of this encounter Additional Source Comments The information contained in this document represents components of the legal health record. It is not the complete legal health record.[facility]
--- OUTSIDE RECORDS SUMMARY | 2025-08-25 12:35 | XMS_ITS | Encounter Summary ---
Author Organization [facility] Address [address] [place] [address] Phone Care Team Providers Care Water Pump Assembler Name Role Phone Alexis Whyte MD Primary Care Provider Alexis Whyte MD Primary Care Provider Pcp, Unknown Primary Care Provider Unavailabl e Alexis Whyte MD Primary Care Provider Encounter Details Date Type Department Care Team (Late st Contact Info) Description 12/07/2020 Procedure Pass [facility]patient [facility] - MRI [address] [facility], [address] [place] [address] Social History Tobacco Use Types Packs/Day Years [...] on filedocumented in this encounter Care Teams Water Pump Assembler Relationship Specialty Start Date End Date Alexis Whyte MD [address] [place] [address] PCP - General 10/05/20 06/19/21 Alexis Whyte MD [address] [place] [address] PCP - General 07/11/21 02/17/22 Pcp, Unknown PCP - General 02/18/22 03/12/22 Alexis Whyte MD [address] [place] [address] PCP - General Family Medicine 03/13/22 documented as of this encounter Additional Source Comments The information contained in this document represents components of the legal health record. It is not the complete legal health record.[facility]
== END 2025-08-25 12:13 | disposition home or self-care (01) ==
PROVIDERS: PCP Family Medicine; Visit Provider Physical Medicine & Rehabilitation
DX: M54.2 Cervicalgia (principal); R20.0 Anesthesia of skin
CPT/HCPCS: 99204

== ENCOUNTER → 2025-08-25 12:05 | Outpatient (BNV) | payer OTHER, SELFPAY | PROVIDERS: PCP Family Medicine; Visit Provider Radiology Diagnostic Radiology | DX: M54.2 Cervicalgia (principal) | CPT/HCPCS: 72040 ==

== ENCOUNTER 2025-10-04 15:52 | Outpatient (AMB) | payer OTHER, SELFPAY ==
[2025-10-04 16:02] VITALS: BP 144/78; PULSE 108; O2SAT 96; BMI 33.7
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
--- OUTSIDE RECORDS SUMMARY | 2025-10-04 18:51 | XMS_ITS | Encounter Summary ---
Author Organization [facility] Address [address] [place] [address] Phone Care Team Providers Care Mold Dresser Name Role Phone Alexis Whyte MD Primary Care Provider Alexis Whyte MD Primary Care Provider Pcp, Unknown Primary Care Provider Unavailabl e Alexis Whyte MD Primary Care Provider Encounter Details Date Type Department Care Team (Late st Contact Info) Description 12/07/2020 Procedure Pass [facility] - MRI [address] [place] [address] Social History Tobacco Use Types Packs/Day Years [...] on filedocumented in this encounter Care Teams Mold Dresser Relationship Specialty Start Date End Date Alexis Whyte MD PCP - General 10/05/20 06/19/21 Alexis Whyte MD PCP - General 07/11/21 02/17/22 Pcp, Unknown PCP - General 02/18/22 03/12/22 Alexis Whyte MD PCP - General Family Medicine 03/13/22 documented as of this encounter Additional Source Comments The information contained in this document represents components of the legal health record. It is not the complete legal health record.[facility]
--- OUTSIDE RECORDS SUMMARY | 2025-10-04 18:51 | XMS_ITS | Encounter Summary ---
Author Organization [facility] Address [address] [place] [address] Phone Care Team Providers Care Set Key Driver Name Role Phone Alexis Whyte MD Primary Care Provider Alexis Whyte MD Primary Care Provider Pcp, Unknown Primary Care Provider Unavailabl e Alexis Whyte MD Primary Care Provider Encounter Details Date Type Department Care Team (Late st Contact Info) Description 12/07/2020 Procedure Pass [facility], Radio Flouroscopy [address] [place] [address] Social History Tobacco Use Types Packs/Day Years [...] on filedocumented in this encounter Care Teams Set Key Driver Relationship Specialty Start Date End Date Alexis [...] It is not the complete legal health record.[facility]
--- OUTSIDE RECORDS SUMMARY | 2025-10-04 18:51 | XMS_ITS | Data Portability ---
Author Organization [place] - [facility], Allergy Address [address] [address] Care Team Providers Care Cna Hha Name Role Phone VICENTE WELLS Primary Care [...] [email or web address] Ian Balbuena MD, [address], [place], [address], 07/28/2025 11:44:21 Medication Orders epinephri ne 0.3 mg/0.3 mL injection , auto-inje ctor 2024 025 [facility] [id number], [address] [facility], [place], [address], 08/01/2025 14:42:23 Patient TargetsNo targets recorded. Patient Instructions Encounter Date Encounter Id Patient Instructions Last Modified By Organization Details Last Modified Time 04/24/2025 [id number] spirometry testing* [email or web address] Not available 04/24/2025 16:08:34 08/01/2025 [id number] sublingual immunotherapy regimen* [email or web address] Not available 08/09/2025 13:01:55 Reason for Referral None Reported. Results Created Date Observation Date Name Description Value Unit Range Abnormal Flag Note LastModifiedBy Organization Detail LastModifiedTime 04/10/[address], sinus es, w/o contr ast No observ ation record ed. [facility] Ents Of [address], [address], 04/10/2025 11:54:04 04/24/20 25 pura metry testi ng* No observ ation record ed. [email or web address] Not Available 2024 13:15:02 04/26/20 25 04/10/2025 CT, sinus es, w/o contr ast No observ ation record ed. [facility] Of [address], [address], 04/26/2025 14:23:50 06/26/20 25 audio gram No observ ation record ed. BARCODE Not Available 2024 17:19:19 Result Notes None recorded. Problems Name Problem SNOMED Code Status Onset Date Resolution Date Notes Provider Name and Address Organization Details Recorded Time Pain of temporoma ndibular joint 28888747 Active 2014 Arthralgi a of temporoma ndibular joint; Note: Date Diagnosed : 09/27/2015 8:14 PM (M26.62) Not Available [facility] 4 02:35:14 Bilateral recurrent acute serous otitis media of middle ears 80317603285 45537 Active 2014 Acute serous otitis media, recurrent , bilateral ; Note: Date Diagnosed : 09/27/2015 8:14 PM (H65.06) Not Available [facility] 4 02:35:20 Bilateral tinnitus 41929648557 02 Active 2014 Tinnitus, bilateral ; Note: Date Diagnosed : 09/27/2015 8:14 PM (H93.13) SANTO SHIPMAN MA, [facility] 100 [facility] 100, [place], [address] , [place] - [facility] 5 16:07:05 Tobacco user 934105203 Active 2014 Tobacco use; Note: Date Diagnosed : 09/27/2015 8:15 PM (Z72.0) Not Available [facility] 4 02:35:14 Neck pain 86547736 Active 2014 Cervicalg ia; Note: Date Diagnosed : 5 5:08 PM (M54.2) Not Available [facility] 4 02:35:12 Otalgia of left ear 3112274354 Active 2015 Otalgia, left ear; Note: Date Diagnosed : 02/05/2016 12:54 PM (H92.02) Not Available [facility] 4 02:35:15 Acute serous otitis media of left ear 11260531066 73544 Active 2015 Acute serous otitis media, left ear; Note: Date Diagnosed : 02/05/2016 12:54 PM (H65.02) Not Available [facility] 4 02:35:23 Bilateral disorder of Eustachia n tubes 32880601343 14678 Active 2015 Other specified disorders of Eustachia n tube, bilateral ; Note: Date Diagnosed : 02/05/2016 12:54 PM (H69.83) Not Available [facility] 4 02:35:19 Acute sinusitis 24384505 Active 2015 Other acute sinusitis ; Note: Date Diagnosed : 02/05/2016 12:54 PM (J01.80) SAMINA ROWE RN 100 [facility] 100, [place], [address] , [facility] - [facility] 5 14:30:56 Allergic rhinitis 43390893 Active 2015 Perennial allergic rhinitis; Note: Date Diagnosed : 03/24/2016 5:16 AM (J30.89) Not Available [facility] 4 02:35:10 Dizziness and giddiness 773774650 Active 2020 Dizziness and giddiness ; Note: Date Diagnosed : 02/04/2021 10:21 AM (R42) Not Available [facility] 4 02:35:15 Chronic sinusitis 91124776 Active 2020 Other chronic sinusitis ; Note: Date Diagnosed : 02/04/2021 10:22 AM (J32.8) Not Available [facility] 4 02:35:13 Headache disorder 534189389 Active 2024 MEME CHAMPAGNE MD [address] [place] [address],[place] [address], [place], [address] , [facility] - [facility] [place] 5 11:53:58 Perennial allergic rhinitis 728449541 Active 2024 MEME CHAMPAGNE MD [address] [place] [address],[place] [address], [place], [address] , [facility] - [facility] [place] 5 11:54:14 Migraine variants 283813680 Active 2024 HEIDI COELLO PA-C [address] [place] [address],[place] [address], [place], [address] , [facility] - [facility] [place] 5 12:54:46 Vertigo 700702499 Active 2024 SANTO SHIPMAN MA, CCC-A 100 [facility],[place] [address], [place], [address] , [facility] - [facility] [place] 5 16:06:50 Bilateral temporoma ndibular joint pain 25137826051 677263 Active 2024 Roland Lowery DO [address] [place] [address],[place] [address], [place], [address] , [facility] - [facility] [place] 5 16:12:11 Problem Notes None recorded. Procedures Surgical History Date Name Laterality Status Provider Name and Address Organization Details Recorded Time 06/26/20 25 Air & Speech Audio with Tymps - 66938, 20674 & 66053 completed SANTO SHIPMAN MA, CCC-A 100 [facility],[place] [address], [place], [address], [facility] 06/26/2025 16:08:03 04/24/20 25 Allergy Testing-Full completed SAMINA ROWE RN 100 [facility],[place] [address], [place], [address], [facility] 04/24/2025 14:28:55 10/13/20 24 Air & Speech Audio with Tymps - 43788, 17244 & 22922 completed JAVIER KHANNA 100 [facility],[place] [address], [place], [address], [facility] 10/13/2024 13:30:43 cholecystectomy completed ISACC KELLY MD 100 [facility],[address], [address], [facility] 10/16/2024 11:21:02 Imaging Results None recorded. Procedure Notes None recorded. Medical Equipment None Reported. Allergies Allergen ID Allergen Name Allergen Category Reaction Reaction Severity Criticality Documentation Date Start Date Code Code System Note Provider Name and Address Organization Details Recorded Time 957319 codeine sulfate medicatio n Not available Not available Not available 04/05/2024 51085 RxNorm React ion: unspe cifie d, dizzy , Nause a; Not Available [facility] 4 01:13:13 Medications Name Sig Start Date [...] by mouth 10/13 completed Medicati on ID: [id number] D uration Value: 14 Prescri bed By [...] eye drops 10/13 completed Medicati on ID: [id number] B rand Name: ketotife n fumarate Send [...] mg tablet 10/12 completed Medicati on ID: [id number] B rand Name: terbinaf ine HCl Send [...] mg capsule 04/03 completed Medicati on ID: [id number] B rand Name: cephalex in Send Method: E-Prescr ibed Sub s Allowed: subs OK Speci al Instruct ion: TAKE 1 CAP (500 MG) BY MOUTH EVERY 12 HOURS 10 DAYS Med icationG enericNa me: cephalex in Not Available Not Available Not Available clotrimaz ole-betam ethasone 1 %-0.05 % topical cream 04/03 completed Medicati on ID: [id number] B rand Name: clotrima zole-bet amethaso ne [...] elayed release 01/14 completed Medicati on ID: [id number] D uration Value: 30 Brand Name: omeprazo le Send Method: E-Prescr ibed Sub s Allowed: subs OK Medic ationGen ericName : omeprazo le Not Available Not Available Not Available Banophen 25 mg capsule 04/10 completed Medicati on ID: [id number] B rand Name: Banophen Send Method: E-Prescr [...] mg tablet 10/13 completed Medicati on ID: [id number] D uration Value: 30 Brand Name: monteluk [...] as directed 10/13 completed Medicati on ID: [id number] D uration Value: 30 Brand Name: azelasti [...] mg tablet 04/03 completed Medicati on ID: [id number] B rand Name: Ativan S end Method: [...] topical cream 10/13 completed Medicati on ID: [id number] B rand Name: Athlete' s Foot (terbina [...] both nostrils 10/13 completed Medicati on ID: [id number] D uration Value: 30 Prescri bed By [...] Last Updated DateTime 170.18 cm 30.5 kg/m2 44132.5 1 g 98 % 98 % 114 /min 121/85 mm[Hg] SAMINA ROWE RN [address], [address], [place] - [facility] 13:05:54 Date Recorded Body height Body mass index (BMI) Body weight Provider Name and Address Organization Details Last Updated DateTime 06/28/2025 170.18 cm 30.5 kg/m2 32422.51 g Mamadou Gamboa MD - [facility] 06/28/2025 15:47:30 Date Recorded Body height Body mass index (BMI) Body weight Provider Name and Address Organization Details Last Updated DateTime 08/01/2025 170.18 cm 31.3 kg/m2 33259.47 g Kelli Jorge L MD - [facility] 08/01/2025 13:28:55 Date Recorded Body height Body mass index (BMI) Body weight Heart rate Systolic And Diastolic Provider Name and Address Organization Details Last Updated DateTime 08/21/2025 170.18 cm 32.9 kg/m2 09630.4 g 114 /min 129/82 mm[Hg] SAMINA ROWE RN [address] [place] [address], [address] , [place] - [facility] 08/21/2025 14:46:40 Social History Question Answer Notes LastModified by Organizat ion Details LastModified Time Tobacco Smoking Status Current Every Day Smoker ISACC KELLY MD [address] [place] [address], [address], [facility] - [facility] 10/16/2024 11:20:48 What Is Your Current [...] ICD10 Code Diagnosis IMO Codes Diagnosis Note [id number] ISACC KELLY MD [facility] [address] [address] 10/13/2024 13:11:10 10/13/2024 14:01:34 Dizziness and giddiness 763978516 R42 Right Ear:Normal hearing with excellent speech discrimina tion.Type A tympanogra m.Left Ear:Normal hearing with excellent speech discrimina tion.Type A tympanogra m. Allergic rhinitis 943975 04 J30.89 [id number] HEIDI COELLO PA-C [facility] [address] [address] 04/10/2025 10:58:05 04/10/2025 12:01:42 Headache disorder 220839793 G44.89 1189929 Perennial allergic rhinitis 743092388 J30.89 294217 Migraine variants 664519 005 G43.809 02702866 [id number] SAMINA ROWE RN Allergy [address] [place] [address] 04/24/2025 12:47:37 04/24/2025 14:30:32 Allergic rhinitis 43308212 J30.89 Perennial allergic rhinitis 639217779 J30.89 718588 [id number] BURAK OLIVA PA-C [facility] [address] [address] 08/01/2025 13:25:59 08/01/2025 13:52:02 Allergic rhinitis 50522385 J30.89 [id number] Roland Lowery DO [facility] [address] [address] 06/26/2025 15:32:45 06/26/2025 16:15:55 Vertigo 856601925 R42 65182 Audiologic al evaluation results: Right ear: Normal hearing with excellent word recognitio n. Left ear: Normal hearing with excellent word recognitio n. Tympanomet ry: Right Ear:Type A Left Ear:Type A Bilateral tinnitus 99308 11461 102 H93.13 582152 [id number] Roland Lowery DO [facility] [address] [address] 06/28/2025 15:34:10 06/28/2025 16:16:35 Headache disorder 655107696 G44.89 1534719 Perennial allergic rhinitis 373185355 J30.89 975284 Migraine variants 148203 005 G43.809 44242069 Bilateral temporomandibular joint pain 8310023710 2809668 M26.623 [id number] SAMINA ROWE RN Allergy [address] [place] [address] 08/21/2025 14:24:23 08/21/2025 15:40:21 Acute sinusitis 95396623 J01.80 Health Concerns Section Related Observation LastModified by Organization Detai ls LastModified Time None Recorded Concern Status LastModified by Organization Details LastModified Time None Recorded Advance Directives Directive None Recorded Payers Insurance Date Sequence Insurance Name Policy Number Policy Montero Covered Member ID Montero Member ID Guarantor Name 08/18/2025 1 [facility] (MEDICAID HMO) CYNDY Frost [id number] Lucie Frost Notes Date Note Type Note [...] Benadryl for breakthrough symptoms. Roland Lowery, 100 [facility],[address], [address], [facility] - [facility] 06/28/2025 16:29:54 08/01/2025 text/html ROS as noted in the HPI 45yo female with history of migraine and TMJ presents for allergy test results. She has moderate sensitivities to weeds, grass, cats, dogs, and mold. She endorses having multiple cats and dogs at home. Continues to endorse dizziness, nasal congestion, facial pain, photophobia, and hyperacusis. No improvement with [id number] allergy medication. CT sinus 03/2025 normal. She was evaluated by a vestibular physical therapist, who does not suspect benign paroxysmal positional vertigo. She is scheduled to follow up with orthopedic surgeon for neck and shoulder pain next month, which she suspects is exacerbating her headaches. She is followed by neurology at [facility], and feels her symptoms are unrelated to her underlying migraine. History of severe migraines, starting at 6 years old. She has status post shoulder reconstruction, with subsequent pain. UGO TY MD 100 [facility],[address], [address], [facility] 08/01/2025 17:46:54 08/21/2025 text/html Patient with a history of allergic rhinitis presents to initiate sublingual immunotherapy. The patient has brought an epipen to today's visit as instructed. Proper consents were obtained and signed by the patient prior to the visit.Patient with elevated pulse rate. Reviewed with Dr. Busch who authorized proceeding with visit. SAMINA ROWE RN [address] [place] [address], [place], [address], [facility] - [facility] 08/21/2025 15:40:25 OBGyn Episode No OBEpisode recorded.
--- OUTSIDE RECORDS SUMMARY | 2025-10-04 18:51 | XMS_ITS | Continuity of Care Document ---
Author Organization [place] - [facility], Allergy Address [address] [address] Care Team Providers Care Day Habilitation Specialist Name Role Phone VICENTE WELLS Primary Care Provider [phone] Assessment Encounter Date Assessment Date Assessment LastModified [...] Organization Details Last Modified Time Details Appointments [facility]- Allergy f-up 6mon 2025 02:00P M BURAK [...] Recorded Time Pain of temporoma ndibular joint 44582167 Active 2014 Arthralgi a of temporoma ndibular joint; Note: Date Diagnosed : 09/27/2015 8:14 PM (M26.62) Not Available [facility] 4 02:35:14 Bilateral recurrent acute serous otitis media of middle ears 63093482504 49671 Active 2014 Acute serous otitis media, recurrent , bilateral ; Note: Date Diagnosed : 09/27/2015 8:14 PM (H65.06) Not Available [facility] 4 02:35:20 Bilateral tinnitus 55220770953 02 Active 2014 Tinnitus, bilateral ; Note: Date Diagnosed : 09/27/2015 8:14 PM (H93.13) SANTO SHIPMAN MA, CCC-A 100 [facility] 100, [place], [address] , [facility] - [facility] 5 16:07:05 Tobacco user 340566755 Active 2014 Tobacco use; Note: Date Diagnosed : 09/27/2015 8:15 PM (Z72.0) Not Available [facility] 4 02:35:14 Neck pain 58206617 Active 2014 Cervicalg ia; Note: Date Diagnosed : 5 5:08 PM (M54.2) Not Available [facility] 4 02:35:12 Otalgia of left ear 6682369956 Active 2015 Otalgia, left ear; Note: Date Diagnosed : 02/05/2016 12:54 PM (H92.02) Not Available [facility] 4 02:35:15 Acute serous otitis media of left ear 03700700767 41021 Active 2015 Acute serous otitis media, left ear; Note: Date Diagnosed : 02/05/2016 12:54 PM (H65.02) Not Available [facility] 4 02:35:23 Bilateral disorder of Eustachia n tubes 22121077768 37734 Active 2015 Other specified disorders of Eustachia n tube, bilateral ; Note: Date Diagnosed : 02/05/2016 12:54 PM (H69.83) Not Available [facility] 4 02:35:19 Acute sinusitis 39059772 Active 2015 Other acute sinusitis ; Note: Date Diagnosed : 02/05/2016 12:54 PM (J01.80) SAMINA ROWE RN 100 [facility] 100, [place], [address] , [facility] 5 14:30:56 Allergic rhinitis 89754526 Active 2015 Perennial allergic rhinitis; Note: Date Diagnosed : 03/24/2016 5:16 AM (J30.89) Not Available [facility] 4 02:35:10 Dizziness and giddiness 679082675 Active 2020 Dizziness and giddiness ; Note: Date Diagnosed : 02/04/2021 10:21 AM (R42) Not Available [facility] 4 02:35:15 Chronic sinusitis 44975025 Active 2020 Other chronic sinusitis ; Note: Date Diagnosed : 02/04/2021 10:22 AM (J32.8) Not Available [facility] 4 02:35:13 Headache disorder 276975225 Active 2024 MEME CHAMPAGNE MD [facility] [place] [address], [place], [address] , [place] - [facility] [place] 5 11:53:58 Perennial allergic rhinitis 739648791 Active 2024 MEME CHAMPAGNE MD 100 [facility] 100, [place], [address] , [place] - [facility] [place] 5 11:54:14 Migraine variants 889513160 Active 2024 HEIDI COELLO PA-C 100 [facility],[place] [address], [place], [address] , [place] - [facility] [place] 5 12:54:46 Vertigo 923050033 Active 2024 SANTO SHIPMAN MA, CCC-A [facility] [place] [address], [place], [address] , [place] - [facility] [place] 5 16:06:50 Bilateral temporoma ndibular joint pain 24754202215 792284 Active 2024 Roland Lowery DO 100 [facility] [place] [address], [place], [address] , [place] - [facility] [place] 5 16:12:11 Problem Notes None recorded. Procedures Surgical History Date Name Laterality Status Provider Name and Address Organization Details Recorded Time 06/26/20 Air & Speech Audio with Tymps - 15450, 90010 & 15874 completed SANTO SHIPMAN MA, CCC-A 100 [facility],[address], [address], [facility] 06/26/2025 16:08:03 04/24/20 25 Allergy Testing-Full completed SAMINA ROWE RN 100 [facility],[address], [address], [facility] 04/24/2025 14:28:55 10/13/20 24 Air & Speech Audio with Tymps - 82432, 89936 & 74261 completed JAVIER KHANNA 100 [facility],[address], [address], [facility] 10/13/2024 13:30:43 cholecystectomy completed ISACC KELLY MD 100 [facility],[address], [address], [facility] 10/16/2024 11:21:02 Imaging Results None recorded. Procedure Notes None recorded. Medical Equipment None Reported. Allergies Allergen ID Allergen Name Allergen Category Reaction Reaction Severity Criticality Documentation Date Start Date Code Code System Note Provider Name and Address Organization Details Recorded Time 778689 codeine sulfate medicatio n Not available Not available Not available 04/05/2024 05474 RxNorm React ion: unspe cifie d, dizzy , Nause a; Not Available [facility] 01:13:13 Medications Name Sig Start Date Stop [...] by mouth 10/13 completed Medicati on ID: [id number] D uration Value: 14 Prescri bed By [...] eye drops 10/13 completed Medicati on ID: [id number] B rand Name: ketotife n fumarate Send [...] mg tablet 10/12 completed Medicati on ID: [id number] B rand Name: terbinaf ine HCl Send [...] mg capsule 04/03 completed Medicati on ID: [id number] B rand Name: cephalex in Send Method: E-Prescr ibed Sub s Allowed: subs OK Speci al Instruct ion: TAKE 1 CAP (500 MG) BY MOUTH EVERY 12 HOURS 10 DAYS Med icationG enericNa me: cephalex in Not Available Not Available Not Available clotrimaz ole-betam ethasone 1 %-0.05 % topical cream 04/03 completed Medicati on ID: [id number] B rand Name: clotrima zole-bet amethaso ne [...] elayed release 01/14 completed Medicati on ID: [id number] D uration Value: 30 Brand Name: omeprazo le Send Method: E-Prescr ibed Sub s Allowed: subs OK Medic ationGen ericName : omeprazo le Not Available Not Available Not Available Banophen 25 mg capsule 04/10 completed Medicati on ID: [id number] B rand Name: Banophen Send Method: E-Prescr [...] mg tablet 10/13 completed Medicati on ID: 479502 D uration Value: 30 Brand Name: monteluk [...] as directed 10/13 completed Medicati on ID: [id number] D uration Value: 30 Brand Name: azkadensti [...] mg tablet 04/03 completed Medicati on ID: [id number] B rand Name: Ativan S end Method: [...] topical cream 10/13 completed Medicati on ID: [id number] B rand Name: Athlete' s Foot (terbina [...] both nostrils 10/13 completed Medicati on ID: [id number] D uration Value: 30 Prescri bed By [...] Updated DateTime 08/21/2025 170.18 cm 32.9 kg/m2 60223.4 g 114 /min 129/82 mm[Hg] SAMINA ROWE RN 100 [facility],[place] [address], [facility] [place], [address] , [place] - [facility] 08/21/2025 14:46:40 Social History Question Answer Notes LastModified by Organizat ion Details LastModified Time Tobacco Smoking Status Current Every Day Smoker ISACC KELLY MD 100 [facility],[place] [address], [place], [address], [facility] - [facility] 10/16/2024 11:20:48 What Is Your Current [...] ICD10 Code Diagnosis IMO Codes Diagnosis Note [id number] BURAK OLIVA PA-C [facility] [address] [place] [address] 08/01/2025 13:25:59 08/01/2025 13:52:02 Allergic rhinitis 31624886 J30.89 [id number] SAMINA ROWE RN Allergy 100 [facility] ite [address] [place] [address] [place] [address] 08/21/2025 14:24:23 08/21/2025 15:40:21 Acute sinusitis 38667289 J01.80 Health Concerns Section Related Observation LastModified by Organization Detai ls LastModified Time None Recorded Concern Status LastModified by Organization Details LastModified Time None Recorded Payers Encounter Date Sequence Insurance Name Policy Number Policy Montero Covered Member ID Montero Member ID Guarantor Name 08/21/2025 1 [facility] - HEALTH NET PLAN (MEDICAID HMO) CYNDY Lucie Frost [id number] Lucie Frost Notes Date Note Type Note [...] authorized proceeding with visit. SAMINA ROWE RN [address] [place] [address], [address], [place] - [facility] 08/21/2025 15:40:25 OBGyn Episode No OBEpisode recorded.
--- OUTSIDE RECORDS SUMMARY | 2025-10-04 18:51 | XMS_ITS | Encounter Summary ---
Author Organization [facility] Address [address] [place] [address] Phone Care Team Providers Care Applications Development Consultant Name Role Phone Alexis Whyte MD Primary Care Provider Pcp, Unknown Primary Care Provider Unavailabl e Alexis Whyte MD Primary Care Provider Encounter Details Date Type Department Care Team (Late st Contact Info) Description 07/10/2021 Procedure Pass [facility] Outpatient Care, Radio Flouroscopy [address] [place] [address] Social History Tobacco Use Types Packs/Day Years [...] on filedocumented in this encounter Care Teams Applications Development Consultant Relationship Specialty Start Date End Date Alexis Whyte MD PCP - General 07/11/21 02/17/22 Pcp, Unknown PCP - General 02/18/22 03/12/22 Alexis Whyte MD PCP - General Family Medicine 03/13/22 documented as of this encounter Additional Source Comments The information contained in this document represents components of the legal health record. It is not the complete legal health record.[facility]
--- OUTSIDE RECORDS SUMMARY | 2025-10-04 18:51 | XMS_ITS | Encounter Summary ---
Author Organization [facility] Address [address] [place] [address] Phone Care Team Providers Care Nurse Rn Bsn Name Role Phone Alexis Whyte MD Primary Care Provider Alexis Whyte MD Primary Care Provider Pcp, Unknown Primary Care Provider Unavailabl e Alexis Whyet MD Primary Care Provider Encounter Details Date Type Department Care Team (Late st Contact Info) Description 02/15/2021 Transcribe Orders [facility] Outpatient Care, Radio Flouroscopy [address] [place] [address] Anastasia Maher [address] [place] [phone] [email or web address] Social History Tobacco Use Types Packs/Day Years [...] on filedocumented in this encounter Care Teams Nurse Rn Bsn Relationship Specialty Start Date End Date Alexis [...] It is not the complete legal health record.[facility]
--- OUTSIDE RECORDS SUMMARY | 2025-10-04 18:51 | XMS_ITS | Encounter Summary ---
Author Organization [facility] Address [address] [place] [address] Phone Care Team Providers Care Online Producer Name Role Phone Alexis Whyte MD Primary Care Provider Alexis Whyte MD Primary Care Provider Pcp, Unknown Primary Care Provider Unavailabl e Alexis Whyte MD Primary Care Provider Encounter Details Date Type Department Care Team (Late st Contact Info) Description 01/09/2021 Transcribe Orders [facility] Outpatient Care, Radio Flouroscopy [address] [place] [address] Gricel Nicholson [address] [place] [phone] [email or web address] Social History Tobacco Use Types Packs/Day Years [...] on filedocumented in this encounter Care Teams Online Producer Relationship Specialty Start Date End Date Alexis hWyte MD PCP - General 10/05/20 06/19/21 Alexis Whyte MD PCP - General 07/11/21 02/17/22 Pcp, Unknown PCP - General 02/18/22 03/12/22 Alexis Whyte MD PCP - General Family Medicine 03/13/22 documented as of this encounter Additional Source Comments The information contained in this document represents components of the legal health record. It is not the complete legal health record.[facility]
--- OUTSIDE RECORDS SUMMARY | 2025-10-04 18:51 | XMS_ITS | Encounter Summary ---
Author Organization [facility] Address [address] [place] [address] Phone Care Team Providers Care Court Registry Officer Name Role Phone Alexis Whyte MD Primary Care Provider Alexis Whyte MD Primary Care Provider Pcp, Unknown Primary Care Provider Unavailabl e Alexis Whyte MD Primary Care Provider Encounter Details Date Type Department Care Team (Late st Contact Info) Description 01/22/2021 Procedure Pass [facility] Outpatient Care - Ultrasound [address] [place] [address] Social History Tobacco Use Types Packs/Day Years [...] on filedocumented in this encounter Care Teams Court Registry Officer Relationship Specialty Start Date End Date Alexis [...] is not the complete legal health record.[facility]
--- OUTSIDE RECORDS SUMMARY | 2025-10-04 18:51 | XMS_ITS | Data Portability ---
Author Organization [facility] [address] Address [address] [place] [phone] Assessment No assessment recorded. Plan of Treatment Reminders Order Date Submit Date Provider Last Modified By Organization Details Last Modified Time Details Appointments None record ed. Lab None record ed. Referral None record ed. Procedures None record ed. Surgeries None record ed. Imaging XR, foot, 3 or more view 023 12/19/19 [facility], [address] [place], [address], 18:49:37 Medication Orders None record ed. Patient TargetsNo targets recorded. Patient Instructions Encounter Date Encounter Id Patient Instructions Last Modified By Organization Details Last Modified Time 12/19/2022 [id number] learning about rice (rest, ice, compression, and elevation) [email or web address] Not available 12/19/2022 17:22:07 Reason for Referral None Reported. Results Created Date Observation Date Name Description Value Unit Range Abnormal Flag Note LastModifiedBy Organization Detail LastModifiedTime 12/19/19 23 12/19/2022 XR, foot, 3 or more view No observ ation record ed. [email or web address] [facility] [address] [place], [address], 12/19/2022 19:56:02 Result Notes None recorded. Problems Name Problem SNOMED Code Status Onset Date Resolution Date Notes Provider Name and Address Organization Details Recorded Time Depressive disorder 68514185 Active 023 Sharee Carlos skaggs, [place] - [facility] 17:08:42 Anxiety 65585462 Active 023 Sharee Carlos null, [place] - [facility] 3 17:08:47 Seasonal allergic rhinitis 054390116 Active 023 Sharee Gonzalez null, [place] - [facility] 3 17:08:53 Migraine 80843081 Active 023 Sharee Gonzalez null, [place] - [...] Name and Address Organization Details Recorded Time 305356 codeine medicatio n hives Not available low 12/19/2022 2670 RxNorm Shaere skaggs, [place] - [facility] 3 17:06:31 [...] Updated DateTime 3 167.64 cm 29.1 kg/m2 29859.6 3 g 97 % 97 % 102 /min 20 /min 98.1 [degF] 114/84 mm[Hg] Sharee Holder [facility] 3 17:11:32 Social History Question Answer Notes LastModified by [employer] Details LastModified Time Tobacco Smoking Status Current [...] Functional Status Question Answer Note LastModified by [employer] Details LastModified Time Do you use any [...] rS-Ad26, PF, 0.5 mL 1 completed Sharee Scappoose null, [place] - [facility] 12/19/2022 17:06:17 Influenza, split virus, trivalent, preservative 5 completed Sharee Scappoose null, [place] - [facility] 12/19/2022 17:06:17 Past Encounters Encounter ID Performer Location Encounter Start Date Encounter Closed Date Diagnosis/Indication Diagnosis SNOMED-CT Code Diagnosis ICD10 Code Diagnosis IMO Codes Diagnosis Note [id number] [address] [address] [address] 07/20/2019 18:46:11 07/20/2019 19:49:41 [id number] _[facility] [address] [place] [address] 07/25/2022 16:52:51 07/25/2022 18:52:42 [id number] _[facility] _[address] [address] 07/24/2019 17:41:55 07/24/2019 19:00:46 [id number] Daniele Lynne DO [facility] [place] [address] 12/19/2022 16:10:49 12/19/2022 17:48:15 Pain in left foot 4704409904 95046 M79.672 foot sprain. No obvious Fx on [...] [employer] - HEALTH NET PLAN (MEDICAID HMO) ROALJAMEYWilmer Lucie Frost [id number] Lucie Frost Notes Date Note Type Note Provider Name and Address Organization Details Recorded Time 12/19/2022 text/html Foot/Ankle UCReported by PatientL foot pain x 1 dwas at a wake and fell when descending the stairs, foot invertedc/o pain in front of foot1-2 toes+ some swellingno bruisingtried ibu and tylenol x 1 dose w/ minimal improvementno numbness/tinglingno weakness+ pain with ambulation Daniele Lynne, DO [address] [place], [place], [address], [place] - [facility] 12/19/2022 17:41:12 OBGyn Episode No OBEpisode recorded.
--- OUTSIDE RECORDS SUMMARY | 2025-10-04 18:51 | XMS_ITS | Encounter Summary ---
Author Organization [facility] Address [address] [place] [address] Phone Care Team Providers Care Side Seam Machine Operator Name Role Phone Alexis Whyte MD Primary Care Provider Pcp, Unknown Primary Care Provider Unavailabl e Alexis Whyte MD Primary Care Provider Encounter Details Date Type Department Care Team (Late st Contact Info) Description 2021 Transcribe Orders [facility] Outpatient Care, Radio Flouroscopy [address] [place] [address] [email or web address] Social History Tobacco Use [...] on filedocumented in this encounter Care Teams Side Seam Machine Operator Relationship Specialty Start Date End Date Alexis Whyte MD PCP - General 07/11/21 02/17/22 Pcp, Unknown PCP - General 02/18/22 03/12/22 Alexis Whyte MD PCP - General Family Medicine 03/13/22 documented as of this encounter Additional Source Comments The information contained in this document represents components of the legal health record. It is not the complete legal health record.[facility]
--- OUTSIDE RECORDS SUMMARY | 2025-10-04 18:51 | XMS_ITS | Clinical Summary ---
Author Organization [facility] Address [address] [place] [address] Phone Care Team Providers Care Order Control Clerk Blood Bank Name Role Phone Alexis Whyte MD Primary [...] on patient's age to complete this topic IPV VACCINES Aged Out No longer eligi ble [...] topic Medical Devices Not on file Insurance [employer] [address] [place] [address] [place] [address] [place] [address] ACO Care Teams Order Control Clerk Blood Bank Relationship Specialty Start Date End Date Alexis Whyte MD PCP - General Family Medicine 03/13/22 Additional Source Comments The information contained in this document represents components of the legal health record. It is not the complete legal health record.[facility]
--- OUTSIDE RECORDS SUMMARY | 2025-10-04 18:51 | XMS_ITS | Encounter Summary ---
Author Organization [facility] Address [address] [place] [address] Phone Care Team Providers Care Compilation Clerk Name Role Phone Alexis Whyte MD Primary Care Provider Pcp, Unknown Primary Care Provider Unavailabl e Alexis Whyte MD Primary Care Provider Reason for Referral * Outpatient Procedure - Closed Specialty Diagnoses / Procedures Referred By Lazaro macdonald Referred To Contact Radiology Diagnoses Pain in joint, shoulder region Procedures FL Large-Joint Injection (Left) FL Medium-Joint Injection (Left) AR ARTHROCENTESIS ASPIR&/INJ INTERM JT/BURS W/O US AR ARTHROCENTESIS ASPIR&/INJ INTERM JT/BURS W/US CHG FLUOROSCOPIC GUIDANCE NEEDLE PLACEMENT ADD ON AR ARTHROCENTESIS ASPIR&/INJ MAJOR JT/BURSA W/O US AR ARTHROCENTESIS ASPIR&/INJ MAJOR JT/BURSA W/US Shadi Diaz Jp, MD Phone: tel: fax: [email or web address] Referral ID Status Reason Start Date Expiration Date Visits Re quested Visits Authorized [id number] Closed 07/10/2021 08/23/2021 1 1 Encounter Details Date Type Department Care Team (Latest Contact Info) Description 2021 Ancillary Orders [facility] Department of Orthopaedic Surgery, Shoulder Service [address] [place] [address], 3rd Floor, [address] [place] [address] Shadi Diaz Jp, MD [address] [facility] [place] [address] [email or web address] Pain in joint, shoulder region [...] region documented in this encounter Care Teams Compilation Clerk Relationship Specialty Start Date End Date Alexis Whyte MD PCP - General 07/11/21 02/17/22 Pcp, Unknown PCP - General 02/18/22 03/12/22 Alexis Whyte MD PCP - General Family Medicine 03/13/22 documented as of this encounter Additional Source Comments The information contained in this document represents components of the legal health record. It is not the complete legal health record.[facility]
--- OUTSIDE RECORDS SUMMARY | 2025-10-04 18:51 | XMS_ITS | Continuity of Care Document ---
Author Organization [place] - [facility], [facility] Address [address] [place] [address] Care Team Providers Care Range Manager Name Role Phone PRISCILLA VICENTE Primary Care Provider Assessment Encounter Date Assessment Date Assessment LastModified by Organization Details LastModified Time 08/01/2025 08/01/2025 The patient has significant allergies. [...] neck pain. [email or web address] Not available 08/01/2025 14:41:40 Plan of Treatment Reminders Order Date Submit Date Provider Last Modified By Organization Details Last Modified Time Details Appointments Establish ed- Allergy f-up 6mon 2025 02:00P M BURAK OLIVA PA-C Not available Not available Not available Lab None recorded. Referral None recorded. Procedures None recorded. Surgeries None recorded. Imaging None recorded. Medication Orders epinephri ne 0.3 mg/0.3 mL injection , auto-inje ctor 2024 025 [id number], [address], [place], [address], 08/01/2025 14:42:23 Patient TargetsNo targets recorded. Patient Instructions Encounter Date Encounter Id Patient Instructions Last Modified By Organization Details Last Modified Time 08/01/2025 [id number] sublingual immunotherapy regimen* [email or web address] Not available 08/09/2025 13:01:55 Reason for Referral None Reported. Problems Name Problem SNOMED Code Status Onset Date Resolution Date Notes Provider Name and Address Organization Details Recorded Time Pain of temporoma ndibular joint 47810822 Active 2014 Arthralgi a of temporoma ndibular joint; Note: Date Diagnosed : 09/27/2015 8:14 PM (M26.62) Not Available [facility] 4 02:35:14 Bilateral recurrent acute serous otitis media of middle ears 10852403048 76897 Active 2014 Acute serous otitis media, recurrent , bilateral ; Note: Date Diagnosed : 09/27/2015 8:14 PM (H65.06) Not Available [facility] 4 02:35:20 Bilateral tinnitus 02465850237 02 Active 2014 Tinnitus, bilateral ; Note: Date Diagnosed : 09/27/2015 8:14 PM (H93.13) SANTO SHIPMAN [place], [facility] [address] [place] [address], [phone] , [facility] - [facility] 5 16:07:05 Tobacco user 681224012 Active 2014 Tobacco use; Note: Date Diagnosed : 09/27/2015 8:15 PM (Z72.0) Not Available [facility] 4 02:35:14 Neck pain 67465404 Active 2014 Cervicalg ia; Note: Date Diagnosed : 5 5:08 PM (M54.2) Not Available [facility] 4 02:35:12 Otalgia of left ear 7359721283 Active 2015 Otalgia, left ear; Note: Date Diagnosed : 02/05/2016 12:54 PM (H92.02) Not Available [facility] 4 02:35:15 Acute serous otitis media of left ear 03173581953 30017 Active 2015 Acute serous otitis media, left ear; Note: Date Diagnosed : 02/05/2016 12:54 PM (H65.02) Not Available [facility] 4 02:35:23 Bilateral disorder of Eustachia n tubes 30320290280 77501 Active 2015 Other specified disorders of Eustachia n tube, bilateral ; Note: Date Diagnosed : 02/05/2016 12:54 PM (H69.83) Not Available [facility] 4 02:35:19 Acute sinusitis 42081420 Active 2015 Other acute sinusitis ; Note: Date Diagnosed : 02/05/2016 12:54 PM (J01.80) SAMINA ROWE RN [address] [place] [address],[place] [address], [place], [phone] , [facility] - [facility] 5 14:30:56 Allergic rhinitis 96121066 Active 2015 Perennial allergic rhinitis; Note: Date Diagnosed : 03/24/2016 5:16 AM (J30.89) Not Available [facility] 4 02:35:10 Dizziness and giddiness 713589981 Active 2020 Dizziness and giddiness ; Note: Date Diagnosed : 02/04/2021 10:21 AM (R42) Not Available [facility] 4 02:35:15 Chronic sinusitis 71228561 Active 2020 Other chronic sinusitis ; Note: Date Diagnosed : 02/04/2021 10:22 AM (J32.8) Not Available [facility] 4 02:35:13 Headache disorder 351806387 Active 2024 MEME CHAMPAGNE MD [address] [place] [address],[place] [address], [place], [phone] , [facility] 5 11:53:58 Perennial allergic rhinitis 779233938 Active 2024 MEME CHAMPAGNE MD [address] [facility],[place] [address], [place], [address] , [place] - [facility] 11:54:14 Migraine variants 467225948 Active 2024 HEIDI COELLO PA-C [address] [facility],[place] [address], [facility] [place], [phone] , [facility] - [facility] 12:54:46 Vertigo 403099670 Active 2024 SANTO SHIPMAN [place], CCC-A [address] [facility],[place] [address], [place], [address] , [facility] - [facility] 16:06:50 Bilateral temporoma ndibular joint pain 19173357160 467788 Active 2024 Roland Lowery DO [address] [facility],[place] [address], [facility] [place], [phone] , [place] - [facility] 16:12:11 Problem Notes None recorded. Procedures Surgical History Date Name Laterality Status Provider Name and Address Organization Details Recorded Time 06/26/20 25 Air & Speech Audio with Tymps - 72297, 25856 & 71071 completed SANTO SHIPMAN [place], CCC-A [address] [facility],[place] [address], [place], [address], [facility] - [facility] 06/26/2025 16:08:03 04/24/20 25 Allergy Testing-Full completed SAMINA ROWE RN [address] [facility],[address], [phone], [facility] - [facility] 04/24/2025 14:28:55 10/13/20 24 Air & Speech Audio with Tymps - 10574, 79396 & 05108 completed JAVIER KHANNA [address] [facility],[address], [address], [facility] - [facility] 10/13/2024 13:30:43 cholecystectomy completed ISACC KELLY MD [address] [facility],[address], [address], [facility] - [facility] 10/16/2024 11:21:02 Imaging Results None recorded. Procedure Notes None recorded. Medical Equipment None Reported. Allergies Allergen ID Allergen Name Allergen Category Reaction Reaction Severity Criticality Documentation Date Start Date Code Code System Note Provider Name and Address Organization Details Recorded Time 837828 codeine sulfate medicatio n Not available Not available Not available 04/05/2024 04127 RxNorm React ion: unspe cifie d, dizzy , Nause a; Not Available [facility] 01:13:13 Medications Name Sig Start Date Stop [...] by mouth 10/13 completed Medicati on ID: [id number] D uration Value: 14 Prescri bed By [...] eye drops 10/13 completed Medicati on ID: 698111 B rand Name: ketotife n fumarate Send [...] mg tablet 10/12 completed Medicati on ID: 861654 B rand Name: terbinaf ine HCl Send [...] mg capsule 04/03 completed Medicati on ID: [id number] B rand Name: cephalex in Send Method: E-Prescr ibed Sub s Allowed: subs OK Speci al Instruct ion: TAKE 1 CAP (500 MG) BY MOUTH EVERY 12 HOURS 10 DAYS Med icationG enericNa me: cephalex in Not Available Not Available Not Available clotrimaz ole-betam ethasone 1 %-0.05 % topical cream 04/03 completed Medicati on ID: [id number] B rand Name: clotrima zole-bet amethaso ne [...] elayed release 01/14 completed Medicati on ID: [id number] D uration Value: 30 Brand Name: omeprazo le Send Method: E-Prescr ibed Sub s Allowed: subs OK Medic ationGen ericName : omeprazo le Not Available Not Available Not Available Banophen 25 mg capsule 04/10 completed Medicati on ID: [id number] B rand Name: Banophen Send Method: E-Prescr ibed Sub s Allowed: subs OK Speci al Instruct ion: TAKE 1 CAPSULE BY MOUTH AT BEDTIME NEEDED M jocelynn Demieneric Name: Banophen Not Available Not Available Not Available diltiazem CD 120 mg capsule,e xtended release 24 hr TAKE 1 CAPSULE BY MOUTH DAILY active Not Available Not Available No t Available montel[address] st 10 mg tablet 10/13 completed Medicati on ID: 027025 D uration Value: 30 Brand Name: monteluk [...] as directed 10/13 completed Medicati on ID: [id number] D uration Value: 30 Brand Name: azelasti [...] mg tablet 04/03 completed Medicati on ID: [id number] B rand Name: Ativan S end Method: [...] topical cream 10/13 completed Medicati on ID: 795538 B rand Name: Athlete' s Foot (terbina lisa) Se nd Method: E-Prescr ibed Sub s Allowed: subs OK Medic ationGen ericName : Athlete' s Foot (terbina lisa) Not Available Not Available Not Available Gavilax 17 gram/dose oral powder TAKE DIRECTED BY MOUTH THE DAY BEFORE YOUR PROCEDUR E. 10/13 completed Not Available Not Available Not Available QNASL 80 mcg/actua tion nasal aerosol spray 2 spray into both nostrils 10/13 completed Medicati on ID: [id number] D uration Value: 30 Prescri bed By Name: Isacc askew MD Brand Name: QNASL Se nd Method: E-Prescr ibed Sub s Allowed: subs OK Medic ationGen ericName : QNASL Not Available Not Available Not Available Vitals Date Recorded Body height Body mass index (BMI) Body weight Provider Name and Address Organization Details Last Updated DateTime 08/01/2025 170.18 cm 31.3 kg/m2 44206.47 g Kelli Coats [place] - [facility] 08/01/2025 13:28:55 Social History Question Answer Notes LastModified by Organizat ion Details LastModified Time Tobacco Smoking Status Current Every Day Smoker ISACC KELLY MD [address] [place] [address], [phone] [place] - [facility] 10/16/2024 11:20:48 What Is Your Current [...] ICD10 Code Diagnosis IMO Codes Diagnosis Note [id number] BURAK OLIVA PA-C [facility] [address] [place] [address] 08/01/2025 13:25:59 08/01/2025 13:52:02 Allergic rhinitis 09541349 J30.89 Health Concerns Section Related Observation LastModified by Organization Detai ls LastModified Time None Recorded Concern Status LastModified by Organization Details LastModified Time None Recorded Payers Encounter Date Sequence Insurance Name Policy Number Policy Montero Covered Member ID Montero Member ID Guarantor Name 08/01/2025 1 [facility] - HEALTH NET PLAN (MEDICAID HMO) CYNDY Frost [id number] Lucie Frost Notes Date Note Type Note Provider Name and Address Organization Details Recorded Time 08/01/2025 text/html ROS as noted in the HPI 45yo female with history of migraine and TMJ presents for allergy test results. She has moderate sensitivities to weeds, grass, cats, dogs, and mold. She endorses having multiple cats and dogs at home. Continues to endorse dizziness, nasal congestion, facial pain, photophobia, and hyperacusis. No improvement with [id number] allergy medication. CT sinus 03/2025 normal. She was evaluated by a vestibular physical therapist, who does not suspect benign paroxysmal positional vertigo. She is scheduled to follow up with orthopedic surgeon for neck and shoulder pain next month, which she suspects is exacerbating her headaches. She is followed by neurology at [facility], and feels her symptoms are unrelated to her underlying migraine. History of severe migraines, starting at 6 years old. She has status post shoulder reconstruction, with subsequent pain. UGO TY MD [address] [facility],[address], [address], [facility] - [facility] 08/01/2025 17:46:54 OBGyn Episode No OBEpisode recorded.
== END 2025-10-04 16:38 | disposition home or self-care (01) ==
LOC: HO.HGI 15:53
PROVIDERS: PCP Family Medicine; Visit Provider Nurse Practitioner
DX: K21.00 Gastro-esophageal reflux disease with esophagitis, without bleeding (principal); K91.5 Postcholecystectomy syndrome
CPT/HCPCS: 99213

== ENCOUNTER → 2025-10-04 15:52 | Outpatient (BNVA) | payer OTHER, SELFPAY | PROVIDERS: PCP Family Medicine; Visit Provider Nurse Practitioner | DX: K91.5 Postcholecystectomy syndrome (principal); K21.00 Gastro-esophageal reflux disease with esophagitis, without bleeding | CPT/HCPCS: 99212 ==

== ENCOUNTER → 2025-11-06 13:53 | Outpatient (REF) | payer OTHER, SELFPAY ==
--- NOTE | 2025-11-06 13:55 | CA_ITS ---
Transthoracic Echocardiogram Patient (Last, First, Middle): Lucie Frost K Gender: F Date of : 1980 Age: 45 Procedure Date: 11/06/2025 Procedure Type: Transthoracic Echocardiogram Location: OP Height: 170.18 cm Weight: 97.52 kg BSA: 2.09 m2 Heart Rate: bpm BP: 144 / 78 mmHg Application Security Architect: ALAN Referring MD: Miguel Best MD Community Service Organization Director: Alfredo Bennett MD Symptoms: I42.9 - Cardiomyopathy, unspecified Study Quality: Adequate with contrast ECG Rhythm: Sinus Conclusions: - 1. Mildly to moderately reduced LV ejection fraction 40-45% with grade 1 diastolic dysfunction 2. Normal cardiac valvular Doppler 3. No gross pericardial effusion Findings Procedure Information Contrast agent, definity, is being given per protocol without apparent complications. Left Ventricle Normal left ventricular cavity size. There is normal left ventricular wall thickness. The left ventricular systolic function is mild to moderately decreased. The visually estimated ejection fraction is between 40-45%. Spectral Doppler is indicative of an impaired relaxation filling pattern. E/E prime ratio is <8, consistent with normal filling pressures. Right Ventricle Normal right ventricular cavity size and systolic function. Atria The left atrium is normal in size. Interatrial shunt cannot be excluded. The right atrium was not well visualized. Aortic Valve The aortic valve structure and function is likely normal. There is no aortic valve stenosis. There is no aortic valve regurgitation. Mitral Valve Likely normal mitral valve structure and function. There is trace mitral valve regurgitation. There is no mitral valve stenosis. Pulmonic Valve The pulmonic valve is likely normal. Tricuspid Valve Normal tricuspid valve structure. Tricuspid regurgitation envelope is inadequate for calculation of right ventricular systolic pressure. Normal right atrial pressure. Great Vessels All visible segments of the aorta are normal in size. The pulmonary artery was not well visualized. There is no dilatation of the ascending aorta measuring 2.90 cm. Venous The inferior vena cava is normal in size and collapses greater than 50% with inspiration. Pericardium/Pleural There is no evidence of pericardial effusion. Prior Study Comparison Changes noted compared to prior study dated: 05/05/2024. LV ejection fraction has marginally reduced Measurements 2D Linear Measurements IVSd: 0.89 0.6-0.9/0.6-1.0 cm LVIDd: 4.95 3.9-5.3/4.2-5.9 cm LVIDd Index: 2.37 2.4-3.2/2.2-3.1 cm/m2 LVIDs: 3.50 2.0-3.6 cm LVPWd: 0.87 0.7-1.1 cm LA Diam: 3.80 2.7-3.8/3.0-4.0 cm LAIDs Index: 1.82 1.5-2.3 cm/m2 LV Mass: 188.06 67-162/88-224 g LV Mass Index: 89.98 43-95/49-115 g/m2 LVOT Diam: 2.10 3.0+(-)1.3 cm 2D Systolic Function EF 4C: 40.70 >55% EF 2C: 47.40 >55% EF BiP: 44.50 >55% Mitral Valve MV Pk E: 0.88 MV PK A: 1.11 MV Decel Time: 132.00 E/A: 0.80 E'Lateral: 7.72 E'Medial: 5.77 E/E' Med: 15.20 E/E' Lat: 11.30 PHT: 39.00 MVA PHT: 5.64 Decel [place]: 6.62 Aortic Valve AoV Pk Sean: 1.56 AoV Mn Sean: 1.11 AoV VTI: 0.27 AoV Pk Grad: 10.00 Aov Mn Grad: 5.00 ADENIKE Cont.VTI: 2.33 LVOT LVOT Pk Sean: 1.03 LVOT Mn Sean: 0.73 LVOT VTI: 0.18 LVOT Pk Grad: 4.00 LVOT Mn Grad: 2.00 LVOT Diam: 2.10 LVOT Area: 3.46 Diastolic Function MV Pk E: 0.88 MV Pk A: 1.11 E/A: 0.80 E'Medial: 5.77 E/E' Med: 15.20 E' Laterial: 7.72 E/E' Lat: 11.30 Right Ventricle TAPSE (mm): 22.10 TVS' Sean: 12.60 Great Vessels Aorta Sinus of Valsalva: 2.99 2.0-3.5 cm Ao Asc: 2.90 2.1-3.4 cm Ao Arch: 2.70 Updated in Other Vendor System with Status of Final Alfredo Bennett MD electronically signed on 11/06/2025 3:19:45 PM with status of Final
--- OUTSIDE RECORDS SUMMARY | 2025-11-06 20:06 | XMS_ITS | Encounter Summary ---
Author Organization [facility] Address [address] [place] [address] Phone Care Team Providers Care Rug Setter Axminster Name Role Phone Alexis Whyte MD Primary Care Provider Alexis Whyte MD Primary Care Provider Pcp, Unknown Primary Care Provider Unavailabl e Alexis Whyte MD Primary Care Provider Encounter Details Date Type Department Care Team (Late st Contact Info) Description 02/15/2021 Transcribe Orders [facility] Outpatient Care, Radio Flouroscopy [address] [place] [id number] Anastasia Maher [address] [place] [phone] [email or web address] Social History Tobacco Use Types Packs/Day Years [...] on filedocumented in this encounter Care Teams Rug Setter Axminster Relationship Specialty Start Date End Date Alexis [...] It is not the complete legal health record.[facility]
--- OUTSIDE RECORDS SUMMARY | 2025-11-06 20:06 | XMS_ITS | Encounter Summary ---
Author Organization [facility] Address [address] [place] [address] Phone Care Team Providers Care Behavioral Science Chair Name Role Phone Alexis Whyte MD Primary Care Provider Alexis Whyte MD Primary Care Provider Pcp, Unknown Primary Care Provider Unavailabl e Alexis Whyte MD Primary Care Provider Encounter Details Date Type Department Care Team (Late st Contact Info) Description 01/22/2021 Procedure Pass [facility] Outpatient Care - Ultrasound [address] [place] [address] Social History Tobacco Use Types Packs/Day Years [...] on filedocumented in this encounter Care Teams Behavioral Science Chair Relationship Specialty Start Date End Date Alexis [...] It is not the complete legal health record.[facility]
--- OUTSIDE RECORDS SUMMARY | 2025-11-06 20:06 | XMS_ITS | Encounter Summary ---
Author Organization [facility] Address [address] [place] [address] Phone Care Team Providers Care Pallet Sorter Name Role Phone Alexis Whyte MD Primary Care Provider Alexis Whyte MD Primary Care Provider Pcp, Unknown Primary Care Provider Unavailabl e Alexis Whyte MD Primary Care Provider Encounter Details Date Type Department Care Team (Late st Contact Info) Description 12/07/2020 Procedure Pass [facility] for Outpatient Care - MRI [address] [facility], [address] [place] [address] Social History Tobacco Use Types Packs/Day Years [...] on filedocumented in this encounter Care Teams Pallet Sorter Relationship Specialty Start Date End Date Alexis [...] It is not the complete legal health record.[facility]
--- OUTSIDE RECORDS SUMMARY | 2025-11-06 20:06 | XMS_ITS | Data Portability ---
Author Organization [facility] [address] Address [address] [place] [id number] Assessment No assessment recorded. Plan of Treatment Reminders Order Date Submit Date Provider Last Modified By Organization Details Last Modified Time Details Appointments None record ed. Lab None record ed. Referral None record ed. Procedures None record ed. Surgeries None record ed. Imaging XR, foot, 3 or more view 023 12/19/19 [facility], [address] [place], [address], 18:49:37 Medication Orders None record ed. Patient TargetsNo targets recorded. Patient Instructions Encounter Date Encounter Id Patient Instructions Last Modified By Organization Details Last Modified Time 12/19/2022 [id number] learning about rice (rest, ice, compression, and elevation) [email or web address] Not available 12/19/2022 17:22:07 Reason for Referral None Reported. Results Created Date Observation Date Name Description Value Unit Range Abnormal Flag Note LastModifiedBy Organization Detail LastModifiedTime 12/19/19 23 12/19/2022 XR, foot, 3 or more view No observ ation record ed. [email or web address] [facility] [address] [place], [address], 12/19/2022 19:56:02 Result Notes None recorded. Problems Name Problem SNOMED Code Status Onset Date Resolution Date Notes Provider Name and Address Organization Details Recorded Time Depressive disorder 13904353 Active 023 Sharee Carlos skaggs, [place] - [facility] 17:08:42 Anxiety 95259876 Active 023 Sharee Carlos null, [place] - [facility] 3 17:08:47 Seasonal allergic rhinitis 338047093 Active 023 Sharee Gonzalez null, [place] - [facility] 3 17:08:53 Migraine 85392026 Active 023 Sharee Gonzalez null, [place] - [...] Name and Address Organization Details Recorded Time 017955 codeine medicatio n hives Not available low [...] mass index (BMI) Body weight Oxygen saturation Heart rate Respiratory rate Body temperature Systolic And Diastolic Provider Name and Address Organization Details Last Updated DateTime 3 167.64 cm 29.1 kg/m2 26892.6 3 g 97 % 102 /min 20 /min 98.1 [degF] 114/84 mm[Hg] Sharee Gonzalez PA - [facility] 3 17:11:32 Social History Question Answer Notes LastModified by [employer] Details LastModified Time Tobacco Smoking Status Current Every Day Smoker Sharee skagsg [place] - [facility] 12/19/2022 17:09:11 Have You Had Direct Contact, Or Contact During Intimacy, With Monkeypox Rash, Scabs, Or Body Fluids From A Person With Monkeypox? No Information not available 12/19/2022 How Much Tobacco Do You Smoke? 0.5 PPD Information not available 12/19/2022 Have You Recently Traveled Abroad? No Information not available 12/19/2022 Sex: Unknown Functional Status Question Answer Note LastModified by [employer] Details LastModified Time Do you use any [...] rS-Ad26, PF, 0.5 mL 1 completed Sharee Vanderbilt null, [place] - [facility] 12/19/2022 17:06:17 Influenza, split virus, trivalent, preservative 5 completed Sharee Vanderbilt null, [place] - [facility] 12/19/2022 17:06:17 Past Encounters Encounter ID Performer Location Encounter Start Date Encounter Closed Date Diagnosis/Indication Diagnosis SNOMED-CT Code Diagnosis ICD10 Code Diagnosis IMO Codes [facility] [id number] [facility] [address] [address] 07/20/2019 18:46:11 07/20/2019 19:49:41 [id number] [facility] _[place] [address] [address] 07/25/2022 16:52:51 07/25/2022 18:52:42 [id number] 2099_[facility] _[place] [address] [address] 07/24/2019 17:41:55 07/24/2019 19:00:46 [id number] Daniele Lynne DO _[place] [address] [address] 12/19/2022 16:10:49 12/19/2022 17:48:15 Pain in left foot [id number] [address]3903 M79.672 foot sprain. No obvious Fx on [...] HEALTH NET PLAN (MEDICAID HMO) CYNDY Frost [id number] Lucie Frost Notes Date Note Type Note [...] Lynne, DO [address] [place], [place], [address], [place] - [facility] 12/19/2022 17:41:12 OBGyn Episode No OBEpisode recorded.
--- OUTSIDE RECORDS SUMMARY | 2025-11-06 20:06 | XMS_ITS | Encounter Summary ---
Author Organization [facility] Address [address] [place] [address] Phone Care Team Providers Care Dietetic Intern Name Role Phone Alexis Whyte MD Primary Care Provider Pcp, Unknown Primary Care Provider Unavailabl e Alexis Whyte MD Primary Care Provider Encounter Details Date Type Department Care Team (Late st Contact Info) Description 2021 Transcribe Orders [facility] Outpatient Care, Radio Flouroscopy [address] [place] [address] [email or web address] Social History Tobacco Use [...] on filedocumented in this encounter Care Teams Dietetic Intern Relationship Specialty Start Date End Date Alexis [...]
--- OUTSIDE RECORDS SUMMARY | 2025-11-06 20:06 | XMS_ITS | Data Portability ---
Author Organization [place] - [facility], Allergy Address [address] [address] Care Team Providers Care Cover Remover Name Role Phone VICENTE WELLS Primary Care [...] [email or web address] Ian Balbuena MD, [address], [place], [address], 07/28/2025 11:44:21 Medication Orders epinephri ne 0.3 mg/0.3 mL injection , auto-inje ctor 2024 025 [facility]Pharmacy #[id number], [address] [facility], [place], [address], 08/01/2025 14:42:23 Patient TargetsNo targets recorded. Patient Instructions Encounter Date Encounter Id Patient Instructions Last Modified By Organization Details Last Modified Time 04/24/2025 [id number] spirometry testing* [email or web address] Not available 04/24/2025 16:08:34 08/01/2025 [id number] sublingual immunotherapy regimen* [email or web address] Not available 08/09/2025 13:01:55 Reason for Referral None Reported. Results Created Date Observation Date Name Description Value Unit Range Abnormal Flag Note LastModifiedBy Organization Detail LastModifiedTime 04/10/[address], sinus es, w/o contr ast No observ ation record ed. [facility] [place] En[facility] Of [address], [address], 04/10/2025 11:54:04 04/24/20 25 pura metry testi ng* No observ ation record ed. [email or web address] Not Available 2024 13:15:02 04/26/20 25 04/10/2025 CT, sinus es, w/o contr ast No observ ation record ed. [facility] [place] [facility] Of [address], [address], 04/26/2025 14:23:50 06/26/20 25 audio gram No observ ation record ed. BARCODE Not Available 2024 17:19:19 Result Notes None recorded. Problems Name Problem SNOMED Code Status Onset Date Resolution Date Notes Provider Name and Address Organization Details Recorded Time Pain of temporoma ndibular joint 71219812 Active 2014 Arthralgi a of temporoma ndibular joint; Note: Date Diagnosed : 09/27/2015 8:14 PM (M26.62) Not Available [facility] 4 02:35:14 Bilateral recurrent acute serous otitis media of middle ears 47526131923 03530 Active 2014 Acute serous otitis media, recurrent , bilateral ; Note: Date Diagnosed : 09/27/2015 8:14 PM (H65.06) Not Available [facility] 4 02:35:20 Bilateral tinnitus 67499729522 02 Active 2014 Tinnitus, bilateral ; Note: Date Diagnosed : 09/27/2015 8:14 PM (H93.13) SANTO SHIPMAN [place], [facility] [address] [facility], [place], [address] , [place] - [facility] 5 16:07:05 Tobacco user 134860298 Active 2014 Tobacco use; Note: Date Diagnosed : 09/27/2015 8:15 PM (Z72.0) Not Available [facility] 4 02:35:14 Neck pain 71606440 Active 2014 Cervicalg ia; Note: Date Diagnosed : 5 5:08 PM (M54.2) Not Available [facility] 4 02:35:12 Otalgia of left ear 7190086520 Active 2015 Otalgia, left ear; Note: Date Diagnosed : 02/05/2016 12:54 PM (H92.02) Not Available [facility] 4 02:35:15 Acute serous otitis media of left ear 75811782009 38819 Active 2015 Acute serous otitis media, left ear; Note: Date Diagnosed : 02/05/2016 12:54 PM (H65.02) Not Available [facility] 4 02:35:23 Bilateral disorder of Eustachia n tubes 41937580235 86826 Active 2015 Other specified disorders of Eustachia n tube, bilateral ; Note: Date Diagnosed : 02/05/2016 12:54 PM (H69.83) Not Available [facility] 4 02:35:19 Acute sinusitis 63993031 Active 2015 Other acute sinusitis ; Note: Date Diagnosed : 02/05/2016 12:54 PM (J01.80) SAMINA ROWE RN 100 [facility], [place], [address] , [facility] - [facility] 5 14:30:56 Allergic rhinitis 75427218 Active 2015 Perennial allergic rhinitis; Note: Date Diagnosed : 03/24/2016 5:16 AM (J30.89) Not Available [facility] 4 02:35:10 Dizziness and giddiness 637576430 Active 2020 Dizziness and giddiness ; Note: Date Diagnosed : 02/04/2021 10:21 AM (R42) Not Available [facility] 4 02:35:15 Chronic sinusitis 21565174 Active 2020 Other chronic sinusitis ; Note: Date Diagnosed : 02/04/2021 10:22 AM (J32.8) Not Available [facility] 4 02:35:13 Headache disorder 421798444 Active 2024 MEME CHAMPAGNE MD [address] [place] [address],[place] [address], [place], [address] , [facility] - [facility] 5 11:53:58 Perennial allergic rhinitis 897146735 Active 2024 MEME CHAMPAGNE MD [address] [place] [address],[place] [address], [place], [address] , [facility] - [facility] 5 11:54:14 Migraine variants 020281789 Active 2024 HEIDI COELLO PA-C [address] [place] [address],[place] [address], [place], [address] , [facility] - [facility] 5 12:54:46 Vertigo 460068849 Active 2024 SANTO SHIPMAN [place], CCC-A [address] [facility],[place] [address], [place], [address] , [facility] - [facility] 5 16:06:50 Bilateral temporoma ndibular joint pain 22164976832 696345 Active 2024 Roland Lowery DO [address] [place] [address],[place] [address], [place], [address] , [facility] - [facility] 5 16:12:11 Problem Notes None recorded. Procedures Surgical History Date Name Laterality Status Provider Name and Address Organization Details Recorded Time 06/26/20 25 Air & Speech Audio with Tymps - 52174, 22147 & 80891 completed SANTO SHIPMAN MA, CCC-A [address] [facility],[place] [address], [place], [address], [facility] 06/26/2025 16:08:03 04/24/20 25 Allergy Testing-Full completed SAMINA ROWE RN [address] [facility],[place] [address], [place], [address], [facility] 04/24/2025 14:28:55 10/13/20 24 Air & Speech Audio with Tymps - 14445, 87932 & 25621 completed JAVIER KHANNA [address] [facility],[place] [address], [place], [address], [facility] 10/13/2024 13:30:43 cholecystectomy completed ISACC KELLY MD [address] [facility],[address], [address], [facility] 10/16/2024 11:21:02 Imaging Results None recorded. Procedure Notes None recorded. Medical Equipment None Reported. Allergies Allergen ID Allergen Name Allergen Category Reaction Reaction Severity Criticality Documentation Date Start Date Code Code System Note Provider Name and Address Organization Details Recorded Time 409067 codeine sulfate medicatio n Not available Not available Not available 04/05/2024 31439 RxNorm React ion: unspe cifie d, dizzy , Nause a; Not Available [facility] 4 01:13:13 Medications Name Sig Start Date [...] by mouth 10/13 completed Medicati on ID: [id number] D uration Value: 14 Prescri bed By [...] eye drops 10/13 completed Medicati on ID: 101131 B rand Name: ketotife n fumarate Send [...] mg tablet 10/12 completed Medicati on ID: [id number] B rand Name: terbinaf ine HCl Send [...] mg capsule 04/03 completed Medicati on ID: [id number] B rand Name: cephalex in Send Method: E-Prescr ibed Sub s Allowed: subs OK Speci al Instruct ion: TAKE 1 CAP (500 MG) BY MOUTH EVERY 12 HOURS 10 DAYS Med icationG enericNa me: cephalex in Not Available Not Available Not Available clotrimaz ole-betam ethasone 1 %-0.05 % topical cream 04/03 completed Medicati on ID: 471853 B rand Name: clotrima zole-bet amethaso ne [...] elayed release 01/14 completed Medicati on ID: 269185 D uration Value: 30 Brand Name: omeprazo le Send Method: E-Prescr ibed Sub s Allowed: subs OK Medic ationGen ericName : omeprazo le Not Available Not Available Not Available Banophen 25 mg capsule 04/10 completed Medicati on ID: [id number] B rand Name: Banophen Send Method: E-Prescr [...] mg tablet 10/13 completed Medicati on ID: 940725 D uration Value: 30 Brand Name: monteluk [...] as directed 10/13 completed Medicati on ID: 767027 D uration Value: 30 Brand Name: azelasti [...] mg tablet 04/03 completed Medicati on ID: [id number] B rand Name: Ativan S end Method: [...] topical cream 10/13 completed Medicati on ID: 105189 B rand Name: Athlete' s Foot (terbina [...] both nostrils 10/13 completed Medicati on ID: [id number] D uration Value: 30 Prescri bed By Name: Isacc askew MD Brand Name: QNASL Se nd Method: E-Prescr ibed Sub s Allowed: subs OK Medic ationGen ericName : QNASL Not Available Not Available Not Available Vitals Date Recorded Body height Body mass index (BMI) Body weight Oxygen saturation Heart rate Systolic And Diastolic Provider Name and Address Organization Details Last Updated DateTime 5 170.18 cm 30.5 kg/m2 44916.5 1 g 98 % 114 /min 121/85 mm[Hg] SAMINA ROWE RN [address] [place] [address], [place], [address], [place] - [facility] 13:05:54 Date Recorded Body height Body mass index (BMI) Body weight Provider Name and Address Organization Details Last Updated DateTime 06/28/2025 170.18 cm 30.5 kg/m2 64234.51 g Mamadou Gamboa [place] - [facility] 06/28/2025 15:47:30 Date Recorded Body height Body mass index (BMI) Body weight Provider Name and Address Organization Details Last Updated DateTime 08/01/2025 170.18 cm 31.3 kg/m2 49784.47 g Kelli Jorge L [place] - [facility] 08/01/2025 13:28:55 Date Recorded Body height Body mass index (BMI) Body weight Heart rate Systolic And Diastolic Provider Name and Address Organization Details Last Updated DateTime 08/21/2025 170.18 cm 32.9 kg/m2 80465.4 g 114 /min 129/82 mm[Hg] SAMINA ROWE RN [address] [place] [address], [place], [address] , [place] - [facility] 08/21/2025 14:46:40 Social History Question Answer Notes LastModified by Organizat ion Details LastModified Time Tobacco Smoking Status Current Every Day Smoker ISACC KELLY MD [address] [place] [address], [address], [facility] - [facility] 10/16/2024 11:20:48 What Is Your Current [...] ICD10 Code Diagnosis IMO Codes Diagnosis Note [id number] ISACC KELLY MD [facility] [address] [address] 10/13/2024 13:11:10 10/13/2024 14:01:34 Dizziness and giddiness 748169817 R42 Right Ear:Normal hearing with excellent speech discrimina tion.Type A tympanogra m.Left Ear:Normal hearing with excellent speech discrimina tion.Type A tympanogra m. Allergic rhinitis 030000 04 J30.89 22002 HEIDI COELLO PA-C [facility] [address] [address] 04/10/2025 10:58:05 04/10/2025 12:01:42 Headache disorder 581246662 G44.89 0907500 Perennial allergic rhinitis 698821715 J30.89 821510 Migraine variants 041793 005 G43.809 00386267 52404 SAMINA ROWE RN Allergy [address] [place] [address] 04/24/2025 12:47:37 04/24/2025 14:30:32 Allergic rhinitis 09144447 J30.89 Perennial allergic rhinitis 587949935 J30.89 444491 [id number] BURAK OLIVA PA-C [facility] [address] [address] 08/01/2025 13:25:59 08/01/2025 13:52:02 Allergic rhinitis 69103895 J30.89 85753 Roland Lowery DO [facility] [address] [address] 06/26/2025 15:32:45 06/26/2025 16:15:55 Vertigo 689102261 R42 88343 Audiologic al evaluation results: Right ear: Normal hearing with excellent word recognitio n. Left ear: Normal hearing with excellent word recognitio n. Tympanomet ry: Right Ear:Type A Left Ear:Type A Bilateral tinnitus 28165 69026 102 H93.13 851255 96270 Roland Lowery, [facility] [address] [place] [address] 06/28/2025 15:34:10 06/28/2025 16:16:35 Headache disorder 761273482 G44.89 7464124 Perennial allergic rhinitis 376929167 J30.89 812191 Migraine variants 768035 005 G43.809 28991866 Bilateral temporomandibular joint pain 8010763278 8891046 M26.623 [id number] [id number] SAMINA ROWE RN Allergy [address] [place] [address] [place] [address] 08/21/2025 14:24:23 08/21/2025 15:40:21 Acute sinusitis 94353869 J01.80 Health Concerns Section Related Observation LastModified by Organization Detai ls LastModified Time None Recorded Concern Status LastModified by Organization Details LastModified Time None Recorded Advance Directives Directive None Recorded Payers Insurance Date Sequence Insurance Name Policy Number Policy Montero Covered Member ID Montero Member ID Guarantor Name 08/18/2025 1 [employer] - HEALTH NET PLAN (MEDICAID HMO) CYNDY Frost [id number] Lucie Frost Notes Date Note Type Note [...] and occasional Benadryl for breakthrough symptoms. Roland Lowery DO 100 [facility],[address], [address], [place] - [facility] 06/28/2025 16:29:54 08/01/2025 text/html ROS as noted in the HPI 45yo female with history of migraine and TMJ presents for allergy test results. She has moderate sensitivities to weeds, grass, cats, dogs, and mold. She endorses having multiple cats and dogs at home. Continues to endorse dizziness, nasal congestion, facial pain, photophobia, and hyperacusis. No improvement with rzju-lkt-uarhhrj allergy medication. CT sinus 03/2025 normal. She was evaluated by a vestibular physical therapist, who does not suspect benign paroxysmal positional vertigo. She is scheduled to follow up with orthopedic surgeon for neck and shoulder pain next month, which she suspects is exacerbating her headaches. She is followed by neurology at [facility], and feels her symptoms are unrelated to her underlying migraine. History of severe migraines, starting at 6 years old. She has status post shoulder reconstruction, with subsequent pain. UGO YT MD 100 [facility],[address], [address], [facility] - [facility] 08/01/2025 17:46:54 08/21/2025 text/html Patient with a history of allergic rhinitis presents to initiate sublingual immunotherapy. The patient has brought an epipen to today's visit as instructed. Proper consents were obtained and signed by the patient prior to the visit.Patient with elevated pulse rate. Reviewed with Dr. Busch who authorized proceeding with visit. SAMINA ROWE RN [address] [place] [address], [place], [address], [place] [facility] 08/21/2025 15:40:25 OBGyn Episode No OBEpisode recorded.
--- OUTSIDE RECORDS SUMMARY | 2025-11-06 20:06 | XMS_ITS | Encounter Summary ---
Author Organization [facility] Address [address] [facility] [address] [place] [address] Phone Care Team Providers Care [employer] Name Role Phone Alexis Whyte MD Primary Care Provider Pcp, Unknown Primary Care Provider Unavailabl e Alexis Whyte MD Primary Care Provider Reason for Referral * Outpatient Procedure - Closed Specialty Diagnoses / Procedures Referred By Lazaro macdonald Referred To Contact Radiology Diagnoses Pain in joint, shoulder region Procedures FL Large-Joint Injection (Left) FL Medium-Joint Injection (Left) [place] ARTHROCENTESIS ASPIR&/INJ INTERM JT/BURS W/O US [place] ARTHROCENTESIS ASPIR&/INJ INTERM JT/BURS W/US CHG FLUOROSCOPIC GUIDANCE NEEDLE PLACEMENT ADD ON MA ARTHROCENTESIS ASPIR&/INJ MAJOR JT/BURSA W/O US [place] ARTHROCENTESIS ASPIR&/INJ MAJOR JT/BURSA W/US Shadi Diaz Jp, MD Phone: tel: fax: [email or web address] Referral ID Status Reason Start Date Expiration Date Visits Re quested Visits Authorized [id number] Closed 07/10/2021 08/23/2021 1 1 Encounter Details Date Type Department Care Team (Latest Contact Info) Description 2021 Ancillary Orders [facility] [place] of Orthopaedic Surgery, Shoulder Service [address] [place] [address], 3rd Floor, [address] [place] [address] Shadi Diaz Jp, MD [address] [facility] [place] [address] [email or web address] Pain in joint, shoulder region [...] region documented in this encounter Care Teams [employer] Relationship Specialty Start Date End Date Alexis Whyte MD PCP - General 07/11/21 02/17/22 Pcp, Unknown PCP - General 02/18/22 03/12/22 Alexis Whyte MD PCP - General Family Medicine 03/13/22 documented as of this encounter Additional Source Comments The information contained in this document represents components of the legal health record. It is not the complete legal health record.[facility]
--- OUTSIDE RECORDS SUMMARY | 2025-11-06 20:06 | XMS_ITS | Encounter Summary ---
Author Organization [facility] Address [address] [place] [address] Phone Care Team Providers Care Service Writer Name Role Phone Alexis Whyte MD Primary Care Provider Alexis Whyte MD Primary Care Provider Pcp, Unknown Primary Care Provider Unavailabl e Alexis Whyte MD Primary Care Provider Encounter Details Date Type Department Care Team (Late st Contact Info) Description 12/07/2020 Procedure Pass [facility] Outpatient Care, Radio Flouroscopy [address] [place] [address] Social History Tobacco Use Types Packs/Day Years [...] on filedocumented in this encounter Care Teams Service Writer Relationship Specialty Start Date End Date [...]
--- OUTSIDE RECORDS SUMMARY | 2025-11-06 20:06 | XMS_ITS | Clinical Summary ---
Author Organization [facility] Address [address] [place] [address] Phone Care Team Providers Care Dye House Helper Name Role Phone Alexis Whyte MD Primary [...] INFLUENZA VACCINE (#1) 2025 08/08/2015 COVID-19 VACCINE (2 2024-2 6 season) 2025 02/27/2021 HEPATITIS A VACCINES [...] Medical Devices Not on file Insurance [place] [address] [employer] [place] [id number] [place] [address] [place] [address] [place] [address] [employer] [place] [id number] [place] [address] [place] [address] [place] [address] [address] [facility] [place] [address] [place] [address] [place] [address] Care Teams Dye House Helper Relationship Specialty Start Date End Date Alexis Whyte MD PCP - General Family Medicine 03/13/22 Additional Source Comments The information contained in this document represents components of the legal health record. It is not the complete legal health record.[facility]
--- OUTSIDE RECORDS SUMMARY | 2025-11-06 20:06 | XMS_ITS | Continuity of Care Document ---
Author Organization [place] - [facility], Allergy Address [address] [address] Care Team Providers Care Gem Carver Name Role Phone VICENTE WELLS Primary Care [...] Organization Details Last Modified Time Details Appointments [facility]- Allergy f-up 6mon 2025 02:00P M [...] Recorded Time Pain of temporoma ndibular joint 97068466 Active 2014 Arthralgi a of temporoma ndibular joint; Note: Date Diagnosed : 09/27/2015 8:14 PM (M26.62) Not Available [facility] 4 02:35:14 Bilateral recurrent acute serous otitis media of middle ears [id number] 27837 Active 2014 Acute serous otitis media, recurrent , bilateral ; Note: Date Diagnosed : 09/27/2015 8:14 PM (H65.06) Not Available [facility] 4 02:35:20 Bilateral tinnitus 10590931854 02 Active 2014 Tinnitus, bilateral ; Note: Date Diagnosed : 09/27/2015 8:14 PM (H93.13) SANTO SHIPMAN MA, CCC-A 100 [facility] 100, [place], [address] , [facility] - [facility] 5 16:07:05 Tobacco user 495553654 Active 2014 Tobacco use; Note: Date Diagnosed : 09/27/2015 8:15 PM (Z72.0) Not Available [facility] 4 02:35:14 Neck pain 95613137 Active 2014 Cervicalg ia; Note: Date Diagnosed : 5 5:08 PM (M54.2) Not Available [facility] 4 02:35:12 Otalgia of left ear 3486979350 Active 2015 Otalgia, left ear; Note: Date Diagnosed : 02/05/2016 12:54 PM (H92.02) Not Available [facility] 4 02:35:15 Acute serous otitis media of left ear 62921025321 59685 Active 2015 Acute serous otitis media, left ear; Note: Date Diagnosed : 02/05/2016 12:54 PM (H65.02) Not Available [facility] 4 02:35:23 Bilateral disorder of Eustachia n tubes 51903873688 60681 Active 2015 Other specified disorders of Eustachia n tube, bilateral ; Note: Date Diagnosed : 02/05/2016 12:54 PM (H69.83) Not Available [facility] 4 02:35:19 Acute sinusitis 61799510 Active 2015 Other acute sinusitis ; Note: Date Diagnosed : 02/05/2016 12:54 PM (J01.80) SAMINA ROWE RN 100 [facility] 100, [place], [address] , [facility] 5 14:30:56 Allergic rhinitis 31436052 Active 2015 Perennial allergic rhinitis; Note: Date Diagnosed : 03/24/2016 5:16 AM (J30.89) Not Available [facility] 4 02:35:10 Dizziness and giddiness 030526560 Active 2020 Dizziness and giddiness ; Note: Date Diagnosed : 02/04/2021 10:21 AM (R42) Not Available [facility] 4 02:35:15 Chronic sinusitis 49091644 Active 2020 Other chronic sinusitis ; Note: Date Diagnosed : 02/04/2021 10:22 AM (J32.8) Not Available [facility] 4 02:35:13 Headache disorder 298588348 Active 2024 MEME CHAMPAGNE MD [address] [facility] [address], [place], [address] , [place] - [facility] [place] 5 11:53:58 Perennial allergic rhinitis 402952347 Active 2024 MEME CHAMPAGNE MD 100 [facility] 100, [place], [address] , [place] - [facility] [place] 5 11:54:14 Migraine variants 323708506 Active 2024 HEIDI COELLO PA-C 100 [facility],[place] [address], [place], [address] , [place] - [facility] 5 12:54:46 Vertigo 432562317 Active 2024 SANTO SHIPMAN MA, CCC-A [address] [facility] [address], [place], [address] , [place] - [facility] [place] 5 16:06:50 Bilateral temporoma ndibular joint pain 48645795324 483817 Active 2024 Roland Lowery DO [address] [facility] [address], [place], [address] , [place] - [facility] 5 16:12:11 Problem Notes None recorded. Procedures Surgical History Date Name Laterality Status Provider Name and Address Organization Details Recorded Time 06/26/20 Air & Speech Audio with Tymps - 82602, 84516 & 05848 completed SANTO SHIPMAN MA, CCC-A 100 [facility],[address], [address], [facility] 06/26/2025 16:08:03 04/24/20 25 Allergy Testing-Full completed SAMINA ROWE RN 100 [facility],[address], [address], [facility] 04/24/2025 14:28:55 10/13/20 24 Air & Speech Audio with Tymps - 40973, 17998 & 44553 completed JAVIER KHANNA 100 [facility],[address], [address], [facility] 10/13/2024 13:30:43 cholecystectomy completed ISACC KELLY MD 100 [facility],[address], [address], [facility] 10/16/2024 11:21:02 Imaging Results None recorded. Procedure Notes None recorded. Medical Equipment None Reported. Allergies Allergen ID Allergen Name Allergen Category Reaction Reaction Severity Criticality Documentation Date Start Date Code Code System Note Provider Name and Address Organization Details Recorded Time [id number] codeine sulfate medicatio n Not available Not available Not available 04/05/2024 76734 RxNorm React ion: unspe cifie d, dizzy , Nause a; Not Available [facility] 01:13:13 Medications Name Sig Start Date [...] by mouth 10/13 completed Medicati on ID: [id number] D uration Value: 14 Prescri bed By [...] eye drops 10/13 completed Medicati on ID: [id number] B rand Name: ketotife n fumarate Send [...] mg tablet 10/12 completed Medicati on ID: [id number] B rand Name: terbinaf ine HCl Send [...] mg capsule 04/03 completed Medicati on ID: [id number] B rand Name: cephalex in Send Method: E-Prescr ibed Sub s Allowed: subs OK Speci al Instruct ion: TAKE 1 CAP (500 MG) BY MOUTH EVERY 12 HOURS 10 DAYS Med icationG enericNa me: cephalex in Not Available Not Available Not Available clotrimaz ole-betam ethasone 1 %-0.05 % topical cream 04/03 completed Medicati on ID: [id number] B rand Name: clotrima zole-bet amethaso ne [...] elayed release 01/14 completed Medicati on ID: [id number] D uration Value: 30 Brand Name: omeprazo le Send Method: E-Prescr ibed Sub s Allowed: subs OK Medic ationGen ericName : omeprazo le Not Available Not Available Not Available Banophen 25 mg capsule 04/10 completed Medicati on ID: [id number] B rand Name: Banophen Send Method: E-Prescr [...] mg tablet 10/13 completed Medicati on ID: [id number] D uration Value: 30 Brand Name: monteluk [...] as directed 10/13 completed Medicati on ID: [id number] D uration Value: 30 Brand Name: azkadensti [...] mg tablet 04/03 completed Medicati on ID: [id number] B rand Name: Ativan S end Method: [...] topical cream 10/13 completed Medicati on ID: [id number] B rand Name: Athlete' s Foot (terbina [...] both nostrils 10/13 completed Medicati on ID: [id number] D uration Value: 30 Prescri bed By [...] Updated DateTime 08/21/2025 170.18 cm 32.9 kg/m2 16108.4 g 114 /min 129/82 mm[Hg] SAMINA ROWE RN 100 [facility],[place] [address], [facility] [place], [address] , [place] - [facility] 08/21/2025 14:46:40 Social History Question Answer Notes LastModified by Organizat ion Details LastModified Time Tobacco Smoking Status Current Every Day Smoker ISACC KELLY MD 100 [facility],[place] [address], [place], [address], [facility] - [facility] 10/16/2024 11:20:48 What Is Your Current Pack [...] ICD10 Code Diagnosis IMO Codes Diagnosis Note [id number] BURAK OLIVA PA-C [facility] [address] [place] [address] 08/01/2025 13:25:59 08/01/2025 13:52:02 Allergic rhinitis [id number] J30.89 [id number] SAMINA ROWE RN Allergy 100 [facility] ite [address] [place] [address] [place] [address] 08/21/2025 14:24:23 08/21/2025 15:40:21 Acute sinusitis 78995141 J01.80 Health Concerns Section Related Observation LastModified by Organization Detai ls LastModified Time None Recorded Concern Status LastModified by Organization Details LastModified Time None Recorded Payers Encounter Date Sequence Insurance Name Policy Number Policy Montero Covered Member ID Montero Member ID Guarantor Name 08/21/2025 1 [facility] - HEALTH NET PLAN (MEDICAID HMO) CYNDY Lucie Frost [id number] Lucie Frost Notes Date Note Type Note [...] authorized proceeding with visit. SAMINA ROWE RN [address] [place] [address], [address], [place] - [facility] 08/21/2025 15:40:25 OBGyn Episode No OBEpisode recorded.
--- OUTSIDE RECORDS SUMMARY | 2025-11-06 20:06 | XMS_ITS | Encounter Summary ---
Author Organization [facility] Address [address] [place] [address] Phone Care Team Providers Care Marine Service Manager Name Role Phone Alexis Whyte MD Primary Care Provider Pcp, Unknown Primary Care Provider Unavailabl e Alexis Whyte MD Primary Care Provider Encounter Details Date Type Department Care Team (Late st Contact Info) Description 07/10/2021 Procedure Pass [facility] Outpatient Care, Radio Flouroscopy [address] [place] [address] Social History Tobacco Use Types Packs/Day Years [...] on filedocumented in this encounter Care Teams Marine Service Manager Relationship Specialty Start Date End Date Alexis Whyte MD PCP - General 07/11/21 02/17/22 Pcp, Unknown PCP - General 02/18/22 03/12/22 Alexis Whyte MD PCP - General Family Medicine 03/13/22 documented as of this encounter Additional Source Comments The information contained in this document represents components of the legal health record. It is not the complete legal health record.[facility]
--- OUTSIDE RECORDS SUMMARY | 2025-11-06 20:06 | XMS_ITS | Encounter Summary ---
Author Organization [facility] Address [address] [place] [address] Phone Care Team Providers Care Oracle Financials Developer Name Role Phone Alexis Whyte MD Primary Care Provider Alexis Whyte MD Primary Care Provider Pcp, Unknown Primary Care Provider Unavailabl e Alexis Whyte MD Primary Care Provider Encounter Details Date Type Department Care Team (Late st Contact Info) Description 01/09/2021 Transcribe Orders [facility] Outpatient Care, Radio Flouroscopy [address] [place] [address] Gricel Nicholson [address] [place] [phone] [email or web address] Social History Tobacco Use Types Packs/Day Years [...] on filedocumented in this encounter Care Teams [employer] Financ[employer] Developer Relationship Specialty Start Date End Date Alexis [...] It is not the complete legal health record.[facility]
== END ==
LOC: HO.CARD 13:53
PROVIDERS: PCP Family Medicine; Visit Provider Internal Medicine
DX: R00.2 Palpitations (principal); I42.9 Cardiomyopathy, unspecified
CPT/HCPCS: 93306; Q9957

== ENCOUNTER → 2025-11-06 13:55 | Outpatient (BNV) | payer OTHER, SELFPAY | PROVIDERS: PCP Family Medicine; Visit Provider Internal Medicine Cardiovascular Disease | DX: I42.9 Cardiomyopathy, unspecified (principal) | CPT/HCPCS: 93306 ==

== ENCOUNTER 2025-11-13 14:42 | Outpatient (AMB) | payer OTHER, SELFPAY ==
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
[2025-11-13 14:53] VITALS: BP 128/80; PULSE 107; BMI 32.8
--- OUTSIDE RECORDS SUMMARY | 2025-11-13 17:59 | XMS_ITS | Encounter Summary ---
Author Organization [facility] Address [address] [place] [address] Phone Care Team Providers Care Wheel Loader Operator Name Role Phone Alexis Whyte MD Primary Care Provider Alexis Whyte MD Primary Care Provider Pcp, Unknown Primary Care Provider Unavailabl e Alexis Whyte MD Primary Care Provider Encounter Details Date Type Department Care Team (Late st Contact Info) Description 12/07/2020 Procedure Pass [facility] for Outpatient Care - MRI [address] [place] [address] Social History Tobacco Use Types Packs/Day Years [...] on filedocumented in this encounter Care Teams Wheel Loader Operator Relationship Specialty Start Date End Date [...] It is not the complete legal health record.[facility]
--- OUTSIDE RECORDS SUMMARY | 2025-11-13 17:59 | XMS_ITS | Encounter Summary ---
Author Organization [facility] Address [address] [place] [address] Phone Care Team Providers Care Assistant Floor Covering Printer Name Role Phone Alexis Whyte MD Primary Care Provider Alexis Whyte MD Primary Care Provider Pcp, Unknown Primary Care Provider Unavailabl e Alexis Whyte MD Primary Care Provider Encounter Details Date Type Department Care Team (Late st Contact Info) Description 12/07/2020 Procedure Pass [facility] Outpatient Care, Radio Flouroscopy [address] [place] [address] Social History Tobacco Use Types Packs/Day Years [...] on filedocumented in this encounter Care Teams Assistant Floor Covering Printer Relationship Specialty Start Date End Date Alexis [...] It is not the complete legal health record.[facility]
--- OUTSIDE RECORDS SUMMARY | 2025-11-13 17:59 | XMS_ITS | Encounter Summary ---
Author Organization [facility] Address [address] [place] [address] Care Team Providers Care High School Foreign Language Tutor Name Role Phone Alexis Whyte MD Unavailable [phone] Alexis Whyte MD Primary Care Provider [phone] Jostin Herrera MD Unavailable [phone] Reason for Visit * Reason Onset Date Comments Follow-up 05/18/2024 Encounter Details Date Type Department Care Team (Late st Contact Info) Description 05/18/2024 Telephone [facility] Admitting Department [address] [place] [address] Jostin Herrera MD [address] [place] [address] Follow-up Social History Tobacco Use Types Packs/Day Years Used Date Smoking Tobacco: Never Assessed Comments Unknown Sex and Gender Information Value Date Recorded Sex Assigned at Female 05/06/2024 2:13 PM EDT Legal Sex Female 11:17 PM EST Gender Identity Unable to obtain 01/08/2024 2:35 AM EST Sexual Orientation Not on file documented as of this encounter Miscellaneous Notes * Telephone Encounter - Annel Edgar - 05/18/2024 3:32 PM EDT Rajwinder Martinez called in about a physician statement can you please give him a call at [phone] documented in this encounter Plan of Treatment Not on file documented as of this encounter Visit Diagnoses Not on filedocumented in this encounter Care Teams High School Foreign Language Tutor Relationship Specialty Start Date End Date Alexis Whyte MD PCP - Insurance Assigned PCP 02/12/24 Alexis Whyte MD PCP - General Family Practice 05/05/24 Jostin Herrera MD [address] [place] [address] [address] [place] [address] Orthopedic Surgery 01/09/23 documented as of this encounter
--- OUTSIDE RECORDS SUMMARY | 2025-11-13 17:59 | XMS_ITS | Encounter Summary ---
Author Organization [facility] Address [address] [facility] [address] [place] [address] Phone Care Team Providers Care Accordion Tuner Name Role Phone Alexis Whyte MD Primary Care Provider Pcp, Unknown Primary Care Provider Unavailabl e Alexis Whyte MD Primary Care Provider Reason for Referral * Outpatient Procedure - Closed Specialty Diagnoses / Procedures Referred By Lazaro macdonald Referred To Contact Radiology Diagnoses Pain in joint, shoulder region Procedures FL Large-Joint Injection (Left) FL Medium-Joint Injection (Left) AK ARTHROCENTESIS ASPIR&/INJ INTERM JT/BURS W/O US AK ARTHROCENTESIS ASPIR&/INJ INTERM JT/BURS W/US CHG FLUOROSCOPIC GUIDANCE NEEDLE PLACEMENT ADD ON AK ARTHROCENTESIS ASPIR&/INJ MAJOR JT/BURSA W/O US AK ARTHROCENTESIS ASPIR&/INJ MAJOR JT/BURSA W/US Shadi Diaz Jp, MD Phone: tel: fax: [email or web address] Referral ID Status Reason Start Date Expiration Date Visits Re quested Visits Authorized [id number] Closed 07/10/2021 08/23/2021 1 1 Encounter Details Date Type Department Care Team (Latest Contact Info) Description 2021 Ancillary Orders [facility] Orthopaedic Surgery Shoulder Service [address] [place] [address], [address] Floor, [address] [place] [address] Shadi Diaz Jp, MD [address] [facility] [id number] [place] [address] [email or web address] Pain in joint, shoulder region Social History [...] region documented in this encounter Care Teams Accordion Tuner Relationship Specialty Start Date End Date Alexis Whyte MD PCP - General 07/11/21 02/17/22 Pcp, Unknown PCP - General 02/18/22 03/12/22 Alexis Whyte MD PCP - General Family Medicine 03/13/22 documented as of this encounter Additional Source Comments The information contained in this document represents components of the legal health record. It is not the complete legal health record.[facility]
--- OUTSIDE RECORDS SUMMARY | 2025-11-13 17:59 | XMS_ITS | Encounter Summary ---
Author Organization [facility] Address [address] [place] [address] Phone Care Team Providers Care Arborist Name Role Phone Alexis Whyte MD Primary Care Provider Alexis Whyte MD Primary Care Provider Pcp, Unknown Primary Care Provider Unavailabl e Alexis Whyte MD Primary Care Provider Encounter Details Date Type Department Care Team (Late st Contact Info) Description 01/22/2021 Procedure Pass [facility] Outpatient Care - Ultrasound [address] [place] [address] Social History Tobacco Use Types Packs/Day Years [...] on filedocumented in this encounter Care Teams Arborist Relationship Specialty Start Date End Date Alexis [...] is not the complete legal health record.[facility]
--- OUTSIDE RECORDS SUMMARY | 2025-11-13 17:59 | XMS_ITS | Data Portability ---
Author Organization [place] - [facility], Allergy Address [address] [address] Care Team Providers Care Construction Estimator Name Role Phone VICENTE WELLS Primary Care Provider [phone] Assessment Encounter Date Assessment Date Assessment LastModified [...] [email or web address] Ian Balbuena MD, [address], [place], [address], 07/28/2025 11:44:21 Medication Orders epinephri ne 0.3 mg/0.3 mL injection , auto-inje ctor 2024 025 [id number], [address] [facility], [place], [address], 08/01/2025 14:42:23 Patient TargetsNo targets recorded. Patient Instructions Encounter Date Encounter Id Patient Instructions Last Modified By Organization Details Last Modified Time 04/24/2025 [id number] spirometry testing* [email or web address] Not available 04/24/2025 16:08:34 08/01/2025 [id number] sublingual immunotherapy regimen* [email or web address] Not available 08/09/2025 13:01:55 Reason for Referral None Reported. Results Created Date Observation Date Name Description Value Unit Range Abnormal Flag Note LastModifiedBy Organization Detail LastModifiedTime 04/10/[address], sinus es, w/o contr ast No observ ation record ed. [facility] En[facility] Of [address], [address], 04/10/2025 11:54:04 04/24/20 25 pura metry testi ng* No observ ation record ed. [email or web address] Not Available 2024 13:15:02 04/26/20 25 04/10/2025 CT, sinus es, w/o contr ast No observ ation record ed. [facility] Of [address], [address], 04/26/2025 14:23:50 06/26/20 25 audio gram No observ ation record ed. [facility] Not Available 2024 17:19:19 Result Notes None recorded. Problems Name Problem SNOMED Code Status Onset Date Resolution Date Notes Provider Name and Address Organization Details Recorded Time Pain of temporoma ndibular joint 65475998 Active 2014 Arthralgi a of temporoma ndibular joint; Note: Date Diagnosed : 09/27/2015 8:14 PM (M26.62) Not Available [facility] 4 02:35:14 Bilateral recurrent acute serous otitis media of middle ears 48955594167 51688 Active 2014 Acute serous otitis media, recurrent , bilateral ; Note: Date Diagnosed : 09/27/2015 8:14 PM (H65.06) Not Available [facility] 4 02:35:20 Bilateral tinnitus 35857339180 02 Active 2014 Tinnitus, bilateral ; Note: Date Diagnosed : 09/27/2015 8:14 PM (H93.13) SANTO SHIPMAN [place], [facility] [address] [facility], [place], [address] , [place] - [facility] 5 16:07:05 Tobacco user 099346464 Active 2014 Tobacco use; Note: Date Diagnosed : 09/27/2015 8:15 PM (Z72.0) Not Available [facility] 4 02:35:14 Neck pain 34346556 Active 2014 Cervicalg ia; Note: Date Diagnosed : 5 5:08 PM (M54.2) Not Available [facility] 4 02:35:12 Otalgia of left ear 6448791788 Active 2015 Otalgia, left ear; Note: Date Diagnosed : 02/05/2016 12:54 PM (H92.02) Not Available [facility] 4 02:35:15 Acute serous otitis media of left ear 66249969652 37409 Active 2015 Acute serous otitis media, left ear; Note: Date Diagnosed : 02/05/2016 12:54 PM (H65.02) Not Available [facility] hospital 4 02:35:23 Bilateral disorder of Eustachia n tubes 78707341868 07611 Active 2015 Other specified disorders of Eustachia n tube, bilateral ; Note: Date Diagnosed : 02/05/2016 12:54 PM (H69.83) Not Available [facility] hospital 4 02:35:19 Acute sinusitis 84565471 Active 2015 Other acute sinusitis ; Note: Date Diagnosed : 02/05/2016 12:54 PM (J01.80) SAMINA ROWE RN 100 [facility], [place], [address] , [facility] - [facility] 5 14:30:56 Allergic rhinitis 60745106 Active 2015 Perennial allergic rhinitis; Note: Date Diagnosed : 03/24/2016 5:16 AM (J30.89) Not Available Critical access hospital 4 02:35:10 Dizziness and giddiness 684697547 Active 2020 Dizziness and giddiness ; Note: Date Diagnosed : 02/04/2021 10:21 AM (R42) Not Available [facility] hospital 4 02:35:15 Chronic sinusitis 13740792 Active 2020 Other chronic sinusitis ; Note: Date Diagnosed : 02/04/2021 10:22 AM (J32.8) Not Available Critical access hospital 4 02:35:13 Headache disorder 639856973 Active 2024 MEME CHAMPAGNE MD [address] [place] [address],[place] [address], [place], [address] , [facility] - [facility] 5 11:53:58 Perennial allergic rhinitis 784921248 Active 2024 MEME CHAMPAGNE MD [address] [place] [address],[place] [address], [place], [address] , [facility] - [facility] [place] 5 11:54:14 Migraine variants 941694805 Active 2024 HEIDI COELLO PA-C [address] [place] [address],[place] [address], [place], [address] , [facility] - [facility] 5 12:54:46 Vertigo 428020658 Active 2024 SANTO SHIPMAN MA, CCC-A [address] [facility],[place] [address], [place], [address] , [facility] - [facility] 5 16:06:50 Bilateral temporoma ndibular joint pain 54881137188 923029 Active 2024 Roland Lowery DO [address] [place] [address],[place] [address], [place], [address] , [facility] - [facility] [place] 5 16:12:11 Problem Notes None recorded. Procedures Surgical History Date Name Laterality Status Provider Name and Address Organization Details Recorded Time 06/26/20 25 Air & Speech Audio with Tymps - 06446, 68127 & 03552 completed SANTO SHIPMAN MA, CCC-A [address] [facility],[place] [address], [place], [address], [facility] 06/26/2025 16:08:03 04/24/20 25 Allergy Testing-Full completed SAMINA ROWE RN [address] [facility],[place] [address], [place], [address], [facility] 04/24/2025 14:28:55 10/13/20 24 Air & Speech Audio with Tymps - 83878, 53857 & 55040 completed JAVIER KHANNA [address] [facility],[place] [address], [place], [address], [facility] 10/13/2024 13:30:43 cholecystectomy completed ISACC KELLY MD 100 [facility],[address], [address], [facility] 10/16/2024 11:21:02 Imaging Results None recorded. Procedure Notes None recorded. Medical Equipment None Reported. Allergies Allergen ID Allergen Name Allergen Category Reaction Reaction Severity Criticality Documentation Date Start Date Code Code System Note Provider Name and Address Organization Details Recorded Time 185092 codeine sulfate medicatio n Not available Not available Not available 04/05/2024 59524 RxNorm React ion: unspe cifie d, dizzy , Nause a; Not Available [facility] 4 01:13:13 Medications Name Sig Start Date [...] by mouth 10/13 completed Medicati on ID: [id number] D uration Value: 14 Prescri bed By [...] eye drops 10/13 completed Medicati on ID: 427415 B rand Name: ketotife n fumarate Send [...] mg tablet 10/12 completed Medicati on ID: 127614 B rand Name: terbinaf ine HCl Send [...] mg capsule 04/03 completed Medicati on ID: 102863 B rand Name: cephalex in Send Method: E-Prescr ibed Sub s Allowed: subs OK Speci al Instruct ion: TAKE 1 CAP (500 MG) BY MOUTH EVERY 12 HOURS 10 DAYS Med icationG enericNa me: cephalex in Not Available Not Available Not Available clotrimaz ole-betam ethasone 1 %-0.05 % topical cream 04/03 completed Medicati on ID: 495301 B rand Name: clotrima zole-bet amethaso ne [...] elayed release 01/14 completed Medicati on ID: 729641 D uration Value: 30 Brand Name: omeprazo le Send Method: E-Prescr ibed Sub s Allowed: subs OK Medic ationGen ericName : omeprazo le Not Available Not Available Not Available Banophen 25 mg capsule 04/10 completed Medicati on ID: 212589 B rand Name: Banophen Send Method: E-Prescr [...] mg tablet 10/13 completed Medicati on ID: 598491 D uration Value: 30 Brand Name: monteluk [...] as directed 10/13 completed Medicati on ID: 622990 D uration Value: 30 Brand Name: azelasti [...] mg tablet 04/03 completed Medicati on ID: 264208 B rand Name: Ativan S end Method: [...] topical cream 10/13 completed Medicati on ID: 231833 B rand Name: Athlete' s Foot (terbina [...] both nostrils 10/13 completed Medicati on ID: [id number] D uration Value: 30 Prescri bed By [...] Updated DateTime 5 170.18 cm 30.5 kg/m2 96618.5 1 g 98 % 114 /min 121/85 mm[Hg] SAMINA ROWE RN [address] [place] [address], [place], [address], [place] - [facility] 13:05:54 Date Recorded Body height Body mass index (BMI) Body weight Provider Name and Address Organization Details Last Updated DateTime 06/28/2025 170.18 cm 30.5 kg/m2 03659.51 g Mamadou Gamboa [place] - [facility] 06/28/2025 15:47:30 Date Recorded Body height Body mass index (BMI) Body weight Provider Name and Address Organization Details Last Updated DateTime 08/01/2025 170.18 cm 31.3 kg/m2 72779.47 g Kelli Jorge L [place] - [facility] 08/01/2025 13:28:55 Date Recorded Body height Body mass index (BMI) Body weight Heart rate Systolic And Diastolic Provider Name and Address Organization Details Last Updated DateTime 08/21/2025 170.18 cm 32.9 kg/m2 90225.4 g 114 /min 129/82 mm[Hg] SAMINA ROWE RN [address] [place] [address], [place], [address] , [place] - [facility] 08/21/2025 14:46:40 Social History Question Answer Notes LastModified by Organizat ion Details LastModified Time Tobacco Smoking Status Current Every Day Smoker ISACC KELLY MD [address] [place] [address], [address], [facility] - [facility] 10/16/2024 11:20:48 What Is Your Current Pack [...] ICD10 Code Diagnosis IMO Codes Diagnosis Note [id number] ISACC KELLY MD [facility] [address] [address] 10/13/2024 13:11:10 10/13/2024 14:01:34 Dizziness and giddiness 252128601 R42 Right Ear:Normal hearing with excellent speech discrimina tion.Type A tympanogra m.Left Ear:Normal hearing with excellent speech discrimina tion.Type A tympanogra m. Allergic rhinitis 488481 04 J30.89 [id number] HEIDI COELLO PA-C [facility] [address] [address] 04/10/2025 10:58:05 04/10/2025 12:01:42 Headache disorder 470401700 G44.89 5824225 Perennial allergic rhinitis 565963241 J30.89 674764 Migraine variants 742429 005 G43.809 32049850 44513 SAMINA ROWE RN Allergy [address] [place] [address] 04/24/2025 12:47:37 04/24/2025 14:30:32 Allergic rhinitis 17557644 J30.89 Perennial allergic rhinitis 380879885 J30.89 427579 34361 BURAK OLIVA PA-C [facility] [address] [address] 08/01/2025 13:25:59 08/01/2025 13:52:02 Allergic rhinitis 70699573 J30.89 [id number] Roland Lowery DO [facility] [address] [address] 06/26/2025 15:32:45 06/26/2025 16:15:55 Vertigo 242390244 R42 89967 Audiologic al evaluation results: Right ear: Normal hearing with excellent word recognitio n. Left ear: Normal hearing with excellent word recognitio n. Tympanomet ry: Right Ear:Type A Left Ear:Type A Bilateral tinnitus 08392 48472 102 H93.13 446128 [id number] Roland Lowery, [facility] [address] [place] [address] 06/28/2025 15:34:10 06/28/2025 16:16:35 Headache disorder 532309876 G44.89 5215840 Perennial allergic rhinitis 212313432 J30.89 406864 Migraine variants 842664 005 G43.809 04673558 Bilateral temporomandibular joint pain 8080823239 9507883 M26.623 [id number] 18049 SAMINA ROWE RN Allergy [address] [place] [address] [place] [address] 08/21/2025 14:24:23 08/21/2025 15:40:21 Acute sinusitis 42092170 J01.80 Health Concerns Section Related Observation LastModified by Organization Detai ls LastModified Time None Recorded Concern Status LastModified by Organization Details LastModified Time None Recorded Advance Directives Directive None Recorded Payers Insurance Date Sequence Insurance Name Policy Number Policy Montero Covered Member ID Montero Member ID Guarantor Name 08/18/2025 1 [employer] - HEALTH NET PLAN (MEDICAID HMO) CYNDY Frost [id number] Lucie Frost Notes Date Note Type Note [...] for breakthrough symptoms. Roland Lowery DO 100 [facility],[address], [address], [place] - [facility] 06/28/2025 16:29:54 08/01/2025 text/html ROS as noted in the HPI 45yo female with history of migraine and TMJ presents for allergy test results. She has moderate sensitivities to weeds, grass, cats, dogs, and mold. She endorses having multiple cats and dogs at home. Continues to endorse dizziness, nasal congestion, facial pain, photophobia, and hyperacusis. No improvement with edkj-qgb-rafgqom allergy medication. CT sinus 03/2025 normal. She was evaluated by a vestibular physical therapist, who does not suspect benign paroxysmal positional vertigo. She is scheduled to follow up with orthopedic surgeon for neck and shoulder pain next month, which she suspects is exacerbating her headaches. She is followed by neurology at [facility], and feels her symptoms are unrelated to her underlying migraine. History of severe migraines, starting at 6 years old. She has status post shoulder reconstruction, with subsequent pain. UGO TY MD 100 [facility],[address], [address], [facility] - [facility] 08/01/2025 17:46:54 08/21/2025 text/html Patient with a history of allergic rhinitis presents to initiate sublingual immunotherapy. The patient has brought an epipen to today's visit as instructed. Proper consents were obtained and signed by the patient prior to the visit.Patient with elevated pulse rate. Reviewed with Dr. Busch who authorized proceeding with visit. SAMINA ROWE RN [address] [place] [address], [place], [address], [place] - [facility] 08/21/2025 15:40:25 OBGyn Episode No OBEpisode recorded.
--- OUTSIDE RECORDS SUMMARY | 2025-11-13 17:59 | XMS_ITS | Encounter Summary ---
Author Organization [facility] Address [address] [place] [address] Phone Care Team Providers Care Brownfield Redevelopment Specialist Name Role Phone Alexis Whyte MD Primary Care Provider Pcp, Unknown Primary Care Provider Unavailabl e Alexis Whyte MD Primary Care Provider Encounter Details Date Type Department Care Team (Late st Contact Info) Description 2021 Transcribe Orders [facility] Outpatient Care, Radio Flouroscopy [address] [place] [address] [email or web address] Social History Tobacco Use [...] on filedocumented in this encounter Care Teams Brownfield Redevelopment Specialist Relationship Specialty Start Date End Date Alexis [...]
--- OUTSIDE RECORDS SUMMARY | 2025-11-13 17:59 | XMS_ITS | Clinical Summary ---
Author Organization [facility] Address [address] [place] [address] Phone Care Team Providers Care Customer Engagement Specialist Name Role Phone Alexis Whyte MD [...] Medical Devices Not on file Insurance [place] [address] [employer] [address] [place], [place] [id number] [place] [address] [address] [address] [employer] [id number] [place] [address] [place] [address] [facility]CO [facility] [place] [address] [address] [place] [address] Care Teams Customer Engagement Specialist Relationship Specialty Start Date End Date Alexis Whyte MD PCP - General Family Medicine 03/13/22 Additional Source Comments The information contained in this document represents components of the legal health record. It is not the complete legal health record.[facility]
--- OUTSIDE RECORDS SUMMARY | 2025-11-13 17:59 | XMS_ITS | Data Portability ---
Author Organization [facility] [address] Address [address] [place] [address] Assessment No assessment recorded. Plan of Treatment Reminders Order Date Submit Date Provider Last Modified By Organization Details Last Modified Time Details Appointments None record ed. Lab None record ed. Referral None record ed. Procedures None record ed. Surgeries None record ed. Imaging XR, foot, 3 or more view 023 12/19/19 [facility], [address] [place], [address], 18:49:37 Medication Orders None record ed. Patient TargetsNo targets recorded. Patient Instructions Encounter Date Encounter Id Patient Instructions Last Modified By Organization Details Last Modified Time 12/19/2022 [id number] learning about rice (rest, ice, compression, and elevation) [email or web address] Not available 12/19/2022 17:22:07 Reason for Referral None Reported. Results Created Date Observation Date Name Description Value Unit Range Abnormal Flag Note LastModifiedBy Organization Detail LastModifiedTime 12/19/19 23 12/19/2022 XR, foot, 3 or more view No observ ation record ed. [email or web address] [facility] [address] [place], [address], 12/19/2022 19:56:02 Result Notes None recorded. Problems Name Problem SNOMED Code Status Onset Date Resolution Date Notes Provider Name and Address Organization Details Recorded Time Depressive disorder 07754035 Active 023 Sharee Carlos sk[place], [place] - [facility] 17:08:42 Anxiety 06979032 Active 023 Sharee Carlos null, [place] - [facility] 3 17:08:47 Seasonal allergic rhinitis 131213325 Active 023 Sharee Gonzalez null, [place] - [facility] 3 17:08:53 Migraine 62818172 Active 023 Sharee Gonzalez null, [place] - [...] Name and Address Organization Details Recorded Time 351908 codeine medicatio n hives Not available low [...] Updated DateTime 3 167.64 cm 29.1 kg/m2 27044.6 3 g 97 % 102 /min 20 /min 98.1 [degF] 114/84 mm[Hg] Sharee Gonzalez [place] - [facility] 3 17:11:32 Social History Question Answer Notes LastModified by [employer] Details LastModified Time Tobacco Smoking Status Current Every Day Smoker Sharee skaggs [place] - [facility] 12/19/2022 17:09:11 Have You Had Direct Contact, Or Contact During Intimacy, With Monkeypox Rash, Scabs, Or Body Fluids From A Person With Monkeypox? No Information not available 12/19/2022 How Much Tobacco Do You Smoke? 0.5 PPD Information not available 12/19/2022 Have You Recently Traveled Abroad? No Information not available 12/19/2022 Sex: Unknown Functional Status Question Answer Note LastModified by [employer] Details LastModified Time Do you use any [...] rS-Ad26, PF, 0.5 mL 1 completed Sharee Schriever null, [place] - [facility] 12/19/2022 17:06:17 Influenza, split virus, trivalent, preservative 5 completed Sharee Schriever null, [place] - [facility] 12/19/2022 17:06:17 Past Encounters Encounter ID Performer Location Encounter Start Date Encounter Closed Date Diagnosis/Indication Diagnosis SNOMED-CT Code Diagnosis ICD10 Code Diagnosis IMO Codes Diagnosis [id number] [facility] [address] [address] 07/20/2019 18:46:11 07/20/2019 19:49:41 [id number] _[facility] _[place] [address] [address] 07/25/2022 16:52:51 07/25/2022 18:52:42 [id number] 2099_[facility] _[place]es [address] [address] 07/24/2019 17:41:55 07/24/2019 19:00:46 [id number] Daniele Lynne DO _[place] [address] [address] 12/19/2022 16:10:49 12/19/2022 17:48:15 Pain in left foot 4657797460 68796 M79.672 foot sprain. No obvious Fx on [...] HEALTH NET PLAN (MEDICAID HMO) CYNDY Frost [id number] Lucie Frost Notes Date Note Type Note [...] Lynne, DO [address] [place], [place], [address], [place] - [facility] 12/19/2022 17:41:12 OBGyn Episode No OBEpisode recorded.
--- OUTSIDE RECORDS SUMMARY | 2025-11-13 17:59 | XMS_ITS | Encounter Summary ---
Author Organization [facility] Address [address] [place] [address] Phone Care Team Providers Care Weather Algorithm Scientist Name Role Phone Alexis Whyte MD Primary Care Provider Alexis Whyte MD Primary Care Provider Pcp, Unknown Primary Care Provider Unavailabl e Alexis Whyte MD Primary Care Provider Encounter Details Date Type Department Care Team (Late st Contact Info) Description 02/15/2021 Transcribe Orders [facility] Outpatient Care, Radio Flouroscopy [address] [place] [address] Anastasia Maher [address] [place] [phone] [email or web address] Social History Tobacco Use Types Packs/Day Years [...] on filedocumented in this encounter Care Teams Weather Algorithm Scientist Relationship Specialty Start Date End Date Alexis [...] is not the complete legal health record.[facility]
--- OUTSIDE RECORDS SUMMARY | 2025-11-13 17:59 | XMS_ITS | Clinical Summary ---
Author Organization [facility] Address [address] [place] [address] Care Team Providers Care Fisher Dip Net Name Role Phone Alexis Whyte MD Unavailable [phone] Alexis Whyte MD Primary Care Provider [phone] Jostin Herrera MD Unavailable [phone] Allergies Active Allergy Reactions Criticality Noted Date Comments Codeine GI Intolerance,Hives 09/08/2023 Severity: Moderate; Ingredients: CODEINE; Type: Drug; Medications oxyCODONE (ROXICODONE) 5 MG immediate release tablet 1-2 tablet(s) by mouth every four (4) hours as needed for pain. Patient may request a partial fill of this prescription . 30 tablet 0 09/23/2023 Active OMEPRAZOLE ORAL Take 1 tablet by mouth daily. Active acetaminophen (TYLENOL) 500 MG tablet Take 2 tablets (1,000 mg total) by mouth every 8 hours. Active aspirin 81 MG EC tablet Take 1 tablet (81 mg total) by mouth daily. Active atorvaSTATin (LIPITOR) 20 MG tablet Take 1 tablet (20 mg total) by mouth at bedtime. Active cephalexin (KEFLEX) 500 mg capsule Take 1 capsule (500 mg total) by mouth every 6 hours. Active diphenhydrAMINE (BENADRYL) 25 mg capsule Take 1 capsule (25 mg total) by mouth at bedtime. Active fluticasone propionate (FLONASE) 50 mcg/actuation nasal spray 1 spray into each nostril daily. Active levocetirizine (XYZAL) 5 MG tablet Take 1 tablet (5 mg total) by mouth daily. Active LORazepam (ATIVAN) 1 MG tablet Take 1 tablet (1 mg total) by mouth daily. Active magnesium 200 mg Tab Take 1 tablet (200 mg total) by mouth daily. Active meclizine (ANTIVERT) 25 mg tablet Take 1 tablet (25 mg total) by mouth daily. Active melatonin 5 mg Tab Take 1 tablet (5 mg total) by mouth at bedtime. Active propranoloL (INDERAL) 20 MG tablet Take 1 tablet (20 mg total) by mouth daily as needed. Active sertraline (ZOLOFT) 100 MG tablet Take 1 tablet (100 mg total) by mouth every morning & every evening. Active sucralfate (CARAFATE) 1 gram tablet Take 1 tablet (1 g total) by mouth 4 times a day. Active traZODone (DESYREL) 50 MG tablet Take 1 tablet (50 mg total) by mouth at bedtime. Active Active Problems Problem Noted Date Diagnosed Date Injury of left shoulder 09/23/2022 Social History Tobacco Use Types Packs/Day Years Used Date Smoking Tobacco: Never Assessed Comments Unknown Sex and Gender Information Value Date Recorded Sex Assigned at Female 05/06/2024 2:13 PM EDT Legal Sex Female 11:17 PM EST Gender Identity Unable to obtain 01/08/2024 2:35 AM EST Sexual Orientation Not on file Last Filed Vital Signs Vital Sign Reading Time Taken Comments Blood Pressure 122/82 08/11/2024 12:30 PM EDT Pulse 106 08/11/2024 12:30 PM EDT Temperature - - Respiratory Rate - - Oxygen Saturation 97% 08/11/2024 12:30 PM EDT Inhaled Oxygen Concentration - - Weight 83.9 kg (185 lb) 09/08/2023 3:44 PM EDT Height 170.2 cm (5' 7 ) 09/08/2023 3:44 PM EDT Body Mass Index 28.97 09/08/2023 3:44 PM EDT Plan of Treatment Health Maintenance Due Date Last Done Comments Lipid Panel 1982 Depression Screening 1994 Hepatitis C Screening 2000 Pap Smear 2003 Cervical Cancer Screening 2012 HPV/Cotest 2012 Breast Cancer Screening 2022 COVID-19 Vaccine (3 - 2024-2 6 season) 2025 10/23/2021, 02/27/2021 Influenza Vaccine (#1) 2025 08/08/2015 Blood Pressure 08/11/2025 08/11/2024 DTaP,Tdap,and Td Vaccines (2 - Td or Tdap) 04/14/2034 04/14/2024 Meningococcal B Vaccines Aged Out No longer eligible based on patient's age to complete this topic Meningococcal Vaccines Aged Out No lo nger eligible based on patient's age to complete this topic Pneumococcal Vaccine Aged Out No long er eligible based on patient's age to complete this topic Insurance [facility] [place] [address] [place] [address] [facility] [employer] One FinancialINTERMOUNTAIN HE[facility] WOR[employer]IDE [employer]WORK[employer] COMPENSATION [employer] Care Teams Fisher Dip Net Relationship Specialty Start Date End Date Alexis Whyte MD PCP - Insurance Assigned PCP 02/12/24 Alexis Whyte MD PCP - General Family Practice 05/05/24 Jostin Herrera MD [address] [place] [address] [address] [place] [address] Orthopedic Surgery 01/09/23
--- OUTSIDE RECORDS SUMMARY | 2025-11-13 17:59 | XMS_ITS | Encounter Summary ---
Author Organization [facility] Address [address] [place] [address] Phone Care Team Providers Care Banquet Server Name Role Phone Alexis Whyte MD Primary Care Provider Alexis Whyte MD Primary Care Provider Pcp, Unknown Primary Care Provider Unavailabl e Alexis Whyte MD Primary Care Provider Encounter Details Date Type Department Care Team (Late st Contact Info) Description 01/09/2021 Transcribe Orders [facility] Outpatient Care, Radio Flouroscopy [address] [place] [address] Gricel Nicholson [address] [place] [phone] [email or web address] Social History Tobacco Use Types Packs/Day Years [...] on filedocumented in this encounter Care Teams Banquet Server Relationship Specialty Start Date End Date Alexis [...] It is not the complete legal health record.[facility]
--- OUTSIDE RECORDS SUMMARY | 2025-11-13 17:59 | XMS_ITS | Encounter Summary ---
Author Organization [facility] Address [address] [place] [address] Phone Care Team Providers Care Window Installation Subcontractor Name Role Phone Alexis Whyte MD Primary Care Provider Pcp, Unknown Primary Care Provider Unavailabl e Alexis Whyte MD Primary Care Provider Encounter Details Date Type Department Care Team (Late st Contact Info) Description 07/10/2021 Procedure Pass [facility] Outpatient Care, Radio Flouroscopy [address] [place] [address] Social History Tobacco Use Types Packs/Day Years [...] on filedocumented in this encounter Care Teams Window Installation Subcontractor Relationship Specialty Start Date End Date Alexis Whyte MD PCP - General 07/11/21 02/17/22 Pcp, Unknown PCP - General 02/18/22 03/12/22 Alexis Whyte MD PCP - General Family Medicine 03/13/22 documented as of this encounter Additional Source Comments The information contained in this document represents components of the legal health record. It is not the complete legal health record.[facility]
--- OUTSIDE RECORDS SUMMARY | 2025-11-13 17:59 | XMS_ITS | Continuity of Care Document ---
Author Organization [place] [facility], Allergy Address [address] [address] Care Team Providers Care Building Maintenance Technician Name Role Phone VICENTE WELLS Primary Care [...] Organization Details Last Modified Time Details Appointments [facility]- Allergy f-up 6mon 2025 02:00P M [...] Recorded Time Pain of temporoma ndibular joint 11562997 Active 2014 Arthralgi a of temporoma ndibular joint; Note: Date Diagnosed : 09/27/2015 8:14 PM (M26.62) Not Available [facility] 4 02:35[facility]14 Bilateral recurrent acute serous otitis media of middle ears 06291155914 24835 Active 2014 Acute serous otitis media, recurrent , bilateral ; Note: Date Diagnosed : 09/27/2015 8:14 PM (H65.06) Not Available [facility] 4 02:35:20 Bilateral tinnitus 76198360329 02 Active 2014 Tinnitus, bilateral ; Note: Date Diagnosed : 09/27/2015 8:14 PM (H93.13) SANTO SHIPMAN MA, CCC-A 100 [facility] 100, [place], [address] , [facility] 5 16:07:05 Tobacco user 742600635 Active 2014 Tobacco use; Note: Date Diagnosed : 09/27/2015 8:15 PM (Z72.0) Not Available [facility] hospital 4 02:35:14 Neck pain 41544325 Active 2014 Cervicalg ia; Note: Date Diagnosed : 5 5:08 PM (M54.2) Not Available [facility] 4 02:35:12 Otalgia of left ear 5617857262 Active 2015 Otalgia, left ear; Note: Date Diagnosed : 02/05/2016 12:54 PM (H92.02) Not Available [facility] hospital 4 02:35:15 Acute serous otitis media of left ear 20867064390 59881 Active 2015 Acute serous otitis media, left ear; Note: Date Diagnosed : 02/05/2016 12:54 PM (H65.02) Not Available [facility] hospital 4 02:35:23 Bilateral disorder of Eustachia n tubes 54221984700 29470 Active 2015 Other specified disorders of Eustachia n tube, bilateral ; Note: Date Diagnosed : 02/05/2016 12:54 PM (H69.83) Not Available [facility] hospital 4 02:35:19 Acute sinusitis 50460389 Active 2015 Other acute sinusitis ; Note: Date Diagnosed : 02/05/2016 12:54 PM (J01.80) SAMINA ROWE RN 100 [facility] 100, [place], [address] , [facility] 5 14:30:56 Allergic rhinitis 24488013 Active 2015 Perennial allergic rhinitis; Note: Date Diagnosed : 03/24/2016 5:16 AM (J30.89) Not Available Critical access hospital 4 02:35:10 Dizziness and giddiness 073429305 Active 2020 Dizziness and giddiness ; Note: Date Diagnosed : 02/04/2021 10:21 AM (R42) Not Available Critical access hospital 4 02:35:15 Chronic sinusitis 28898143 Active 2020 Other chronic sinusitis ; Note: Date Diagnosed : 02/04/2021 10:22 AM (J32.8) Not Available Critical access hospital 4 02:35:13 Headache disorder 669692697 Active 2024 MEME CHAMPAGNE MD [facility] [address], [place], [address] , [place] [facility] 5 11:53:58 Perennial allergic rhinitis 370678834 Active 2024 MEME CHAMPAGNE MD 100 [facility] 100, [place], [address] , [place] [facility] 5 11:54:14 Migraine variants 753403943 Active 2024 HEIDI COELLO PA-C 100 [facility],[place] [address], [place], [address] , [place] [facility] 5 12:54:46 Vertigo 376666906 Active 2024 SANTO SHIPMAN MA, CCC-A [facility],[address], [place], [address] , [place] [facility] 5 16:06:50 Bilateral temporoma ndibular joint pain 85965445540 586368 Active 2024 Roland Lowery DO 100 [facility], [place], [address] , [place] [facility] 5 16:12:11 Problem Notes None recorded. Procedures Surgical History Date Name Laterality Status Provider Name and Address Organization Details Recorded Time 06/26/20 Air & Speech Audio with Tymps - 66186, 95912 & 69957 completed SANTO SHIPMAN MA, CCC-A 100 [facility],[address], [address], [facility] 06/26/2025 16:08:03 04/24/20 25 Allergy Testing-Full completed SAMINA ROWE RN 100 [facility],[address], [address], [facility] 04/24/2025 14:28:55 10/13/20 24 Air & Speech Audio with Tymps - 07064, 30879 & 25309 completed JAVIER KHANNA 100 [facility],[address], [address], [facility] 10/13/2024 13:30:43 cholecystectomy completed ISACC KELLY MD 100 [facility],[address], [address], [facility] 10/16/2024 11:21:02 Imaging Results None recorded. Procedure Notes None recorded. Medical Equipment None Reported. Allergies Allergen ID Allergen Name Allergen Category Reaction Reaction Severity Criticality Documentation Date Start Date Code Code System Note Provider Name and Address Organization Details Recorded Time 326558 codeine sulfate medicatio n Not available Not available Not available 04/05/2024 79263 RxNorm React ion: unspe cifie d, dizzy , Nause a; Not Available [facility] 01:13:13 Medications Name Sig Start Date [...] by mouth 10/13 completed Medicati on ID: [id number] D uration Value: 14 Prescri bed By [...] eye drops 10/13 completed Medicati on ID: 389352 B rand Name: ketotife n fumarate Send [...] mg tablet 10/12 completed Medicati on ID: [id number] B rand Name: terbinaf ine HCl Send [...] mg capsule 04/03 completed Medicati on ID: [id number] B rand Name: cephalex in Send Method: E-Prescr ibed Sub s Allowed: subs OK Speci al Instruct ion: TAKE 1 CAP (500 MG) BY MOUTH EVERY 12 HOURS 10 DAYS Med icationG enericNa me: cephalex in Not Available Not Available Not Available clotrimaz ole-betam ethasone 1 %-0.05 % topical cream 04/03 completed Medicati on ID: 440091 B rand Name: clotrima zole-bet amethaso ne [...] elayed release 01/14 completed Medicati on ID: 359674 D uration Value: 30 Brand Name: omeprazo le Send Method: E-Prescr ibed Sub s Allowed: subs OK Medic ationGen ericName : omeprazo le Not Available Not Available Not Available Banophen 25 mg capsule 04/10 completed Medicati on ID: [id number] B rand Name: Banophen Send Method: E-Prescr [...] mg tablet 10/13 completed Medicati on ID: [id number] D uration Value: 30 Brand Name: monteluk [...] as directed 10/13 completed Medicati on ID: 950636 D uration Value: 30 Brand Name: azkadensti [...] mg tablet 04/03 completed Medicati on ID: [id number] B rand Name: Ativan S end Method: [...] topical cream 10/13 completed Medicati on ID: [id number] B rand Name: Athlete' s Foot (terbina [...] both nostrils 10/13 completed Medicati on ID: [id number] D uration Value: 30 Prescri bed By [...] Updated DateTime 08/21/2025 170.18 cm 32.9 kg/m2 68383.4 g 114 /min 129/82 mm[Hg] SAMINA ROWE RN 100 [facility],[place] [address], [facility] [place], [address] , [place] - [facility] 08/21/2025 14:46:40 Social History Question Answer Notes LastModified by Organizat ion Details LastModified Time Tobacco Smoking Status Current Every Day Smoker ISACC KELLY MD 100 [facility],[place] [address], [place], [address], [facility] - [facility] 10/16/2024 11:20:48 What Is Your Current [...] ICD10 Code Diagnosis IMO Codes Diagnosis Note [id number] BURAK OLIVA PA-C [facility] [address] [place] [address] 08/01/2025 13:25:59 08/01/2025 13:52:02 Allergic rhinitis 88657222 J30.89 [id number] SAMINA ROWE RN Allergy 100 [facility] ite [address] [place] [address] [place] [address] 08/21/2025 14:24:23 08/21/2025 15:40:21 Acute sinusitis 47817886 J01.80 Health Concerns Section Related Observation LastModified by Organization Detai ls LastModified Time None Recorded Concern Status LastModified by Organization Details LastModified Time None Recorded Payers Encounter Date Sequence Insurance Name Policy Number Policy Montero Covered Member ID Montero Member ID Guarantor Name 08/21/2025 1 [facility] NET PLAN (MEDICAID HMO) CYNDY Lucie Frost [id number] Lucie Frost Notes Date Note Type Note [...] authorized proceeding with visit. SAMINA ROWE RN [address] [place] [address], [phone], [place] [facility] 08/21/2025 15:40:25 OBGyn Episode No OBEpisode recorded.
--- OUTSIDE RECORDS SUMMARY | 2025-11-13 17:59 | XMS_ITS | Encounter Summary ---
Author Organization [facility] Address [address] [place] [address] Care Team Providers Care Rolloff Truck Driver Name Role Phone Alexis Whyte MD Unavailable [phone] Alexis Whyte MD Primary Care Provider [phone] Jostin Herrera MD Unavailable [phone] Reason for Referral * Diagnostic Imaging (Routine) - Closed Specialty Diagnoses / Procedures Referred By Lazaro t Referred To Contact Diagnoses Left shoulder pain, unspecified chronicity Procedures XR Shoulder 2+ VW Left Isaac Casper PA [address] [place] [address] Phone: tel: fax: Referral ID Status Reason Start Date Expiration Date Visits Re quested Visits Authorized [id number] Closed 08/11/2024 11/04/2025 1 1 Encounter Details Date Type Department Care Team (Late st Contact Info) Description 08/08/2024 Transcribe Orders [facility] Orthopedics (Adult Specialties) [address] [place] [address] Isaac Casper PA [address] [place] [address] Left shoulder pain, unspecified chronicity (Primary Dx) Social History Tobacco Use Types Packs/Day Years Used Date Smoking Tobacco: Never Assessed Comments Unknown Sex and Gender Information Value Date Recorded Sex Assigned at Female 05/06/2024 2:13 PM EDT Legal Sex Female 11:17 PM EST Gender Identity Unable to obtain 01/08/2024 2:35 AM EST Sexual Orientation Not on file documented as of this encounter Plan of Treatment Not on file documented as of this encounter Results * XR Shoulder 2+ VW Left (08/11/2024 11:49 AM EDT) Anatomical Region Laterality Modality Shoulder Left Digital Radiogra phy 08/11/2024 2:47 PM EDT Narrative 08/11/2024 2:46 PM EDT EXAMINATION: XR SHOULDER 2+ VW LEFT INDICATION: L Shoulder Pain; TECHNIQUE: AP, Grashey, axillary, and scapular Y-views of the left shoulder COMPARISON: For 18 December 2023 FINDINGS: There is mild joint space narrowing at the glenohumeral joint. There has been prior partial resection of the distal clavicle with widening of the acromioclavicular joint distance to 2 cm, similar to prior. There is evidence of prior biceps tenodesis. There is no fracture, dislocation, or evidence of bone destruction. The imaged parts of the left lung are clear. Ingrid Gutierrez MD, electronically signed on Aug 11 2024 02:46PM Procedure Note Ingrid Gutierrez MD - 08/11/2024 EXAMINATION: XR SHOULDER 2+ VW LEFT INDICATION: L Shoulder Pain; TECHNIQUE: AP, Grashey, axillary, and scapular Y-views of the left shoulder COMPARISON: For 18 December 2023 FINDINGS: There is mild joint space narrowing at the glenohumeral joint. There hasbeen prior partial resection of the distal clavicle with widening of theacromioclavicular joint distance to 2 cm, similar to prior. There isevidence of prior biceps tenodesis. There is no fracture, dislocation, or evidence of bone destruction. Theimaged parts of the left lung are clear. Ingrid Gutierrez MD, electronically signed on Aug 11 2024 02:46PM Isaac BARRIOS IMG DIAGNOSTIC IMAGING ORD ERABLES Final Result documented in this encounter Visit Diagnoses Diagnosis Left shoulder pain, unspecified chronicity- Primary Left shoulder pain, unspecified chronicity documented in this encounter Care Teams Rolloff Truck Driver Relationship Specialty Start Date End Date Alexis Whyte MD PCP - Insurance Assigned PCP 02/12/24 Alexis Whyte MD PCP - General Family Practice 05/05/24 Jostin Herrera MD [address] [place] [address] [address] [place] [address] Orthopedic Surgery 01/09/23 documented as of this encounter
== END 2025-11-13 15:15 | disposition home or self-care (01) ==
LOC: HO.HCS 14:43
PROVIDERS: PCP Family Medicine; Visit Provider Internal Medicine
DX: R00.0 Tachycardia, unspecified (principal); I42.9 Cardiomyopathy, unspecified
CPT/HCPCS: 99214

== ENCOUNTER → 2025-11-13 14:42 | Outpatient (BNVA) | payer OTHER, SELFPAY | PROVIDERS: PCP Family Medicine; Visit Provider Internal Medicine | DX: R00.2 Palpitations (principal); R00.0 Tachycardia, unspecified; I42.9 Cardiomyopathy, unspecified; K21.00 Gastro-esophageal reflux disease with esophagitis, without bleeding | CPT/HCPCS: 99212 ==

== ENCOUNTER 2025-11-21 10:54 | Outpatient (REF) | payer OTHER, SELFPAY ==
--- OUTSIDE RECORDS SUMMARY | 2025-11-21 14:48 | XMS_ITS | Encounter Summary ---
Author Organization [facility] Address [address] [place] [address] Phone Care Team Providers Care Residence Manager Name Role Phone Alexis Whyte MD Primary Care Provider Pcp, Unknown Primary Care Provider Unavailabl e Alexis Whyte MD Primary Care Provider Encounter Details Date Type Department Care Team (Late st Contact Info) Description 2021 Transcribe Orders [facility] Outpatient Care, Radio Flouroscopy [address] [place] [address] [email or web address] Social History Tobacco Use [...] on filedocumented in this encounter Care Teams Residence Manager Relationship Specialty Start Date End Date Alexis Whyte MD PCP - General 07/11/21 02/17/22 Pcp, Unknown PCP - General 02/18/22 03/12/22 Alexis Whyte MD PCP - General Family Medicine 03/13/22 documented as of this encounter Additional Source Comments The information contained in this document represents components of the legal health record. It is not the complete legal health record.[facility]
--- OUTSIDE RECORDS SUMMARY | 2025-11-21 14:48 | XMS_ITS | Encounter Summary ---
Author Organization [facility] Address [address] [place] [address] Phone Care Team Providers Care Manager Hair Name Role Phone Alexis Whyte MD Primary Care Provider Alexis Whyte MD Primary Care Provider Pcp, Unknown Primary Care Provider Unavailabl e Alexis Whyte MD Primary Care Provider Encounter Details Date Type Department Care Team (Late st Contact Info) Description 12/07/2020 Procedure Pass [facility] Outpatient Care, Radio Flouroscopy [address] [place] [address] Social History Tobacco Use Types Packs/Day Years [...] filedocumented in this encounter Care Teams Manager Hair Relationship Specialty Start Date End Date Alexis [...]
--- OUTSIDE RECORDS SUMMARY | 2025-11-21 14:48 | XMS_ITS | Data Portability ---
Author Organization [place] - [facility], Allergy Address [address] [address] Care Team Providers Care Sash Installer Name Role Phone VICENTE WELLS Primary Care Provider [phone] Assessment Encounter Date Assessment Date Assessment LastModified [...] [email or web address] Ian Balbuena MD, [address], [place], [address], 07/28/2025 11:44:21 Medication Orders epinephri ne 0.3 mg/0.3 mL injection , auto-inje ctor 2024 025 [id number] [address] [facility], [place], [address], 08/01/2025 14:42:23 Patient TargetsNo targets recorded. Patient Instructions Encounter Date Encounter Id Patient Instructions Last Modified By Organization Details Last Modified Time 04/24/2025 [id number] spirometry testing* [email or web address] Not available 04/24/2025 16:08:34 08/01/2025 [id number] sublingual immunotherapy regimen* [email or web address] Not available 08/09/2025 13:01:55 Reason for Referral None Reported. Results Created Date Observation Date Name Description Value Unit Range Abnormal Flag Note LastModifiedBy Organization Detail LastModifiedTime 04/10/[address], sinus es, w/o contr ast No observ ation record ed. [facility] [place] Ents Of [address], [address], 04/10/2025 11:54:04 04/24/20 25 pura metry testi ng* No observ ation record ed. [email or web address] Not Available 2024 13:15:02 04/26/20 25 04/10/2025 CT, sinus es, w/o contr ast No observ ation record ed. [facility] [place] [facility] Of [address], [address], 04/26/2025 14:23:50 06/26/20 25 audio gram No observ ation record ed. BARCODE Not Available 2024 17:19:19 Result Notes None recorded. Problems Name Problem SNOMED Code Status Onset Date Resolution Date Notes Provider Name and Address Organization Details Recorded Time Pain of temporoma ndibular joint 75419774 Active 2014 Arthralgi a of temporoma ndibular joint; Note: Date Diagnosed : 09/27/2015 8:14 PM (M26.62) Not Available [facility] 4 02:35:14 Bilateral recurrent acute serous otitis media of middle ears 95510712398 07390 Active 2014 Acute serous otitis media, recurrent , bilateral ; Note: Date Diagnosed : 09/27/2015 8:14 PM (H65.06) Not Available [facility] 4 02:35:20 Bilateral tinnitus 35658413501 02 Active 2014 Tinnitus, bilateral ; Note: Date Diagnosed : 09/27/2015 8:14 PM (H93.13) SANTO SHIPMAN [place], [facility] [address] [facility] [address], [place], [address] , [place] [facility] 5 16:07:05 Tobacco user 291207795 Active 2014 Tobacco use; Note: Date Diagnosed : 09/27/2015 8:15 PM (Z72.0) Not Available Pending sale to [facility] 4 02:35:14 Neck pain 57538996 Active 2014 Cervicalg ia; Note: Date Diagnosed : 5 5:08 PM (M54.2) Not Available Pending [facility] to [facility] 4 02:35:12 Otalgia of left ear 1404454336 Active 2015 Otalgia, left ear; Note: Date Diagnosed : 02/05/2016 12:54 PM (H92.02) Not Available Pending [facility] to [facility] 4 02:35:15 Acute serous otitis media of left ear 79232627101 12819 Active 2015 Acute serous otitis media, left ear; Note: Date Diagnosed : 02/05/2016 12:54 PM (H65.02) Not Available Pending sale to [facility] 4 02:35:23 Bilateral disorder of Eustachia n tubes 85686142785 86491 Active 2015 Other specified disorders of Eustachia n tube, bilateral ; Note: Date Diagnosed : 02/05/2016 12:54 PM (H69.83) Not Available Pending [facility] to [facility] 4 02:35:19 Acute sinusitis 52447501 Active 2015 Other acute sinusitis ; Note: Date Diagnosed : 02/05/2016 12:54 PM (J01.80) SAMINA ROWE RN [address] [facility] [address], [place], [address] , [facility] - [facility] 5 14:30:56 Allergic rhinitis 38812140 Active 2015 Perennial allergic rhinitis; Note: Date Diagnosed : 03/24/2016 5:16 AM (J30.89) Not Available [facility]ending [facility] to [facility] 4 02:35:10 Dizziness and giddiness 573072338 Active 2020 Dizziness and giddiness ; Note: Date Diagnosed : 02/04/2021 10:21 AM (R42) Not Available [facility] to [facility] 4 02:35:15 Chronic sinusitis 89887619 Active 2020 Other chronic sinusitis ; Note: Date Diagnosed : 02/04/2021 10:22 AM (J32.8) Not Available Pending [facility] to [facility] 4 02:35:13 Headache disorder 356493295 Active 2024 MEME CHAMPAGNE MD [address] [place] [address],[place] [address], [place], [address] , [facility] - [facility] [place] 5 11:53:58 Perennial allergic rhinitis 643431302 Active 2024 MEME CHAMPAGNE MD [address] [place] [address],[place] [address], [place], [address] , [facility] - [facility] [place] 5 11:54:14 Migraine variants 944221459 Active 2024 HEIDI COELLO PA-C [address] [place] [address],[place] [address], [place], [address] , [facility] - [facility] [place] 5 12:54:46 Vertigo 685566557 Active 2024 SANTO SHIPMAN MA, CCC-A [address] [facility],[place] [address], [place], [address] , [facility] - [facility] [place] 5 16:06:50 Bilateral temporoma ndibular joint pain 76738003876 989113 Active 2024 Roland Lowery DO [address] [place] [address],[place] [address], [place], [address] , [facility] - [facility] [place] 5 16:12:11 Problem Notes None recorded. Procedures Surgical History Date Name Laterality Status Provider Name and Address Organization Details Recorded Time 06/26/20 25 Air & Speech Audio with Tymps - 03637, 85468 & 60940 completed SANTO SHIPMAN MA, CCC-A [address] [facility],[place] [address], [place], [address], [facility] 06/26/2025 16:08:03 04/24/20 25 Allergy Testing-Full completed SAMINA ROWE RN [address] [facility],[place] [address], [place], [address], [facility] 04/24/2025 14:28:55 10/13/20 24 Air & Speech Audio with Tymps - 38176, 29899 & 92765 completed JAVIER KHANNA [address] [facility],[place] [address], [place], [address], [facility] 10/13/2024 13:30:43 cholecystectomy completed ISACC KELLY MD [address] [facility],[address], [address], [facility] 10/16/2024 11:21:02 Imaging Results None recorded. Procedure Notes None recorded. Medical Equipment None Reported. Allergies Allergen ID Allergen Name Allergen Category Reaction Reaction Severity Criticality Documentation Date Start Date Code Code System Note Provider Name and Address Organization Details Recorded Time 881895 codeine sulfate medicatio n Not available Not available Not available 04/05/2024 74343 RxNorm React ion: unspe cifie d, dizzy , Nause a; Not Available [facility] 4 01:13:13 Medications Name Sig Start [...] by mouth 10/13 completed Medicati on ID: 642688 D uration Value: 14 Prescri bed By [...] eye drops 10/13 completed Medicati on ID: 376801 B rand Name: ketotife n fumarate Send [...] mg tablet 10/12 completed Medicati on ID: 804719 B rand Name: terbinaf ine HCl Send [...] mg capsule 04/03 completed Medicati on ID: 358879 B rand Name: cephalex in Send Method: E-Prescr ibed Sub s Allowed: subs OK Speci al Instruct ion: TAKE 1 CAP (500 MG) BY MOUTH EVERY 12 HOURS 10 DAYS Med icationG enericNa me: cephalex in Not Available Not Available Not Available clotrimaz ole-betam ethasone 1 %-0.05 % topical cream 04/03 completed Medicati on ID: 995178 B rand Name: clotrima zole-bet amethaso ne [...] elayed release 01/14 completed Medicati on ID: 054154 D uration Value: 30 Brand Name: omeprazo le Send Method: E-Prescr ibed Sub s Allowed: subs OK Medic ationGen ericName : omeprazo le Not Available Not Available Not Available Banophen 25 mg capsule 04/10 completed Medicati on ID: 841477 B rand Name: Banophen Send Method: E-Prescr [...] mg tablet 10/13 completed Medicati on ID: 489945 D uration Value: 30 Brand Name: monteluk [...] as directed 10/13 completed Medicati on ID: [id number] D uration Value: 30 Brand Name: azelasti [...] mg tablet 04/03 completed Medicati on ID: 772679 B rand Name: Ativan S end Method: [...] topical cream 10/13 completed Medicati on ID: 686340 B rand Name: Athlete' s Foot (terbina [...] both nostrils 10/13 completed Medicati on ID: [id number] D uration Value: 30 Prescri bed By [...] Updated DateTime 5 170.18 cm 30.5 kg/m2 22954.5 1 g 98 % 114 /min 121/85 mm[Hg] SAMINA ROWE RN [address] [place] [address], [place], [address], [place] - [facility] 13:05:54 Date Recorded Body height Body mass index (BMI) Body weight Provider Name and Address Organization Details Last Updated DateTime 06/28/2025 170.18 cm 30.5 kg/m2 60832.51 g Mamadou Gamboa [place] - [facility] 06/28/2025 15:47:30 Date Recorded Body height Body mass index (BMI) Body weight Provider Name and Address Organization Details Last Updated DateTime 08/01/2025 170.18 cm 31.3 kg/m2 56322.47 g Kelli Jorge L [place] - [facility] 08/01/2025 13:28:55 Date Recorded Body height Body mass index (BMI) Body weight Heart rate Systolic And Diastolic Provider Name and Address Organization Details Last Updated DateTime 08/21/2025 170.18 cm 32.9 kg/m2 20570.4 g 114 /min 129/82 mm[Hg] SAMINA ROWE RN [address] [place] [address], [place], [address] , [place] - [facility] 08/21/2025 14:46:40 Social History Question Answer Notes LastModified by Organizat ion Details LastModified Time Tobacco Smoking Status Current Every Day Smoker ISACC KELLY MD [address] [place] [address], [address], [facility] - [facility] 10/16/2024 11:20:48 What Is Your Current Pack [...] ICD10 Code Diagnosis IMO Codes Diagnosis Note [id number] ISACC KELLY MD [facility] [address] [address] 10/13/2024 13:11:10 10/13/2024 14:01:34 Dizziness and giddiness 243535402 R42 Right Ear:Normal hearing with excellent speech discrimina tion.Type A tympanogra m.Left Ear:Normal hearing with excellent speech discrimina tion.Type A tympanogra m. Allergic rhinitis 446443 04 J30.89 [id number] HEIDI COELLO PA-C [facility] [address] [address] 04/10/2025 10:58:05 04/10/2025 12:01:42 Headache disorder 011766006 G44.89 4582640 Perennial allergic rhinitis 208136864 J30.89 742249 Migraine variants 329311 005 G43.809 97658628 [id number] SAMINA ROWE RN Allergy [address] [place] [address] 04/24/2025 12:47:37 04/24/2025 14:30:32 Allergic rhinitis 43524033 J30.89 Perennial allergic rhinitis 895778314 J30.89 108117 [id number] BURAK OLIVA PA-C [facility] [address] [address] 08/01/2025 13:25:59 08/01/2025 13:52:02 Allergic rhinitis 19609690 J30.89 [id number] Roland Lowery DO [facility] [address] [address] 06/26/2025 15:32:45 06/26/2025 16:15:55 Vertigo 855753195 R42 34859 Audiologic al evaluation results: Right ear: Normal hearing with excellent word recognitio n. Left ear: Normal hearing with excellent word recognitio n. Tympanomet ry: Right Ear:Type A Left Ear:Type A Bilateral tinnitus 38987 29369 102 H93.13 856962 37298 Roland Lowery, [facility] [place] [address] [place] [address] 06/28/2025 15:34:10 06/28/2025 16:16:35 Headache disorder 870750997 G44.89 1035856 Perennial allergic rhinitis 385986876 J30.89 547975 Migraine variants 162017 005 G43.809 00103771 Bilateral temporomandibular joint pain 2752085077 5823640 M26.623 80372391 76348 SAMINA ROWE RN Allergy [address] [place] [address] [place] [address] 08/21/2025 14:24:23 08/21/2025 15:40:21 Acute sinusitis 25677723 J01.80 Health Concerns Section Related Observation LastModified by Organization Detai ls LastModified Time None Recorded Concern Status LastModified by Organization Details LastModified Time None Recorded Advance Directives Directive None Recorded Payers Insurance Date Sequence Insurance Name Policy Number Policy Montero Covered Member ID Montero Member ID Guarantor Name 08/18/2025 1 [employer] - HEALTH NET PLAN (MEDICAID HMO) CYNDY Frost [id number] Lucie Frost Notes Date Note Type Note [...] for breakthrough symptoms. Roland Lowery DO [address] [facility],[address], [address], [place] - [facility] [place] 06/28/2025 16:29:54 08/01/2025 text/html ROS as noted in the HPI 45yo female with history of migraine and TMJ presents for allergy test results. She has moderate sensitivities to weeds, grass, cats, dogs, and mold. She endorses having multiple cats and dogs at home. Continues to endorse dizziness, nasal congestion, facial pain, photophobia, and hyperacusis. No improvement with lxdh-edf-tputxbs allergy medication. CT sinus 03/2025 normal. She was evaluated by a vestibular physical therapist, who does not suspect benign paroxysmal positional vertigo. She is scheduled to follow up with orthopedic surgeon for neck and shoulder pain next month, which she suspects is exacerbating her headaches. She is followed by neurology at [facility], and feels her symptoms are unrelated to her underlying migraine. History of severe migraines, starting at 6 years old. She has status post shoulder reconstruction, with subsequent pain. UGO TY MD [address] [facility],[address], [address], [facility] - [facility] 08/01/2025 17:46:54 08/21/2025 text/html Patient with a history of allergic rhinitis presents to initiate sublingual immunotherapy. The patient has brought an epipen to today's visit as instructed. Proper consents were obtained and signed by the patient prior to the visit.Patient with elevated pulse rate. Reviewed with Dr. Busch who authorized proceeding with visit. SAMINA ROWE RN [address] [place] [address], [place], [address], [place] [facility] 08/21/2025 15:40:25 OBGyn Episode No OBEpisode recorded.
--- OUTSIDE RECORDS SUMMARY | 2025-11-21 14:48 | XMS_ITS | Encounter Summary ---
Author Organization [facility] Address [address] [place] [address] Phone Care Team Providers Care Instructor Kindergarten Name Role Phone Alexis Whyte MD Primary Care Provider Alexis Whyte MD Primary Care Provider Pcp, Unknown Primary Care Provider Unavailabl e Alexis Whyte MD Primary Care Provider Encounter Details Date Type Department Care Team (Late st Contact Info) Description 01/22/2021 Procedure Pass [facility] Outpatient Care - Ultrasound [address] [place] [address] Social History Tobacco Use Types Packs/Day Years [...] on filedocumented in this encounter Care Teams Instructor Kindergarten Relationship Specialty Start Date End Date Alexis [...] It is not the complete legal health record.[facility]
--- OUTSIDE RECORDS SUMMARY | 2025-11-21 14:48 | XMS_ITS | Encounter Summary ---
Author Organization [facility] Address [address] [place] [address] Care Team Providers Care Peoplesoft Fscm Developer Name Role Phone Alexis Whyte MD Unavailable [phone] Alexis Whyte MD Primary Care Provider [phone] Jostin Herrera MD Unavailable [phone] Reason for Visit * Reason Onset Date Comments Follow-up 05/18/2024 Encounter Details Date Type Department Care Team (Late st Contact Info) Description 05/18/2024 Telephone [facility] Admitting Department [address] [place] [address] Jostin Herrera MD [address] [place] [address] Follow-up Social History Tobacco Use Types Packs/Day [...] you please give him a call at [phone] documented in this encounter Plan of Treatment Not on file documented as of this encounter Visit Diagnoses Not on filedocumented in this encounter Care Teams Peoplesoft Fscm Developer Relationship Specialty Start Date End Date Alexis Whyte MD PCP - Insurance Assigned PCP 02/12/24 Alexis Whyte MD PCP - General Family Practice 05/05/24 Jostin Herrera MD [address] [place] [address] [address] [place] [address] Orthopedic Surgery 01/09/23 documented as of this encounter
--- OUTSIDE RECORDS SUMMARY | 2025-11-21 14:48 | XMS_ITS | Clinical Summary ---
Author Organization [facility] Address [address] [place] [address] Care Team Providers Care Ferry Boat Captain Name Role Phone Alexis Whyte MD Unavailable [phone] Alexis Whyte MD Primary Care Provider [phone] Jostin Herrera MD Unavailable [phone] Allergies Active Allergy Reactions Criticality Noted Date [...] patient's age to complete this topic Insurance [facility] Buddy [facility]THE [facility] [place] [address] [facility] Cell Med[facility]THE [facility] WORLDWIDE REVECORE-WORKERS COMPENSATION REVECORE-WORKERS COMPENSATION Care Teams Ferry Boat Captain Relationship Specialty Start Date End Date Alexis Whyte MD PCP - Insurance Assigned PCP 02/12/24 Alexis Whyte MD PCP - General Family Practice 05/05/24 Jostin Herrera MD [address] [place] [address] [address] [place] [address] Orthopedic Surgery 01/09/23
--- OUTSIDE RECORDS SUMMARY | 2025-11-21 14:48 | XMS_ITS | Encounter Summary ---
Author Organization [facility] Address [address] [place] [address] Phone Care Team Providers Care Hand Baseball Sewer Name Role Phone Alexis Whyte MD Primary Care Provider Alexis Whyte MD Primary Care Provider Pcp, Unknown Primary Care Provider Unavailabl e Alexis Whyte MD Primary Care Provider Encounter Details Date Type Department Care Team (Late st Contact Info) Description 02/15/2021 Transcribe Orders [facility] Outpatient Care, Radio Flouroscopy [address] [place] [address] Anastasia Maher [address] [place] [phone] [email or web address] Social History Tobacco Use Types [...] on filedocumented in this encounter Care Teams Hand Baseball Sewer Relationship Specialty Start Date End Date Alexis [...] It is not the complete legal health record.[facility]
--- OUTSIDE RECORDS SUMMARY | 2025-11-21 14:48 | XMS_ITS | Encounter Summary ---
Author Organization [facility] Address [address] [facility] [address] [place] [address] Phone Care Team Providers Care Dental Appliance Fixer Name Role Phone Alexis Whyte MD Primary [...] Shadi Diaz Jp, MD Phone: tel: fax: mailto:[email or web address] Referral ID Status Reason Start Date Expiration Date Visits Re quested Visits Authorized [id number] Closed 07/10/2021 08/23/2021 1 1 Encounter Details Date Type Department Care Team (Latest Contact Info) Description 2021 Ancillary Orders [facility] Orthopaedic Surgery Shoulder Service [address] [place] [address], [address]rd Floor, [address] [place] [address] Shadi Diaz Jp, MD [address] [facility] [place] [place] [address] [email or web address] Pain in joint, shoulder region Social [...] region documented in this encounter Care Teams Dental Appliance Fixer Relationship Specialty Start Date End Date Alexis Whyte MD PCP - General 07/11/21 02/17/22 Pcp, Unknown PCP - General 02/18/22 03/12/22 Alexis Whyte MD PCP - General Family Medicine 03/13/22 documented as of this encounter Additional Source Comments The information contained in this document represents components of the legal health record. It is not the complete legal health record.[facility]
--- OUTSIDE RECORDS SUMMARY | 2025-11-21 14:48 | XMS_ITS | Clinical Summary ---
Author Organization [facility] Address [address] [place] [address] Phone Care Team Providers Care Air Chief Marshal Name Role Phone Alexis Whyte MD Primary [...] Medical Devices Not on file Insurance [place] [address] [place] [address] [employer] [place], [place] [id number] [place] [address] [place] [address] [address] [place] [address] [place] [id number] [place] [address] [place] [address] [place] [address] [facility] [place] [address] [place] [address] [place] [address] [place] [address] Care Teams Air Chief Marshal Relationship Specialty Start Date End Date Alexis Whyte MD PCP - General Family Medicine 03/13/22 Additional Source Comments The information contained in this document represents components of the legal health record. It is not the complete legal health record.[facility]
--- OUTSIDE RECORDS SUMMARY | 2025-11-21 14:48 | XMS_ITS | Encounter Summary ---
Author Organization [facility] Address [address] [place] [address] Phone Care Team Providers Care Manufacturing Industrial Engineer Name Role Phone Alexis Whyte MD Primary Care Provider Alexis Whyte MD Primary Care Provider Pcp, Unknown Primary Care Provider Unavailabl e Alexis Whyte MD Primary Care Provider Encounter Details Date Type Department Care Team (Late st Contact Info) Description 12/07/2020 Procedure Pass [facility] for Outpatient Care - MRI [address] [facility], [address]th [place] [address] Social History Tobacco Use Types Packs/Day Years [...] on filedocumented in this encounter Care Teams Manufacturing Industrial Engineer Relationship Specialty Start Date End Date [...]
--- OUTSIDE RECORDS SUMMARY | 2025-11-21 14:48 | XMS_ITS | Encounter Summary ---
Author Organization [facility] Address [address] [place] [address] Phone Care Team Providers Care Proposal Lead Writer Name Role Phone Alexis Whyte MD Primary Care Provider Alexis Whyte MD Primary Care Provider Pcp, Unknown Primary Care Provider Unavailabl e Alexis Whyte MD Primary Care Provider Encounter Details Date Type Department Care Team (Late st Contact Info) Description 01/09/2021 Transcribe Orders [facility] Outpatient Care, Radio Flouroscopy [address] [place] [address] Gricel Nicholson [address] [place] [phone] [email or web address] Social History Tobacco Use Types Packs/Day [...] on filedocumented in this encounter Care Teams Proposal Lead Writer Relationship Specialty Start Date End Date [...] It is not the complete legal health record.[facility]
--- OUTSIDE RECORDS SUMMARY | 2025-11-21 14:48 | XMS_ITS | Encounter Summary ---
Author Organization [facility] Address [address] [place] [address] Phone Care Team Providers Care Neck Fitter Name Role Phone Alexis Whyte MD Primary Care Provider Pcp, Unknown Primary Care Provider Unavailabl e Alexis Whyte MD Primary Care Provider Encounter Details Date Type Department Care Team (Late st Contact Info) Description 07/10/2021 Procedure [facility] Outpatient Care, Radio Flouroscopy [address] [place] [address] Social History Tobacco Use Types Packs/Day Years [...] on filedocumented in this encounter Care Teams Neck Fitter Relationship Specialty Start Date End Date Alexis Whyte MD PCP - General 07/11/21 02/17/22 Pcp, Unknown PCP - General 02/18/22 03/12/22 Alexis Whyte MD PCP - General Family Medicine 03/13/22 documented as of this encounter Additional Source Comments The information contained in this document represents components of the legal health record. It is not the complete legal health record.[facility]
--- OUTSIDE RECORDS SUMMARY | 2025-11-21 14:48 | XMS_ITS | Encounter Summary ---
Author Organization [facility] Address [address] [place] [id number] Care Team Providers Care Street Cleaner Name Role Phone Alexis Whyte MD Unavailable [phone] Alexis Whyte MD Primary Care Provider [phone] Jostin Herrera MD Unavailable [phone] Reason for Referral * Diagnostic Imaging (Routine) - Closed Specialty Diagnoses / Procedures Referred By Lazaro t Referred To Contact Diagnoses Left shoulder pain, unspecified chronicity Procedures XR Shoulder 2+ VW Left Isaac Casper PA [address] [place] [address] Phone: tel: fax: Referral ID Status Reason Start Date Expiration Date Visits Re quested Visits Authorized [id number] Closed 08/11/2024 11/04/2025 1 1 Encounter Details Date Type Department Care Team (Late st Contact Info) Description 08/08/2024 Transcribe Orders [facility] Orthopedics (Adult Specialties) [address] [place] [address] Isaac Casper PA [address] [place] [address] Left shoulder pain, unspecified chronicity (Primary Dx) [...] chronicity documented in this encounter Care Teams Street Cleaner Relationship Specialty Start Date End Date Alexis Whyte MD PCP - Insurance Assigned PCP 02/12/24 Alexis Whyte MD PCP - General Family Practice 05/05/24 Jostin Herrera MD [address] [place] [address] [address] [place] [address] Orthopedic Surgery 01/09/23 documented as of this encounter
[2025-11-21 16:09] LABS: Alanine Aminotransferase 35 U/L (0-31); Albumin Level 4.4 g/dL (3.5-5.0); Alkaline Phosphatase 90 U/L (39-117); Anion Gap 13 (12-20); Aspartate Amino Transferase 28 U/L (5-31); Blood Urea Nitrogen 11 mg/dL (9-16); Calcium 9.4 mg/dL (8.4-10.2); Carbon Dioxide 22 mmol/L (22-29); Chloride 109 mmol/L (96-108); Cholesterol 149 mg/dL (<200); Estimated Glomerular Filt Rate > 60; HDL Cholesterol 36 mg/dL (>40); Potassium 4.4 mmol/L (3.3-5.1); Sodium 140 mmol/L (135-145); Total Protein 7.2 g/dL (6.5-8.0); Triglycerides 147 mg/dL (<150)
== END 2025-11-21 10:55 | disposition home or self-care (01) ==
LOC: HO.WFDLDS 10:54
PROVIDERS: Visit Provider Family Medicine
DX: Z00.00 Encounter for general adult medical examination without abnormal findings (principal); R73.01 Impaired fasting glucose; E78.00 Pure hypercholesterolemia, unspecified; R74.01 Elevation of levels of liver transaminase levels
CPT/HCPCS: 36415; 80053; 80061; 83036